=== PATIENT | male | born 1935 | race Caucasian/White ===

== ENCOUNTER 2017-11-24 22:01 | Observation (INO) | payer OTHER, MEDICARE ==
--- NOTE | 2017-11-24 22:05 | PDOC ---
History of Present Illness - General Chief Complaint: Shortness of Breath Stated Complaint: DIFF BREATHING Time Seen by Provider: 11/24/17 22:05 History Source: Patient, EMS Exam Limitations: No Limitations - History of Present Illness Initial Comments: 11/24/17 22:26 82M PMH of Raghavendra Page on coumadin, BPH, HLD, Hypothyroidism, anxiety, asthma, crohn' s, presents to the ER via EMS for shortness of breath. Patient states he had bronchial thermoplasty in 2012 for asthma and states he feels like he had trouble catching his breath. He states every night and every morning he takes pulmicort and albuterol nebulizer even though he hasn't really needed it in the past 3 years. Today he went to dinner and came home took his treatments and after a few minutes started to get short of breath. He had some hypotension earlier today and some lightheadedness. He currently denies nausea vomiting fever chills chest pain or shortness of breath. He endorses a cough for the past few weeks without sputum production. His partner endorses his left leg may be a bit more swollen than usual. Patient felt better upon presentation to the ED and by the time EMS arrived to the scene. Recent travel:No Smoking: Former smoker quit 1979 Alcohol: None Drugs: None Past History - Travel Traveled outside of the country in the last 30 days: No Close contact w/someone who was outside of country & ill: No - Past Medical History Allergies/Adverse Reactions: Allergies Allergy/AdvReac Type Severity Reaction Status Date / Time No Known Drug Allergies Allergy Verified 11/24/17 22:23 Home Medications: Ambulatory Orders Budesonide [Pulmicort] 0.5 mg IH BID 06/30/11 Rosuvastatin [Crestor -] 10 mg PO HS 06/30/11 Warfarin Na [Coumadin] 4 mg PO HS 06/30/11 Albuterol Sulfate Inhaler - [Ventolin HFA Inhaler -] 2 inh IH PRN PRN 01/15/12 Digoxin [Lanoxin -] 0.125 mg PO DAILY #30 tablet 01/31/13 Prednisolone 0.12% Ophthalmic [Pred Mild 0.12% -] 1 drop OD DAILY 09/30/15 Vit C/E/Zn/Coppr/Lutein/Zeaxan [Preservision Areds 2 Softgel] 1 each PO HS 09/29 Diltiazem Cd [Cardizem Cd -] 120 mg PO DAILY 11/24/17 Diltiazem HCl [Cartia Xt] 120 mg PO DAILY 11/24/17 Diphenhydramine HCl [Benadryl -] 25 mg PO HS 11/24/17 Losartan/Hydrochlorothiazide [Losartan-Hctz 100-25 mg Tab] 1 each PO DAILY 11/24 Olanzapine [Zyprexa] 5 mg PO HS 11/24/17 Anemia: No Asthma: Yes Cancer: No Cardiac Disorders: Yes (A-FIB, ANGIO 2003 NEGATIVE.) CVA: No COPD: Yes CHF: Yes Dementia: No Diabetes: Yes GI Disorders: No Disorders: Yes (BPH) HTN: Yes Hypercholesterolemia: Yes Liver Disease: No Psychiatric Problems: Yes (depression, anxiety) Seizures: No Thyroid Disease: Yes (HYPOTHYROID) - Surgical History Abdominal Surgery: No Appendectomy: No Cardiac Surgery: No Cholecystectomy: No Lung Surgery: Yes (BRONCHIAL THERMOPLASTY 12/2012) Neurologic Surgery: No Orthopedic Surgery: Yes (KNEE SX 1998) - Immunization History Td Vaccination: No - Suicide/Smoking/Psychosocial Hx Smoking Status: No Smoking History: Never smoked Have you smoked in the past 12 months: No Number of Cigarettes Smoked Daily: 0 If you are a former smoker, when did you quit?: 1979 Hx Alcohol Use: No Drug/Substance Use Hx: No Substance Use Type: None Hx Substance Use Treatment: No Review of Systems - Review of Systems Able to Perform ROS?: Yes Is the patient limited Jordanian proficient: No Constitutional: No: Symptoms Reported, See HPI, Chills, Diaphoresis, Fever, Loss of Appetite, Malaise, Night Sweats, Weakness, Weight Stable, Unintentional Wgt. Loss, Unexplained wgt Loss, Other HEENTM: No: Symptoms Reported, See HPI, Eye Pain, Blurred Vision, Tearing, Recent change in vision, Double Vision, Cataracts, Ear Pain, Ocular Prothesis, Ear Discharge, Nose Pain, Nose Congestion, Tinnitus, Nose Bleeding, Hearing Loss , Throat Pain, Throat Swelling, Mouth Pain, Dental Problems, Difficulty Swallowing, Mouth Swelling, Other Respiratory: Yes: Cough, Shortness of Breath Cardiac (ROS): Yes: Edema, Lightheadedness, Other (low BP) ABD/GI: No: Symptoms Reported, See HPI, Abdominal Distended, Abd. Pain w/ defecation, Blood Streaked Bowels, Constipated, Diarrhea, Difficulty Swallowing , Nausea, Poor Appetite, Poor Fluid Intake, Rectal Bleeding, Vomiting, Indigestion, Abdominal cramping, Tarry Stools, Other : No: Symptoms Reported, See HPI, Burning, Dysuria, Discharge, Frequency, Flank Pain, Hematuria, Incontinence, Pain, Urgency, Testicular Mass, Testicular Swelling, Lesions, Testicular Pain, Other Musculoskeletal: No: Symptoms Reported, See HPI, Back Pain, Gout, Joint Pain, Joint Swelling, Muscle Pain, Muscle Weakness, Neck Pain, Joint Stiffness, Other Neurological: No: Symptoms reported, See HPI, Headache, Numbness, Paresthesia, Pre-Existing Deficit, Seizure, Tingling, Tremors, Weakness, Unsteady Gait, Ataxia, Dizziness, Other Psychiatric: No: Anxiety, Depression, Frequent Crying, Stressors, Sleep Pattern Change, Emotional Problems, Mood Swings, Change in Appetite, Other Endocrine: No: Symptoms Reported, See HPI, Excessive Sweating, Flushing, Intolerance to Cold, Intolerance to Heat, Increased Hunger, Increased Thirst, Increased Urine, Unexplained Weight Gain, Unexplained Weight Loss, Change in Weight, Other *Physical Exam - Physical Exam General Appearance: Yes: Nourished, Appropriately Dressed. No: Apparent Distress HEENT: positive: EOMI, YANN Neck: positive: Trachea midline, Supple Respiratory/Chest: positive: Lungs Clear, Normal Breath Sounds. negative: Chest Tender, Respiratory Distress, Accessory Muscle Use, Labored Respiration Cardiovascular: positive: Irregularly Irregular Gastrointestinal/Abdominal: positive: Soft, Other (distasis recti). negative: Tender Musculoskeletal: negative: CVA Tenderness Integumentary: positive: Dry, Warm Neurologic: positive: ceramic restorer II-XII NML intact, Fully Oriented, Alert, Normal Mood/ Affect, Normal Response Heart Score/ECG Review - ECG Impressions Comment:: 11/24/17 23:36 A.fib @ 72BPM Left axis deviation LBBB Unchanged when compared to EKG from 10/2015 ED Treatment Course - LABORATORY CBC & Chemistry Diagram: 11/24/17 22:59 11/24/17 22:59 Medical Decision Making - Medical Decision Making 11/24/17 23:15 82M with multiple medical problems presents to the ER with acute shortness of breath in the setting of hypotension. Needs to rule out acute exacerbation of asthma vs pneumonia vs acute exacerbation of CHF vs ACS event vs VTE event vs dehydration/volume depletion Will do: CBC CMP Mg Cardiac profile BNP EKG CXR IVF reassess 11/25/17 00:46 Patient with electrolyte abnormalities BNP elevated VICKY Will place on observation consult cardiology no DVT on US 11/25/17 02:11 Patient signed out to Dr. Castorena who has assumed care of the patient and will follow up all ancillary studies. *DC/Admit/Observation/Transfer Diagnosis at time of Disposition: Acute kidney failure Qualifiers: Acute renal failure type: unspecified Qualified Code(s): N17.9 - Acute kidney failure, unspecified - Discharge Dispostion Condition at time of disposition: Fair Decision to Admit order: Yes - Referrals Referrals: Dani Del Rio MD [Primary Care Provider] - - Patient Instructions - Post Discharge Activity
[2017-11-24] MEDS ORDERED: SODIUM CHLORIDE 1,000 ML IV STA (22:52)
[2017-11-24 23:11] LABS: BASO % 0.9 % (0-2.0); EOS % 4.4 % (0-4.5); HEMATOCRIT 34.8 % (35.4-49); LYMPH % 23.5 % (8-40); MCH 31.2 pg (25.7-33.7); MCHC 34.6 g/dl (32.0-35.9); MEAN CELL VOLUME 90.1 fl (80-96); MEAN PLT VOLUME 7.5 fl (7.5-11.1); MONO % 7.5 % (3.8-10.2); NEUT % 63.7 % (42.8-82.8); PLATELET COUNT 191 K/MM3 (134-434); RBC 3.86 M/mm3 (4.00-5.60); WHITE BLOOD COUNT 5.6 K/mm3 (4.0-10.0)
--- NOTE | 2017-11-24 23:29 | PDOC ---
Attending Attestation - HPI HPI: 11/25/17 00:09 The patient is an 82 year old male with a significant past medical Hx of A. Fib on coumadin, BPH, HLD, Hypothyroidism, anxiety, asthma, crohn's, who presents to the ED via EMS for shortness of breath after dinner today. He endorses a cough for the past few weeks without sputum production. The patient denies chest pain, headache and dizziness. The patient denies fever , chills, nausea, vomit, diarrhea and constipation. The patient denies dysuria, frequency, urgency and hematuria. Allergies: NKDA - Physicial Exam PE: 11/25/17 00:09 ROS: A complete review of 10 out of 10 review of systems is taken and is negative apart from what is previously mentioned below and in the HPI. Adult Physical Exam Vitals: Triage vital signs reviewed General Appearance: No acute distress, well nourished, well developed Head: Atraumatic Eyes: Pupils equal reactive round, extraocular movement intact Neck: Supple; No nuchal rigidity Chest Wall: Nontender Cardiac: Regular rate and rhythm, no murmurs, no rubs, no gallops Lungs: Clear to auscultation bilateral, good air movement bilaterally Abdomen: Soft, nondistended, normal bowel sounds, nontender to palpation Extremities: Full range of motion to all extremities, no cyanosis, clubbing, or edema Skin: Warm and dry, no rashes or lesions, no rash, no petechiae Neuro: AOX3; Cranial Nerves 2-12 grossly intact, Strength intact to all extremities, Sensation intact to all extremities, Psych: Normal mood, normal affect - Medical Decision Making 11/25/17 00:10 Documentation prepared by Iram Tate, acting as medical cash poster for Everett Pugh MD <Iram Tate - Last Filed: 11/25/17 00:09> - Resident Resident Name: Robson Meade - ED Attending Attestation I have performed the following: I have examined & evaluated the patient, The case was reviewed & discussed with the resident, I agree w/resident's findings & plan, Exceptions are as noted - Medical Decision Making Laboratory analysis notable for hyponatremia, elevated creatinine, elevated BNP given shortness of breath slightly low blood pressure and or joint abnormalities we'll observe overnight and recheck labs in the morning after 1 L normal saline and consider cardiac consultation <Everett Pugh - Last Filed: 11/25/17 01:38> Heart Score/ECG Review - ECG Impressions Comment:: 11/25/17 01:38 EKG performed at 2310. Demonstrates atrial fibrillation with a competing junctional pacemaker. Left axis deviation. Left bundle branch block. No ST elevations. No T-wave inversions. Interpreted by me. <Everett Pugh - Last Filed: 11/25/17 01:38>
[2017-11-24 23:30] LABS: INR 2.08 (0.83-1.09); PROTHROMBIN TIME (PATIENT) 23.5 SEC (9.7-13.0)
[2017-11-24 23:35] LABS: ALBUMIN 3.4 g/dl (3.4-5.0); ANION GAP 7 MMOL/L (8-16); BILIRUBIN,TOTAL 0.4 mg/dL (0.2-1.0); BLOOD UREA NITROGEN 31 mg/dL (7-18); CALCIUM 8.6 mg/dL (8.5-10.1); CHLORIDE 101 mmol/L (98-107); CO2 34 mmol/L (21-32); CREATININE 1.4 mg/dL (0.7-1.3); GLUCOSE,RANDOM 90 mg/dL (74-106); MAGNESIUM 1.5 mg/dL (1.8-2.4); PHOSPHOROUS 2.1 mg/dL (2.5-4.9); SGOT/AST 20 U/L (15-37); SGPT/ALT 25 U/L (12-78); SODIUM 142 mmol/L (136-145); TOT PROT 6.4 g/dl (6.4-8.2)
[2017-11-24 23:38] LABS: ALK PHOS 66 U/L (45-117); N-TERMINAL BNP 1283.41 pg/ml (5-450)
[2017-11-25] MEDS ORDERED: WARFARIN NA 2 MG TABLET (UD) PO ONE (02:04)
[2017-11-25] MEDS ORDERED: POTASSIUM CHLORIDE TABS 20 MEQ TABLET.ER (FP) PO ONE ×3 (02:04→04:07)
[2017-11-25] MEDS ORDERED: clonazePAM 0.5 MG TABLET PO ONE (02:04)
[2017-11-25] MEDS ORDERED: SODIUM CHLORIDE 1,000 ML IV SCH ×2 (02:15→06:30)
[2017-11-25] MEDS ORDERED: RANITIDINE HCL 150 MG TABLET (FP) ONE (02:35)
[2017-11-25] MEDS ORDERED: clonazePAM 0.5 MG TABLET ONE (02:46)
[2017-11-25] MEDS ORDERED: MAGNESIUM OXIDE 400 MG TABLET (FP) PO ONE (04:08)
--- NOTE | 2017-11-25 04:13 | HP ---
CHIEF COMPLAINT: shortness of breath PCP: [facility] [employer] [facility]- Dr. Odilia Montero- Dr. Clemente HISTORY OF PRESENT ILLNESS: 82M w/ pmhx of a fib, BPH, HLD, hypothyroidism, anxiety, asthma, aortic aneurysm presented in the ED for shortness of breath. Pt states he had dinner last night at a [place] restaurant with his partner and then went home. When he arrived home, he did his breathing treatments with the nebulizer and albuterol and subsequently started to have shortness of breath. At the time, he was not exerting himself. He denies chest pain, headaches/dizziness, nausea/vomiting, abdominal pain, urinary symptoms. He does admit to chronic constipation. Of note , he says that in 2012, after he underwent a bronchial thermoplasty, he had received 3 treatments post-surgery. During those 3 treatments, he admits to feeling very short of breath and report that this episode of sob was very similar. He denies any other precipitating factors. ER course was notable for: (1) CXR ordered (2) Doppler showed no DVT (3) IV NS given Recent Travel: Denies PAST MEDICAL HISTORY: A. Fib BPH HLD hypothyroidism anxiety Asthma PAST SURGICAL HISTORY: Bronchial thermoplasty (2102) 2 cornea implants b/l knee surgery (1998) Social History: Smoking: Admits to quitting in 1979 Alcohol: Socially, 1 beer/week Drugs: Denies Family History: Mother - of lung cx at 98 years old Father - HTN, stroke, at 77. Sister- 86, GI stromal tumor Allergies No Known Drug Allergies Allergy (Verified 11/24/17 22:23) HOME MEDICATIONS: Home Medications Medication Instructions Recorded Budesonide [Pulmicort] 0.5 mg IH BID 06/30/11 Rosuvastatin [Crestor -] 10 mg PO HS 06/30/11 Warfarin Na [Coumadin] 4 mg PO HS 06/30/11 Albuterol Sulfate Inhaler - 2 inh IH PRN PRN 01/15/12 [Ventolin HFA Inhaler -] Digoxin [Lanoxin -] 0.125 mg PO DAILY #30 tablet 01/31/13 Prednisolone 0.12% Ophthalmic 1 drop OD DAILY 09/30/15 [Pred Mild 0.12% -] Vit C/E/Zn/Coppr/Lutein/Zeaxan 1 each PO HS 09/30/15 [Preservision Areds 2 Softgel] Diltiazem Cd [Cardizem Cd -] 120 mg PO DAILY 11/24/17 Diltiazem HCl [Cartia Xt] 120 mg PO DAILY 11/24/17 Diphenhydramine HCl [Benadryl -] 25 mg PO HS 11/24/17 Losartan/Hydrochlorothiazide 1 each PO DAILY 11/24/17 [Losartan-Hctz 100-25 mg Tab] Olanzapine [Zyprexa] 5 mg PO HS 11/24/17 REVIEW OF SYSTEMS CONSTITUTIONAL: Absent: fever, chills, diaphoresis, generalized weakness, malaise, loss of appetite, weight change HEENT: Absent: rhinorrhea, nasal congestion, throat pain, throat swelling, difficulty swallowing, mouth swelling, ear pain, eye pain, visual changes CARDIOVASCULAR: Absent: chest pain, syncope, palpitations, irregular heart rate, lightheadedness , peripheral edema RESPIRATORY: shortness of breath, cough but no productive sputum Absent: dyspnea with exertion, orthopnea, wheezing, stridor, hemoptysis GASTROINTESTINAL: Absent: abdominal pain, abdominal distension, nausea, vomiting, diarrhea, constipation, melena, hematochezia GENITOURINARY: Absent: dysuria, frequency, urgency, hesitancy, hematuria, flank pain, genital pain MUSCULOSKELETAL: Absent: myalgia, arthralgia, joint swelling, back pain, neck pain SKIN: Absent: rash, itching, pallor HEMATOLOGIC/IMMUNOLOGIC: Absent: easy bleeding, easy bruising, lymphadenopathy, frequent infections ENDOCRINE: Absent: unexplained weight gain, unexplained weight loss, heat intolerance, cold intolerance NEUROLOGIC: Absent: headache, focal weakness or paresthesias, dizziness, unsteady gait, seizure, mental status changes, bladder or bowel incontinence PSYCHIATRIC: Absent: anxiety, depression, suicidal or homicidal ideation, hallucinations. PHYSICAL EXAMINATION Vital Signs - 24 hr 11/24/17 11/24/17 11/25/17 22:01 23:15 02:57 Temperature 97.7 F 97.3 F L Pulse Rate 93 H Pulse Rate [ 80 Left] Respiratory 16 18 Rate Blood Pressure 95/62 Blood Pressure 101/57 [Right Arm] O2 Sat by Pulse 100 100 98 Oximetry (%) GENERAL: AAOx3. Anxious appearing. Obese HEENT: AT/NC. EOMI. Moist mucus membranes. NECK: Supple, nontender. no lad or jvd. LUNGS: CTA B/L. No wheezes, rhonchi, rales noted. HEART: RRR, Normal S1, S2. No m/r/g noted. ABDOMEN: Soft, nontender. Obese MUSCULOSKELETAL: 5/5 muscle strength in U/L B/L extremities. 2+ peripheral pulses. 1+ pitting edema b/l lower extremities. NEUROLOGICAL: CN II-XII intact. Normal sensation bilaterally. PSYCHIATRIC: Cooperative. Good eye contact. Appropriate mood and affect. SKIN: Warm, dry, normal turgor, no rashes or lesions noted, normal capillary refill. CBC, BMP 11/25/17 06:00 11/25/17 06:00 Laboratory Tests 11/24/17 11/24/17 11/24/17 22:59 22:59 22:59 WBC 5.6 RBC 3.86 L Hgb 12.0 Hct 34.8 L MCV 90.1 MCH 31.2 MCHC 34.6 RDW 15.0 Plt Count 191 D MPV 7.5 Absolute Neuts (auto) 3.6 Neutrophils % 63.7 Lymphocytes % 23.5 Monocytes % 7.5 Eosinophils % 4.4 Basophils % 0.9 Nucleated RBC % 0 PT with INR 23.50 H INR 2.08 H Sodium 142 Potassium 3.0 L Chloride 101 Carbon Dioxide 34 H Anion Gap 7 L BUN 31 H Creatinine 1.4 H Creat Clearance w eGFR 48.76 Random Glucose 90 Calcium 8.6 Phosphorus 2.1 L Magnesium 1.5 L Total Bilirubin 0.4 AST 20 ALT 25 D Alkaline Phosphatase 66 Creatine Kinase 67 Troponin I 0.03 D B-Natriuretic Peptide 1283.41 H Total Protein 6.4 Albumin 3.4 Urine Color Urine Appearance Urine pH Ur Specific [place] Urine Protein Urine Glucose (UA) Urine Ketones Urine Blood Urine Nitrite Urine Bilirubin Urine Urobilinogen Ur Leukocyte Esterase Ur Random Sodium Ur Random Potassium Ur Random Chloride 11/25/17 11/25/17 11/25/17 06:00 06:00 06:00 WBC 4.8 RBC 3.76 L Hgb 11.4 L Hct 34.1 L MCV 90.6 MCH 30.5 MCHC 33.6 RDW 15.0 Plt Count 168 MPV 7.9 Absolute Neuts (auto) 2.8 Neutrophils % 58.5 Lymphocytes % 28.3 D Monocytes % 7.3 Eosinophils % 4.9 H Basophils % 1.0 Nucleated RBC % 0 PT with INR 21.40 H INR 1.89 H Sodium 140 Potassium 4.0 D Chloride 103 Carbon Dioxide 32 Anion Gap 5 L BUN 28 H Creatinine 1.0 Creat Clearance w eGFR > 60 Random Glucose 90 Calcium 8.4 L Phosphorus 3.2 D Magnesium 1.6 L Total Bilirubin 0.5 AST 23 ALT 24 Alkaline Phosphatase 62 Creatine Kinase Troponin I B-Natriuretic Peptide Total Protein 6.1 L Albumin 3.3 L Urine Color Urine Appearance Urine pH Ur Specific [place] Urine Protein Urine Glucose (UA) Urine Ketones Urine Blood Urine Nitrite Urine Bilirubin Urine Urobilinogen Ur Leukocyte Esterase Ur Random Sodium Ur Random Potassium Ur Random Chloride 11/25/17 11/25/17 06:50 06:50 WBC RBC Hgb Hct MCV MCH MCHC RDW Plt Count MPV Absolute Neuts (auto) Neutrophils % Lymphocytes % Monocytes % Eosinophils % Basophils % Nucleated RBC % PT with INR INR Sodium Potassium Chloride Carbon Dioxide Anion Gap BUN Creatinine Creat Clearance w eGFR Random Glucose Calcium Phosphorus Magnesium Total Bilirubin AST ALT Alkaline Phosphatase Creatine Kinase Troponin I B-Natriuretic Peptide Total Protein Albumin Urine Color Straw Urine Appearance Clear Urine pH 6.0 Ur Specific [place] 1.012 Urine Protein Negative Urine Glucose (UA) Negative Urine Ketones Negative Urine Blood Negative Urine Nitrite Negative Urine Bilirubin Negative Urine Urobilinogen Negative Ur Leukocyte Esterase Negative Ur Random Sodium 116 Ur Random Potassium 21.2 Ur Random Chloride 118 Active Medications Albuterol Sulfate (Ventolin Hfa Inhaler -) 2 puff IH Q4H PRN PRN Reason: ASTHMA Budesonide (Pulmicort 0.5 Mg Nebulizer -) 1 amp NEB RBID [facility] Last Admin: 11/25/17 08:39 Dose: 1 amp Diltiazem HCl (Cardizem Cd -) 120 mg PO DAILY [facility] Last Admin: 11/25/17 11:02 Dose: 120 mg Escitalopram Oxalate (Lexapro -) 10 mg PO DAILY [facility] Last Admin: 11/25/17 11:02 Dose: Not Given HCTZ/Losartan Potassium (Hyzaar -) 2 tab PO DAILY [facility] Last Admin: 11/25/17 11:06 Dose: Not Given Sodium Chloride (Normal Saline -) 1,000 mls @ 100 mls/hr IV ASDIR [facility] Last Admin: 11/25/17 11:03 Dose: 100 mls/hr Olanzapine (Zyprexa -) 5 mg PO HS [facility] Rosuvastatin Calcium (Crestor -) 10 mg PO HS [facility] Warfarin Sodium (Coumadin -) 4 mg PO DAILY@1800 [facility] ASSESSMENT/PLAN: 82M w/ pmhx of a fib, BPH, HLD, hypothyroidism, anxiety, asthma, aortic aneurysm presented in the ED for shortness of breath. #shortness of breath; likely 2/2 anxiety and/or inappropriate use of meds, unlikely asthma exacerbation or CHF exacerbation -Pt reports taking albuterol as a prophylactic measure vs for actual symptoms. Effects of albuterol use cause tachycardia and can possibly cause feelings of anxiety. Pt was counseled on discontinuing albuterol use as it could precipitate his symptoms. Unlikely asthma exacerbation as pt with no wheezes heard on exam, no increased work of breathing, sat 100% RA. Clinically, pt does not look in CHF exacerbation as his lungs were clear, no JVD noted. -Pt uses CPAP at home every night, but has declined use tonight. -Pt is s/p bronchial thermoplasty, currently on nebs at home -f/u outpatient with Dr. Clemente -f/u CXR -f/u cardio consult, Dr. Hartley #VICKY; likely prerenal/dehydration. Cr 1.4 -Pt admits to poor daily oral hydration -Pt was counseled on increasing PO intake to allow for better renal function -IVf -f/u renal u/s #Hypomagnesemia/Hypokalemia -given Mag ox 400 mg PO -given KCl 40 meq -recheck mag/phos in AM #A. Fib -Diltiazem 120 QD -Coumadin 4 mg QD -recheck INR -f/u with PCP outpatient for INR check to verify therapeutic level #RADHA -Lexapro 10 QD #BPH -no BPH meds noted on med list -Per previous records, no longer on meds as they were unsuccessful #HLD -Rosuvastatin 10 HS #Hypothyroidism -clinically euthyroid -no thyroid meds noted on med list #DVT Ppx -currently anticoagulated as pt is on Coumadin at home #FEN -NS @ 100 -recheck lytes in AM -regular diet dispo -monitor on obs Visit type - Emergency Visit Emergency Visit: Yes ED Registration Date: 11/25/17 Care time: The patient presented to the Emergency Department on the above date and was hospitalized for further evaluation of their emergent condition. - New Patient This patient is new to me today: Yes Date on this admission: 11/25/17 - Critical Care Critical Care patient: No Hospitalist Screening - Colonoscopy Questionnaire Colonoscopy Questionnaire: Colonoscopy Questionnaire - Patient: 50 - 75 years old and never had a screening colonoscopy: Unknown History of colon or rectal polyps, or CA: Unknown History of IBD, Crohn's disease or UC: Unknown History of abdominal radiation therapy as a child: Unknown - Relative: 1 with colon or rectal CA, or polyps at age 60 or younger: Unknown Colon or rectal CA diagnosed at age 45 or younger: Unknown Multiple relatives with colon or rectal CA: Unknown - Outcome: Screening Result: Negative Screen
[2017-11-25 04:16] VITALS: BMI 43.0
[2017-11-25] MEDS ORDERED: ALBUTEROL SO4 8 GM HFA INHALER IH PRN ×2 (04:38→05:48)
--- NOTE | 2017-11-25 05:51 | PN ---
Teaching Attending Note Name of Resident: Lisa Castorena ATTENDING PHYSICIAN STATEMENT I saw and evaluated the patient. Chart, data, imaging reviewed I reviewed the resident's note and discussed the case with the resident. I agree with the resident's findings and plan as documented. SUBJECTIVE: 82 year old male with a significant past medical Hx of A. Fib on coumadin, BPH, HLD, Hypothyroidism, anxiety, asthma, crohn's, who c/o SOB which started 11/24 evening when he was eating dinner. SOB started spontaneously and patient admitted to using albuterol "prophylactically" very frequently prior to this episode. Denied chest pain or recent travels. OBJECTIVE: Last Vital Signs Temp Pulse Resp BP Pulse Ox 97.3 F L 80 18 101/57 98 11/25/17 02:57 11/25/17 02:57 11/25/17 02:57 11/25/17 02:57 11/25/17 02:57 general- appears anxious, obese, NAD heent- at, nc, moist oral mucosa neck -supple, no jvd cv - s1+s2+ rrr chest cta b/l abdomen - obese, bs+, nt ext- slight chronic venous stasis changes b/l Abnormal Lab Results 11/24/17 11/24/17 11/24/17 22:59 22:59 22:59 RBC 3.86 L Hct 34.8 L PT with INR 23.50 H INR 2.08 H Potassium 3.0 L Carbon Dioxide 34 H Anion Gap 7 L BUN 31 H Creatinine 1.4 H Phosphorus 2.1 L Magnesium 1.5 L B-Natriuretic Peptide 1283.41 H CXR - reviewed- unchanged from prior EKG reviewed, no acute ishemic changes ASSESSMENT AND PLAN: 82yo man with subjective shortness of breath likely due to anxiety and possibly inappropriate use of albuterol. Unlikely asthma , AL, or PE. -observation -counseled on avoiding unnecessary use of of albuterol -reassurance -patient refused CPAP for now #VICKY- IV fluid hydration -UA -urine lytes -renal U/S -i/o -daily weights #Electrolyte disturbances -hypokalemia and hypomagnesemia -supplement electrolytes above -repeat chemistry and Mg c/w home meds for chronic medical problems (avoid albuterol for now)
[2017-11-25] MEDS ORDERED: HEPARIN NA (PORCINE) 5,000 UNITS/ML 1ML VIAL SQ SCH (06:00)
[2017-11-25 07:43] LABS: EOS % 4.9 % (0-4.5); HEMATOCRIT 34.1 % (35.4-49); HEMOGLOBIN 11.4 GM/dL (11.7-16.9); LYMPH % 28.3 % (8-40); MCH 30.5 pg (25.7-33.7); MCHC 33.6 g/dl (32.0-35.9); MEAN CELL VOLUME 90.6 fl (80-96); MEAN PLT VOLUME 7.9 fl (7.5-11.1); MONO % 7.3 % (3.8-10.2); NEUT % 58.5 % (42.8-82.8); PLATELET COUNT 168 K/MM3 (134-434); RBC 3.76 M/mm3 (4.00-5.60); WHITE BLOOD COUNT 4.8 K/mm3 (4.0-10.0)
[2017-11-25 07:54] LABS: INR 1.89 (0.83-1.09); PROTHROMBIN TIME (PATIENT) 21.4 SEC (9.7-13.0)
[2017-11-25 08:00] LABS: ALBUMIN 3.3 g/dl (3.4-5.0); ANION GAP 5 MMOL/L (8-16); BILIRUBIN,TOTAL 0.5 mg/dL (0.2-1.0); BLOOD UREA NITROGEN 28 mg/dL (7-18); CALCIUM 8.4 mg/dL (8.5-10.1); CHLORIDE 103 mmol/L (98-107); CO2 32 mmol/L (21-32); GLUCOSE,RANDOM 90 mg/dL (74-106); PHOSPHOROUS 3.2 mg/dL (2.5-4.9); SGOT/AST 23 U/L (15-37); SGPT/ALT 24 U/L (12-78); SODIUM 140 mmol/L (136-145); TOT PROT 6.1 g/dl (6.4-8.2)
[2017-11-25] MEDS ORDERED: BUDESONIDE 0.5 MG/2 ML INH SUSP VIAL NEB SCH (08:00)
[2017-11-25 08:01] LABS: ALK PHOS 62 U/L (45-117)
[2017-11-25 08:37] LABS: URINE APPEARANCE CLEAR; URINE BILIRUBIN NEGATIVE (<2.0 mg/dL); URINE COLOR STRAW; URINE GLUCOSE (UA) NEGATIVE (NEGATIVE); URINE KETONE NEGATIVE (NEGATIVE); URINE LEUK ESTERASE NEGATIVE (NEGATIVE); URINE NITRITE NEGATIVE (NEGATIVE); URINE PROTEIN NEGATIVE (NEGATIVE); URINE UROBILINOGEN NEGATIVE mg/dL (0.2-1.0)
[2017-11-25 08:45] LABS: MAGNESIUM 1.6 mg/dL (1.8-2.4)
[2017-11-25] MEDS ORDERED: ESCITALOPRAM OXALATE 10 MG TABLET (FP) PO SCH (10:00)
[2017-11-25] MEDS ORDERED: LOSARTAN 50MG/HCTZ 12.5MG 1 TAB (FP) PO SCH (10:00)
[2017-11-25] MEDS ORDERED: MAGNESIUM SULF 50% (8.12 MEQ/2 ML-1 GM VIAL) IVPB ONE (11:15)
--- NOTE | 2017-11-25 11:44 | DS ---
Physical Examination Vital Signs: Vital Signs Temperature 97.8 F 11/25/17 06:02 Pulse Rate 83 11/25/17 06:02 Respiratory Rate 18 11/25/17 06:02 Blood Pressure 122/73 11/25/17 06:02 O2 Sat by Pulse Oximetry (%) 98 11/25/17 02:57 Findings/Remarks: No fever or chills. denies any sputum production . has chronic cough . no cp , no palpitations. NAD CV : irreg irreg , no MRG Lungs : R base fine crackles , otherwise, no wheezing. has good air entry Ext : chronic discoloration of the LE , 1+ pitting edema abd : no TTP , nl BS . obese Labs: CBC, BMP 11/25/17 06:00 11/25/17 06:00 Discharge Summary Reason For Visit: ACUTE KIDNEY INJURY Current Active Problems Acute kidney failure (Acute) Hospital Course: D/C diagnosis : - transient dyspnia - VICKY hospital course : 80 yo M with multiple medical problems including A fib, BPH , HTN, HLP, hypothyroidism. BPH, anxiety and asthma, who presented with acute episode SOB last night . patient reported acute SOb after albuterol inhaler use last night lasted x 30 min . no cough or fever . uponarrival to ER. cxray did not show acute process, ? retrocardiac opacity, but patient clincally did not have signs of pNA. his exam was remarkable for R base crackles which where chronic in nature and were heard last asmission. he was not thought to be in asthma exacerbation . he did not require oxygen. his BNP was elevated but he did not have any signs of heart failrue. infact he was given IVF for his AKLI and his respiratory sx did nto worsen. his VICKY was treated with IVF and Cr improved form 1.4 to 1. he was advised to drink fluids he was found tohave INR of 1.8 , he has A fib and his goal is 2-3. he sometimes misses doses or takes it next Am .but also developed coumadin coagulopathy whenhe was on 5 of coumadin. he was asked to take 5 mg of coumadin tonight then cont his home dose of 4 mg thenget INR dosne on 11/27 to fax to PCP for advise. He was offered pulm eval but he declined and preferred to see Dr. Moralez as out pt his electrolytes abn were corrected dispo: Dc home condition : improved . f/u with pcp and pulm Condition: Improved - Instructions Diet, Activity, Other Instructions: - your transient dyspnia has resolved. no etiology was found. - please follow with Dr. moralez in 1 week - please stay hydrated as your kidney function was elevated , now recovered. - please take 5 mg of coumadin tonight then 4 tomorrow and after - INR check on 11/27 , fax results to PCP . INR today is 1.8 - use your meds as prescribed. Good luck Referrals: Dani Del Rio MD [Primary Care Provider] - 1 Week Sae Clemente MD [Staff Physician] - Disposition: HOME - Home Medications Comprehensive Discharge Medication List: Ambulatory Orders Budesonide [Pulmicort] 0.5 mg IH BID 06/30/11 Rosuvastatin [Crestor -] 10 mg PO HS 06/30/11 Warfarin Na [Coumadin] 4 mg PO HS 06/30/11 Albuterol Sulfate Inhaler - [Ventolin HFA Inhaler -] 2 inh IH PRN PRN 01/15/12 Prednisolone 0.12% Ophthalmic [Pred Mild 0.12% -] 1 drop OD DAILY 09/30/15 Vit C/E/Zn/Coppr/Lutein/Zeaxan [Preservision Areds 2 Softgel] 1 each PO HS 09/29 Diltiazem HCl [Cartia Xt] 120 mg PO DAILY 11/24/17 Diphenhydramine HCl [Benadryl Capsule -] 25 mg PO HS 11/24/17 Losartan/Hydrochlorothiazide [Losartan-Hctz 100-25 mg Tab] 1 each PO DAILY 11/24 Olanzapine [Zyprexa] 5 mg PO HS 11/24/17 Escitalopram Oxalate [Lexapro -] 10 mg PO DAILY 11/25/17 Miscellaneous Medical Supply [Outpatient Order] 1 each ASDIR #1 [facility] [place] This patient is new to me today: Yes Date on this admission: 11/25/17 Emergency Visit: Yes ED Registration Date: 11/25/17 Care time: The patient presented to the Emergency Department on the above date and was hospitalized for further evaluation of their emergent condition. Critical Care patient: No - Discharge Referral Referred to [facility] Med P.C.: No
[2017-11-25 14:56] VITALS: BP 151/81; PULSE 70; TEMP 97.8
--- NOTE | 2017-11-25 17:39 | CON.CARD ---
Consult Consult Specialty:: Cardiology Referred by:: Dr. Coleman Reason for Consultation:: CHF - History of Present Illness Chief Complaint: Shortness of breath History of Present Illness: 82 year-old man, ex-smoker with a PMHx of chronic atrial fibrillation on warfarin, aortic aneurysm, HTN, BPH, HLD, hypothyroidism, anxiety, asthma; admitted 11/24/2017 with shortness of breath. The patient developed shortness of breath after dinner on the day of admission at a [employer] restaurant. His SOB improved after 3 treatments with albutero nebulizer. He denies chest pain, palpitatation, dizziness, syncope, near syncope. He has chronic leg edema without apparent orthopnea or PND. His BNP is elevated. Received IV NS for elevated BUN and Creat. CXR 11/24/2017 revealed cardiomegaly with retrocardiac atelectasis vs infiltrate. LE duplex showed no DVT. He remains in atrial fibrillation with controlled VR. ' He has physical signs of fluid overload but no recurrent SOB. - History Source History Provided By: Patient Limitations to Obtaining History: No Limitations - Past Medical History Cardio/Vascular: Yes: AFIB (Chronic atrial fibrillation on coumadin (held for procedure) and cardizem for rate control, never had AF ablation, never had DCCV) , HTN, Hyperlipdemia Pulmonary: Yes: Asthma Renal/: Yes: BPH Psych: Yes: Other (Manic state possibly secondary to steroids) Musculoskeletal: Yes: Osteoarthritis Endocrine: Yes: Diabetes Mellitus (states unclear if has DM or if from oil heaterman steroid use) - Past Surgical History Past Surgical History: Yes: Joint Replacement, Vein Stripping/Ligation - Alcohol/Substance Use Hx Alcohol Use: No History of Substance Use: reports: None - Smoking History Smoking history: Never smoked Have you smoked in the past 12 months: No Aproximately how many cigarettes per day: 0 If you are a former smoker, when did you quit?: 1979 - Social History Usual Living Arrangement: With Spouse History of Recent Travel: No Home Medications - Allergies Allergies/Adverse Reactions: Allergies Allergy/AdvReac Type Severity Reaction Status Date / Time No Known Drug Allergies Allergy Verified 11/24/17 22:23 - Home Medications Home Medications: Ambulatory Orders Budesonide [Pulmicort] 0.5 mg IH BID 06/30/11 Rosuvastatin [Crestor -] 10 mg PO HS 06/30/11 Warfarin Na [Coumadin] 4 mg PO HS 06/30/11 Albuterol Sulfate Inhaler - [Ventolin HFA Inhaler -] 2 inh IH PRN PRN 01/15/12 Prednisolone 0.12% Ophthalmic [Pred Mild 0.12% -] 1 drop OD DAILY 09/30/15 Vit C/E/Zn/Coppr/Lutein/Zeaxan [Preservision Areds 2 Softgel] 1 each PO HS 09/29 Diltiazem HCl [Cartia Xt] 120 mg PO DAILY 11/24/17 Diphenhydramine HCl [Benadryl Capsule -] 25 mg PO HS 11/24/17 Losartan/Hydrochlorothiazide [Losartan-Hctz 100-25 mg Tab] 1 each PO DAILY 11/24 Olanzapine [Zyprexa] 5 mg PO HS 11/24/17 Escitalopram Oxalate [Lexapro -] 10 mg PO DAILY 11/25/17 Miscellaneous Medical Supply [Outpatient Order] 1 each ASDIR #1 [facility] [place] Review of Systems - Review of Systems Constitutional: reports: No Symptoms Eyes: reports: No Symptoms HENT: reports: No Symptoms Neck: reports: No Symptoms Cardiovascular: reports: Shortness of Breath Respiratory: reports: SOB, SOB on Exertion Gastrointestinal: reports: Constipation Genitourinary: reports: No Symptoms Breasts: reports: No Symptoms Reported Musculoskeletal: reports: No Symptoms Integumentary: reports: No Symptoms Neurological: reports: No Symptoms Hematology/Lymphatic: reports: No Symptoms Psychiatric: reports: No Symptoms Vital Signs: Vital Signs Temperature 97.8 F 11/25/17 14:53 Pulse Rate 70 11/25/17 14:53 Respiratory Rate 20 11/25/17 14:53 Blood Pressure 151/81 11/25/17 14:53 O2 Sat by Pulse Oximetry (%) 98 11/25/17 02:57 General: Well developed. Obese. No acute distress. Head: Normocephalic. Atraumatic, Eyes: PERRLA, EOMI. Sclerae anicteric. Conjunctivae clear. Neck: Supple. No JVD. No bruits. Heart: Normal S1, S2: Irregular rhythm and rate. No murmur. No gallop or rub. Lungs: Symmetrical poor air entry with prolonged expiration. Bibasilar crackle. No wheezing or rhonchi. Abdomen: Obese. Soft. Bowel sound positive. Non tender. No masses. Extremities: 1+ edema. No clubbing or cyanosis. PD 2+, equal bilaterally. Neuro: Intact, no focal findings. AAO X3. - Other Data Labs, Other Data: CBC, BMP 11/25/17 06:00 11/25/17 06:00 INR, PTT INR 1.89 (0.83-1.09) H 11/25/17 06:00 Troponin, BNP 11/24/17 22:59 Troponin I 0.03 D B-Natriuretic Peptide 1283.41 H Troponin, BNP 11/24/17 22:59 Troponin I 0.03 D B-Natriuretic Peptide 1283.41 H Assessment/Plan 82 year-old man, ex-smoker with a PMHx of chronic atrial fibrillation on warfarin, aortic aneurysm, HTN, BPH, HLD, hypothyroidism, anxiety, asthma; admitted 11/24/2017 with shortness of breath. The patient developed shortness of breath after dinner on the day of admission at a [employer] restaurant. His SOB improved after 3 treatments with albutero nebulizer. He denies chest pain, palpitatation, dizziness, syncope, near syncope. He has chronic leg edema without apparent orthopnea or PND. His BNP is elevated. Received IV NS for elevated BUN and Creat. CXR 11/24/2017 revealed cardiomegaly with retrocardiac atelectasis vs infiltrate. LE duplex showed no DVT. He remains in atrial fibrillation with controlled VR. He has physical signs of fluid overload but no recurrent SOB. 1) Chronic diastolic CHF with physical signs of fluid overload, elevated BNP and SOB. SOB also could be contributed by asthma. Start PO Lasix 40 mg daily. Change Losartan-HCTZ to Losartan 100 mg daily. Out patient cardiac follow up with Dr. Hartley for repeat echocardiogram for LV systolic function. 2) Chronic atrial fibrillation with controlled VR. Continue Dilt for VR control Continue warfarin for stoke prevention. No cardiac contraindication to discharge plan. Please call us for reconsult as needed.
[2017-11-25] MEDS ORDERED: WARFARIN NA 2 MG TABLET (UD) PO SCH (18:00)
--- NOTE | 2017-11-25 21:57 | EKG ---
Test Reason : Blood Pressure : / mmHG Vent. Rate : 072 BPM Atrial Rate : 326 BPM P-R Int : 000 ms QRS Dur : 136 ms QT Int : 390 ms P-R-T Axes : 000 -69 011 degrees QTc Int : 427 ms ATRIAL FIBRILLATION WITH A COMPETING JUNCTIONAL PACEMAKER LEFT AXIS DEVIATION LEFT BUNDLE BRANCH BLOCK ABNORMAL ECG WHEN COMPARED WITH ECG OF 02-OCT-2015 13:20, NO SIGNIFICANT CHANGE WAS FOUND Confirmed by JESSICA SILVERIO MD ([id number]) on 11/25/2017 9:56:59 PM Referred By: Confirmed By:JESSICA SILVERIO MD
[2017-11-25] MEDS ORDERED: OLANZapine 5 MG TABLET PO SCH (22:00)
[2017-11-25] MEDS ORDERED: ROSUVASTATIN CA 10 MG TABLET (FP) PO SCH (22:00)
== END 2017-11-25 16:55 | disposition home or self-care (01) ==
LOC: JER 22:01 → JERBED 11-25 01:24 → UNDOADMOB 11-25 01:24 → INTOOBSV 11-25 01:24 → JERBED 11-25 03:31 → J7W 11-25 03:31 → JERBED 11-25 04:02 → J7W 11-25 04:02
PROVIDERS: ADMIT Internal Medicine; ATTEND Internal Medicine
PROC: 3E033GC Introduction of Other Therapeutic Substance into Peripheral Vein, Percutaneous Approach (ICD-10-PCS; principal; 2017-11-25)
PROC: 3E0337Z Introduction of Electrolytic and Water Balance Substance into Peripheral Vein, Percutaneous Approach (ICD-10-PCS; 2017-11-25)
PROC: 3E0F7GC Introduction of Other Therapeutic Substance into Respiratory Tract, Via Natural or Artificial Opening (ICD-10-PCS; 2017-11-25)
DX: E78.5 Hyperlipidemia, unspecified (principal); R06.02 Shortness of breath; E03.9 Hypothyroidism, unspecified; I48.91 Unspecified atrial fibrillation; J45.909 Unspecified asthma, uncomplicated; I50.9 Heart failure, unspecified; E11.9 Type 2 diabetes mellitus without complications; N40.0 Benign prostatic hyperplasia without lower urinary tract symptoms; Z87.19 Personal history of other diseases of the digestive system; Z79.01 Long term (current) use of anticoagulants; Z87.891 Personal history of nicotine dependence; F41.9 Anxiety disorder, unspecified; E87.6 Hypokalemia; E83.42 Hypomagnesemia; F41.1 Generalized anxiety disorder
CPT/HCPCS: 36415; 71045-TC-FY; 76775-TC; 80053; 81003; 82436; 82550; 83735; 83880; 84100; 84133; 84300; 84484; 85025; 85610; 93005; 93010; 93970-TC; 94640; 96361; 96374; 99282-25; G0378; J7030

== ENCOUNTER 2018-08-22 23:12 | Inpatient (IN) | payer OTHER, MEDICARE ==
[2018-08-22] MEDS ORDERED: dilTIAZem HCL 50 MG/10 ML - 10 ML VIAL IVPUSH ONE (23:23)
[2018-08-22] MEDS ORDERED: dilTIAZem HCL 125 MG/25 ML - 25 ML VIAL ONE (23:42)
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
--- NOTE | 2018-08-23 00:07 | PDOC ---
History of Present Illness - General Stated Complaint: DIFF. BREATHING History Source: Patient Exam Limitations: No Limitations - History of Present Illness Initial Comments: 08/22/18 23:45 83 yo male pmh A fib, BPH, HTN, HLD, COPD, asthma, PNA, CHF, hypothyroidism. BPH , anxiety presents to the ED with SOB. EMS brought pt in stating complaints of inability to breath, place him on 15 L NC, O2 100% reported. Pt does not require home O2, never been intubated. Pt states he has required increased need of prednisone (40mg PO daily) albuterol inhaler over the last 4 days (takes it 1X every hour) states he has bronchitis, on augmentin with a cough. Denies F/C/N /V, CP, back pain, abdominal pain, changes in bowel or bladder habits. Past History - Past Medical History Allergies/Adverse Reactions: Allergies Allergy/AdvReac Type Severity Reaction Status Date / Time No Known Drug Allergies Allergy Verified 08/22/18 23:32 Home Medications: Ambulatory Orders Diltiazem Cd [Cardizem Cd -] 240 mg PO DAILY 08/22/18 Prednisone [Prednisone 50 MG TABLETS] 40 mg PO DAILY 08/22/18 Warfarin Sodium [Coumadin] 5 mg PO DAILY 08/22/18 Anemia: No Asthma: Yes Cancer: No Cardiac Disorders: Yes (A-FIB, ANGIO 2002 NEGATIVE.) CVA: No COPD: Yes CHF: Yes DVT: No Dementia: No Diabetes: Yes GI Disorders: No Disorders: Yes (BPH) HTN: Yes Hypercholesterolemia: Yes Liver Disease: No Psychiatric Problems: Yes (depression, anxiety) Seizures: No Thyroid Disease: Yes (HYPOTHYROID) - Surgical History Abdominal Surgery: No Appendectomy: No Cardiac Surgery: No Cholecystectomy: No Lung Surgery: Yes (BRONCHIAL THERMOPLASTY 12/2012) Neurologic Surgery: No Orthopedic Surgery: Yes (KNEE SX 1998) - Immunization History Td Vaccination: No - Suicide/Smoking/Psychosocial Hx Smoking Status: No Smoking History: Never smoked Have you smoked in the past 12 months: No Number of Cigarettes Smoked Daily: 0 If you are a former smoker, when did you quit?: 1979 Hx Alcohol Use: No Drug/Substance Use Hx: No Substance Use Type: None Hx Substance Use Treatment: No Review of Systems - Review of Systems Constitutional: No: Chills, Fever Respiratory: Yes: Cough, Shortness of Breath. No: Wheezing Cardiac (ROS): Yes: Palpitations. No: Chest Pain, Edema ABD/GI: No: Constipated, Diarrhea, Nausea, Vomiting : No: Burning, Dysuria, Frequency, Flank Pain Musculoskeletal: No: Back Pain Integumentary: No: Rash Neurological: No: Headache, Numbness, Tingling *Physical Exam - Vital Signs Last Vital Signs Temp Pulse Resp BP Pulse Ox 100 08/22/18 23:15 - Physical Exam General Appearance: Yes: Nourished, Appropriately Dressed HEENT: positive: EOMI, YANN, Normal Voice Neck: positive: Supple. negative: Carotid bruit Respiratory/Chest: positive: Lungs Clear, Decreased Breath Sounds. negative: Crackles, Rales, Rhonchi, Stridor, Wheezing Cardiovascular: positive: Tachycardia. negative: Regular Rhythm, Edema, JVD, Murmur Vascular Pulses: Dorsalis-Pedis (R): 3+, Doralis-Pedis (L): 3+ Gastrointestinal/Abdominal: positive: Flat, Soft. negative: Pulsatile Mass, Protuberent, Distended, Guarding, Rebound, Tenderness Musculoskeletal: positive: Normal Inspection. negative: CVA Tenderness Extremity: positive: Normal Capillary Refill, Normal Inspection Integumentary: positive: Normal Color, Dry, Warm Neurologic: positive: Fully Oriented, Alert, Normal Mood/Affect, Normal Response ED Treatment Course - LABORATORY CBC & Chemistry Diagram: 08/23/18 00:18 08/23/18 00:18 - RADIOLOGY Radiology Studies Ordered: Category Date Time Status CHEST X-RAY PORTABLE* [RAD] Stat Radiology 08/22/18 23:25 Ordered Medical Decision Making - Medical Decision Making 08/23/18 00:32 Pt AOX4, breathing well on bipap (13/10, rate 14, 40%) states improvement in breathing since bipap treatment rate 120s-150s noted on monitor with A fib rhythm. 20mg Cardizem given blood work pending S/O to night team for further care *DC/Admit/Observation/Transfer - Referrals Referrals: ON STAFF,NOT [Non Staff, Medical] - - Patient Instructions - Post Discharge Activity
[2018-08-23 00:12] VITALS: BMI 44.6
--- NOTE | 2018-08-23 00:30 | PDOC ---
*Physical Exam - Vital Signs Last Vital Signs Temp Pulse Resp BP Pulse Ox 97.8 F 141 H 17 131/72 99 08/22/18 23:54 08/22/18 23:54 08/22/18 23:54 08/22/18 23:54 08/22/18 23:54 ED Treatment Course - LABORATORY CBC & Chemistry Diagram: 08/23/18 00:18 08/23/18 00:18 - Medications Given in the ED: ED Medications Discontinued Medications Generic Name Dose Route Start Last Admin Trade Name Freq PRN Reason Stop Dose Admin Diltiazem HCl 20 mg 08/22/18 23:23 08/23/18 00:24 Cardizem Injection - IVPUSH 08/22/18 23:24 20 mg ONCE ONE Administration Medical Decision Making - Medical Decision Making 83 yo M with PMH of Afib, BPH, HTN, HLD, COPD, asthma, PNA, CHF, hypothyroidism. BPH, anxiety presents to the ED with SOB. On Bipap In Afib with RVR, Cardizem 20mg given Will reassess CXR with blunted diaphragmatic angles Pending labs 08/23/18 00:29 CBC WBC 9.6 K/mm3 (4.0-10.0) 08/23/18 00:18 RBC 4.43 M/mm3 (4.00-5.60) 08/23/18 00:18 Hgb 13.1 GM/dL (11.7-16.9) 08/23/18 00:18 Hct 40.7 % (35.4-49) D 08/23/18 00:18 MCV 91.8 fl (80-96) 08/23/18 00:18 MCH 29.5 pg (25.7-33.7) 08/23/18 00:18 MCHC 32.2 g/dl (32.0-35.9) 08/23/18 00:18 RDW 15.0 % (11.9-15.9) 08/23/18 00:18 Plt Count 195 K/MM3 (134-434) 08/23/18 00:18 MPV 7.8 fl (7.5-11.1) 08/23/18 00:18 Absolute Neuts (auto) 8.5 K/mm3 (1.5-8.0) H 08/23/18 00:18 Neutrophils % 88.7 % (42.8-82.8) H D 08/23/18 00:18 Lymphocytes % 5.8 % (8-40) L D 08/23/18 00:18 Monocytes % 5.4 % (3.8-10.2) 08/23/18 00:18 Eosinophils % 0.0 % (0-4.5) D 08/23/18 00:18 Basophils % 0.1 % (0-2.0) 08/23/18 00:18 Nucleated RBC % 0 % (0-0) 08/23/18 00:18 No anemia or leukocytosis CMP Sodium 140 mmol/L (136-145) 08/23/18 00:18 Potassium 3.1 mmol/L (3.5-5.1) L 08/23/18 00:18 Chloride 101 mmol/L (98-107) 08/23/18 00:18 Carbon Dioxide 31 mmol/L (21-32) 08/23/18 00:18 Anion Gap 8 MMOL/L (8-16) 08/23/18 00:18 BUN 34 mg/dL (7-18) H 08/23/18 00:18 Creatinine 1.3 mg/dL (0.55-1.3) 08/23/18 00:18 Est GFR (CKD-EPI)AfAm 59.31 08/23/18 00:18 Est GFR (CKD-EPI)NonAf 51.17 08/23/18 00:18 Random Glucose 141 mg/dL (74-106) H 08/23/18 00:18 Calcium 8.5 mg/dL (8.5-10.1) 08/23/18 00:18 Phosphorus 2.3 mg/dL (2.5-4.9) L 08/23/18 00:18 Magnesium 1.8 mg/dL (1.8-2.4) 08/23/18 00:18 Total Bilirubin 0.3 mg/dL (0.2-1) 08/23/18 00:18 AST 26 U/L (15-37) 08/23/18 00:18 ALT 28 U/L (13-61) 08/23/18 00:18 Alkaline Phosphatase 60 U/L (45-117) 08/23/18 00:18 Creatine Kinase 115 U/L (26-308) 08/23/18 00:18 Troponin I 0.02 ng/ml (0.00-0.05) 08/23/18 00:18 B-Natriuretic Peptide 1520.3 pg/ml (5-450) H 08/23/18 00:18 Total Protein 6.3 g/dl (6.4-8.2) L 08/23/18 00:18 Albumin 3.4 g/dl (3.4-5.0) 08/23/18 00:18 Tpn undetectable BNP elevated Lasix 40mg ordered Rate is now 110-115, BP 115/75 Budesonide/Albuterol ordered for SOB Plan for admission 08/23/18 01:29 Dr. Puckett discussed case with Dr. Mishra who accepted patient for admission under Dr. Diggs 08/23/18 03:22 *DC/Admit/Observation/Transfer Diagnosis at time of Disposition: Atrial fibrillation with RVR - Discharge Dispostion Condition at time of disposition: Guarded Decision to Admit order: Yes - Referrals Referrals: ON STAFF,NOT [Primary Care Provider] - - Patient Instructions - Post Discharge Activity
[2018-08-23 00:35] LABS: BASO % 0.1 % (0-2.0); HEMATOCRIT 40.7 % (35.4-49); HEMOGLOBIN 13.1 GM/dL (11.7-16.9); LYMPH % 5.8 % (8-40); MCH 29.5 pg (25.7-33.7); MCHC 32.2 g/dl (32.0-35.9); MEAN CELL VOLUME 91.8 fl (80-96); MEAN PLT VOLUME 7.8 fl (7.5-11.1); MONO % 5.4 % (3.8-10.2); NEUT % 88.7 % (42.8-82.8); PLATELET COUNT 195 K/MM3 (134-434); RBC 4.43 M/mm3 (4.00-5.60); VENOUS PC02 47.3 mmHg (41-51); VENOUS PH 7.42 (7.31-7.41); WHITE BLOOD COUNT 9.6 K/mm3 (4.0-10.0)
[2018-08-23] MEDS ORDERED: BUDESONIDE 0.5 MG/2 ML INH SUSP VIAL NEB ONE (00:59)
[2018-08-23 01:00] LABS: INR 3.66 (0.83-1.09); PROTHROMBIN TIME (PATIENT) 43.8 SEC (9.7-13.0)
[2018-08-23 01:02] LABS: ACTIVATED PTT 42.6 SECONDS (25.2-36.5)
[2018-08-23 01:04] LABS: ALBUMIN 3.4 g/dl (3.4-5.0); BILIRUBIN,TOTAL 0.3 mg/dL (0.2-1); CALCIUM 8.5 mg/dL (8.5-10.1); CREATININE 1.3 mg/dL (0.55-1.3); MAGNESIUM 1.8 mg/dL (1.8-2.4); N-TERMINAL BNP 1520.3 pg/ml (5-450); PHOSPHOROUS 2.3 mg/dL (2.5-4.9); POTASSIUM 3.1 mmol/L (3.5-5.1); TOT PROT 6.3 g/dl (6.4-8.2)
[2018-08-23] MEDS ORDERED: ALBUTEROL SO4 0.083% IH SOL 2.5 MG/3 ML VIAL.NEB. NEB ONE ×2 (01:20→01:21)
[2018-08-23] MEDS ORDERED: FUROSEMIDE 40 MG/4 ML INJECTABLE VIAL IVPUSH ONE (01:21)
[2018-08-23] MEDS ORDERED: FUROSEMIDE 40 MG/4 ML INJECTABLE VIAL ONE (02:54)
--- NOTE | 2018-08-23 03:08 | PN ---
Teaching Attending Note Name of Resident: Mario Alberto Mishra ATTENDING PHYSICIAN STATEMENT I saw and evaluated the patient. I reviewed the resident's note and discussed the case with the resident. I agree with the resident's findings and plan as documented. SUBJECTIVE: Patient 83 year old man with a PMH of Afib on coumadin, BPH, HTN, HLD, COPD/ Asthma, PNA, CHF, hypothyroidism and anxiety who presents to the ER with SOB. EMS brought him in stating complaints of inability to breath and placed him on 15 L NC, with O2 100% reported. Patient does not require home O2 and has never been intubated. He has a cough and is being treated for bronchitis with increased need of prednisone (40 mg PO daily), albuterol inhaler and Augmentin. He states that he has developed diarrhea and was about to have an accident. He stepped out of his car, lowered his pants but stumbled over on the pavement on all 4's after getting tripped up in his clothes. He has associated palpitations and has utilized his inhaler 8 times with minimal relief prompting the call to EMS. He denies fever, chills, nausea, vomiting, chest pain, abdominal pain or changes in bladder function. OBJECTIVE: Alert Vital Signs Period Temp Pulse Resp BP Sys/Burgos Pulse Ox Last 24 Hr 97.8 F 141 17 131/72 99-100 HEENT: No Jaundice, eye redness or discharge, PERRLA, EOMI. Normocephalic, atraumatic. External ears are normal and hearing is grossly intact. No nasal discharge. Neck: Supple, nontender. No palpable adenopathy or thyromegaly. No JVD Chest: Good effort. Clear to auscultation and percussion. Heart: Regular. No S3, rub or murmur Abdomen: Not distended, soft, nontender and no HSM. No rebound or guarding. Normal bowel sounds. Ext: Peripheral pulses intact. Leg edema. Skin: Warm and dry. No petechiae, rash or ecchymosis. Neuro: Alert. Oriented x3. CN 2-12 grossly intact. Sensation grossly intact in all four extremities and DTR are symmetric. Psych: Appropriate mood and affect. Good insight. Home Medications Medication Instructions Recorded Diltiazem Cd [Cardizem Cd -] 240 mg PO DAILY 08/22/18 Prednisone [Prednisone 50 MG 40 mg PO DAILY 08/22/18 TABLETS] Warfarin Sodium [Coumadin] 5 mg PO DAILY 08/22/18 Albuterol Sulfate [Albuterol 2 puff PO PRN PRN 08/23/18 Sulfate Hfa] Budesonide [Pulmicort 0.5 mg 1 amp NEB BID 08/23/18 Nebulizer -] Furosemide [Lasix] 80 mg PO DAILY 08/23/18 Abnormal Lab Results 08/23/18 08/23/18 08/23/18 00:18 00:18 00:18 Absolute Neuts (auto) 8.5 H Neutrophils % 88.7 H D Lymphocytes % 5.8 L D PT with INR 43.80 H INR 3.66 H PTT (Actin FS) 42.6 H VBG pH 7.42 H POC VBG pO2 139 H VBG HCO3 29.9 H VBG O2 Sat (Yahir) 99.2 H VBG Base Excess 5.0 H Potassium BUN Random Glucose Phosphorus B-Natriuretic Peptide Total Protein 08/23/18 00:18 Absolute Neuts (auto) Neutrophils % Lymphocytes % PT with INR INR PTT (Actin FS) VBG pH POC VBG pO2 VBG HCO3 VBG O2 Sat (Yahir) VBG Base Excess Potassium 3.1 L BUN 34 H Random Glucose 141 H Phosphorus 2.3 L B-Natriuretic Peptide 1520.3 H Total Protein 6.3 L ASSESSMENT AND PLAN: 1. CHF exacerbation - Likely precipitated by Afib with RVR and recent bout of bronchitis. On arrival in the ER he was placed on BIPAP, got IV cardiazem and IV lasix. He produced "a lot" of urine, his rate improved and he is now comfortable off Bipap. CXR shows cardiomegaly with pulmonary congestion and obscured costophrenic angles. Initial EKG shows Afib with RVR, LVH, LAD and no significant ST-T wave changes. Initial troponin is negative. ECHO from 12/07/17 showed EF of 40-45% with mild to moderate global hypokinesis of left ventricle. Will admit to telemetry, continue IV lasix, get daily standing weight, repeat EKG and troponin and give low salt diet. Use IV lopressor for break though afib with RVR and ask cardiology if his outpatient cardiazem CD is appropriate in view of systolic CHF. Will get chest CT to quantify pleural effusion and rule out infiltrate. Hypokalemia likely due to excess renal wasting due to lasix and ?alcohol (says he has been drinking a lot in the past 2 weeks). Will check Mg+, and treat with IV KCL and PO neutraphos. Will hold coumadin for supratherapeutic INR and check INR daily. Check HbA1c and get urinalysis. Monitor closely for alcohol withdrawal. 2. Obesity Counseled on the risks associated with obesity. Will provide patient all the necessary assistance, counseling and positive reinforcement to facilitate weight loss. Consult software test specialist. 3. Hypertension - Restart outpatient antihypertensive drugs and revise regimen to ensure smooth [id number] good BP control. Nonpharmacologic measures to control hypertension like weight loss, salt restriction and exercise discussed. 4. DVT prophylaxis - Coumadin on hold for supratherapeutic INR. SCD, TEDs. 5. Advance directives - Full code
--- NOTE | 2018-08-23 03:20 | HP ---
CHIEF COMPLAINT: shortness of breath PCP: Quang HISTORY OF PRESENT ILLNESS: 83 year old male with a history of atrial fibrillation on coumadin, congestive heart failure, hyperlipidemia, COPD, hypothyroidism, thoracic aortic aneurysm ( 4.1cm december) arrives here complaining of palpitations and shortness of breath. This all started when he was a parking lot and felt diarrhea coming on. He got out of his car and dropped his pants and then tripped over his pants and fell onto his hands and knees. Reports had a bowel movement onto the ground. States that at this point he began to feel palpitations and shortness of breath. He used his inhaler many times, which exacerbated his symptoms and made him come to the emergency room. In the ED, he was found to be in Afib/RVR with a rate in the 140s. He was given lasix, diltiazem push and put on bipap. His condition improved on my exam. Currently he states that he feels a little better , denies chest pain, SOB, nausea, vomiting, diarrhea, fevers, chills, chest pain , shortness of breath. ER course was notable for: (1) supratherapeutic INR (2) EKG afib rvr (3) diltiazem given Recent Travel: denies PAST MEDICAL HISTORY: as stated above PAST SURGICAL HISTORY: b/l arthroscopies, cataracts, hemorrhoidectomy, bronchothermoplasty Social History: Smoking: former smoker, quit in Alcohol: drank vodka 2 weeks straight, claims not to have prior Drugs: none Family History: mother lung CA, father strokes Allergies No Known Drug Allergies Allergy (Verified 08/22/18 23:32) HOME MEDICATIONS: Home Medications Medication Instructions Recorded Diltiazem Cd [Cardizem Cd -] 240 mg PO DAILY 08/22/18 Prednisone [Prednisone 50 MG 40 mg PO DAILY 08/22/18 TABLETS] Warfarin Sodium [Coumadin] 5 mg PO DAILY 08/22/18 Albuterol Sulfate [Albuterol 2 puff PO PRN PRN 08/23/18 Sulfate Hfa] Budesonide [Pulmicort 0.5 mg 1 amp NEB BID 08/23/18 Nebulizer -] Furosemide [Lasix] 80 mg PO DAILY 08/23/18 REVIEW OF SYSTEMS CONSTITUTIONAL: Absent: fever, chills, diaphoresis, generalized weakness, malaise, loss of appetite, weight change HEENT: Absent: rhinorrhea, nasal congestion, throat pain, throat swelling, difficulty swallowing, mouth swelling, ear pain, eye pain, visual changes CARDIOVASCULAR: Absent: chest pain, syncope, palpitations, irregular heart rate, lightheadedness , peripheral edema RESPIRATORY: Absent: cough, shortness of breath, dyspnea with exertion, orthopnea, wheezing, stridor, hemoptysis GASTROINTESTINAL: Absent: abdominal pain, abdominal distension, nausea, vomiting, diarrhea, constipation, melena, hematochezia GENITOURINARY: Absent: dysuria, frequency, urgency, hesitancy, hematuria, flank pain, genital pain MUSCULOSKELETAL: Absent: myalgia, arthralgia, joint swelling, back pain, neck pain SKIN: Absent: rash, itching, pallor HEMATOLOGIC/IMMUNOLOGIC: Absent: easy bleeding, easy bruising, lymphadenopathy, frequent infections ENDOCRINE: Absent: unexplained weight gain, unexplained weight loss, heat intolerance, cold intolerance NEUROLOGIC: Absent: headache, focal weakness or paresthesias, dizziness, unsteady gait, seizure, mental status changes, bladder or bowel incontinence PSYCHIATRIC: Absent: anxiety, depression, suicidal or homicidal ideation, hallucinations. PHYSICAL EXAMINATION Vital Signs - 24 hr 08/22/18 08/22/18 23:15 23:54 Temperature 97.8 F Pulse Rate 141 H Respiratory 17 Rate Blood Pressure 131/72 O2 Sat by Pulse 100 99 Oximetry (%) GENERAL: A&Ox3, no acute distress EYES: PERRLA, EOMI ENT: Moist mucus membranes NECK: No JVD LUNGS: CTA, no wheezes HEART: tachycardic, no murmurs ABDOMEN: Obese, Soft, nontender, BS present MUSCULOSKELETAL: No CVA Tenderness EXTREMITIES: 2+ pulses, 2+ pitting edema bilaterally NEUROLOGICAL: Cranial nerves II-XII intact. No focal deficits Laboratory Results - last 24 hr 08/23/18 08/23/18 08/23/18 00:18 00:18 00:18 WBC 9.6 RBC 4.43 Hgb 13.1 Hct 40.7 D MCV 91.8 MCH 29.5 MCHC 32.2 RDW 15.0 Plt Count 195 MPV 7.8 Absolute Neuts (auto) 8.5 H Neutrophils % 88.7 H D Lymphocytes % 5.8 L D Monocytes % 5.4 Eosinophils % 0.0 D Basophils % 0.1 Nucleated RBC % 0 PT with INR 43.80 H INR 3.66 H PTT (Actin FS) 42.6 H VBG pH 7.42 H POC VBG pCO2 47.3 POC VBG pO2 139 H VBG HCO3 29.9 H VBG O2 Sat (Yahir) 99.2 H VBG Base Excess 5.0 H Sodium Potassium Chloride Carbon Dioxide Anion Gap BUN Creatinine Est GFR (CKD-EPI)AfAm Est GFR (CKD-EPI)NonAf Random Glucose Calcium Phosphorus Magnesium Total Bilirubin AST ALT Alkaline Phosphatase Creatine Kinase Troponin I B-Natriuretic Peptide Total Protein Albumin 08/23/18 00:18 WBC RBC Hgb Hct MCV MCH MCHC RDW Plt Count MPV Absolute Neuts (auto) Neutrophils % Lymphocytes % Monocytes % Eosinophils % Basophils % Nucleated RBC % PT with INR INR PTT (Actin FS) VBG pH POC VBG pCO2 POC VBG pO2 VBG HCO3 VBG O2 Sat (Yahir) VBG Base Excess Sodium 140 Potassium 3.1 L Chloride 101 Carbon Dioxide 31 Anion Gap 8 BUN 34 H Creatinine 1.3 Est GFR (CKD-EPI)AfAm 59.31 Est GFR (CKD-EPI)NonAf 51.17 Random Glucose 141 H Calcium 8.5 Phosphorus 2.3 L Magnesium 1.8 Total Bilirubin 0.3 AST 26 ALT 28 Alkaline Phosphatase 60 Creatine Kinase 115 Troponin I 0.02 B-Natriuretic Peptide 1520.3 H Total Protein 6.3 L Albumin 3.4 ASSESSMENT/PLAN: 83 year old male with a history of atrial fibrillation on coumadin, congestive heart failure with reduced EF, hyperlipidemia, COPD, hypothyroidism, thoracic aortic aneurysm (4.1cm december) is admitted to the hospital for the evaluation and treatment of afib/rvr with concomitant CHF exacerbation #Afib with RVR: likely precipitated by his fall and anxiety vs albuterol overuse , causing shortness of breath and subsequent CHF exacerbation -rate slowed down to 110-115 -repeat EKG -echo in the morning, prior echo in 12/2017 showed 45% EF with moderate global hypokinesis of LV and thoracic aortic aneurysm 4.1cm -Recommend switching CCB to BB based on systolic CHF -recommend chest CT in AM -coumadin held due to INR 1.66, recheck INR in AM -diltiazem 240mg daily, consider switching to beta kimberly in light of systolic CHF -lopressor IV for breakthrough tachycardia -tele monitoring -cardiology consultation Dr. Zambrano -will get TSH -suggest repeat CXR #CHF Exacerbation: mild, precipitated by the Afib/rvr -CXR congested but lungs clear, suggest repeating -lasix 80mg PO daily -strict I's/O's -Daily weights -echocardiogram pending -cards consulted #Supratherapeutic INR: Admits to not monitoring his INR over the past few days with his home machine. Stated he has no changed his diet recently. -Hold warfarin -recommend counseling on switching to the NOACs -INR in AM #Hypokalemia: could be related to albuterol use, alcohol use. -replete potassium and recheck BMP -mag normal #Hypophosphatemia: could be related to alcohol use -replete #Thoracic Aortic Aneurysm: 4.1cm since december 2017 -will get repeat echo #FEN -no standing fluids -replete lytes and recheck BMP -sodium controlled diet #Prophylaxis -supratherapeutic, hold INR #Disposition -admit tele, anticipate DC in 2-3 days Visit type - Emergency Visit Emergency Visit: Yes ED Registration Date: 08/23/18 Care time: The patient presented to the Emergency Department on the above date and was hospitalized for further evaluation of their emergent condition. - New Patient This patient is new to me today: Yes Date on this admission: 08/23/18 - Critical Care Critical Care patient: No
[2018-08-23] MEDS ORDERED: METOPROLOL TARTRATE 5 MG/5 ML VIAL IVPUSH PRN (05:04)
[2018-08-23 07:30] LABS: HEMATOCRIT 40.1 % (35.4-49); HEMOGLOBIN 13.3 GM/dL (11.7-16.9); MCH 30.1 pg (25.7-33.7); MCHC 33.3 g/dl (32.0-35.9); MEAN CELL VOLUME 90.3 fl (80-96); MEAN PLT VOLUME 7.8 fl (7.5-11.1); PLATELET COUNT 204 K/MM3 (134-434); RBC 4.44 M/mm3 (4.00-5.60); RDW 14.9 % (11.9-15.9); WHITE BLOOD COUNT 9.7 K/mm3 (4.0-10.0)
[2018-08-23 07:36] LABS: INR 3.25 (0.83-1.09); PROTHROMBIN TIME (PATIENT) 38.8 SEC (9.7-13.0)
[2018-08-23 08:15] LABS: CALCIUM 8.5 mg/dL (8.5-10.1); CREATININE 1.3 mg/dL (0.55-1.3); MAGNESIUM 1.7 mg/dL (1.8-2.4); PHOSPHOROUS 2.4 mg/dL (2.5-4.9)
[2018-08-23 08:23] LABS: POTASSIUM 2.9 mmol/L (3.5-5.1)
[2018-08-23 08:25] LABS: EPI CELLS 0.2 /HPF (0-5/HPF); HYALINE CASTS 0 /lpf (0-8); PH,URINE 7.5 (5.0-8.0); URINE APPEARANCE CLEAR; URINE BACTERIA 3.2 /hpf (NEGATIVE); URINE BILIRUBIN NEGATIVE (NEGATIVE); URINE COLOR YELLOW; URINE GLUCOSE (UA) NEGATIVE (NEGATIVE); URINE KETONE NEGATIVE (NEGATIVE); URINE LEUK ESTERASE NEGATIVE (NEGATIVE); URINE NITRITE NEGATIVE (NEGATIVE); URINE PROTEIN NEGATIVE (NEGATIVE); URINE RBC 38 /hpf (0-4); URINE UROBILINOGEN 0.2 mg/dL (0.2-1.0); URINE WBC 1 /hpf (0-5)
[2018-08-23] MEDS ORDERED: POTASSIUM CHLORIDE TABS 20 MEQ TABLET.ER (FP) PO ONE ×4 (09:00→18:47)
[2018-08-23] MEDS ORDERED: MAGNESIUM OXIDE 400 MG TABLET (FP) PO ONE (09:12)
--- NOTE | 2018-08-23 09:13 | PN ---
Physical Exam: SUBJECTIVE: Patient seen and examined OBJECTIVE: Vital Signs Period Temp Pulse Resp BP Sys/Burgos Pulse Ox Last 24 Hr 97.8 F-98.2 F 97-141 17-18 115-131/72-88 96-100 GENERAL: The patient is awake, alert, and fully oriented, in no acute distress. HEAD: Normal with no signs of trauma. EYES: PERRL, extraocular movements intact, sclera anicteric, conjunctiva clear. No ptosis. ENT: Ears normal, nares patent, oropharynx clear without exudates, moist mucous membranes. NECK: Trachea midline, full range of motion, supple. LUNGS: Breath sounds equal, clear to auscultation bilaterally, no wheezes, no crackles, no accessory muscle use. HEART: Regular rate and rhythm, S1, S2 without murmur, rub or gallop. ABDOMEN: Soft, nontender, nondistended, normoactive bowel sounds, no guarding, no rebound, no hepatosplenomegaly, no masses. EXTREMITIES: 2+ pulses, warm, well-perfused, no edema. NEUROLOGICAL: Cranial nerves II through XII grossly intact. Normal speech, gait not observed. PSYCH: Normal mood, normal affect. SKIN: Warm, dry, normal turgor, no rashes or lesions noted Laboratory Results - last 24 hr 08/23/18 08/23/18 08/23/18 00:18 00:18 00:18 WBC 9.6 RBC 4.43 Hgb 13.1 Hct 40.7 D MCV 91.8 MCH 29.5 MCHC 32.2 RDW 15.0 Plt Count 195 MPV 7.8 Absolute Neuts (auto) 8.5 H Neutrophils % 88.7 H D Lymphocytes % 5.8 L D Monocytes % 5.4 Eosinophils % 0.0 D Basophils % 0.1 Nucleated RBC % 0 PT with INR 43.80 H INR 3.66 H PTT (Actin FS) 42.6 H VBG pH 7.42 H POC VBG pCO2 47.3 POC VBG pO2 139 H VBG HCO3 29.9 H VBG O2 Sat (Yahir) 99.2 H VBG Base Excess 5.0 H Sodium Potassium Chloride Carbon Dioxide Anion Gap BUN Creatinine Est GFR (CKD-EPI)AfAm Est GFR (CKD-EPI)NonAf Random Glucose Calcium Phosphorus Magnesium Total Bilirubin AST ALT Alkaline Phosphatase Creatine Kinase Troponin I B-Natriuretic Peptide Total Protein Albumin Triglycerides Cholesterol Total LDL Cholesterol HDL Cholesterol TSH Urine Color Urine Appearance Urine pH Ur Specific [place] Urine Protein Urine Glucose (UA) Urine Ketones Urine Blood Urine Nitrite Urine Bilirubin Urine Urobilinogen Ur Leukocyte Esterase Urine WBC (Auto) Urine RBC (Auto) Urine Casts (Auto) U Epithel Cells (Auto) Urine Bacteria (Auto) 08/23/18 08/23/18 08/23/18 00:18 06:00 06:00 WBC RBC Hgb Hct MCV MCH MCHC RDW Plt Count MPV Absolute Neuts (auto) Neutrophils % Lymphocytes % Monocytes % Eosinophils % Basophils % Nucleated RBC % PT with INR 38.80 H INR 3.25 H PTT (Actin FS) VBG pH POC VBG pCO2 POC VBG pO2 VBG HCO3 VBG O2 Sat (Yahir) VBG Base Excess Sodium 140 140 Potassium 3.1 L 2.9 L* Chloride 101 98 Carbon Dioxide 31 34 H Anion Gap 8 8 BUN 34 H 30 H Creatinine 1.3 1.3 Est GFR (CKD-EPI)AfAm 59.31 59.31 Est GFR (CKD-EPI)NonAf 51.17 51.17 Random Glucose 141 H 115 H Calcium 8.5 8.5 Phosphorus 2.3 L 2.4 L Magnesium 1.8 1.7 L Total Bilirubin 0.3 AST 26 ALT 28 Alkaline Phosphatase 60 Creatine Kinase 115 Troponin I 0.02 B-Natriuretic Peptide 1520.3 H Total Protein 6.3 L Albumin 3.4 Triglycerides 54 Cholesterol 244 H Total LDL Cholesterol 103 H HDL Cholesterol 123 H TSH 3.27 Urine Color Urine Appearance Urine pH Ur Specific [place] Urine Protein Urine Glucose (UA) Urine Ketones Urine Blood Urine Nitrite Urine Bilirubin Urine Urobilinogen Ur Leukocyte Esterase Urine WBC (Auto) Urine RBC (Auto) Urine Casts (Auto) U Epithel Cells (Auto) Urine Bacteria (Auto) 08/23/18 08/23/18 06:50 07:00 WBC 9.7 RBC 4.44 Hgb 13.3 Hct 40.1 MCV 90.3 MCH 30.1 MCHC 33.3 RDW 14.9 Plt Count 204 MPV 7.8 Absolute Neuts (auto) Neutrophils % Lymphocytes % Monocytes % Eosinophils % Basophils % Nucleated RBC % PT with INR INR PTT (Actin FS) VBG pH POC VBG pCO2 POC VBG pO2 VBG HCO3 VBG O2 Sat (Yahir) VBG Base Excess Sodium Potassium Chloride Carbon Dioxide Anion Gap BUN Creatinine Est GFR (CKD-EPI)AfAm Est GFR (CKD-EPI)NonAf Random Glucose Calcium Phosphorus Magnesium Total Bilirubin AST ALT Alkaline Phosphatase Creatine Kinase Troponin I B-Natriuretic Peptide Total Protein Albumin Triglycerides Cholesterol Total LDL Cholesterol HDL Cholesterol TSH Urine Color Yellow Urine Appearance Clear Urine pH 7.5 D Ur Specific [place] 1.007 L Urine Protein Negative Urine Glucose (UA) Negative Urine Ketones Negative Urine Blood 2+ H Urine Nitrite Negative Urine Bilirubin Negative Urine Urobilinogen 0.2 Ur Leukocyte Esterase Negative Urine WBC (Auto) 1 Urine RBC (Auto) 38 Urine Casts (Auto) 0 U Epithel Cells (Auto) 0.2 Urine Bacteria (Auto) 3.2 Active Medications Generic Name Dose Route Start Last Admin Trade Name Freq PRN Reason Stop Dose Admin Budesonide 1 amp 08/23/18 08:00 Pulmicort 0.5 Mg Nebulizer - NEB RBID VICTOR HUGO Diltiazem HCl 240 mg 08/23/18 10:00 Cardizem Cd - PO DAILY VICTOR HUGO Furosemide 80 mg 08/23/18 10:00 Lasix - PO DAILY VICTOR HUGO Magnesium Oxide 800 mg 08/23/18 09:12 Mag-Ox - PO 08/23/18 09:13 ONCE ONE Metoprolol Tartrate 5 mg 08/23/18 05:04 Lopressor Injection - IVPUSH Q4H PRN TACHYCARDIA ASSESSMENT/PLAN: 83 year old male with a history of atrial fibrillation on coumadin, congestive heart failure with reduced EF, hyperlipidemia, COPD, hypothyroidism, thoracic aortic aneurysm (4.1cm december) is admitted to the hospital for the evaluation and treatment of afib/rvr with concomitant CHF exacerbation #Afib with RVR: likely precipitated by his fall and anxiety vs albuterol overuse , causing shortness of breath and subsequent CHF exacerbation -rate slowed down to 110-115 -repeat EKG -echo in the morning, prior echo in 12/2017 showed 45% EF with moderate global hypokinesis of LV and thoracic aortic aneurysm 4.1cm -Recommend switching CCB to BB based on systolic CHF -recommend chest CT in AM -coumadin held due to INR 1.66, recheck INR in AM -diltiazem 240mg daily, consider switching to beta kimberly in light of systolic CHF -lopressor IV for breakthrough tachycardia -tele monitoring -cardiology consultation Dr. Zambrano -will get TSH -suggest repeat CXR #CHF Exacerbation: mild, precipitated by the Afib/rvr -CXR congested but lungs clear, suggest repeating -lasix 80mg PO daily -strict I's/O's -Daily weights -echocardiogram pending -cards consulted #Supratherapeutic INR: Admits to not monitoring his INR over the past few days with his home machine. Stated he has no changed his diet recently. -Hold warfarin -recommend counseling on switching to the NOACs -INR in AM #Hypokalemia: could be related to albuterol use, alcohol use. -replete potassium and recheck BMP -mag normal #Hypophosphatemia: could be related to alcohol use -replete #Thoracic Aortic Aneurysm: 4.1cm since december 2017 -will get repeat echo #FEN -no standing fluids -replete lytes and recheck BMP -sodium controlled diet
[2018-08-23] MEDS: BUDESONIDE 0.5 MG/2 ML INH SUSP VIAL NEB SCH ×2 (09:30→22:05)
[2018-08-23] MEDS ORDERED: SODIUM PHOSPHATE - 15 MM in SODIUM CHLORIDE 250 ML IVPB ONE (10:00)
[2018-08-23] MEDS ORDERED: MAGNESIUM SULF 50% (8.12 MEQ/2 ML-1 GM VIAL) IVPB ONE ×3 (10:00→19:36)
[2018-08-23] MEDS ORDERED: KCL 10 MEQ IVPB 10 MEQ/100 ML INFUS.BAG IVPB ONE ×2 (10:31→18:47)
[2018-08-23] MEDS ORDERED: MAGNESIUM 1GM/D5W - 1 GM/100 ML IVPB IVPB ONE (10:31)
[2018-08-23] MEDS ORDERED: FUROSEMIDE 40 MG TABLET (FP) ONE (10:31)
[2018-08-23] MEDS: FUROSEMIDE 40 MG TABLET (FP) PO SCH (10:42)
[2018-08-23] MEDS: KCL 10 MEQ IVPB 10 MEQ/100 ML INFUS.BAG IVPB SCH ×4 (10:43→21:49)
[2018-08-23] MEDS ORDERED: KCL 10 MEQ IVPB 20 MEQ/200 ML INFUS.BAG IVPB ONE (11:59)
--- NOTE | 2018-08-23 12:07 | CON.CARD ---
Consult Consult Specialty:: Cardiology Reason for Consultation:: Afib - History of Present Illness History of Present Illness: 83 M with chronic Afib for at least 14 years, stalbe thoracic aneurysm, Normal coronary arteries, difficult to control asthma, lymphedema, and lext venous insufficiency resulting in chronic Lext edema. Ho Previous bronchial thermoplasty. In the past acute heart failure developed in the setting of rapid Afib. For a few days prior to admission had cough productive of light yellow phlegm which he attributed to recurrence of bronchitis. Has increased his Albuterol, which he typically does. He is now in the ER after having an urgency to defecate and being unable to get off the ground. He developed dyspnea and palpitations. In ED found to have rapid AF which improved after diltiazem and diuretics. He denies fever, chills, nausea, vomiting, chest pain, abdominal pain or changes in bladder function. Currently comfortable. Echocardiogram today showed EF 40-45%. No significant valvular pathology. - Past Medical History Cardio/Vascular: Yes: AFIB (Chronic atrial fibrillation on coumadin (held for procedure) and cardizem for rate control, never had AF ablation, never had DCCV) , HTN, Hyperlipdemia Pulmonary: Yes: Asthma Renal/: Yes: BPH Psych: Yes: Other (Manic state possibly secondary to steroids) Musculoskeletal: Yes: Osteoarthritis Endocrine: Yes: Diabetes Mellitus (states unclear if has DM or if from fdc steroid use) - Past Surgical History Past Surgical History: Yes: Joint Replacement, Vein Stripping/Ligation - Alcohol/Substance Use Hx Alcohol Use: No History of Substance Use: reports: None - Smoking History Smoking history: Never smoked Have you smoked in the past 12 months: No Aproximately how many cigarettes per day: 0 If you are a former smoker, when did you quit?: 1979 - Social History Usual Living Arrangement: With Spouse History of Recent Travel: No Home Medications - Allergies Allergies/Adverse Reactions: Allergies Allergy/AdvReac Type Severity Reaction Status Date / Time No Known Drug Allergies Allergy Verified 08/22/18 23:32 - Home Medications Home Medications: Ambulatory Orders Diltiazem Cd [Cardizem Cd -] 240 mg PO DAILY 08/22/18 Prednisone [Prednisone 50 MG TABLETS] 40 mg PO DAILY 08/22/18 Albuterol Sulfate [Albuterol Sulfate Hfa] 2 puff PO PRN PRN 08/23/18 Azithromycin [Zithromax] 500 mg PO DAILY #5 tablet 08/23/18 Budesonide [Pulmicort 0.5 mg Nebulizer -] 1 amp NEB BID 08/23/18 Furosemide [Lasix] 80 mg PO DAILY 08/23/18 Review of Systems - Review of Systems Constitutional: reports: No Symptoms Eyes: reports: No Symptoms HENT: reports: No Symptoms Neck: reports: No Symptoms Cardiovascular: reports: Edema, Palpitations, Shortness of Breath. denies: Chest Pain Respiratory: reports: Cough Vital Signs: Vital Signs Temperature 98.2 F 08/23/18 05:21 Pulse Rate 97 H 08/23/18 05:21 Respiratory Rate 18 08/23/18 05:21 Blood Pressure 115/88 08/23/18 05:21 O2 Sat by Pulse Oximetry (%) 98 08/23/18 06:25 Constitutional: Yes: Well Nourished, No Distress Eyes: Yes: Conjunctiva Clear, EOM Intact HENT: Yes: Atraumatic, Normocephalic Neck: Yes: Supple, Trachea Midline Respiratory: Yes: Regular, CTA Bilaterally Cardiovascular: Yes: Pulse Irregular JVD: No Carotid Bruit: No PMI: Non-Displaced Heart Sounds: Yes: S1, S2 Murmur: No: Systolic Murmur, Diastolic Murmur Edema: Yes Edema: LLE: 1+, RLE: 1+ - Other Data Labs, Other Data: CBC, BMP 08/23/18 06:50 08/23/18 06:00 INR, PTT INR 3.25 (0.83-1.09) H 08/23/18 06:00 Troponin, BNP 08/23/18 00:18 Troponin I 0.02 B-Natriuretic Peptide 1520.3 H Troponin, BNP 08/23/18 00:18 Troponin I 0.02 B-Natriuretic Peptide 1520.3 H Afib with rapid ventricular response and LBBB, occ VPC. Review of previous ECGs show chronic LBBB. Imaging - Results Chest X-ray: Report Reviewed Problem List - Problems (1) Afib Code(s): I48.91 - UNSPECIFIED ATRIAL FIBRILLATION Assessment/Plan 83 M with chronic Afib for at least 14 years, stable thoracic aneurysm, Normal coronary arteries, difficult to control asthma, lymphedema, and lext venous insufficiency resulting in chronic Lext edema. Ho Previous bronchial thermoplasty. In the past acute heart failure developed in the setting of rapid Afib. For a few days prior to admission had cough productive of light yellow phlegm which he attributed to recurrence of bronchitis. Has increased his Albuterol, which he typically does. He is now in the ER after having an urgency to defecate and being unable to get off the ground. He developed dyspnea and palpitations. In ED found to have rapid AF which improved after diltiazem and diuretics. He denies fever, chills, nausea, vomiting, chest pain, abdominal pain or changes in bladder function. Echocardiogram today showed EF 40-45%. No significant valvular pathology. 1. Afib: Chronic AF which has been rate controlled. Tachycardic now possibly due to bronchial infection and with increased albuterol use. --Continue Diltiazem 240mg qd. Expect HR to improve on current therapy. --Supratherapeutic INR. Adjust coumadin for INR 2-3 2. CHF: Mild CHF improving after IV diuretics. Echocardiogram today is unchanged from 2018 with mild systolic dysfunction in the setting of rapid AF. Would not switch to beta blockers given asthma history. Continue Lasix 80mg qd Replace electrolytes. 3. LBBB Chronic 4. Thoracic aneurysm Stable 5. Bronchitis and asthma Pulm Eval 6. Chronic Lower extremity lymphedema Uses lymphedema pump. Unchanged from prior. Out patient FU with Dr. Hartley in cardiology. Will see him as needed. Please call/reconsult if any questions.
--- NOTE | 2018-08-23 13:33 | EKG ---
Test Reason : Blood Pressure : / mmHG Vent. Rate : 150 BPM Atrial Rate : 081 BPM P-R Int : 000 ms QRS Dur : 124 ms QT Int : 328 ms P-R-T Axes : 000 -67 097 degrees QTc Int : 518 ms ATRIAL FIBRILLATION WITH RAPID VENTRICULAR RESPONSE WITH PREMATURE VENTRICULAR OR ABERRANTLY CONDUCTED COMPLEXES LEFT AXIS DEVIATION LEFT VENTRICULAR HYPERTROPHY WITH QRS WIDENING ABNORMAL ECG Confirmed by PAULIE BENSON MD ([id number]) on 08/23/2018 1:33:06 PM Referred By: Confirmed By:PAULIE BENSON MD
--- NOTE | 2018-08-23 15:09 | ECHO ---
Name: TERESA MC Exam:Adult Echocardiogram Study Date: 08/23/2018 01:36 PM Age: 83 yrs Reason For Study: A-Fib Height: 64 in Weight: 260 lb BSA: 2.2 m2 MMode/2D Measurements & Calculations IVSd: 1.1 cm Ao root diam: 3.6 cm LVIDd: 3.9 cm LA dimension: 3.8 cm LVIDs: 4.1 cm LVPWd: 1.4 cm EDV(Teich): 66.6 ml LVOT diam: 2.2 cm ESV(Teich): 75.9 ml TAPSE: 1.5 cm RV S Antoine: 12.3 cm/sec Doppler Measurements & Calculations Ao V2 max: 160.7 cm/sec LV V1 max P.6 mmHg Ao max P.3 mmHg LV V1 mean P.1 mmHg Ao V2 mean: 122.0 cm/sec LV V1 max: 94.6 cm/sec Ao mean P.6 mmHg LV V1 mean: 66.6 cm/sec Ao V2 VTI: 29.2 cm LV V1 VTI: 15.2 cm SHAN(I,D): 1.9 cm2 SHAN(V,D): 2.2 cm2 SV(LVOT): 56.2 ml Med Peak E' Antoine: 6.5 cm/sec Procedure The study was technically difficult with many images being suboptimal in quality. The patient was in atrial fibrillation with controlled ventricular rate during the exam. Left Ventricle Ejection Fraction = 40-45%. Septal motion is consistent with conduction abnormality. Regional wall mo tion abnormalities cannot be excluded due to limited visualization. Right Ventricle The right ventricle is grossly normal size. The right ventricular systolic function is grossly normal . Atria The left atrium is mildly dilated. Right atrial size is normal. Mitral Valve The mitral valve is grossly normal. There is no mitral valve stenosis. There is mild mitral regurgita tion. Tricuspid Valve The tricuspid valve is normal in structure and function. There is mild tricuspid regurgitation. Aortic Valve The aortic valve opens well. No hemodynamically significant valvular aortic stenosis. Pulmonic Valve The pulmonic valve is not well seen, but is grossly normal. There is no pulmonic valvular stenosis. Great Vessels Mildly dilated ascending aorta. Pericardium/Pleura Prominent epicardial fat pad. Interpretation Summary The study was technically difficult with many images being suboptimal in quality. The patient was in atrial fibrillation with controlled ventricular rate during the exam. Septal motion is consistent with conduction abnormality. Regional wall motion abnormalities cannot be excluded due to limited visualization. Ejection Fraction = 40-45%. The left atrium is mildly dilated. There is mild mitral regurgitation. There is mild tricuspid regurgitation. Mildly dilated ascending aorta. Prominent epicardial fat pad. MD Cummings *A[place]rie 08/23/2018 03:09 PM
[2018-08-23 17:08] LABS: CREATININE 1.1 mg/dL (0.55-1.3); MAGNESIUM 1.9 mg/dL (1.8-2.4); PHOSPHOROUS 3.6 mg/dL (2.5-4.9)
[2018-08-23] MEDS ORDERED: MAGNESIUM 1GM/D5W - 2 GM/200 ML IVPB IVPB ONE (18:47)
--- NOTE | 2018-08-23 19:34 | PN ---
Teaching Attending Note Name of Resident: Stephanie Johns ATTENDING PHYSICIAN STATEMENT I saw and evaluated the patient. I reviewed the resident's note and discussed the case with the resident. I agree with the resident's findings and plan as documented. SUBJECTIVE: Resolution of abdominal pain. No further BMs. No chest pain/SOB/ palpitations. No fevers/chills. OBJECTIVE: Afebrile, Hemodynamically Stable Last Vital Signs Temp Pulse Resp BP Pulse Ox 98.2 F 111 H 18 110/85 95 08/23/18 05:21 08/23/18 16:28 08/23/18 16:28 08/23/18 16:28 08/23/18 16:28 HEENT - Atraumatic, Normocephalic Heart - S1, S2, Irregular Lungs - few wheezes bilaterally Abdomen - High BMI. Soft, non-tender. Bowel Sounds normal. Extremities - bilateral chronic venous stasis with dermatitis. Laboratory Results - last 24 hr 08/23/18 08/23/18 08/23/18 00:18 00:18 00:18 WBC 9.6 RBC 4.43 Hgb 13.1 Hct 40.7 D MCV 91.8 MCH 29.5 MCHC 32.2 RDW 15.0 Plt Count 195 MPV 7.8 Absolute Neuts (auto) 8.5 H Neutrophils % 88.7 H D Lymphocytes % 5.8 L D Monocytes % 5.4 Eosinophils % 0.0 D Basophils % 0.1 Nucleated RBC % 0 PT with INR 43.80 H INR 3.66 H PTT (Actin FS) 42.6 H VBG pH 7.42 H POC VBG pCO2 47.3 POC VBG pO2 139 H VBG HCO3 29.9 H VBG O2 Sat (Yahir) 99.2 H VBG Base Excess 5.0 H Sodium Potassium Chloride Carbon Dioxide Anion Gap BUN Creatinine Est GFR (CKD-EPI)AfAm Est GFR (CKD-EPI)NonAf Random Glucose Calcium Phosphorus Magnesium Total Bilirubin AST ALT Alkaline Phosphatase Creatine Kinase Troponin I B-Natriuretic Peptide Total Protein Albumin Triglycerides Cholesterol Total LDL Cholesterol HDL Cholesterol TSH Urine Color Urine Appearance Urine pH Ur Specific [place] Urine Protein Urine Glucose (UA) Urine Ketones Urine Blood Urine Nitrite Urine Bilirubin Urine Urobilinogen Ur Leukocyte Esterase Urine WBC (Auto) Urine RBC (Auto) Urine Casts (Auto) U Epithel Cells (Auto) Urine Bacteria (Auto) 08/23/18 08/23/18 08/23/18 00:18 06:00 06:00 WBC RBC Hgb Hct MCV MCH MCHC RDW Plt Count MPV Absolute Neuts (auto) Neutrophils % Lymphocytes % Monocytes % Eosinophils % Basophils % Nucleated RBC % PT with INR 38.80 H INR 3.25 H PTT (Actin FS) VBG pH POC VBG pCO2 POC VBG pO2 VBG HCO3 VBG O2 Sat (Yahir) VBG Base Excess Sodium 140 140 Potassium 3.1 L 2.9 L* Chloride 101 98 Carbon Dioxide 31 34 H Anion Gap 8 8 BUN 34 H 30 H Creatinine 1.3 1.3 Est GFR (CKD-EPI)AfAm 59.31 59.31 Est GFR (CKD-EPI)NonAf 51.17 51.17 Random Glucose 141 H 115 H Calcium 8.5 8.5 Phosphorus 2.3 L 2.4 L Magnesium 1.8 1.7 L Total Bilirubin 0.3 AST 26 ALT 28 Alkaline Phosphatase 60 Creatine Kinase 115 Troponin I 0.02 B-Natriuretic Peptide 1520.3 H Total Protein 6.3 L Albumin 3.4 Triglycerides 54 Cholesterol 244 H Total LDL Cholesterol 103 H HDL Cholesterol 123 H TSH 3.27 Urine Color Urine Appearance Urine pH Ur Specific [place] Urine Protein Urine Glucose (UA) Urine Ketones Urine Blood Urine Nitrite Urine Bilirubin Urine Urobilinogen Ur Leukocyte Esterase Urine WBC (Auto) Urine RBC (Auto) Urine Casts (Auto) U Epithel Cells (Auto) Urine Bacteria (Auto) 08/23/18 08/23/18 08/23/18 06:50 07:00 16:12 WBC 9.7 RBC 4.44 Hgb 13.3 Hct 40.1 MCV 90.3 MCH 30.1 MCHC 33.3 RDW 14.9 Plt Count 204 MPV 7.8 Absolute Neuts (auto) Neutrophils % Lymphocytes % Monocytes % Eosinophils % Basophils % Nucleated RBC % PT with INR INR PTT (Actin FS) VBG pH POC VBG pCO2 POC VBG pO2 VBG HCO3 VBG O2 Sat (Yahir) VBG Base Excess Sodium 138 Potassium 3.0 L Chloride 97 L Carbon Dioxide 35 H Anion Gap 6 L BUN 24 H Creatinine 1.1 Est GFR (CKD-EPI)AfAm 72.58 Est GFR (CKD-EPI)NonAf 62.62 Random Glucose 101 Calcium 8.0 L Phosphorus 3.6 Magnesium 1.9 Total Bilirubin AST ALT Alkaline Phosphatase Creatine Kinase Troponin I B-Natriuretic Peptide Total Protein Albumin Triglycerides Cholesterol Total LDL Cholesterol HDL Cholesterol TSH Urine Color Yellow Urine Appearance Clear Urine pH 7.5 D Ur Specific [place] 1.007 L Urine Protein Negative Urine Glucose (UA) Negative Urine Ketones Negative Urine Blood 2+ H Urine Nitrite Negative Urine Bilirubin Negative Urine Urobilinogen 0.2 Ur Leukocyte Esterase Negative Urine WBC (Auto) 1 Urine RBC (Auto) 38 Urine Casts (Auto) 0 U Epithel Cells (Auto) 0.2 Urine Bacteria (Auto) 3.2 Current Medications Generic Name Dose Route Start Last Admin Trade Name Freq PRN Reason Stop Dose Admin Budesonide 1 amp 08/23/18 08:00 08/23/18 09:30 Pulmicort 0.5 Mg Nebulizer - NEB 1 amp RBID VICTOR HUGO Administration Diltiazem HCl 240 mg 08/23/18 10:00 08/23/18 11:15 Cardizem Cd - PO 240 mg DAILY VICTOR HUGO Administration Furosemide 80 mg 08/23/18 10:00 08/23/18 10:42 Lasix - PO 80 mg DAILY VICTOR HUGO Administration Potassium Chloride 10 meq in 100 mls @ 100 mls/hr 08/23/18 18:15 08/23/18 18: 48 Potassium Chloride 10 Meq Premix Ivpb - IVPB 08/23/18 21:14 100 mls/hr Q60M VICTOR HUGO Administration Metoprolol Tartrate 5 mg 08/23/18 05:04 Lopressor Injection - IVPUSH Q4H PRN TACHYCARDIA Home Medications Medication Instructions Recorded Diltiazem Cd [Cardizem Cd -] 240 mg PO DAILY 08/22/18 Prednisone [Prednisone 50 MG 40 mg PO DAILY 08/22/18 TABLETS] Albuterol Sulfate [Albuterol 2 puff PO PRN PRN 08/23/18 Sulfate Hfa] Azithromycin [Zithromax] 500 mg PO DAILY #5 tablet 08/23/18 Budesonide [Pulmicort 0.5 mg 1 amp NEB BID 08/23/18 Nebulizer -] Furosemide [Lasix] 80 mg PO DAILY 08/23/18 ASSESSMENT AND PLAN: 83 year old male with a history of atrial fibrillation on coumadin, congestive heart failure, hyperlipidemia, COPD, hypothyroidism, thoracic aortic aneurysm ( 4.1cm), presents with palpitations and shortness of breath after having a large bowel movement in the driveway due to urgency after taking laxatives. He was found to have Atrial fibrillation with RVR. 1. Atrial Fibrillation with RVR Received IV Cardizem Echo requested. Continue Diltiazem 240mg, Coumadin Cardiology consulted. 2. Chronic Systolic CHF For repeat Echo Continue Lasix 80mg Cardio consult requested. 3. Supratherapeutic INR - 3.25 Hold Coumadin and repeat INR in AM 4. Hypokalemia/Hypomagnesemia/Hypophosphatemia Repleted. 5. Thoracic Aortic Aneurysm 4.1cm (last measured 12/18) Echo pending 6. Recently treated for AECOPD Continue Prednisone 40mg and change Augmentin to Azithromycin. Continue Bronchodilator Nebs and Budesonide DVT Px - on Coumadin with Supratherapeutic INR
[2018-08-23] MEDS ORDERED: POTASSIUM CHLORIDE TABS 20 MEQ TABLET.ER (FP) PO SCH (19:35)
[2018-08-23] MEDS ORDERED: KCL 10 MEQ IVPB 10 MEQ/100 ML INFUS.BAG IVPB SCH (19:45)
[2018-08-23] MEDS: IPRATROPIUM BR 0.02% 0.5 MG/2.5 ML VIAL.NEB. NEB SCH ×2 (20:00→22:05)
[2018-08-23 21:18] LABS: EPI CELLS 0 /HPF (0-5/HPF); HYALINE CASTS 0 /lpf (0-8); URINE APPEARANCE CLEAR; URINE BACTERIA 0.8 /hpf (NEGATIVE); URINE BILIRUBIN NEGATIVE (NEGATIVE); URINE COLOR YELLOW; URINE GLUCOSE (UA) NEGATIVE (NEGATIVE); URINE KETONE NEGATIVE (NEGATIVE); URINE LEUK ESTERASE NEGATIVE (NEGATIVE); URINE NITRITE NEGATIVE (NEGATIVE); URINE PROTEIN NEGATIVE (NEGATIVE); URINE RBC 9 /hpf (0-4); URINE UROBILINOGEN 0.2 mg/dL (0.2-1.0); URINE WBC 0 /hpf (0-5)
[2018-08-23] MEDS: AZITHROMYCIN 250 MG TABLET PO SCH (21:49)
[2018-08-23] MEDS ORDERED: clonazePAM 0.5 MG TABLET PO ONE (21:58)
[2018-08-23] MEDS: predniSONE 20 MG TABLET (UD) PO SCH (22:42)
[2018-08-24] MEDS: KCL 10 MEQ IVPB 10 MEQ/100 ML INFUS.BAG IVPB SCH (00:43)
[2018-08-24 03:56] LABS: MAGNESIUM 2.4 mg/dL (1.8-2.4); PHOSPHOROUS 3.3 mg/dL (2.5-4.9); POTASSIUM 3.7 mmol/L (3.5-5.1)
[2018-08-24] MEDS ORDERED: ALBUTEROL SO4 2.5/IPRATROPIUM 0.5 INH SOL 3 ML VIAL.NEB. NEB ONE (05:21)
[2018-08-24] MEDS: IPRATROPIUM BR 0.02% 0.5 MG/2.5 ML VIAL.NEB. NEB SCH ×3 (08:39→16:47)
[2018-08-24] MEDS ORDERED: PT OWN MED DRAWER 7, Y5N ONE (08:54)
[2018-08-24] MEDS: BUDESONIDE 0.5 MG/2 ML INH SUSP VIAL NEB SCH (09:06)
[2018-08-24] MEDS: AZITHROMYCIN 250 MG TABLET PO SCH (09:13)
[2018-08-24] MEDS: predniSONE 20 MG TABLET (UD) PO SCH (09:13)
[2018-08-24] MEDS: FUROSEMIDE 40 MG TABLET (FP) PO SCH (09:14)
[2018-08-24 09:28] LABS: CALCIUM 8.7 mg/dL (8.5-10.1); CREATININE 1.1 mg/dL (0.55-1.3); MAGNESIUM 2.6 mg/dL (1.8-2.4); POTASSIUM 3.8 mmol/L (3.5-5.1)
[2018-08-24 11:05] LABS: INR 1.79 (0.83-1.09); PROTHROMBIN TIME (PATIENT) 21.3 SEC (9.7-13.0)
[2018-08-24] MEDS ORDERED: IPRATROPIUM BR 0.02% 0.5 MG/2.5 ML VIAL.NEB. NEB ONE (11:41)
--- NOTE | 2018-08-24 12:17 | PN ---
Teaching Attending Note Name of Resident: Stephanie Johns ATTENDING PHYSICIAN STATEMENT I saw and evaluated the patient. I reviewed the resident's note and discussed the case with the resident. I agree with the resident's findings and plan as documented. SUBJECTIVE: Resolution of abdominal pain. No further BMs. No chest pain/SOB/ palpitations. No fevers/chills. OBJECTIVE: Afebrile, Hemodynamically Stable Last Vital Signs Temp Pulse Resp BP Pulse Ox 97.9 F 91H 20 123/59 L 94 L 08/24/18 05:56 08/24/18 08:40 08/24/18 08:00 08/24/18 08:40 08/24/18 09:00 HEENT - Atraumatic, Normocephalic Heart - S1, S2, Irregular Lungs - few wheezes bilaterally Abdomen - High BMI. Soft, non-tender. Bowel Sounds normal. Extremities - bilateral chronic venous stasis with dermatitis. Laboratory Results - last 24 hr 08/23/18 08/23/18 08/24/18 16:12 19:59 03:00 PT with INR INR Sodium 138 138 Potassium 3.0 L 3.7 Chloride 97 L 99 Carbon Dioxide 35 H 34 H Anion Gap 6 L 4 L BUN 24 H 21 H Creatinine 1.1 1.0 Est GFR (CKD-EPI)AfAm 72.58 81.45 Est GFR (CKD-EPI)NonAf 62.62 70.27 Random Glucose 101 108 H Calcium 8.0 L 8.0 L Phosphorus 3.6 3.3 Magnesium 1.9 2.4 Urine Color Yellow Urine Appearance Clear Urine pH 8.0 Ur Specific [place] 1.007 L Urine Protein Negative Urine Glucose (UA) Negative Urine Ketones Negative Urine Blood 1+ H Urine Nitrite Negative Urine Bilirubin Negative Urine Urobilinogen 0.2 Ur Leukocyte Esterase Negative Urine WBC (Auto) 0 Urine RBC (Auto) 9 Urine Casts (Auto) 0 U Epithel Cells (Auto) 0 Urine Bacteria (Auto) 0.8 08/24/18 08/24/18 06:23 09:54 PT with INR 21.30 H INR 1.79 H Sodium 136 Potassium 3.8 Chloride 97 L Carbon Dioxide 29 Anion Gap 9 BUN 22 H Creatinine 1.1 Est GFR (CKD-EPI)AfAm 72.58 Est GFR (CKD-EPI)NonAf 62.62 Random Glucose 130 H Calcium 8.7 Phosphorus Magnesium 2.6 H Urine Color Urine Appearance Urine pH Ur Specific [place] Urine Protein Urine Glucose (UA) Urine Ketones Urine Blood Urine Nitrite Urine Bilirubin Urine Urobilinogen Ur Leukocyte Esterase Urine WBC (Auto) Urine RBC (Auto) Urine Casts (Auto) U Epithel Cells (Auto) Urine Bacteria (Auto) Current Medications Generic Name Dose Route Start Last Admin Trade Name Freq PRN Reason Stop Dose Admin Azithromycin 250 mg 08/23/18 19:45 08/24/18 09:13 Zithromax - PO 250 mg DAILY VICTOR HUGO Administration Budesonide 1 amp 08/23/18 08:00 08/24/18 09:06 Pulmicort 0.5 Mg Nebulizer - NEB 1 amp RBID VICTOR HUGO Administration Diltiazem HCl 240 mg 08/23/18 10:00 08/24/18 09:13 Cardizem Cd - PO 240 mg DAILY VICTOR HUGO Administration Furosemide 80 mg 08/23/18 10:00 08/24/18 09:14 Lasix - PO 80 mg DAILY VICTOR HUGO Administration Ipratropium [place] 1 amp 08/23/18 19:38 08/24/18 11:59 Atrovent 0.02% Nebulizer - NEB 1 amp RQID VICTOR HUGO Administration Metoprolol Tartrate 5 mg 08/23/18 05:04 08/24/18 08:40 Lopressor Injection - IVPUSH 5 mg Q4H PRN Administration TACHYCARDIA Prednisone 40 mg 08/23/18 19:45 08/24/18 09:13 Deltasone - PO 40 mg DAILY VICTOR HUGO Administration ASSESSMENT AND PLAN: 83 year old male with a history of atrial fibrillation on coumadin, congestive heart failure, hyperlipidemia, COPD, hypothyroidism, thoracic aortic aneurysm ( 4.1cm), LBBB (Chronic) presents with palpitations and shortness of breath after having a large bowel movement in the driveway of a gas station due to urgency after taking laxatives. He then fell over and was brought to ED where he was found to have Atrial fibrillation with RVR. 1. Atrial Fibrillation with RVR HR on high side likely sec to bronchodilatory nebs/anxiety Echo - LV dysfunction with EF 40-45%, septal wall motion consistent with conduction abnormality. Continue Diltiazem 240mg, Coumadin. Cardiology to follow on discharge. 2. Chronic Systolic CHF Continue Lasix 80mg Cardio to follow on discharge 3. Supratherapeutic INR - resolved. INR today 1.79 Resume Coumadin. INR check 08/27 with further dosing by PCP 4. Hypokalemia/Hypomagnesemia/Hypophosphatemia Repleted. 5. Thoracic Aortic Aneurysm 4.1cm (last measured 12/18) Cardio out-patient follow up. 6. Recently treated for AECOPD Continue Prednisone 40mg and change Augmentin to Azithromycin to complete 5 day course. Continue Budesonide and Ipratropium. Medically and Hemodynamically Stable for discharge
--- NOTE | 2018-08-24 14:28 | DS ---
Physical Exam: SUBJECTIVE: Patient seen and examined at bedside- no acute events overnight; patient states that he is feeling well; that his breathing has improved he denies any CP/SOB/N/V OBJECTIVE: Vital Signs Period Temp Pulse Resp BP Sys/Burgos Pulse Ox Last 24 Hr 97.9 F-98.3 F 77-130 18-20 103-123/58-85 94-95 PHYSICAL EXAM GENERAL: The patient is awake, alert, and fully oriented, in no acute distress. EYES:PEERLA EOMI no scleral icterus NECK: no JVD: no lymphadenopathy LUNGS: CTA B/L: no rales, rhonchi or wheezing HEART: Regular rate and rhythm, S1, S2 without murmur, rub or gallop. ABDOMEN: Soft,NT ND +BS EXTREMITIES: 2+ pulses, warm, well-perfused, trace edema B/L. PSYCH: Normal mood, normal affect. SKIN: Warm, dry, normal turgor, no rashes or lesions noted. LABS Laboratory Results - last 24 hr 08/23/18 08/23/18 08/24/18 16:12 19:59 03:00 PT with INR INR Sodium 138 138 Potassium 3.0 L 3.7 Chloride 97 L 99 Carbon Dioxide 35 H 34 H Anion Gap 6 L 4 L BUN 24 H 21 H Creatinine 1.1 1.0 Est GFR (CKD-EPI)AfAm 72.58 81.45 Est GFR (CKD-EPI)NonAf 62.62 70.27 Random Glucose 101 108 H Calcium 8.0 L 8.0 L Phosphorus 3.6 3.3 Magnesium 1.9 2.4 Urine Color Yellow Urine Appearance Clear Urine pH 8.0 Ur Specific Alma 1.007 L Urine Protein Negative Urine Glucose (UA) Negative Urine Ketones Negative Urine Blood 1+ H Urine Nitrite Negative Urine Bilirubin Negative Urine Urobilinogen 0.2 Ur Leukocyte Esterase Negative Urine WBC (Auto) 0 Urine RBC (Auto) 9 Urine Casts (Auto) 0 U Epithel Cells (Auto) 0 Urine Bacteria (Auto) 0.8 08/24/18 08/24/18 06:23 09:54 PT with INR 21.30 H INR 1.79 H Sodium 136 Potassium 3.8 Chloride 97 L Carbon Dioxide 29 Anion Gap 9 BUN 22 H Creatinine 1.1 Est GFR (CKD-EPI)AfAm 72.58 Est GFR (CKD-EPI)NonAf 62.62 Random Glucose 130 H Calcium 8.7 Phosphorus Magnesium 2.6 H Urine Color Urine Appearance Urine pH Ur Specific Alma Urine Protein Urine Glucose (UA) Urine Ketones Urine Blood Urine Nitrite Urine Bilirubin Urine Urobilinogen Ur Leukocyte Esterase Urine WBC (Auto) Urine RBC (Auto) Urine Casts (Auto) U Epithel Cells (Auto) Urine Bacteria (Auto) HOSPITAL COURSE: Date of Admission:08/23/18 83 year old male with a history of atrial fibrillation on coumadin, congestive heart failure, hyperlipidemia, COPD, hypothyroidism, thoracic aortic aneurysm ( 4.1cm december) arrives here complaining of palpitations and shortness of breath. This all started when he was a parking lot and felt diarrhea coming on. He got out of his car and dropped his pants and then tripped over his pants and fell onto his hands and knees. Reports had a bowel movement onto the ground. States that at this point he began to feel palpitations and shortness of breath. He used his inhaler many times, which exacerbated his symptoms and made him come to the emergency room. In the ED, he was found to be in Afib/RVR with a rate in the 140s. He was given lasix, diltiazem push and put on bipap. His condition improved on my exam. Currently he states that he feels a little better , denies chest pain, SOB, nausea, vomiting, diarrhea, fevers, chills, chest pain , shortness of breath. patient was given his regular dose of diltiazem as well as started on z pack for bronchitiis and duonebs. he was seen by his regular parcel post truck driver while here in the hospital who did not change anyy of his rate controlling medications and suggested to be followed up as an outpateint in one week for further tailoring of medications- he had an echo done which showed an EF of 40-45%. his symptoms improved and he was discahrgfed home with augmentin; duonebs; prednisone and with cardio and pulmonary follow up Date of Discharge: 08/24/18 Minutes to complete discharge: 35 Discharge Summary Reason For Visit: SHORTNESS OF BREATH, ATRIAL FIBRILLATION Condition: Stable - Instructions Diet, Activity, Other Instructions: You came to the hospital with complaints of trouble breathing and a rapid heart rate. In addition, some of your electrolytes were found to be low. We repleted your electrolytes, controlled your heart rate and your symptoms improved. You were stable to be discharged home. Please resume all of your home medications in addition: Please take the Azithromycin for a total of 5 days for your bronchitis Please continue taking your home dose of Prednisone 40mg for 5 days in addition to your inhaled bronchodilators Please resume your Coumadin tonight Please monitor your INR (level should be between 2-3) Please follow up with Dr. Hartley within one week to discuss anticoagulation options as well as other medications to control your heart rate Please follow up with the pulmonolgist, Dr. Clemente within one week Please follow up with your primary care physician, Dr. Del Rio within one week and have your basic metabolic panel repeated Avoid excessive use of your albuterol as lead may have lead to some of your electrolyte imbalances *if you begin to experience worsening palpitations/chest pains, shortness of breath, nausea/vomiting please return to the emergency room immediately Referrals: Dani Del Rio MD [Staff Physician] - 1 Week Quinten Hartley MD [Staff Physician] - Sae Clemente MD [Staff Physician] - Disposition: HOME - Home Medications Comprehensive Discharge Medication List: Ambulatory Orders Diltiazem Cd [Cardizem Cd -] 240 mg PO DAILY 08/22/18 Prednisone [Prednisone 50 MG TABLETS] 40 mg PO DAILY 08/22/18 Albuterol Sulfate [Albuterol Sulfate Hfa] 2 puff PO PRN PRN 08/23/18 Budesonide [Pulmicort 0.5 mg Nebulizer -] 1 amp NEB BID 08/23/18 Furosemide [Lasix] 80 mg PO DAILY 08/23/18 Azithromycin [Zithromax 250mg Tablets -] 250 mg PO DAILY #4 tablet 08/24/18 Ipratropium 0.02% Nebulizer [Atrovent 0.02% Nebulizer -] 1 amp NEB RQID #1 amp 08/24/18 predniSONE [Deltasone -] 40 mg PO DAILY #5 tablet 08/24/18 Problem List - Problems (1) Afib Code(s): I48.91 - UNSPECIFIED ATRIAL FIBRILLATION (2) Asthma Code(s): J45.909 - UNSPECIFIED ASTHMA, UNCOMPLICATED This patient is new to me today: No Emergency Visit: Yes ED Registration Date: 08/23/18 Care time: The patient presented to the Emergency Department on the above date and was hospitalized for further evaluation of their emergent condition. Critical Care patient: No - Discharge Referral Referred to [facility] No
[2018-08-24 15:41] VITALS: BP 126/72; PULSE 101; TEMP 98
== END 2018-08-24 17:54 | disposition home or self-care (01) | DRG 308 ==
LOC: JER 23:12 → JERBED 08-23 03:23 → J4W 08-23 20:43
PROVIDERS: ADMIT Internal Medicine
DX: I48.2 Chronic atrial fibrillation (principal); I50.23 Acute on chronic systolic (congestive) heart failure; Z68.41 Body mass index [BMI] 40.0-44.9, adult; J44.9 Chronic obstructive pulmonary disease, unspecified; E03.9 Hypothyroidism, unspecified; N40.0 Benign prostatic hyperplasia without lower urinary tract symptoms; F41.9 Anxiety disorder, unspecified; E78.5 Hyperlipidemia, unspecified; I11.0 Hypertensive heart disease with heart failure; Z79.01 Long term (current) use of anticoagulants; E87.6 Hypokalemia; E66.9 Obesity, unspecified; I71.2 Thoracic aortic aneurysm, without rupture; R79.1 Abnormal coagulation profile; E83.39 Other disorders of phosphorus metabolism; I44.7 Left bundle-branch block, unspecified; I89.0 Lymphedema, not elsewhere classified; E83.42 Hypomagnesemia
CPT/HCPCS: 36415; 71045-TC-FY; 80048; 80053; 80061; 81003; 82550; 82803; 83721; 83735; 83880; 84100; 84443; 84484; 85025; 85027; 85610; 85730; 93005; 93010; 93306-TC; 94640; 94660; 99285-25

== ENCOUNTER 2018-10-03 20:05 | Inpatient (IN) | payer OTHER, MEDICARE ==
--- NOTE | 2018-10-03 20:47 | PDOC ---
History of Present Illness - General Chief Complaint: Weakness Stated Complaint: WEAKNESS Time Seen by Provider: 10/03/18 20:21 - History of Present Illness Initial Comments: Mr. Valverde is an 83 y/o male with PMH including a-fib, CHF, asthma, presenting to the ED for weakness and pain in his bilateral legs after arriving from [place] today. He has been in [place] since September 10. Reports that he was treated at a hospital in [place] for a-fib and cellulitis, but does not have any medical records from the visit. States that today he felt weakness and lightheadedness while walking to his apartment. Denies any falls, head trauma, or dizziness. Past History - Past Medical History Allergies/Adverse Reactions: Allergies Allergy/AdvReac Type Severity Reaction Status Date / Time No Known Drug Allergies Allergy Verified 10/03/18 20:21 Home Medications: Ambulatory Orders Albuterol Sulfate [Albuterol Sulfate Hfa] 2 puff PO PRN PRN 08/23/18 Amiodarone HCl 200 mg PO DAILY 10/03/18 Apixaban [Eliquis -] 5 mg PO DAILY 10/03/18 Atorvastatin Ca [Lipitor] 40 mg PO HS 10/03/18 Bumetanide 200 mg PO BID 10/03/18 Metoprolol Succinate 25 mg PO DAILY 10/03/18 Sertraline HCl [Zoloft -] 25 mg PO DAILY 10/03/18 Spironolactone 25 mg PO DAILY 10/03/18 Furosemide [Lasix -] 40 mg PO DAILY 10/04/18 Anemia: No Asthma: Yes Cancer: No Cardiac Disorders: Yes (A-FIB, ANGIO 2003 NEGATIVE.) CVA: No COPD: Yes CHF: Yes DVT: No Dementia: No Diabetes: Yes GI Disorders: No Disorders: Yes (BPH) HTN: Yes Hypercholesterolemia: Yes Liver Disease: No Psychiatric Problems: Yes (depression, anxiety) Seizures: No Thyroid Disease: Yes (HYPOTHYROID) - Surgical History Abdominal Surgery: No Appendectomy: No Cardiac Surgery: No Cholecystectomy: No Lung Surgery: Yes (BRONCHIAL THERMOPLASTY 12/2012) Neurologic Surgery: No Orthopedic Surgery: Yes (KNEE SX 1998) - Immunization History Td Vaccination: No - Suicide/Smoking/Psychosocial Hx Smoking Status: No Smoking History: Former smoker Have you smoked in the past 12 months: No Number of Cigarettes Smoked Daily: 0 If you are a former smoker, when did you quit?: 1979 Information on smoking cessation initiated: No Hx Alcohol Use: No Drug/Substance Use Hx: No Substance Use Type: None Hx Substance Use Treatment: No Review of Systems - Review of Systems Able to Perform ROS?: Yes Is the patient limited Grenadian proficient: No Constitutional: Yes: See HPI, Weakness. No: Chills, Diaphoresis, Fever HEENTM: Yes: See HPI. No: Recent change in vision, Double Vision, Ear Discharge , Throat Swelling, Mouth Swelling Respiratory: Yes: See HPI. No: Cough, Orthopnea, Shortness of Breath, Wheezing Cardiac (ROS): Yes: See HPI, Edema, Irregular Heart Rate, Lightheadedness. No: Chest Pain, Palpitations, Syncope ABD/GI: Yes: See HPI, Nausea. No: Abdominal Distended, Vomiting : Yes: See HPI. No: Burning, Dysuria, Discharge Musculoskeletal: Yes: See HPI. No: Back Pain Integumentary: Yes: See HPI, Dryness, Erythema. No: Bruising Neurological: Yes: See HPI, Weakness, Unsteady Gait. No: Headache, Numbness, Paresthesia, Dizziness Hematologic/Lymphatic: No: Symptoms Reported *Physical Exam - Vital Signs Last Vital Signs Temp Pulse Resp BP Pulse Ox 98.3 F 67 14 104/22 L 97 10/03/18 20:14 10/03/18 20:14 10/03/18 20:14 10/03/18 20:14 10/03/18 20:14 - Physical Exam General Appearance: No: Apparent Distress HEENT: positive: EOMI, YANN. negative: Pale Conjunctivae, Photophobia Neck: positive: Normal Thyroid. negative: Tender, Trachea midline, Rigid Respiratory/Chest: positive: Normal Breath Sounds. negative: Chest Tender, Respiratory Distress Cardiovascular: positive: Irregularly Irregular Vascular Pulses: Dorsalis-Pedis (R): 2+, Doralis-Pedis (L): 2+ Gastrointestinal/Abdominal: positive: Soft. negative: Tender Musculoskeletal: positive: Normal Inspection, CVA Tenderness Extremity: positive: Normal Capillary Refill, Pedal Edema, Swelling (bilateral lower extremity edema 3+ ), Calf Tenderness, Erythema Integumentary: positive: Other (dryness and discoloration of skin throughout bilateral lower legs ) Neurologic: positive: Fully Oriented, Alert, Normal Response, Motor Strength 5/ 5. negative: Sensory Deficit ED Treatment Course - LABORATORY CBC & Chemistry Diagram: 10/04/18 05:12 10/04/18 05:12 Medical Decision Making - Medical Decision Making 10/03/18 2100 ED Course: This is an 83M with PMH of CHF, asthma, kidney failure, a-fib, and recent travel to [place], presenting with bilateral leg weakness without neurological deficit or findings. Given the patient's vague symptoms, comorbidities, and travel history, we will obtain duplex US of bilateral LE, CXR , head CT w/o contrast, troponin, BNP, Magnesium phosphate, CBC, CMP, TSH, UA, blood cultures, EKG. 2227 EKG shows atrial fibrillation with RVR with premature ventricular response , tachycardic at 130, left axis deivation, LVH with QRS widening, QTc of 432 msec, no ST elevation or ST depression Lower extremity duplex showed no DVTs. CT of the head showed no acute findings. The patient was found to be in a-fib with RVR, and 10 mg of IV diltiazem was given. Labs show high TSH. Patient has VICKY and a-fib, which is a likely etiology of the weakness. Patient will be admitted on telemetry to the medicine floor. *DC/Admit/Observation/Transfer Diagnosis at time of Disposition: Abnormal TSH Acute kidney failure Qualifiers: Acute renal failure type: unspecified Qualified Code(s): N17.9 - Acute kidney failure, unspecified Afib Qualifiers: Atrial fibrillation type: unspecified Qualified Code(s): I48.91 - Unspecified atrial fibrillation - Discharge Dispostion Condition at time of disposition: Guarded - Referrals - Patient Instructions - Post Discharge Activity
[2018-10-03 21:47] LABS: BASO % 0.9 % (0-2.0); EOS % 0.6 % (0-4.5); HEMATOCRIT 36.7 % (35.4-49); HEMOGLOBIN 12.2 GM/dL (11.7-16.9); MCH 30.1 pg (25.7-33.7); MCHC 33.3 g/dl (32.0-35.9); MEAN CELL VOLUME 90.4 fl (80-96); MEAN PLT VOLUME 6.6 fl (7.5-11.1); MONO % 9.8 % (3.8-10.2); NEUT % 75.7 % (42.8-82.8); PLATELET COUNT 298 K/MM3 (134-434); RBC 4.06 M/mm3 (4.00-5.60); WHITE BLOOD COUNT 6.4 K/mm3 (4.0-10.0)
[2018-10-03 22:36] LABS: ALBUMIN 2.9 g/dl (3.4-5.0); BILIRUBIN,TOTAL 1.3 mg/dL (0.2-1); CALCIUM 8.9 mg/dL (8.5-10.1); CREATININE 2.8 mg/dL (0.55-1.3); POTASSIUM 4.9 mmol/L (3.5-5.1); TOT PROT 6.7 g/dl (6.4-8.2)
[2018-10-03 22:36] LABS: MAGNESIUM 1.8 mg/dL (1.8-2.4); N-TERMINAL BNP 2769.4 pg/ml (5-450); PHOSPHOROUS 3.5 mg/dL (2.5-4.9)
[2018-10-03 22:41] LABS: ANISOCYTOSIS 1+; MACROCYTOSIS 1+; PLATELET ESTIMATE ADEQUATE
[2018-10-03] MEDS ORDERED: dilTIAZem HCL 50 MG/10 ML - 10 ML VIAL IVPUSH ONE (22:45)
--- NOTE | 2018-10-03 23:03 | PDOC ---
Documentation entered by Gwyn Ibanez SCRIBE, acting as scribe for Niall Meeks MD. Niall Meeks MD: This documentation has been prepared by the [employer]amar [employer] Xhesika, SCRIBE, under my direction and personally reviewed by me in its entirety. I confirm that the documentation accurately reflects all work, treatment, procedures, and medical decision making performed by me. Attending Attestation - Resident Resident Name: Wood rAgueta - ED Attending Attestation I have performed the following: I have examined & evaluated the patient, The case was reviewed & discussed with the resident, I agree w/resident's findings & plan, Exceptions are as noted - HPI HPI: 10/03/18 21:16 The patient is an 83 year old male, with a significant PMH of chronic cellulitis , CHF, asthma, and Afib (on eliquis) who presents to the emergency department with Generalized weakness. The patient has had a complicated course over the last month. The patient had went to [place] for vacation in early August reportedly with no complaints. During his time, the patient and ordered lower extremity edema and generalized weakness where he was admitted for atrial fibrillation as well as congestive heart failure. At that time, patient was also treated with bilateral lower extremity cellulitis. He was admitted for 2 weeks and discharged on Bumex and amiodarone. The patient is also taking eliquis. The patient was recently discharge in the patient had went on the airplane and the patient landed here and came immediately to the emergency department. The patient reports of bilateral calf pains, increasing lower extremity edema and generalized weakness. Patient feels lightheaded upon standing up but denies chest pain or shortness of breath. Patient states that he has lower extremity erythema but is unsure if it's worse. Denies fevers or chills. Upon discharge, pt reports that he had VICKY that improved to Cr 1.3. The patient denies falling, chest pain, shortness of breath, headache and dizziness. Denies fever, chills, nausea, vomiting, diarrhea and constipation. Denies dysuria, frequency, urgency and hematuria. Allergies: NKA - Physicial Exam PE: 10/03/18 23:16 GENERAL: Awake, alert, and fully oriented, in no acute distress. Tired appearing but speaking. HEAD: No signs of trauma EYES: EOMI, sclera anicteric, conjunctiva clear ENT: Auricles normal inspection, hearing grossly normal, nares patent, NECK: Normal ROM, supple, LUNGS: Breath sounds equal, clear to auscultation bilaterally. No wheezes, and no crackles HEART: Irregularly irregular, tachycardic normal S1 and S2, no murmurs, rubs or gallops ABDOMEN: Soft, nontender, No guarding, no rebound. No masses EXTREMITIES: 3+ pitting edema lower extremities b/l. erythema, blanching and tender to palpation of lower extremities NEUROLOGICAL: Cranial nerves II through XII grossly intact. Normal speech, SKIN: Warm, Dry, normal turgor, no rashes or lesions noted. - Medical Decision Making 10/03/18 23:19 A portion of this note was documented by scribe services under my direction. I have reviewed the details of the note, within reason, and agree with the documentation with the following case summary and management plan written by me. Patient treated in the ED. Nursing notes are reviewed and incorporated into the medical decision-making. Vital signs reviewed. Peripheral IV access obtained by the nurse, laboratory studies are drawn and sent, reviewed and interpreted by myself. Vital Signs Temp Pulse Resp BP Pulse Ox 98.3 F 67 14 99/60 97 10/03/18 20:14 10/03/18 20:14 10/03/18 20:14 10/03/18 23:18 10/03/18 20:14 The patient appears deconditioned and weak. The patient appears to have increasing lower extremity edema in addition to atrial fibrillation and rapid ventricular response. Patient's congestive heart failure also likely contribute to the patient's symptoms. At this time, I suspect that the patient's overall symptoms and etiology including cardiac and renal is likely source of patient's symptoms. Patient lower extremity does appear to have significant edema and erythema but at this time, it is unclear if this erythema is new from the patient's discharge. The lower extremity duplex deficits no DVTs. Patient's head CT demonstrates no acute findings. Patient has acute kidney injury again. The patient's blood pressure is 90s to 100 systolic but with a heart rate of 130s. We'll trial diltiazem. If the patient's heart rate does not improve we'll need to consider other agents and potential admission to the ICU. 10/04/18 00:03 CBC, BMP 10/03/18 21:08 10/03/18 21:08 CMP Sodium 133 mmol/L (136-145) L 10/03/18 21:08 Potassium 4.9 mmol/L (3.5-5.1) 10/03/18 21:08 Chloride 94 mmol/L (98-107) L 10/03/18 21:08 Carbon Dioxide 30 mmol/L (21-32) 10/03/18 21:08 Anion Gap 8 MMOL/L (8-16) 10/03/18 21:08 BUN 40.0 mg/dL (7-18) H 10/03/18 21:08 Creatinine 2.8 mg/dL (0.55-1.3) H 10/03/18 21:08 Est GFR (CKD-EPI)AfAm 23.46 10/03/18 21:08 Est GFR (CKD-EPI)NonAf 20.24 10/03/18 21:08 Random Glucose 117 mg/dL (74-106) H 10/03/18 21:08 Calcium 8.9 mg/dL (8.5-10.1) 10/03/18 21:08 Phosphorus 3.5 mg/dL (2.5-4.9) 10/03/18 21:35 Magnesium 1.8 mg/dL (1.8-2.4) 10/03/18 21:35 Total Bilirubin 1.3 mg/dL (0.2-1) H 10/03/18 21:08 AST 40 U/L (15-37) H 10/03/18 21:08 ALT 28 U/L (13-61) 10/03/18 21:08 Alkaline Phosphatase 115 U/L (45-117) 10/03/18 21:08 Creatine Kinase 59 U/L (26-308) 10/03/18 21:35 Troponin I < 0.02 ng/ml (0.00-0.05) 10/03/18 21:35 B-Natriuretic Peptide 2769.4 pg/ml (5-450) H 10/03/18 21:35 Total Protein 6.7 g/dl (6.4-8.2) 10/03/18 21:08 Albumin 2.9 g/dl (3.4-5.0) L 10/03/18 21:08 TSH 10.70 uIU/ml (0.358-3.74) H D 10/03/18 21:35 Pt's HR improved to 90s with 10 mg IV diltiazem. Systolics is 100. Given the pt's Bp tenuous status, will hold off from oral diltiazem. Pt is noted to have high TSH, VICKY, and afib, which is likely source of pt's weakness. At this time, will hold from treating as cellulitis given pt was recently discharged without antibiotics and was told that his legs were improving. Will however draw blood cultures. Given these symptoms, will admit patient to the hospital. Case discussed with Ambika NICHOLS from [facility]. Pt admitted to telemetry admission. Case discussed in detail with admitting physician including history, physical exam and ancillary studies. Admitting physician has assumed care for the patient, will follow all pending diagnostics and will complete the evaluation and treatment. *DC/Admit/Observation/Transfer Diagnosis at time of Disposition: Abnormal TSH Acute kidney failure Qualifiers: Acute renal failure type: unspecified Qualified Code(s): N17.9 - Acute kidney failure, unspecified Afib Qualifiers: Atrial fibrillation type: unspecified Qualified Code(s): I48.91 - Unspecified atrial fibrillation - Discharge Dispostion Condition at time of disposition: Improved Decision to Admit order: Yes - Referrals - Patient Instructions - Post Discharge Activity Heart Score/ECG Review #1 ECG reviewed & interpreted by me at: 22:30 10/03/18 23:11 atrial fibrillation 130, left axid deviation, LVH with QRS widening, QTC 432 msec, no std/dario
[2018-10-03] MEDS ORDERED: dilTIAZem HCL 125 MG/25 ML - 25 ML VIAL ONE (23:08)
[2018-10-03] MEDS ORDERED: SODIUM CHLORIDE 0.9% 500 ML INFUS.BAG IV ONE (23:24)
--- NOTE | 2018-10-04 00:41 | PN ---
Teaching Attending Note Name of Resident: Louann Auguste ATTENDING PHYSICIAN STATEMENT I saw and evaluated the patient. I reviewed the resident's note and discussed the case with the resident. I agree with the resident's findings and plan as documented. SUBJECTIVE: Patient is an 83 year old man with a PMH of Depression, Anxiety, BPH, chronic cellulitis, CHF, hypothyroidism (?untreated), hyperparathyroidism, asthma, and Afib (on eliquis) who presents to the ER with Generalized weakness. The patient has had a complicated course over the last month. The patient went to [place] for vacation in early August reportedly with no complaints. During his time, the patient had lower extremity edema and generalized weakness and he was admitted for atrial fibrillation as well as congestive heart failure. At that time, patient was also treated for bilateral lower extremity cellulitis. He is winded for 2 weeks and discharged on Bumex and amiodarone. . The patient flew in today and came immediately to the ER. The patient reports bilateral calf pains, increasing lower extremity edema and generalized weakness. Patient feels lightheaded upon standing up but denies chest pain or shortness of breath. Patient states that he has lower extremity erythema but is unsure if it's worse. Denies fevers or chills. Upon discharge, he reports that he had VICKY that improved to Cr 1.3. He denies falling, chest pain, shortness of breath, headache and dizziness. Denies fever, chills, nausea, vomiting, diarrhea and constipation. Denies dysuria, frequency, urgency and hematuria. OBJECTIVE: Alert Vital Signs Period Temp Pulse Resp BP Sys/Burgos Pulse Ox Last 24 Hr 98.3 F 67-122 14 92-110/42-66 96-97 HEENT: No Jaundice, eye redness or discharge, PERRLA, EOMI. Normocephalic, atraumatic. External ears are normal and hearing is grossly intact. No nasal discharge. Neck: Supple, nontender. No palpable adenopathy or thyromegaly. No JVD Chest: Good effort. Clear to auscultation and percussion. Heart: Irregularly irregular. No S3, rub or murmur Abdomen: Not distended, soft, nontender and no HSM. No rebound or guarding. Normal bowel sounds. Ext: Peripheral pulses intact. Chronic leg lymphedema with stasis dermatitis changes -flaky dry skin with excoriations. Skin: Warm and dry. No petechiae, rash or ecchymosis. Neuro: Alert. Oriented x3. CN 2-12 grossly intact. Sensation grossly intact in all four extremities and DTR are symmetric. Psych: Appropriate mood and affect. Good insight. Home Medications Medication Instructions Recorded Albuterol Sulfate [Albuterol 2 puff PO PRN PRN 08/23/18 Sulfate Hfa] Amiodarone HCl 200 mg PO DAILY 10/03/18 Apixaban [Eliquis -] 2.5 mg PO DAILY 10/03/18 Atorvastatin Ca [Lipitor] 40 mg PO HS 10/03/18 Bumetanide 4 mg PO DAILY 10/03/18 Metoprolol Succinate 25 mg PO DAILY 10/03/18 Sertraline HCl [Zoloft -] 25 mg PO DAILY 10/03/18 Spironolactone 25 mg PO DAILY 10/03/18 Abnormal Lab Results 10/03/18 10/03/18 10/03/18 21:08 21:08 21:35 RDW 16.0 H MPV 6.6 L D Sodium 133 L Chloride 94 L BUN 40.0 H Creatinine 2.8 H Random Glucose 117 H Total Bilirubin 1.3 H AST 40 H B-Natriuretic Peptide 2769.4 H Albumin 2.9 L TSH 10.70 H D ASSESSMENT AND PLAN: 1. Afib/CHF exacerbation - CHF exacerbation likely due to a combination of factors - insufficient diuretic dose, suboptimal CHF regimen, ?untreated hypothyroidism, AFib with RVR and dietary indiscretion. Will address all the problems and use escalating doses of IV lasix to determine effective dose - worsening azotemia is an expected tradeoff. Consult cardiology. Get free T4, PTH , urinalysis, start synthroid 75 mcg qd and consult Endocrine. Get daily standing weight, restrict dietary salt intake and refer to an outpatient CHF program. Continue to use his lymphedema pump and elevate legs when supine. AFib responded to IV cardiazem in the ER. Continue Eliquis for Afib. No significant ST-T wave changes on EKG and initial troponin is negative. CXR shows cardiomegaly and unfolded aorta. Will continue his Home regimen. ECHO from 08/23/18 showed an EF of 40-45%. No acute abnormality on head CT and no DVT on leg doppler. 2. Hypoalbuminemia - Possibly due to combined effects of malnutrition and inflammation associated with comorbid chronic conditions. Will ensure adequate dietary protein intake and also consult keno writer/runner. 3. CKD? - Cause unclear. Exacerbated by impaired renal perfusion due to CHF. Will consult nephrology and avoid nephrotoxic agents such as NSAIDS, aminoglycosides, contrast dyes and certain Alternative medicine products. 4. Obesity Counseled on the risks associated with obesity. Will provide patient all the necessary assistance, counseling and positive reinforcement to facilitate weight loss. Consult keno writer/runner. 5. DVT prophylaxis - On Eliquis for Afib. 6. Advance directives - Full code
[2018-10-04] MEDS ORDERED: ONDANSETRON 4 MG/2 ML VIAL IVPUSH ONE (01:05)
[2018-10-04] MEDS ORDERED: ONDANSETRON 4 MG/2 ML VIAL ONE (01:08)
[2018-10-04] MEDS ORDERED: FUROSEMIDE 40 MG/4 ML INJECTABLE VIAL IVPUSH ONE (02:26)
[2018-10-04] MEDS ORDERED: FUROSEMIDE 40 MG/4 ML INJECTABLE VIAL ONE (02:39)
--- NOTE | 2018-10-04 03:48 | HP ---
CHIEF COMPLAINT: leg weakness and swelling PCP: HISTORY OF PRESENT ILLNESS: Mr. Valverde is an 83 yo male with HFrEF, persistent a-fib, HTN, and asthma presents to the ED with leg weakness and edema. He was admitted to [facility] on 08/23/18 for CHF exacerbation and was instructed on discharge to follow up with cards but did not. He went on vacation to [place] on 09/10/18 where his LE edema worsened, and he was admitted to a hospital for 2 weeks. Medication adjustments were made, d/c'ed diltiazem for amiodarone and Bumex for Lasix. He was discharged on 10/03/18 after some improvement and flew home the same day. His legs became increasingly edematous on the plane. He was trying to climb his stairs at home and was unable to, so EMS was called. He reports the edema has been present for at least 6 months and has had courses of improvement and worsening. He reports recently not adhering to a cardiac diet. The patient endorses leg weakness, edema, and nausea. He also reports dyspnea on exertion. He denies headache, dizziness, chest pain, palpitations, vomiting, diarrhea, constipation, fever or chills. ER course was notable for: (1) diltiazem 10mg (2) zofran 4mg Recent Travel: [place] PAST MEDICAL HISTORY: 1. HFrEF (40-45%) 2. persistent a-fib 3. HTN 4. asthma 5. thoracic aortic aneurysm (4.1cm) PAST SURGICAL HISTORY: 1. bilateral athroscopies 2. cataract repair 3. hemorrhoidectomy Social History: Smoking: quit 1980s Alcohol: social Drugs: none Patient lives at home with . Family History: mother-lung CA father-CVAs sister-TIAs Allergies No Known Drug Allergies Allergy (Verified 10/03/18 20:21) HOME MEDICATIONS: Home Medications Medication Instructions Recorded Albuterol Sulfate [Albuterol 2 puff PO PRN PRN 08/23/18 Sulfate Hfa] Amiodarone HCl 200 mg PO DAILY 10/03/18 Apixaban [Eliquis -] 2.5 mg PO DAILY 10/03/18 Atorvastatin Ca [Lipitor] 40 mg PO HS 10/03/18 Bumetanide 4 mg PO DAILY 10/03/18 Metoprolol Succinate 25 mg PO DAILY 10/03/18 Sertraline HCl [Zoloft -] 25 mg PO DAILY 10/03/18 Spironolactone 25 mg PO DAILY 10/03/18 REVIEW OF SYSTEMS CONSTITUTIONAL: Present: weakness Absent: fever, chills, diaphoresis HEENT: Absent: dysphagia CARDIOVASCULAR: Present: peripheral edema, irregular heart rate Absent: chest pain, syncope, palpitations, lightheadedness RESPIRATORY: Present: SOB, dyspnea on exertion Absent: cough, wheezing GASTROINTESTINAL: Present: nausea Absent: abdominal pain, abdominal distension, vomiting, diarrhea, constipation, melena, hematochezia GENITOURINARY: Present: oliguria Absent: dysuria MUSCULOSKELETAL: Present: bilateral LE pain SKIN: Present: erythema, skin sloughing Absent: itching, pallor HEMATOLOGIC/IMMUNOLOGIC: Absent: easy bleeding, easy bruising, lymphadenopathy, frequent infections ENDOCRINE: Absent: unexplained weight gain, unexplained weight loss, heat intolerance, cold intolerance NEUROLOGIC: Absent: headache, focal weakness or paresthesias, dizziness, unsteady gait, seizure, mental status changes, bladder or bowel incontinence PSYCHIATRIC: Absent: anxiety, depression, suicidal or homicidal ideation, hallucinations. PHYSICAL EXAMINATION Vital Signs - 24 hr 10/03/18 10/03/18 10/03/18 20:14 23:18 23:22 Temperature 98.3 F Pulse Rate 67 Pulse Rate [ 122 H 99 H Radial] Respiratory 14 Rate Blood Pressure 104/42 L Blood Pressure 99/60 99/55 L [Right Arm] O2 Sat by Pulse 97 Oximetry (%) 10/03/18 10/04/18 10/04/18 23:51 00:17 00:23 Temperature Pulse Rate Pulse Rate [ 106 H 105 H Radial] Respiratory Rate Blood Pressure Blood Pressure 92/59 L 110/66 [Right Arm] O2 Sat by Pulse 96 Oximetry (%) 10/04/18 10/04/18 00:48 02:07 Temperature Pulse Rate Pulse Rate [ 111 H 107 H Radial] Respiratory Rate Blood Pressure Blood Pressure 99/61 92/59 L [Right Arm] O2 Sat by Pulse Oximetry (%) GENERAL: Awake, alert, and fully oriented, in no acute distress. HEAD: Normal with no signs of trauma. EYES: Pupils equal, round and reactive to light, extraocular movements intact, sclera anicteric, conjunctiva clear. No lid lag. EARS, NOSE, THROAT: Ears normal, nares patent. Moist mucous membranes. NECK: Normal range of motion, supple without lymphadenopathy, JVD, or masses. LUNGS: Breath sounds equal, clear to auscultation bilaterally. No wheezes, and no crackles. No accessory muscle use. HEART: Tachycardic, irregular rhythm, normal S1 and S2 without murmur, rub or gallop. ABDOMEN: Soft, nontender, not distended, normoactive bowel sounds, no guarding, no rebound, no masses. No hepatomegaly MUSCULOSKELETAL: Normal range of motion at all joints. No bony deformities or tenderness. No CVA tenderness. UPPER EXTREMITIES: warm, well-perfused. No cyanosis. LOWER EXTREMITIES: +3 pitting edema to knees bilaterally, erythemous and skin sloughing below the knees bilaterally, wound at right anterior leg, pulses not appreciated due to edema, warm, well-perfused. NEUROLOGICAL: Cranial nerves II-XII intact. Normal speech. PSYCHIATRIC: Cooperative. Good eye contact. Appropriate mood and affect. SKIN: normal capillary refill. Laboratory Results - last 24 hr 10/03/18 10/03/18 10/03/18 21:08 21:08 21:35 WBC 6.4 RBC 4.06 Hgb 12.2 Hct 36.7 MCV 90.4 MCH 30.1 MCHC 33.3 RDW 16.0 H Plt Count 298 D MPV 6.6 L D Absolute Neuts (auto) 4.9 Total Counted 100 Neutrophils % 75.7 Neutrophils % (Manual) 62.0 Band Neutrophils % 11.0 Lymphocytes % 13.0 D Lymphocytes % (Manual) 12.0 Monocytes % 9.8 D Monocytes % (Manual) 10 Eosinophils % 0.6 D Eosinophils % (Manual) 2.0 Basophils % 0.9 D Myelocytes % (Man) 2 Nucleated RBC % 0 Metamyelocytes 1 Differential Comment Man diff performed Platelet Estimate Adequate Platelet Comment Polychromasia 1+ Poikilocytosis 1+ Anisocytosis 1+ Microcytosis 1+ Macrocytosis 1+ Sodium 133 L Potassium 4.9 Chloride 94 L Carbon Dioxide 30 Anion Gap 8 BUN 40.0 H Creatinine 2.8 H Est GFR (CKD-EPI)AfAm 23.46 Est GFR (CKD-EPI)NonAf 20.24 Random Glucose 117 H Calcium 8.9 Phosphorus 3.5 Magnesium 1.8 Total Bilirubin 1.3 H AST 40 H ALT 28 Alkaline Phosphatase 115 Creatine Kinase 59 Troponin I < 0.02 B-Natriuretic Peptide 2769.4 H Total Protein 6.7 Albumin 2.9 L TSH 10.70 H D Free T4 10/03/18 21:35 WBC RBC Hgb Hct MCV MCH MCHC RDW Plt Count MPV Absolute Neuts (auto) Total Counted Neutrophils % Neutrophils % (Manual) Band Neutrophils % Lymphocytes % Lymphocytes % (Manual) Monocytes % Monocytes % (Manual) Eosinophils % Eosinophils % (Manual) Basophils % Myelocytes % (Man) Nucleated RBC % Metamyelocytes Differential Comment Platelet Estimate Platelet Comment Polychromasia Poikilocytosis Anisocytosis Microcytosis Macrocytosis Sodium Potassium Chloride Carbon Dioxide Anion Gap BUN Creatinine Est GFR (CKD-EPI)AfAm Est GFR (CKD-EPI)NonAf Random Glucose Calcium Phosphorus Magnesium Total Bilirubin AST ALT Alkaline Phosphatase Creatine Kinase Troponin I B-Natriuretic Peptide Total Protein Albumin TSH Free T4 1.21 H ASSESSMENT/PLAN: -acute on chronic HFrEF Patient has had increasing fluid retention over the last several months, which has included multiple hospital admissions. There have been medication adjustments during this time period, with the patient compliant with meds. Pitting edema is present on exam. CXR done this visit showed cardiomegaly which is consistent with previous CXRs. Echo done in July showed EF est 40-45%. Duplex U/S is negative for DVTs bilaterally. Patient must be adequately diuresed in order to prevent symptom worsening and possible readmissions. Cr 2.8 is currently increased compared to baseline (~1.3) , indicating possible VICKY. This may be due to Bumex; however, it is necessary despite increase in Cr to diurese. 40mg Lasix IV push will be given now and urine output will be monitored in order to assess volume status. CXR is ordered also to monitor volume status. Cr will continue to be monitored via CMP. Bladder scan will also check for urinary retention because patient has been oliguric today. Upon discharge, can consider daily weights at home through a nursing service and meds can be adjusted accordingly. Will consult cards to confirm treatment plan. -persistent a-fib Patient has had hx of a-fib for about 24 years which has gradually become persistent. He is normally asymptomatic. Right now controlling the fluid excess is priority so will keep Amiodarone and metoprolol XR on board. Patient is anti-coagulated on Eliquis 2.5mg. Will monitor for bleeding with CBC. -increased TSH Patient has had elevated levels of TSH in the past as well as normal values. Since July TSH has risen 3.3-->10.7. The patient denies a diagnosis of hypothyroidism ever. T4 was also elevated. Will repeat TSH. Endocrine consulted. Patient reports a diagnosis of hyperparathyroidism which he states he does not want treated. PTH ordered for confirmation. Problem List - Problem (1) Abnormal TSH Code(s): R79.89 - OTHER SPECIFIED ABNORMAL FINDINGS OF BLOOD CHEMISTRY (2) Acute kidney failure Code(s): N17.9 - ACUTE KIDNEY FAILURE, UNSPECIFIED Qualifiers: Acute renal failure type: unspecified Qualified Code(s): N17.9 - Acute kidney failure, unspecified (3) Afib Code(s): I48.91 - UNSPECIFIED ATRIAL FIBRILLATION Qualifiers: Atrial fibrillation type: unspecified Qualified Code(s): I48.91 - Unspecified atrial fibrillation Visit type - Emergency Visit Emergency Visit: Yes ED Registration Date: 10/04/18 Care time: The patient presented to the Emergency Department on the above date and was hospitalized for further evaluation of their emergent condition. - New Patient This patient is new to me today: Yes Date on this admission: 10/06/18 - Critical Care Critical Care patient: No
[2018-10-04] MEDS ORDERED: ALBUTEROL SO4 8 GM HFA INHALER IH PRN (04:27)
[2018-10-04 06:11] LABS: BASO % 0.6 % (0-2.0); EOS % 0.7 % (0-4.5); HEMATOCRIT 31.5 % (35.4-49); HEMOGLOBIN 10.8 GM/dL (11.7-16.9); LYMPH % 18.5 % (8-40); MCH 30.4 pg (25.7-33.7); MCHC 34.4 g/dl (32.0-35.9); MEAN CELL VOLUME 88.4 fl (80-96); MEAN PLT VOLUME 6.5 fl (7.5-11.1); MONO % 11.7 % (3.8-10.2); NEUT % 68.5 % (42.8-82.8); PLATELET COUNT 272 K/MM3 (134-434); RBC 3.57 M/mm3 (4.00-5.60); RDW 15.9 % (11.9-15.9); WHITE BLOOD COUNT 5.6 K/mm3 (4.0-10.0)
[2018-10-04] MEDS: APIXABAN 2.5 MG TABLET PO SCH ×2 (06:28→21:40)
[2018-10-04 06:53] LABS: ALBUMIN 2.6 g/dl (3.4-5.0); BILIRUBIN,TOTAL 1.2 mg/dL (0.2-1); BLOOD UREA NITROGEN 45.4 mg/dL (7-18); CALCIUM 8.7 mg/dL (8.5-10.1); CREATININE 3.2 mg/dL (0.55-1.3); MAGNESIUM 1.9 mg/dL (1.8-2.4); PHOSPHOROUS 4.1 mg/dL (2.5-4.9); POTASSIUM 4.8 mmol/L (3.5-5.1); TOT PROT 5.8 g/dl (6.4-8.2)
[2018-10-04] MEDS: metoPROLOL SUCCINATE 25 MG TAB.SR.24H (FP) PO SCH (09:12)
[2018-10-04] MEDS: SERTRALINE HCL 25 MG TABLET (FP) PO SCH (09:12)
[2018-10-04 09:16] LABS: ANISOCYTOSIS 2+; MACROCYTOSIS 0; OVALOCYTE 1+; PLATELET ESTIMATE NORMAL
--- NOTE | 2018-10-04 09:17 | CONSULT ---
Consult Consult Specialty:: Endocrinology Referred by:: Stephanie Johns MD Reason for Consultation:: Hyperparathyroidism, Hypothyroidism - History of Present Illness Chief Complaint: Weakness History of Present Illness: This is an 83 yo male with HFrEF, persistent a-fib, HTN, and asthma who presented to the ED with leg weakness and edema. He was admitted to [facility] on 08/23/18 for CHF exacerbation and was instructed on discharge to follow up with cards but did not. He went on vacation to [place] on 09/10/18 where his LE edema worsened, and he was admitted to a hospital for 2 weeks. Medication adjustments were made, d/c'ed diltiazem for amiodarone and Bumex for Lasix. He was discharged on 10/03/18 after some improvement and flew home the same day. His legs became increasingly edematous on the plane. He was trying to climb his stairs at home and was unable to, so EMS was called. He reports the edema has been present for at least 6 months and has had courses of improvement and worsening. He reports recently not adhering to a cardiac diet. Pt referred for evaluation of abnormal TFTs and h/o hyperparathyroidism. Was seeing Endo Dr Guillory who told him he has hyperparathyroidism but is calcium is ? normal and didn't needs treatment when he saw her about 8 months ago. Denies any recent wt gain or heat or cold intolerance. No family h/o hypercalcemia, hyperparathyroidism or thyroid disorder. 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) - Past Surgical History Past Surgical History: Yes: Joint Replacement, Vein Stripping/Ligation - Alcohol/Substance Use Hx Alcohol Use: No History of Substance Use: reports: None - Smoking History Smoking history: Former smoker Have you smoked in the past 12 months: No Aproximately how many cigarettes per day: 0 If you are a former smoker, when did you quit?: 1979 - Social History Usual Living Arrangement: With Spouse History of Recent Travel: No Home Medications - Allergies Allergies/Adverse Reactions: Allergies Allergy/AdvReac Type Severity Reaction Status Date / Time No Known Drug Allergies Allergy Verified 10/03/18 20:21 - Home Medications Home Medications: Ambulatory Orders Albuterol Sulfate [Albuterol Sulfate Hfa] 2 puff PO PRN PRN 08/23/18 Amiodarone HCl 200 mg PO DAILY 10/03/18 Apixaban [Eliquis -] 5 mg PO DAILY 10/03/18 Atorvastatin Ca [Lipitor] 40 mg PO HS 10/03/18 Bumetanide 200 mg PO BID 10/03/18 Metoprolol Succinate 25 mg PO DAILY 10/03/18 Sertraline HCl [Zoloft -] 25 mg PO DAILY 10/03/18 Spironolactone 25 mg PO DAILY 10/03/18 Furosemide [Lasix -] 40 mg PO DAILY 10/04/18 Family Disease History - Family Disease History Other Family History: No family h/o thyroid or parathyroid disorder Review of Systems - Review of Systems Constitutional: reports: Weakness Eyes: reports: No Symptoms HENT: reports: No Symptoms Neck: reports: No Symptoms Cardiovascular: reports: No Symptoms Respiratory: reports: No Symptoms Gastrointestinal: reports: No Symptoms Genitourinary: reports: No Symptoms Neurological: reports: No Symptoms Endocrine: reports: No Symptoms Hematology/Lymphatic: reports: No Symptoms Physical Exam Vital Signs: Vital Signs Temperature 97.6 F 10/04/18 03:49 Pulse Rate 110 H 10/04/18 03:49 Respiratory Rate 20 10/04/18 08:20 Blood Pressure 100/57 L 10/04/18 03:49 O2 Sat by Pulse Oximetry (%) 96 10/04/18 08:20 Constitutional: Yes: No Distress Eyes: Yes: Conjunctiva Clear, EOM Intact HENT: Yes: Atraumatic, Normocephalic Neck: Yes: Supple, Trachea Midline Cardiovascular: Yes: Pulse Irregular Respiratory: Yes: Regular, CTA Bilaterally Gastrointestinal: Yes: Normal Bowel Sounds, Soft Extremities: Yes: Other (Stasis changed both legs) Edema: LLE: Trace, RLE: Trace Neurological: Yes: Alert, Oriented Labs: CBC, BMP 10/04/18 05:12 10/04/18 05:12 Imaging - Results Chest X-ray: Report Reviewed Cat Scan: Report Reviewed Assessment/Plan CHF VICKY ?on CKD Subclinical Hypothyroidism: TSH 8.10 FT4 1.21 ?Hyperparathyroidism PTH pending ? secondary hyperparathyroidism Normal Ca will try to get record from his previous Endo's office next week once office opens No LT4 replacement for now.
[2018-10-04] MEDS ORDERED: APIXABAN 2.5 MG TABLET PO SCH (10:00)
[2018-10-04] MEDS ORDERED: SPIRONOLACTONE 25 MG TABLET (FP) PO SCH (10:00)
[2018-10-04] MEDS ORDERED: AMIODARONE HCL 200 MG TABLET (FP) PO SCH (10:00)
[2018-10-04] MEDS ORDERED: BUMETANIDE 1 MG TABLET PO SCH (10:00)
--- NOTE | 2018-10-04 11:20 | EKG ---
Test Reason : Blood Pressure : / mmHG Vent. Rate : 130 BPM Atrial Rate : 153 BPM P-R Int : 000 ms QRS Dur : 118 ms QT Int : 294 ms P-R-T Axes : 000 -53 104 degrees QTc Int : 432 ms ATRIAL FIBRILLATION WITH RAPID VENTRICULAR RESPONSE WITH PREMATURE VENTRICULAR OR ABERRANTLY CONDUCTED COMPLEXES LEFT AXIS DEVIATION LEFT VENTRICULAR HYPERTROPHY WITH QRS WIDENING ABNORMAL ECG Confirmed by PAULIE BENSON MD ([id number]) on 10/04/2018 11:20:04 AM Referred By: Confirmed By:PAULIE BENSON MD
[2018-10-04 11:35] LABS: EPI CELLS 3.3 /HPF (0-5/HPF); HYALINE CASTS 31 /lpf (0-8); URINE APPEARANCE CLOUDY; URINE BACTERIA 0.2 /hpf (NEGATIVE); URINE BILIRUBIN 1+ (NEGATIVE); URINE COLOR DK YELLOW; URINE GLUCOSE (UA) NEGATIVE (NEGATIVE); URINE KETONE TRACE (NEGATIVE); URINE LEUK ESTERASE 2+ (NEGATIVE); URINE NITRITE NEGATIVE (NEGATIVE); URINE PROTEIN NEGATIVE (NEGATIVE); URINE RBC 6 /hpf (0-4); URINE WBC 16 /hpf (0-5)
--- NOTE | 2018-10-04 12:05 | CON.CARD ---
Consult Consult Specialty:: Cardiology Referred by:: Dr. Diggs Reason for Consultation:: Persistent atrial fibrillation - History of Present Illness Chief Complaint: Weakness, lightheadedness and leg edema. 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 The patient was admitted to a hospital in [place] on 09/10/18 for 2 weeks for worsening leg edema and cellulitis. Medications were adjusted: diltiazem to amiodarone and Lasix to Bumex. He was discharged on 10/03/18 after some improvement and flew home the same day. His leg edema improved from his baseline. He has weakness and lightheadedness. He was found to have persistent atrial fibrillation with LAD, LVH, and NSIVCD on ECG, received IV diltiazem 10 mg in ED. Tele shows atrial fibrillation with range of 90-105 BPM, episodes of rapid afib, up to 130s noted. VICKY noted. CT head revealed moderate atrophy, otherwise unremarkable. CXR no CHF. The patient denies chest pain, SOB, palpitation, syncope, orthopnea or PND. - History Source History Provided By: Patient, Significant Other, Medical Record Limitations to Obtaining History: No Limitations - Past Medical History Cardio/Vascular: Yes: AFIB (Chronic atrial fibrillation on coumadin (held for procedure) and cardizem for rate control, never had AF ablation, never had DCCV) , HTN, Hyperlipdemia Pulmonary: Yes: Asthma Renal/: Yes: BPH Psych: Yes: Other (Manic state possibly secondary to steroids) Musculoskeletal: Yes: Osteoarthritis Endocrine: Yes: Diabetes Mellitus (states unclear if has DM or if from longterm steroid use) - Past Surgical History Past Surgical History: Yes: Joint Replacement, Vein Stripping/Ligation - Alcohol/Substance Use Hx Alcohol Use: No History of Substance Use: reports: None - Smoking History Smoking history: Former smoker Have you smoked in the past 12 months: No Aproximately how many cigarettes per day: 0 If you are a former smoker, when did you quit?: 1979 - Social History Usual Living Arrangement: With Spouse History of Recent Travel: No Home Medications - Allergies Allergies/Adverse Reactions: Allergies Allergy/AdvReac Type Severity Reaction Status Date / Time No Known Drug Allergies Allergy Verified 10/03/18 20:21 - Home Medications Home Medications: Ambulatory Orders Albuterol Sulfate [Albuterol Sulfate Hfa] 2 puff PO PRN PRN 08/23/18 Amiodarone HCl 200 mg PO DAILY 10/03/18 Apixaban [Eliquis -] 2.5 mg PO DAILY 10/03/18 Atorvastatin Ca [Lipitor] 40 mg PO HS 10/03/18 Bumetanide 4 mg PO DAILY 10/03/18 Metoprolol Succinate 25 mg PO DAILY 10/03/18 Sertraline HCl [Zoloft -] 25 mg PO DAILY 10/03/18 Spironolactone 25 mg PO DAILY 10/03/18 Family Disease History - Family Disease History Other Family History: No family h/o thyroid or parathyroid disorder Review of Systems - Review of Systems Constitutional: reports: Weakness Eyes: reports: No Symptoms HENT: reports: No Symptoms Neck: reports: No Symptoms Cardiovascular: reports: Edema Respiratory: reports: No Symptoms Gastrointestinal: reports: No Symptoms Genitourinary: reports: No Symptoms Breasts: reports: No Symptoms Reported Musculoskeletal: reports: Joint Swelling, Muscle Weakness Integumentary: reports: Erythema, Lesions Neurological: reports: Dizziness Endocrine: reports: No Symptoms Hematology/Lymphatic: reports: No Symptoms Psychiatric: reports: No Symptoms Vital Signs: Vital Signs Temperature 98.1 F 10/04/18 09:16 Pulse Rate 127 H 10/04/18 09:16 Respiratory Rate 18 10/04/18 09:16 Blood Pressure 96/63 10/04/18 09:16 O2 Sat by Pulse Oximetry (%) 96 10/04/18 08:20 General: Well developed. Obese. No acute distress. Head: Normocephalic. Atraumatic, Eyes: PERRLA, EOMI. Sclerae anicteric. Conjunctivae clear. Neck: Supple. No JVD. No bruits. Heart: Normal S1, S2: Irregular rhythm and rate. No murmur. No gallop or rub. Lungs: Symmetrical air entry. Clear to auscultation. No crackles. No wheezing or rhonchi. Abdomen: Obese. Soft. Bowel sound positive. Non tender. No masses. Extremities: Stasis, erythema. 1+ edema. Neuro: Intact, no focal findings. AAO X3. 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 He was found to have persistent atrial fibrillation with LAD, LVH, and NSIVCD on ECG, received IV diltiazem 10 mg in ED. Tele shows atrial fibrillation with range of 90-105 BPM, episodes of rapid afib, up to 130s noted. VICKY noted[address] CT head revealed moderate atrophy, otherwise unremarkable. CXR no CHF. The patient denies chest pain, SOB, palpitation, syncope, orthopnea or PND. 1) Atrial fibrillation with episodes of rapid VR: -Stop amiodarone (Long standing persistent afib) -Start digoxin 0.125 mg daily, first dose 0.25 mg daily. -Continue metoprolol succinate 25 mg daily, titrate up when BP is higher. -Continue Eliquis 2.5 mg BID for stroke prevention. 2) Lightheadedness secondary to low BP. -Agree to hold diuretics in the setting of low BP and VICKY. -Monitor leg edema. 3) HFmrEF: Stable, no dyspnea. Leg edema improved from his baseline. Out-patient cardiac follow up with Dr. Hartley.
[2018-10-04] MEDS: SODIUM CHLORIDE 1,000 ML IV SCH (12:36)
--- NOTE | 2018-10-04 14:56 | CON.NEP ---
Consult Consult Specialty:: nephrology Reason for Consultation:: eunice - History of Present Illness Chief Complaint: leg weakness/edema History of Present Illness: Mr. Valverde is an 83 yo male with HFrEF, persistent a-fib, HTN, and asthma presents to the ED with leg weakness and edema. He was admitted to [facility] on 08/23/18 for CHF exacerbation and was instructed on discharge to follow up with cards but did not. He went on vacation to [place] on 09/10/18 where his LE edema worsened, and he was admitted to a hospital for 2 weeks. Medication adjustments were made, d/c'ed diltiazem for amiodarone and Bumex for Lasix. He was discharged on 10/03/18 after some improvement and flew home the same day. His legs became increasingly edematous on the plane. He was trying to climb his stairs at home and was unable to, so EMS was called. Upon arrival to [place] he tried to walk up some stairs but could not. So the fire department was called and he was brought to the hospital. 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 Says he was previously on digoxin. has no problems urinating and no foamy urine. His BP has been low and so his cardizem had been switched to amiodarone recently. - Past Medical History Cardio/Vascular: Yes: AFIB (Chronic atrial fibrillation on coumadin (held for procedure) and cardizem for rate control, never had AF ablation, never had DCCV) , HTN, Hyperlipdemia Pulmonary: Yes: Asthma Renal/: Yes: BPH Psych: Yes: Other (Manic state possibly secondary to steroids) Musculoskeletal: Yes: Osteoarthritis Endocrine: Yes: Diabetes Mellitus (states unclear if has DM or if from [facility] steroid use) - Past Surgical History Past Surgical History: Yes: Joint Replacement, Vein Stripping/Ligation - Alcohol/Substance Use Hx Alcohol Use: No History of Substance Use: reports: None - Smoking History Smoking history: Former smoker Have you smoked in the past 12 months: No Aproximately how many cigarettes per day: 0 If you are a former smoker, when did you quit?: 1979 - Social History Usual Living Arrangement: With Spouse History of Recent Travel: No Home Medications - Allergies Allergies/Adverse Reactions: Allergies Allergy/AdvReac Type Severity Reaction Status Date / Time No Known Drug Allergies Allergy Verified 10/03/18 20:21 - Home Medications Home Medications: Ambulatory Orders Albuterol Sulfate [Albuterol Sulfate Hfa] 2 puff PO PRN PRN 08/23/18 Amiodarone HCl 200 mg PO DAILY 10/03/18 Apixaban [Eliquis -] 5 mg PO DAILY 10/03/18 Atorvastatin Ca [Lipitor] 40 mg PO HS 10/03/18 Bumetanide 200 mg PO BID 10/03/18 Metoprolol Succinate 25 mg PO DAILY 10/03/18 Sertraline HCl [Zoloft -] 25 mg PO DAILY 10/03/18 Spironolactone 25 mg PO DAILY 10/03/18 Furosemide [Lasix -] 40 mg PO DAILY 10/04/18 Family Disease History - Family Disease History Other Family History: No family h/o thyroid or parathyroid disorder Review of Systems - Review of Systems Constitutional: reports: Weakness Eyes: reports: No Symptoms HENT: reports: No Symptoms Neck: reports: No Symptoms Cardiovascular: reports: Edema, Shortness of Breath Respiratory: reports: SOB, Wheezing Gastrointestinal: reports: No Symptoms Genitourinary: reports: No Symptoms Breasts: reports: No Symptoms Reported Musculoskeletal: reports: Muscle Weakness Integumentary: reports: No Symptoms Neurological: reports: No Symptoms, Weakness Endocrine: reports: No Symptoms Hematology/Lymphatic: reports: No Symptoms Psychiatric: reports: No Symptoms Nephrology Consult - Height Height: 5 ft 4 in - Weight Weight: 242 lb 4 oz - BMI Body Mass Index (BMI): 41.5 - Lab Results CBC,BMP: CBC, BMP 10/04/18 05:12 10/04/18 05:12 Anion Gap: Anion Gap Anion Gap 8 MMOL/L (8-16) 10/04/18 05:12 - Imaging Chest X-ray: Report Reviewed Cat Scan: Report Reviewed - Physical Examination Vital Signs: Vital Signs Temperature 98.1 F 10/04/18 09:16 Pulse Rate 127 H 10/04/18 09:16 Respiratory Rate 18 10/04/18 09:16 Blood Pressure 96/63 10/04/18 09:16 O2 Sat by Pulse Oximetry (%) 96 10/04/18 08:20 Constitutional: Yes: Well Nourished, No Distress, Calm Eyes: Yes: Conjunctiva Clear HENT: Yes: Atraumatic, Normocephalic Neck: Yes: Supple, Trachea Midline Cardiovascular: Yes: Tachycardia, Pulse Irregular Respiratory: Yes: Diminished Gastrointestinal: Yes: Normal Bowel Sounds Renal/: Yes: WNL Musculoskeletal: Yes: WNL Extremities: Yes: WNL Edema: Yes Edema: LLE: 2+, RLE: 2+ Peripheral Pulses WNL: Yes Integumentary: Yes: WNL Neurological: Yes: Alert, Oriented Psychiatric: Yes: Alert, Oriented Assessment/Plan IMPression probable eunice which is nonproteinuricand a s such is not a glomerular issue. Suspect a cardiorenal syndrome tough also seems to have high tsh and t4. may hve worsening renal function from combination of diuresis and hypotension with decreased efffective circulatory volume PLAN the problem is what to do. I would say he needs to have his cardiac output optimized needs echo if not already done digoxin being initiated repeat renal sono obtain urine protein and creat would reduce fluids or hold them altogether given his edema avoid nephrotoxins and hypotension monitor renal function. Hopefully it improves with better BP MV
--- NOTE | 2018-10-04 16:25 | PN ---
Physical Exam: SUBJECTIVE: Patient seen and examined bedside. pt states that he has chronic lymphadema of his legs. Pt states that his legs are improved compared to when he was in [place] the past 2 weeks. While pt was in [place] he was diagnosed and treated for cellulitis. pt denies dyspnea or SOB OBJECTIVE: Vital Signs Period Temp Pulse Resp BP Sys/Burgos Pulse Ox Last 24 Hr 97.6 F-98.3 F 67-127 14-20 92-110/42-66 96-97 GENERAL: The patient is awake, alert, and fully oriented, in no acute distress. HEAD: Normal with no signs of trauma. LUNGS: Breath sounds equal, clear to auscultation bilaterally, no wheezes, no crackles, no accessory muscle use. HEART: irregularly irregular, S1, S2 without murmur, rub or gallop. ABDOMEN: Soft, nontender, nondistended, normoactive bowel sounds, no guarding EXTREMITIES: B/L LE edematous and erythematous. NEUROLOGICAL: Cranial nerves II through XII grossly intact. Normal speech, gait not observed. PSYCH: Normal mood, normal affect. SKIN: Warm, dry, normal turgor, no rashes or lesions noted Laboratory Last Values WBC 5.6 K/mm3 (4.0-10.0) 10/04/18 05:12 RBC 3.57 M/mm3 (4.00-5.60) L 10/04/18 05:12 Hgb 10.8 GM/dL (11.7-16.9) L 10/04/18 05:12 Hct 31.5 % (35.4-49) L 10/04/18 05:12 MCV 88.4 fl (80-96) 10/04/18 05:12 MCH 30.4 pg (25.7-33.7) 10/04/18 05:12 MCHC 34.4 g/dl (32.0-35.9) 10/04/18 05:12 RDW 15.9 % (11.9-15.9) 10/04/18 05:12 Plt Count 272 K/MM3 (134-434) 10/04/18 05:12 MPV 6.5 fl (7.5-11.1) L 10/04/18 05:12 Absolute Neuts (auto) 3.8 K/mm3 (1.5-8.0) 10/04/18 05:12 Total Counted 100 10/03/18 21:08 Neutrophils % 68.5 % (42.8-82.8) 10/04/18 05:12 Neutrophils % (Manual) 41.2 % (42.8-82.8) L D 10/04/18 05:12 Band Neutrophils % 15.7 % 10/04/18 05:12 Lymphocytes % 18.5 % (8-40) D 10/04/18 05:12 Lymphocytes % (Manual) 11.7 % (8-40) 10/04/18 05:12 Monocytes % 11.7 % (3.8-10.2) H 10/04/18 05:12 Monocytes % (Manual) 16 % (3.8-10.2) H 10/04/18 05:12 Eosinophils % 0.7 % (0-4.5) 10/04/18 05:12 Eosinophils % (Manual) 1.0 % (0-4.5) 10/04/18 05:12 Basophils % 0.6 % (0-2.0) 10/04/18 05:12 Basophils % (Manual) 1.0 % (0-2.0) 10/04/18 05:12 Myelocytes % (Man) 0 % (0-2) D 10/04/18 05:12 Promyelocytes % (Man) 0 % (0-2) 10/04/18 05:12 Blast Cells % (Manual) 0 % (0-0) 10/04/18 05:12 Nucleated RBC % 0 % (0-0) 10/04/18 05:12 Metamyelocytes 4 % (0-2) H D 10/04/18 05:12 Differential Comment Man diff performed 10/03/18 21:08 Hypochromia 0 10/04/18 05:12 Platelet Estimate Normal 10/04/18 05:12 Platelet Comment 10/03/18 21:08 Polychromasia 1+ 10/04/18 05:12 Poikilocytosis 1+ 10/04/18 05:12 Anisocytosis 2+ 10/04/18 05:12 Microcytosis 1+ 10/04/18 05:12 Macrocytosis 0 10/04/18 05:12 Ovalocytes 1+ 10/04/18 05:12 Shy Cells 1+ 10/04/18 05:12 Acanthocytes (Spur) 1+ 10/04/18 05:12 Sodium 134 mmol/L (136-145) L 10/04/18 05:12 Potassium 4.8 mmol/L (3.5-5.1) 10/04/18 05:12 Chloride 96 mmol/L (98-107) L 10/04/18 05:12 Carbon Dioxide 30 mmol/L (21-32) 10/04/18 05:12 Anion Gap 8 MMOL/L (8-16) 10/04/18 05:12 BUN 45.4 mg/dL (7-18) H 10/04/18 05:12 Creatinine 3.2 mg/dL (0.55-1.3) H 10/04/18 05:12 Est GFR (CKD-EPI)AfAm 19.96 10/04/18 05:12 Est GFR (CKD-EPI)NonAf 17.22 10/04/18 05:12 Random Glucose 108 mg/dL (74-106) H 10/04/18 05:12 Calcium 8.7 mg/dL (8.5-10.1) 10/04/18 05:12 Phosphorus 4.1 mg/dL (2.5-4.9) 10/04/18 05:12 Magnesium 1.9 mg/dL (1.8-2.4) 10/04/18 05:12 Total Bilirubin 1.2 mg/dL (0.2-1) H 10/04/18 05:12 AST 29 U/L (15-37) 10/04/18 05:12 ALT 23 U/L (13-61) 10/04/18 05:12 Alkaline Phosphatase 101 U/L (45-117) 10/04/18 05:12 Creatine Kinase 59 U/L (26-308) 10/03/18 21:35 Troponin I < 0.02 ng/ml (0.00-0.05) 10/03/18 21:35 B-Natriuretic Peptide 2769.4 pg/ml (5-450) H 10/03/18 21:35 Total Protein 5.8 g/dl (6.4-8.2) L 10/04/18 05:12 Albumin 2.6 g/dl (3.4-5.0) L 10/04/18 05:12 TSH 8.10 uIU/ml (0.358-3.74) H D 10/04/18 05:12 Free T4 1.21 ng/dl (0.76-1.16) H 10/03/18 21:35 Urine Color Dk yellow 10/03/18 07:15 Urine Appearance Cloudy 10/03/18 07:15 Urine pH 5.0 (5.0-8.0) D 10/03/18 07:15 Ur Specific Plummer 1.015 (1.010-1.035) 10/03/18 07:15 Urine Protein Negative (NEGATIVE) 10/03/18 07:15 Urine Glucose (UA) Negative (NEGATIVE) 10/03/18 07:15 Urine Ketones Trace (NEGATIVE) H 10/03/18 07:15 Urine Blood Negative (NEGATIVE) 10/03/18 07:15 Urine Nitrite Negative (NEGATIVE) 10/03/18 07:15 Urine Bilirubin 1+ (NEGATIVE) H 10/03/18 07:15 Urine Urobilinogen 1.0 mg/dL (0.2-1.0) 10/03/18 07:15 Ur Leukocyte Esterase 2+ (NEGATIVE) H 10/03/18 07:15 Urine WBC (Auto) 16 /hpf (0-5) 10/03/18 07:15 Urine RBC (Auto) 6 /hpf (0-4) 10/03/18 07:15 Urine Casts (Auto) 31 /lpf (0-8) 10/03/18 07:15 U Pathogenic Cast Auto None seen /lpf (NEGATIVE) 10/03/18 07:15 U Epithel Cells (Auto) 3.3 /HPF (0-5/HPF) 10/03/18 07:15 Urine Bacteria (Auto) 0.2 /hpf (NEGATIVE) 10/03/18 07:15 Ur Random Sodium 34 MMOL/L (40-220) L 10/04/18 07:15 Active Medications Generic Name Dose Route Start Last Admin Trade Name Freq PRN Reason Stop Dose Admin Albuterol Sulfate 2 puff 10/04/18 04:27 Ventolin Hfa Inhaler - IH Q6H PRN SHORTNESS OF BREATH Amiodarone HCl 200 mg 10/04/18 10:00 10/04/18 09:11 Cordarone - PO 200 mg DAILY VICTOR HUGO Administration Apixaban 2.5 mg 10/04/18 05:15 10/04/18 06:28 Eliquis - PO 2.5 mg BID VICTOR HUGO Administration Atorvastatin Calcium 40 mg 10/04/18 22:00 Lipitor - PO HS VICTOR HUGO Sodium Chloride 1,000 mls @ 75 mls/hr 10/04/18 11:45 10/04/18 12:36 Normal Saline - IV 75 mls/hr ASDIR VICTOR HUGO Administration Metoprolol Succinate 25 mg 10/04/18 10:00 10/04/18 09:12 Toprol Xl - PO 25 mg DAILY VICTOR HUGO Administration Sertraline HCl 25 mg 10/04/18 10:00 10/04/18 09:12 Zoloft - PO 25 mg DAILY VICTOR HUGO Administration Spironolactone 25 mg 10/04/18 10:00 10/04/18 09:11 Aldactone - PO 25 mg DAILY VICTOR HUGO Administration ASSESSMENT/PLAN: pt is 83 yo M with HFrEF, persistent a-fib, HTN, asthma, and chronic lymphadema presents to the ED with leg weakness and edema. VICKY -Rpt renal u/s -Urine Protein and Cr -continue monitoring BUN/Cr -hold diuretics -IVF 75mls/hr CHF -Echo 07/2018 , EF 40-45% -CXRAY improved from last admission 07/2018 -no dyspnea or crackles on exam A Fib -stop amiodarone and start digoxin 0.125 mg daily as per cardio recs -c/w metoprolol succinate 25 mg daily -c/w Continue Eliquis 2.5 mg BID - outpt follow up with Dr. Oconnell DVT ppx -pt on eliquis Visit type - Emergency Visit Emergency Visit: No - New Patient This patient is new to me today: No - Critical Care Critical Care patient: No - Discharge Referral Referred to [facility] No
--- NOTE | 2018-10-04 18:56 | PN ---
Teaching Attending Note Name of Resident: Abeba Alonso ATTENDING PHYSICIAN STATEMENT I saw and evaluated the patient. I reviewed the resident's note and discussed the case with the resident. I agree with the resident's findings and plan as documented. SUBJECTIVE: Complains of heaviness in legs preventing him from walking. No shortness of breath/cough. No fever/chills. OBJECTIVE: Afebrile, Hemodynamically Stable. Last Vital Signs Temp Pulse Resp BP Pulse Ox 98 F 83 20 95/50 L 96 10/04/18 14:00 10/04/18 14:00 10/04/18 14:00 10/04/18 14:00 10/04/18 08:20 HEENT - Atraumatic, Normocephalic. Heart - S1, S2, irregular Lungs - clear to auscultation Abdomen - High BMI, soft, non-tender. Bowel Sounds normal. Extremities - bilateral chronic venous stasis dermatitis with edema ++ and hemosiderin skin deposits. Laboratory Results - last 24 hr 10/03/18 10/03/18 10/03/18 07:15 21:08 21:08 WBC 6.4 RBC 4.06 Hgb 12.2 Hct 36.7 MCV 90.4 MCH 30.1 MCHC 33.3 RDW 16.0 H Plt Count 298 D MPV 6.6 L D Absolute Neuts (auto) 4.9 Total Counted 100 Neutrophils % 75.7 Neutrophils % (Manual) 62.0 Band Neutrophils % 11.0 Lymphocytes % 13.0 D Lymphocytes % (Manual) 12.0 Monocytes % 9.8 D Monocytes % (Manual) 10 Eosinophils % 0.6 D Eosinophils % (Manual) 2.0 Basophils % 0.9 D Basophils % (Manual) Myelocytes % (Man) 2 Promyelocytes % (Man) Blast Cells % (Manual) Nucleated RBC % 0 Metamyelocytes 1 Differential Comment Man diff performed Hypochromia Platelet Estimate Adequate Platelet Comment Polychromasia 1+ Poikilocytosis 1+ Anisocytosis 1+ Microcytosis 1+ Macrocytosis 1+ Ovalocytes Brackney Cells Acanthocytes (Spur) Sodium 133 L Potassium 4.9 Chloride 94 L Carbon Dioxide 30 Anion Gap 8 BUN 40.0 H Creatinine 2.8 H Est GFR (CKD-EPI)AfAm 23.46 Est GFR (CKD-EPI)NonAf 20.24 Random Glucose 117 H Calcium 8.9 Phosphorus Magnesium Total Bilirubin 1.3 H AST 40 H ALT 28 Alkaline Phosphatase 115 Creatine Kinase Troponin I B-Natriuretic Peptide Total Protein 6.7 Albumin 2.9 L TSH Free T4 Urine Color Dk yellow Urine Appearance Cloudy Urine pH 5.0 D Ur Specific Whipple 1.015 Urine Protein Negative Urine Glucose (UA) Negative Urine Ketones Trace H Urine Blood Negative Urine Nitrite Negative Urine Bilirubin 1+ H Urine Urobilinogen 1.0 Ur Leukocyte Esterase 2+ H Urine WBC (Auto) 16 Urine RBC (Auto) 6 Urine Casts (Auto) 31 U Pathogenic Cast Auto None seen U Epithel Cells (Auto) 3.3 Urine Bacteria (Auto) 0.2 Ur Random Sodium 10/03/18 10/03/18 10/04/18 21:35 21:35 05:12 WBC 5.6 RBC 3.57 L Hgb 10.8 L Hct 31.5 L MCV 88.4 MCH 30.4 MCHC 34.4 RDW 15.9 Plt Count 272 MPV 6.5 L Absolute Neuts (auto) 3.8 Total Counted Neutrophils % 68.5 Neutrophils % (Manual) 41.2 L D Band Neutrophils % 15.7 Lymphocytes % 18.5 D Lymphocytes % (Manual) 11.7 Monocytes % 11.7 H Monocytes % (Manual) 16 H Eosinophils % 0.7 Eosinophils % (Manual) 1.0 Basophils % 0.6 Basophils % (Manual) 1.0 Myelocytes % (Man) 0 D Promyelocytes % (Man) 0 Blast Cells % (Manual) 0 Nucleated RBC % 0 Metamyelocytes 4 H D Differential Comment Hypochromia 0 Platelet Estimate Normal Platelet Comment Polychromasia 1+ Poikilocytosis 1+ Anisocytosis 2+ Microcytosis 1+ Macrocytosis 0 Ovalocytes 1+ Brackney Cells 1+ Acanthocytes (Spur) 1+ Sodium Potassium Chloride Carbon Dioxide Anion Gap BUN Creatinine Est GFR (CKD-EPI)AfAm Est GFR (CKD-EPI)NonAf Random Glucose Calcium Phosphorus 3.5 Magnesium 1.8 Total Bilirubin AST ALT Alkaline Phosphatase Creatine Kinase 59 Troponin I < 0.02 B-Natriuretic Peptide 2769.4 H Total Protein Albumin TSH 10.70 H D Free T4 1.21 H Urine Color Urine Appearance Urine pH Ur Specific Whipple Urine Protein Urine Glucose (UA) Urine Ketones Urine Blood Urine Nitrite Urine Bilirubin Urine Urobilinogen Ur Leukocyte Esterase Urine WBC (Auto) Urine RBC (Auto) Urine Casts (Auto) U Pathogenic Cast Auto U Epithel Cells (Auto) Urine Bacteria (Auto) Ur Random Sodium 10/04/18 10/04/18 05:12 07:15 WBC RBC Hgb Hct MCV MCH MCHC RDW Plt Count MPV Absolute Neuts (auto) Total Counted Neutrophils % Neutrophils % (Manual) Band Neutrophils % Lymphocytes % Lymphocytes % (Manual) Monocytes % Monocytes % (Manual) Eosinophils % Eosinophils % (Manual) Basophils % Basophils % (Manual) Myelocytes % (Man) Promyelocytes % (Man) Blast Cells % (Manual) Nucleated RBC % Metamyelocytes Differential Comment Hypochromia Platelet Estimate Platelet Comment Polychromasia Poikilocytosis Anisocytosis Microcytosis Macrocytosis Ovalocytes Brackney Cells Acanthocytes (Spur) Sodium 134 L Potassium 4.8 Chloride 96 L Carbon Dioxide 30 Anion Gap 8 BUN 45.4 H Creatinine 3.2 H Est GFR (CKD-EPI)AfAm 19.96 Est GFR (CKD-EPI)NonAf 17.22 Random Glucose 108 H Calcium 8.7 Phosphorus 4.1 Magnesium 1.9 Total Bilirubin 1.2 H AST 29 ALT 23 Alkaline Phosphatase 101 Creatine Kinase Troponin I B-Natriuretic Peptide Total Protein 5.8 L Albumin 2.6 L TSH 8.10 H D Free T4 Urine Color Urine Appearance Urine pH Ur Specific Whipple Urine Protein Urine Glucose (UA) Urine Ketones Urine Blood Urine Nitrite Urine Bilirubin Urine Urobilinogen Ur Leukocyte Esterase Urine WBC (Auto) Urine RBC (Auto) Urine Casts (Auto) U Pathogenic Cast Auto U Epithel Cells (Auto) Urine Bacteria (Auto) Ur Random Sodium 34 L Current Medications Generic Name Dose Route Start Last Admin Trade Name Freq PRN Reason Stop Dose Admin Albuterol Sulfate 2 puff 10/04/18 04:27 Ventolin Hfa Inhaler - IH Q6H PRN SHORTNESS OF BREATH Apixaban 2.5 mg 10/04/18 05:15 10/04/18 06:28 Eliquis - PO 2.5 mg BID VICTOR HUGO Administration Atorvastatin Calcium 40 mg 10/04/18 22:00 Lipitor - PO HS VICTOR HUGO Digoxin 0.125 mg 10/05/18 10:00 Lanoxin - PO DAILY VICTOR HUGO Sodium Chloride 1,000 mls @ 75 mls/hr 10/04/18 11:45 10/04/18 12:36 Normal Saline - IV 75 mls/hr ASDIR VICTOR HUGO Administration Metoprolol Succinate 25 mg 10/04/18 10:00 10/04/18 09:12 Toprol Xl - PO 25 mg DAILY VICTOR HUGO Administration Sertraline HCl 25 mg 10/04/18 10:00 10/04/18 09:12 Zoloft - PO 25 mg DAILY VICTOR HUGO Administration Spironolactone 25 mg 10/04/18 10:00 10/04/18 09:11 Aldactone - PO 25 mg DAILY VICTOR HUGO Administration Home Medications Medication Instructions Recorded Albuterol Sulfate [Albuterol 2 puff PO PRN PRN 08/23/18 Sulfate Hfa] Amiodarone HCl 200 mg PO DAILY 10/03/18 Apixaban [Eliquis -] 5 mg PO DAILY 10/03/18 Atorvastatin Ca [Lipitor] 40 mg PO HS 10/03/18 Bumetanide 200 mg PO BID 10/03/18 Metoprolol Succinate 25 mg PO DAILY 10/03/18 Sertraline HCl [Zoloft -] 25 mg PO DAILY 10/03/18 Spironolactone 25 mg PO DAILY 10/03/18 Furosemide [Lasix -] 40 mg PO DAILY 10/04/18 ASSESSMENT AND PLAN: 83 year old male with persistent Atrial Fibrillation (on Apixaban), HTN, HLD, Asthma, Chronic Systolic CHF, presents with poor mobility due to LE edema and general deconditioning after recent admission in [place] for CHF exacerbation. At that time Lasix was switched to Bumex and he is now found to have VICKY with Creat of 3.2. 1. VICKY - prerenal, secondary to overdiuresis Renal US requested. Bumex/Lasix held Gentle IV hydration Nephrology consulted. 2. Atrial Fibrillation with intermittent RVR Evaluated by Cardiology - Amiodarone discontinued and Digoxin started. Continue Metoprolol and Apixaban 3. HTN - continue Spironolactone and Metoprolol. 4. Asthma - stable, no evidence of acute exacerbation 5. Thoracic Aortic Aneurysm (4.1cm) - out-patient follow up. 6. Chronic Systolic CHF Reduced EF 40-45% on Echo 08/18 No evidence of decompensation as per Cardio. Lasix held for now given VICKY 7. Chronic Lymphedema with venous stasis/dermatitis. LE edema generally improved as per patient. LE Duplex neg for DVT. Will monitor given gentle IV hydration. 8. Elevated TSH/free T4, clinically asymptomatic. Reported history of hyperparathyroidism. Calcium levels normal. Endocrinology consulted for further eval and recommendations. DVT Px - on Eliquis.
[2018-10-04] MEDS: ATORVASTATIN CA 40 MG TABLET (FP) PO SCH (21:40)
[2018-10-05] MEDS: SODIUM CHLORIDE 1,000 ML IV SCH ×2 (01:00→12:00)
[2018-10-05 07:29] LABS: HEMATOCRIT 28.9 % (35.4-49); HEMOGLOBIN 9.7 GM/dL (11.7-16.9); MCH 29.9 pg (25.7-33.7); MCHC 33.6 g/dl (32.0-35.9); MEAN CELL VOLUME 88.9 fl (80-96); MEAN PLT VOLUME 6.5 fl (7.5-11.1); RBC 3.25 M/mm3 (4.00-5.60); RDW 15.7 % (11.9-15.9); WHITE BLOOD COUNT 3.8 K/mm3 (4.0-10.0)
[2018-10-05 08:01] LABS: BLOOD UREA NITROGEN 42.4 mg/dL (7-18); CALCIUM 8.2 mg/dL (8.5-10.1); CREATININE 2.4 mg/dL (0.55-1.3); POTASSIUM 4.4 mmol/L (3.5-5.1)
--- NOTE | 2018-10-05 08:08 | PN ---
Physical Exam: SUBJECTIVE: Patient seen and examined at bedside. pt is concerned about weakness acquired from extended hospital course in [place]. Pt denies dyspnea and denies pain. OBJECTIVE: Vital Signs Period Temp Pulse Resp BP Sys/Burgos Pulse Ox Last 24 Hr 97.9 F-98.2 F 83-127 18-20 95-147/49-65 93-96 GENERAL: The patient is awake, alert, and fully oriented, in no acute distress. HEAD: Normal with no signs of trauma. LUNGS: Breath sounds equal, clear to auscultation bilaterally, no wheezes, no crackles, no accessory muscle use. HEART: irregular rate and rhythm, S1, S2 without murmur, rub or gallop. ABDOMEN: Soft, nontender, nondistended, normoactive bowel sounds EXTREMITIES: B/l LE swelling and erythema. NEUROLOGICAL: Cranial nerves II through XII grossly intact. Normal speech, gait not observed. PSYCH: Normal mood, normal affect. SKIN: Warm, dry, normal turgor, no rashes or lesions noted Active Medications Generic Name Dose Route Start Last Admin Trade Name Freq PRN Reason Stop Dose Admin Albuterol Sulfate 2 puff 10/04/18 04:27 10/05/18 06:31 Ventolin Hfa Inhaler - IH 2 puff Q6H PRN Administration SHORTNESS OF BREATH Apixaban 2.5 mg 10/04/18 05:15 10/04/18 21:40 Eliquis - PO 2.5 mg BID VICTOR HUGO Administration Atorvastatin Calcium 40 mg 10/04/18 22:00 10/04/18 21:40 Lipitor - PO 40 mg HS VICTOR HUGO Administration Digoxin 0.125 mg 10/05/18 10:00 Lanoxin - PO DAILY VICTOR HUGO Sodium Chloride 1,000 mls @ 75 mls/hr 10/04/18 11:45 10/05/18 01:00 Normal Saline - IV 75 mls/hr ASDIR VICTOR HUGO Administration Metoprolol Succinate 25 mg 10/04/18 10:00 10/04/18 09:12 Toprol Xl - PO 25 mg DAILY VICTOR HUGO Administration Sertraline HCl 25 mg 10/04/18 10:00 10/04/18 09:12 Zoloft - PO 25 mg DAILY VICTOR HUGO Administration Spironolactone 25 mg 10/04/18 10:00 10/04/18 09:11 Aldactone - PO 25 mg DAILY VICTOR HUGO Administration RENAL/ BLADDER U/S Small right and left kidney that appears morphologically unremarkable. Partially distended urinary bladder without gross wall thickening. Bilateral ureteral jets were identified. Approximately 110 cc of postvoid urine residue is present. Prostate gland volume is 32 cc. ASSESSMENT/PLAN: pt is 83 yo M with HFrEF, persistent a-fib, HTN, asthma, PVD, and chronic lymphadema presents to the ED with leg weakness and edema. Pt was recently admitted to a hospital in [place] for cellulitis / acute CHF exacerbation. pt was in hospital for 2 weeks. while he was admitted to the hospital in [place], they changed his lasix to bumex. VICKY 2/2 diuretic overuse -awaiting renal u/s -awaiting Urine Protein and Cr -Improving. Cr: down trending 3.2--> 2.4 -continue holding diuretics -IVF 75mls/hr HFrEF -Echo 07/2018 , EF 40-45% -CXRAY improved from last admission 07/2018 -pt not in acute exacerbation, no dyspnea or crackles on exam -hold diuretics due to VICKY A Fib -c/w start digoxin 0.125 mg daily as per cardio recs -c/w metoprolol succinate 25 mg daily -c/w Continue Eliquis 2.5 mg BID -outpt follow up with Dr. Oconnell Leg Edema -2/2 cellulitis, Hx of CHF, Hx of PVD, Hx of lymphedema in B/L LE HTN -c/w Spironolactone and Metoprolol Asthma -stable -no wheezes on exam Thoracic Aortic Aneurysm (4.1cm) - out-patient follow up. Chronic Lymphedema with venous stasis/dermatitis -LE edema generally improved as per patient. -LE Duplex neg for DVT. -Recently treated for Cellulitisin [place]. Will monitor given ongoing gentle IV hydration. -eucerin cream Elevated TSH/free T4 -clinically asymptomatic. -Reported history of hyperparathyroidism. Calcium levels normal. PTH pending -Endocrinology recs no LT4 replacement now Normocytic Anemia - H/H 9.7/28.9. No reported blood loss. - Will send Iron/Ferritin/B12/folate levels. FOBT pending DVT ppx -pt on eliquis Visit type - Emergency Visit Emergency Visit: No - New Patient This patient is new to me today: No - Critical Care Critical Care patient: No - Discharge Referral Referred to [facility] No
[2018-10-05 08:22] LABS: PLATELET COUNT 270 K/MM3 (134-434)
--- NOTE | 2018-10-05 08:57 | PN ---
Progress Note (short form) - Note Progress Note: Feels better but still weak Unable to walk Vital Signs Period Temp Pulse Resp BP Sys/Burgos Pulse Ox Last 24 Hr 97.9 F-98.2 F 83-127 18-20 95-147/49-65 93-95 PE: AOx3 Neck: Supple, No JVD HEENT: EOMI Lungs: CTA CVS: S1S2 Abd: Beningn Ext: Stasis changes + Edema CMP Sodium 137 mmol/L (136-145) 10/05/18 05:28 Potassium 4.4 mmol/L (3.5-5.1) 10/05/18 05:28 Chloride 100 mmol/L (98-107) 10/05/18 05:28 Carbon Dioxide 30 mmol/L (21-32) 10/05/18 05:28 Anion Gap 8 MMOL/L (8-16) 10/05/18 05:28 BUN 42.4 mg/dL (7-18) H 10/05/18 05:28 Creatinine 2.4 mg/dL (0.55-1.3) H 10/05/18 05:28 Est GFR (CKD-EPI)AfAm 28.26 10/05/18 05:28 Est GFR (CKD-EPI)NonAf 24.38 10/05/18 05:28 Random Glucose 74 mg/dL (74-106) 10/05/18 05:28 Calcium 8.2 mg/dL (8.5-10.1) L 10/05/18 05:28 Phosphorus 4.1 mg/dL (2.5-4.9) 10/04/18 05:12 Magnesium 1.9 mg/dL (1.8-2.4) 10/04/18 05:12 Total Bilirubin 1.2 mg/dL (0.2-1) H 10/04/18 05:12 AST 29 U/L (15-37) 10/04/18 05:12 ALT 23 U/L (13-61) 10/04/18 05:12 Alkaline Phosphatase 101 U/L (45-117) 10/04/18 05:12 Creatine Kinase 59 U/L (26-308) 10/03/18 21:35 Troponin I < 0.02 ng/ml (0.00-0.05) 10/03/18 21:35 B-Natriuretic Peptide 2769.4 pg/ml (5-450) H 10/03/18 21:35 Total Protein 5.8 g/dl (6.4-8.2) L 10/04/18 05:12 Albumin 2.6 g/dl (3.4-5.0) L 10/04/18 05:12 TSH 8.10 uIU/ml (0.358-3.74) H D 10/04/18 05:12 Free T4 1.21 ng/dl (0.76-1.16) H 10/03/18 21:35 Current Medications Generic Name Dose Route Start Last Admin Trade Name Freq PRN Reason Stop Dose Admin Albuterol Sulfate 2 puff 10/04/18 04:27 10/05/18 06:31 Ventolin Hfa Inhaler - IH 2 puff Q6H PRN Administration SHORTNESS OF BREATH Apixaban 2.5 mg 10/04/18 05:15 10/04/18 21:40 Eliquis - PO 2.5 mg BID VICTOR HUGO Administration Atorvastatin Calcium 40 mg 10/04/18 22:00 10/04/18 21:40 Lipitor - PO 40 mg HS VICTOR HUGO Administration Digoxin 0.125 mg 10/05/18 10:00 Lanoxin - PO DAILY VICTOR HUGO Sodium Chloride 1,000 mls @ 75 mls/hr 10/04/18 11:45 10/05/18 01:00 Normal Saline - IV 75 mls/hr ASDIR VICTOR HUGO Administration Metoprolol Succinate 25 mg 10/04/18 10:00 10/04/18 09:12 Toprol Xl - PO 25 mg DAILY VICTOR HUGO Administration Sertraline HCl 25 mg 10/04/18 10:00 10/04/18 09:12 Zoloft - PO 25 mg DAILY VICTOR HUGO Administration Spironolactone 25 mg 10/04/18 10:00 10/04/18 09:11 Aldactone - PO 25 mg DAILY VICTOR HUGO Administration AP: CHF VICKY ?on CKD Subclinical Hypothyroidism: TSH 8.10 FT4 1.21 ?Hyperparathyroidism A Fib PTH pending ? secondary hyperparathyroidism: [place] [address] weekly by his Endo few months ago Normal Ca, corrected Ca 9.2 will try to get record from his previous Endo's office next week once office opens No LT4 replacement for now.
[2018-10-05] MEDS: SERTRALINE HCL 25 MG TABLET (FP) PO SCH ×2 (10:42→10:48)
[2018-10-05] MEDS: metoPROLOL SUCCINATE 25 MG TAB.SR.24H (FP) PO SCH (10:42)
[2018-10-05] MEDS: APIXABAN 2.5 MG TABLET PO SCH ×2 (10:42→22:01)
[2018-10-05] MEDS: DIGOXIN 0.125 MG TABLET (FP) PO SCH ×3 (10:42→12:00)
--- NOTE | 2018-10-05 11:10 | PN ---
Teaching Attending Note Name of Resident: Abeba Alonso ATTENDING PHYSICIAN STATEMENT I saw and evaluated the patient. I reviewed the resident's note and discussed the case with the resident. I agree with the resident's findings and plan as documented. SUBJECTIVE: Complains of heaviness in legs and weakness preventing him from walking. No shortness of breath/cough. No chest pain/palpitations. No fever/ chills. OBJECTIVE: Afebrile, Hemodynamically Stable. Last Vital Signs Temp Pulse Resp BP Pulse Ox 98 F 83 20 93/55 L 95 10/05/18 08:55 10/05/18 08:55 10/05/18 08:55 10/05/18 08:55 10/05/18 08:23 Heart - S1, S2, irregular Lungs - clear to auscultation Abdomen - High BMI, soft, non-tender. Bowel Sounds normal. Extremities - bilateral chronic venous stasis dermatitis with edema ++ and hemosiderin skin deposits. Laboratory Results - last 24 hr 10/03/18 10/04/18 10/05/18 07:15 07:15 05:28 WBC 3.8 L RBC 3.25 L Hgb 9.7 L Hct 28.9 L MCV 88.9 MCH 29.9 MCHC 33.6 RDW 15.7 Plt Count 270 MPV 6.5 L Sodium Potassium Chloride Carbon Dioxide Anion Gap BUN Creatinine Est GFR (CKD-EPI)AfAm Est GFR (CKD-EPI)NonAf Random Glucose Calcium Urine Color Dk yellow Urine Appearance Cloudy Urine pH 5.0 D Ur Specific [place] 1.015 Urine Protein Negative Urine Glucose (UA) Negative Urine Ketones Trace H Urine Blood Negative Urine Nitrite Negative Urine Bilirubin 1+ H Urine Urobilinogen 1.0 Ur Leukocyte Esterase 2+ H Urine WBC (Auto) 16 Urine RBC (Auto) 6 Urine Casts (Auto) 31 U Pathogenic Cast Auto None seen U Epithel Cells (Auto) 3.3 Urine Bacteria (Auto) 0.2 Ur Random Sodium 34 L 10/05/18 05:28 WBC RBC Hgb Hct MCV MCH MCHC RDW Plt Count MPV Sodium 137 Potassium 4.4 Chloride 100 Carbon Dioxide 30 Anion Gap 8 BUN 42.4 H Creatinine 2.4 H Est GFR (CKD-EPI)AfAm 28.26 Est GFR (CKD-EPI)NonAf 24.38 Random Glucose 74 Calcium 8.2 L Urine Color Urine Appearance Urine pH Ur Specific [place] Urine Protein Urine Glucose (UA) Urine Ketones Urine Blood Urine Nitrite Urine Bilirubin Urine Urobilinogen Ur Leukocyte Esterase Urine WBC (Auto) Urine RBC (Auto) Urine Casts (Auto) U Pathogenic Cast Auto U Epithel Cells (Auto) Urine Bacteria (Auto) Ur Random Sodium Current Medications Generic Name Dose Route Start Last Admin Trade Name Freq PRN Reason Stop Dose Admin Albuterol Sulfate 2 puff 10/04/18 04:27 10/05/18 06:31 Ventolin Hfa Inhaler - IH 2 puff Q6H PRN Administration SHORTNESS OF BREATH Apixaban 2.5 mg 10/04/18 05:15 10/05/18 10:42 Eliquis - PO 2.5 mg BID VICTOR HUGO Administration Atorvastatin Calcium 40 mg 10/04/18 22:00 10/04/18 21:40 Lipitor - PO 40 mg HS VICTOR HUGO Administration Digoxin 0.125 mg 10/05/18 10:00 10/05/18 10:47 Lanoxin - PO Not Given DAILY VICTOR HUGO Sodium Chloride 1,000 mls @ 75 mls/hr 10/04/18 11:45 10/05/18 01:00 Normal Saline - IV 75 mls/hr ASDIR VICTOR HUGO Administration Metoprolol Succinate 25 mg 10/04/18 10:00 10/05/18 10:42 Toprol Xl - PO 25 mg DAILY VICTOR HUGO Administration Sertraline HCl 25 mg 10/04/18 10:00 10/05/18 10:48 Zoloft - PO Not Given DAILY VICTOR HUGO Spironolactone 25 mg 10/04/18 10:00 10/04/18 09:11 Aldactone - PO 25 mg DAILY VICTOR HUGO Administration ASSESSMENT AND PLAN: 83 year old male with persistent Atrial Fibrillation (on Apixaban), HTN, HLD, Asthma, Chronic Systolic CHF, presents with poor mobility due to LE edema and general deconditioning after recent admission in [place] for CHF exacerbation. At that time Lasix was switched to Bumex and he is now found to have VICKY with Creat of 3.2. 1. VICKY - prerenal, secondary to overdiuresis with Bumex - improving with IV hydration. BUN/Creat 43.4/3.2 ---> 42.4/2.4. Renal US requested. Bumex/Lasix held Gentle IV hydration ongoing. Nephrology consulted. 2. Atrial Fibrillation with intermittent RVR Evaluated by Cardiology - Amiodarone discontinued and Digoxin started. Continue Metoprolol and Apixaban 3. HTN - continue Spironolactone and Metoprolol. 4. Asthma - stable, no evidence of acute exacerbation 5. Thoracic Aortic Aneurysm (4.1cm) - out-patient follow up. 6. Chronic Systolic CHF Reduced EF 40-45% on Echo 08/18 No evidence of decompensation as per Cardio. Lasix held for now given VICKY 7. Chronic Lymphedema with venous stasis/dermatitis. LE edema generally improved as per patient. LE Duplex neg for DVT. Recently treated for Cellulitis. Will monitor given ongoing gentle IV hydration. 8. Elevated TSH/free T4, clinically asymptomatic. Reported history of hyperparathyroidism. Calcium levels normal. Endocrinology consulted for further eval and recommendations. 9. Normocytic Anemia - H/H 9.7/28.9. No reported blood loss. Will send Iron/ Ferritin/B12/folate levels. FOBT requested. DVT Px - on Eliquis.
[2018-10-05] MEDS ORDERED: MINERAL OIL/PETROLAT/WATER TOPICAL CREAM 113 GM JAR TP SCH (11:45)
--- NOTE | 2018-10-05 12:30 | PN ---
Progress Note (short form) - Note Progress Note: RENAL pt is awake and alert comfortable has no specific complaints Last Vital Signs Temp Pulse Resp BP Pulse Ox 98 F 87 20 93/55 L 95 10/05/18 08:55 10/05/18 12:00 10/05/18 08:55 10/05/18 08:55 10/05/18 08:23 lungs clear cvs1s2 rr abd soft ext +edema neuro a+ox3 CBC, BMP 10/05/18 05:28 10/05/18 05:28 Current Medications Generic Name Dose Route Start Last Admin Trade Name Freq PRN Reason Stop Dose Admin Albuterol Sulfate 2 puff 10/04/18 04:27 10/05/18 06:31 Ventolin Hfa Inhaler - IH 2 puff Q6H PRN Administration SHORTNESS OF BREATH Apixaban 2.5 mg 10/04/18 05:15 10/05/18 10:42 Eliquis - PO 2.5 mg BID VICTOR HUGO Administration Atorvastatin Calcium 40 mg 10/04/18 22:00 10/04/18 21:40 Lipitor - PO 40 mg HS VICTOR HUGO Administration Digoxin 0.125 mg 10/05/18 10:00 10/05/18 12:00 Lanoxin - PO 0.125 mg DAILY VICTOR HUGO Administration Sodium Chloride 1,000 mls @ 75 mls/hr 10/04/18 11:45 10/05/18 12:00 Normal Saline - IV 75 mls/hr ASDIR VICTOR HUGO Administration Metoprolol Succinate 25 mg 10/04/18 10:00 10/05/18 10:42 Toprol Xl - PO 25 mg DAILY VICTOR HUGO Administration Multi-Ingredient Lotion 1 applic 10/05/18 11:45 Eucerin (Small Jar) - TP PRN VICTOR HUGO Sertraline HCl 25 mg 10/04/18 10:00 10/05/18 10:48 Zoloft - PO Not Given DAILY VICTOR HUGO Spironolactone 25 mg 10/04/18 10:00 10/04/18 09:11 Aldactone - PO 25 mg DAILY VICTOR HUGO Administration Impression eunice on ckd chf afib high pvr PLAN would consider flomax if bp remains stable keep off fluids and diuretics I discussed digoxin with him as a way of controlling his heart rate and not dropping his Bp MV
[2018-10-05 14:56] LABS: RATIO URIN PROTEIN/URIN CREAT 0.07 MG/DL
[2018-10-05] MEDS ORDERED: SENNOSIDES 8.6MG TABLET (FP) PO SCH (22:00)
[2018-10-05] MEDS: ATORVASTATIN CA 40 MG TABLET (FP) PO SCH (22:01)
[2018-10-05] MEDS: SENNOSIDES 8.6MG TABLET (FP) PO SCH (22:02)
[2018-10-06 07:39] LABS: HEMATOCRIT 30.6 % (35.4-49); HEMOGLOBIN 10.3 GM/dL (11.7-16.9); MCH 29.9 pg (25.7-33.7); MCHC 33.6 g/dl (32.0-35.9); MEAN CELL VOLUME 89.1 fl (80-96); MEAN PLT VOLUME 6.5 fl (7.5-11.1); PLATELET COUNT 287 K/MM3 (134-434); RBC 3.43 M/mm3 (4.00-5.60)
[2018-10-06 07:50] LABS: BLOOD UREA NITROGEN 28.6 mg/dL (7-18); CALCIUM 8.2 mg/dL (8.5-10.1); CREATININE 1.5 mg/dL (0.55-1.3); MAGNESIUM 1.9 mg/dL (1.8-2.4); POTASSIUM 4.4 mmol/L (3.5-5.1)
[2018-10-06] MEDS: APIXABAN 2.5 MG TABLET PO SCH ×2 (09:42→21:18)
[2018-10-06] MEDS: metoPROLOL SUCCINATE 25 MG TAB.SR.24H (FP) PO SCH (09:42)
[2018-10-06] MEDS: SENNOSIDES 8.6MG TABLET (FP) PO SCH ×2 (09:42→21:18)
[2018-10-06] MEDS: DIGOXIN 0.125 MG TABLET (FP) PO SCH (09:42)
[2018-10-06] MEDS: SERTRALINE HCL 25 MG TABLET (FP) PO SCH (09:43)
--- NOTE | 2018-10-06 10:39 | PN ---
Progress Note (short form) - Note Progress Note: SUBJECTIVE: Complains of heaviness in legs and weakness preventing him from walking. No shortness of breath/cough. No chest pain/palpitations. No fever/ chills. OBJECTIVE: Afebrile, Hemodynamically Stable. Last Vital Signs Temp Pulse Resp BP Pulse Ox 97.8 F 84 20 122/74 94 L 10/06/18 09:41 10/06/18 09:42 10/06/18 09:41 10/06/18 09:41 10/06/18 08:21 Heart - S1, S2, irregular Lungs - clear to auscultation Abdomen - High BMI, soft, non-tender. Bowel Sounds normal. Extremities - bilateral chronic venous stasis dermatitis with edema ++ and hemosiderin skin deposits. Laboratory Results - last 24 hr 10/04/18 10/05/18 10/05/18 05:12 05:28 14:10 WBC RBC Hgb Hct MCV MCH MCHC RDW Plt Count MPV Sodium 137 Potassium 4.4 Chloride 100 Carbon Dioxide 30 Anion Gap 8 BUN 42.4 H Creatinine 2.4 H Est GFR (CKD-EPI)AfAm 28.26 Est GFR (CKD-EPI)NonAf 24.38 Random Glucose 74 Calcium 8.2 L Phosphorus Magnesium Ferritin Vitamin B12 754 Serum Folate 12 PTH Intact 38 Ur Random Creatinine U Random Total Protein 12.2 H Urine Creatinine 164.0 Ur Total Protein 12 Hr Protein/Creatinin Ratio 0.070 Stool Occult Blood 10/05/18 10/05/18 10/05/18 14:10 14:10 21:00 WBC RBC Hgb Hct MCV MCH MCHC RDW Plt Count MPV Sodium Potassium Chloride Carbon Dioxide Anion Gap BUN Creatinine Est GFR (CKD-EPI)AfAm Est GFR (CKD-EPI)NonAf Random Glucose Calcium Phosphorus Magnesium Ferritin Vitamin B12 Serum Folate PTH Intact Ur Random Creatinine 159.0 H U Random Total Protein 18.4 H Urine Creatinine Ur Total Protein 12 Hr Cancelled Protein/Creatinin Ratio Stool Occult Blood Negative 10/06/18 10/06/18 05:20 05:20 WBC 4.0 RBC 3.43 L Hgb 10.3 L Hct 30.6 L MCV 89.1 MCH 29.9 MCHC 33.6 RDW 16.0 H Plt Count 287 MPV 6.5 L Sodium 138 Potassium 4.4 Chloride 102 Carbon Dioxide 30 Anion Gap 6 L BUN 28.6 H Creatinine 1.5 H Est GFR (CKD-EPI)AfAm 49.89 Est GFR (CKD-EPI)NonAf 43.04 Random Glucose 78 Calcium 8.2 L Phosphorus 3.0 Magnesium 1.9 Ferritin 625.0 H Vitamin B12 Serum Folate PTH Intact Ur Random Creatinine U Random Total Protein Urine Creatinine Ur Total Protein 12 Hr Protein/Creatinin Ratio Stool Occult Blood Current Medications Generic Name Dose Route Start Last Admin Trade Name Freq PRN Reason Stop Dose Admin Albuterol Sulfate 2 puff 10/04/18 04:27 10/05/18 06:31 Ventolin Hfa Inhaler - IH 2 puff Q6H PRN Administration SHORTNESS OF BREATH Apixaban 2.5 mg 10/04/18 05:15 10/06/18 09:42 Eliquis - PO 2.5 mg BID VICTOR HUGO Administration Atorvastatin Calcium 40 mg 10/04/18 22:00 10/05/18 22:01 Lipitor - PO 40 mg HS VICTOR HUGO Administration Digoxin 0.125 mg 10/05/18 10:00 10/06/18 09:42 Lanoxin - PO 0.125 mg DAILY VICTOR HUGO Administration Metoprolol Succinate 25 mg 10/04/18 10:00 10/06/18 09:42 Toprol Xl - PO 25 mg DAILY VICTOR HUGO Administration Multi-Ingredient Lotion 1 applic 10/05/18 11:45 Eucerin (Small Jar) - TP PRN VICTOR HUGO Senna 1 tab 10/05/18 22:00 10/06/18 09:42 Senna - PO 1 tab BID VICTOR HUGO Administration Sertraline HCl 25 mg 10/04/18 10:00 10/06/18 09:43 Zoloft - PO Not Given DAILY VICTOR HUGO Spironolactone 25 mg 10/04/18 10:00 10/04/18 09:11 Aldactone - PO 25 mg DAILY VICTOR HUGO Administration ASSESSMENT AND PLAN: 83 year old male with persistent Atrial Fibrillation (on Apixaban), HTN, HLD, Asthma, Chronic Systolic CHF, presents with poor mobility due to LE edema and general deconditioning after recent admission in [place] for CHF exacerbation. At that time Lasix was switched to Bumex and he is now found to have VICKY with Creat of 3.2. 1. VICKY - prerenal, secondary to overdiuresis with Bumex - improved with IV hydration. BUN/Creat 43.4/3.2 ---> 28.6/1.5 Renal/Bladder US - no acute findings. Bumex/Lasix held currently. IV fluids stopped. Nephrology following. 2. Atrial Fibrillation with intermittent RVR Evaluated by Cardiology - Amiodarone discontinued and Digoxin started. Continue Metoprolol and Apixaban 3. HTN - continue Spironolactone and Metoprolol. 4. Asthma - stable, no evidence of acute exacerbation 5. Thoracic Aortic Aneurysm (4.1cm) - out-patient follow up. 6. Chronic Systolic CHF Reduced EF 40-45% on Echo 08/18 No evidence of decompensation as per Cardio. Lasix held for now given VICKY. Cardio/Nephrology to recommend appropriate out-patient diuretic. 7. Chronic Lymphedema with venous stasis/dermatitis. LE edema generally improved as per patient. LE Duplex neg for DVT. Recently treated for Cellulitis. Eucerin b/l LEs. 8. Elevated TSH/free T4, clinically asymptomatic. Reported history of hyperparathyroidism. Calcium levels normal. Endocrinology consulted for further eval and recommendations. 9. Normocytic Anemia - H/H 10.3/30.6. No reported blood loss. FOBT negative. B12 - 754, Folate 12, Ferritin 625. DVT Px - on Eliquis. Visit type - Emergency Visit Emergency Visit: Yes ED Registration Date: 10/04/18 Care time: The patient presented to the Emergency Department on the above date and was hospitalized for further evaluation of their emergent condition. - New Patient This patient is new to me today: No - Critical Care Critical Care patient: No - Discharge Referral Referred to [facility] No
--- NOTE | 2018-10-06 12:27 | PN ---
Progress Note (short form) - Note Progress Note: RENAL pt is awake and alert comfortable still having pain in legs remains with weakness of his legs Last Vital Signs Temp Pulse Resp BP Pulse Ox 97.8 F 84 20 122/74 94 L 10/06/18 09:41 10/06/18 09:42 10/06/18 09:41 10/06/18 09:41 10/06/18 08:21 lungs clear cvs1s2 rr abd soft ext +edema neuro a+ox3 CBC, BMP 10/06/18 05:20 10/06/18 05:20 Current Medications Generic Name Dose Route Start Last Admin Trade Name Freq PRN Reason Stop Dose Admin Albuterol Sulfate 2 puff 10/04/18 04:27 10/05/18 06:31 Ventolin Hfa Inhaler - IH 2 puff Q6H PRN Administration SHORTNESS OF BREATH Apixaban 2.5 mg 10/04/18 05:15 10/06/18 09:42 Eliquis - PO 2.5 mg BID VICTOR HUGO Administration Atorvastatin Calcium 40 mg 10/04/18 22:00 10/05/18 22:01 Lipitor - PO 40 mg HS VICTOR HUGO Administration Digoxin 0.125 mg 10/05/18 10:00 10/06/18 09:42 Lanoxin - PO 0.125 mg DAILY VICTOR HUGO Administration Metoprolol Succinate 25 mg 10/04/18 10:00 10/06/18 09:42 Toprol Xl - PO 25 mg DAILY VICTOR HUGO Administration Multi-Ingredient Lotion 1 applic 10/06/18 22:00 Eucerin (Small Jar) - TP BID VICTOR HUGO Senna 1 tab 10/05/18 22:00 10/06/18 09:42 Senna - PO 1 tab BID VICTOR HUGO Administration Sertraline HCl 25 mg 10/04/18 10:00 10/06/18 09:43 Zoloft - PO Not Given DAILY VICTOR HUGO Spironolactone 25 mg 10/04/18 10:00 10/04/18 09:11 Aldactone - PO 25 mg DAILY VICTOR HUGO Administration Impression eunice on ckd- improved chf afib high pvr has asymmetric edema but already had doppler that was neg PLAN would consider flomax if bp remains stable continue current management will need PT continue digoxin MV
[2018-10-06] MEDS ORDERED: dilTIAZem HCL 50 MG/10 ML - 10 ML VIAL IVPUSH ONE (16:04)
[2018-10-06] MEDS ORDERED: SODIUM CHLORIDE 250 ML IV STA ×2 (16:04→18:01)
--- NOTE | 2018-10-06 17:58 | CONSULT ---
Consultation: REQUESTING PROVIDER: Dr. Rodriguez CONSULT REQUEST: We have been asked to medically evaluate this patient for afib/ RVR/hypotension HISTORY OF PRESENT ILLNESS: 83 year old male with a hx of HFrEF (EF 40-45%), persistent atrial fibrillation , hypertension and asthma presented to the ED for b/l lower extremity weakness and worsening edema. He was recently on vacation in [place] on 09/10/18 and was hospitalized for ~2 weeks for CHF exacerbation. During that hospitalization , his home diltiazem was discontinued and he was started on amiodarone. Additionally bumex was changed from lasix. While on the plane, he noticed his legs becoming more edematous and when he came home, he was too tired and weak to walk. While hospitalized here today, he was noted to be in Afib/RVR with a rate in the 140s and hypotensive 80s/60s. Cardiology saw the patient and discontinued amiodarone. 1 dose of diltiazem 10mg push was given. HR then reduced to the 90s and patient remained hypotensive 90s/70s. ICU was consulted for persistent hypotension in the setting of atrial fibrillation. Currently, patient is examined sitting in a chair. He reports no complaints, including chest pain, shortness of breath, nausea, vomiting, diarrhea, fevers, chills, lightheadedness. He reports that he does not cook often for himself and eats a lot of deli meats. states that he does not really know which foods have hidden salts in them. History obtained from H&P: Recent Travel: [place] PAST MEDICAL HISTORY: 1. HFrEF (40-45%) 2. persistent a-fib 3. HTN 4. asthma 5. thoracic aortic aneurysm (4.1cm) PAST SURGICAL HISTORY: 1. bilateral athroscopies 2. cataract repair 3. hemorrhoidectomy Social History: Smoking: quit 1980s Alcohol: social Drugs: none Patient lives at home with . REVIEW OF SYSTEMS: CONSTITUTIONAL: Absent: fever, chills, diaphoresis, generalized weakness, malaise, loss of appetite, weight change HEENT: Absent: rhinorrhea, nasal congestion, throat pain, throat swelling, difficulty swallowing, mouth swelling, ear pain, eye pain, visual changes CARDIOVASCULAR: Absent: chest pain, syncope, palpitations, irregular heart rate, lightheadedness , peripheral edema RESPIRATORY: Absent: cough, shortness of breath, dyspnea with exertion, orthopnea, wheezing, stridor, hemoptysis GASTROINTESTINAL: Absent: abdominal pain, abdominal distension, nausea, vomiting, diarrhea, constipation, melena, hematochezia GENITOURINARY: Absent: dysuria, frequency, urgency, hesitancy, hematuria, flank pain, genital pain MUSCULOSKELETAL: Absent: myalgia, arthralgia, joint swelling, back pain, neck pain SKIN: Absent: rash, itching, pallor HEMATOLOGIC/IMMUNOLOGIC: Absent: easy bleeding, easy bruising, lymphadenopathy, frequent infections ENDOCRINE: Absent: unexplained weight gain, unexplained weight loss, heat intolerance, cold intolerance NEUROLOGIC: Absent: headache, focal weakness or paresthesias, dizziness, unsteady gait, seizure, mental status changes, bladder or bowel incontinence PSYCHIATRIC: Absent: anxiety, depression, suicidal or homicidal ideation, hallucinations. PHYSICAL EXAMINATION Vital Signs - 24 hr 10/05/18 10/05/18 10/05/18 18:00 21:00 21:05 Temperature 97.7 F 98.1 F Pulse Rate 97 H 82 Respiratory 18 18 Rate Blood Pressure 88/60 L 119/55 L O2 Sat by Pulse 94 L Oximetry (%) 10/06/18 10/06/18 10/06/18 01:43 06:00 08:21 Temperature 98.1 F 97.7 F Pulse Rate 85 87 Respiratory 18 18 18 Rate Blood Pressure 115/63 119/68 O2 Sat by Pulse 94 L Oximetry (%) 10/06/18 10/06/18 10/06/18 09:41 09:42 13:38 Temperature 97.8 F 98.1 F Pulse Rate 84 84 98 H Respiratory 20 18 Rate Blood Pressure 122/74 99/55 L O2 Sat by Pulse Oximetry (%) 10/06/18 10/06/18 17:25 17:38 Temperature Pulse Rate 93 H 83 Respiratory 20 20 Rate Blood Pressure 94/53 L 103/60 O2 Sat by Pulse Oximetry (%) GENERAL: A&Ox3, no acute distress EYES: PERRLA, EOMI ENT: Dry mucus membranes NECK: No JVD LUNGS: CTA, faint wheezes heard at the bases HEART: irregularly irregular rate, not tachycardic no murmur appreciated ABDOMEN: Obese, Soft, nontender, BS present EXTREMITIES: 2+ pulses, 3+ edema noted NEUROLOGICAL: Cranial nerves II-XII intact. Laboratory Results - last 24 hr 10/05/18 10/06/18 10/06/18 21:00 05:20 05:20 WBC 4.0 RBC 3.43 L Hgb 10.3 L Hct 30.6 L MCV 89.1 MCH 29.9 MCHC 33.6 RDW 16.0 H Plt Count 287 MPV 6.5 L Sodium 138 Potassium 4.4 Chloride 102 Carbon Dioxide 30 Anion Gap 6 L BUN 28.6 H Creatinine 1.5 H Est GFR (CKD-EPI)AfAm 49.89 Est GFR (CKD-EPI)NonAf 43.04 Random Glucose 78 Calcium 8.2 L Phosphorus 3.0 Magnesium 1.9 Ferritin 625.0 H Stool Occult Blood Negative Active Medications Generic Name Dose Route Start Last Admin Trade Name Freq PRN Reason Stop Dose Admin Albuterol Sulfate 2 puff 10/04/18 04:27 10/05/18 06:31 Ventolin Hfa Inhaler - IH 2 puff Q6H PRN Administration SHORTNESS OF BREATH Apixaban 2.5 mg 10/04/18 05:15 10/06/18 09:42 Eliquis - PO 2.5 mg BID VICTOR HUGO Administration Atorvastatin Calcium 40 mg 10/04/18 22:00 10/05/18 22:01 Lipitor - PO 40 mg HS VICTOR HUGO Administration Digoxin 0.125 mg 10/05/18 10:00 10/06/18 09:42 Lanoxin - PO 0.125 mg DAILY VICTOR HUGO Administration Metoprolol Succinate 25 mg 10/04/18 10:00 10/06/18 09:42 Toprol Xl - PO 25 mg DAILY VICTOR HUGO Administration Multi-Ingredient Lotion 1 applic 10/06/18 22:00 Eucerin (Small Jar) - TP BID VICTOR HUGO Senna 1 tab 10/05/18 22:00 10/06/18 09:42 Senna - PO 1 tab BID VICTOR HUGO Administration Sertraline HCl 25 mg 10/04/18 10:00 10/06/18 09:43 Zoloft - PO Not Given DAILY VICTOR HUGO Spironolactone 25 mg 10/04/18 10:00 10/04/18 09:11 Aldactone - PO 25 mg DAILY VICTOR HUGO Administration ASSESSMENT/PLAN: 83 year old male with a hx of HFrEF (EF 40-45%), persistent atrial fibrillation , hypertension and asthma presented to the ED for b/l lower extremity weakness and worsening edema, admitted for CHF exacerbation Neurological -no acute issues -continue home sertraline Cardiovascular persistent atrial fibrillation with rapid ventricular response hypotension -patient was given 10mg IV diltiazem and appears to have been rate controlled to 90-100 -patient hypotensive 80s/60s, 2 repeat pressures s/p 2 250ml NS boluses resulted in MAPs of 67 and 68 respectively -patient is on toprol XL 25 daily -spironolactone 25mg daily -digoxin 0.125 daily -on anticoagulation eliquis 2.5 BID -cardiology consultation -if remains in Afib/RVR may need amiodarone in light of hypotension and rapid afib if his HR continues to stay elevated; may need to electrically cardiovert if hemodynamically unstable with rapid ventricular response -if continued hypotension with maps < 65, will bring to ICU and consider pressor support Pulmonary -mild wheezes, continue albuterol - although monitor HR due to B agonist effect and tachycardia Gastrointestinal -no acute issues Renal -VICKY on CKD -renal following FEN -no standing fluids, s/p 2 boluses of 250cc NS -replete lytes as necessary -low sodium diet, will get dietary to come see patient Prophylaxis -eliquis 2.5mg BID Disposition -at the moment will monitor on floor given MAPs > 65 and relatively asymptomatic -if MAPs drop and HR will continue to be in RVR, will likely bring to ICU for more active hemodynamic monitoring -full code Visit type - Emergency Visit Emergency Visit: No - New Patient This patient is new to me today: Yes Date on this admission: 10/06/18 - Critical Care Critical Care patient: No
[2018-10-06] MEDS: MINERAL OIL/PETROLAT/WATER TOPICAL CREAM 113 GM JAR TP SCH (21:18)
[2018-10-06] MEDS: ATORVASTATIN CA 40 MG TABLET (FP) PO SCH (21:18)
[2018-10-07 07:06] LABS: SERUM IRON SATURATION 35 % (15-55); TOTAL IRON BINDING CAPACITY 206 ug/dL (250-450)
--- NOTE | 2018-10-07 09:20 | PN ---
Physical Exam: SUBJECTIVE: Patient seen and examined at bedside. pt states his legs are causing him pain. pt denies chest pain or shortness or breath. OBJECTIVE: Vital Signs Period Temp Pulse Resp BP Sys/Burgos Pulse Ox Last 24 Hr 97.8 F-98.1 F 73-103 17-24 80-124/49-82 95 GENERAL: The patient is awake, alert, and fully oriented, in no acute distress. HEAD: Normal with no signs of trauma. LUNGS: Breath sounds equal, clear to auscultation bilaterally, no wheezes, no crackles, no accessory muscle use. HEART: irregular rate and rhythm, S1, S2 ABDOMEN: Soft, nontender, nondistended, normoactive bowel sounds EXTREMITIES:LE edema and erythema. erythema improving from 6 PSYCH: Normal mood, normal affect. SKIN: Warm, dry, normal turgor, no rashes or lesions noted Laboratory Last Values WBC 4.9 K/mm3 (4.0-10.0) 10/07/18 09:30 RBC 3.56 M/mm3 (4.00-5.60) L 10/07/18 09:30 Hgb 10.7 GM/dL (11.7-16.9) L 10/07/18 09:30 Hct 31.6 % (35.4-49) L 10/07/18 09:30 MCV 88.8 fl (80-96) 10/07/18 09:30 MCH 29.9 pg (25.7-33.7) 10/07/18 09:30 MCHC 33.7 g/dl (32.0-35.9) 10/07/18 09:30 RDW 16.3 % (11.9-15.9) H 10/07/18 09:30 Plt Count 291 K/MM3 (134-434) 10/07/18 09:30 MPV 6.5 fl (7.5-11.1) L 10/07/18 09:30 Absolute Neuts (auto) 3.8 K/mm3 (1.5-8.0) 10/04/18 05:12 Total Counted 100 10/03/18 21:08 Neutrophils % 68.5 % (42.8-82.8) 10/04/18 05:12 Neutrophils % (Manual) 41.2 % (42.8-82.8) L D 10/04/18 05:12 Band Neutrophils % 15.7 % 10/04/18 05:12 Lymphocytes % 18.5 % (8-40) D 10/04/18 05:12 Lymphocytes % (Manual) 11.7 % (8-40) 10/04/18 05:12 Monocytes % 11.7 % (3.8-10.2) H 10/04/18 05:12 Monocytes % (Manual) 16 % (3.8-10.2) H 10/04/18 05:12 Eosinophils % 0.7 % (0-4.5) 10/04/18 05:12 Eosinophils % (Manual) 1.0 % (0-4.5) 10/04/18 05:12 Basophils % 0.6 % (0-2.0) 10/04/18 05:12 Basophils % (Manual) 1.0 % (0-2.0) 10/04/18 05:12 Myelocytes % (Man) 0 % (0-2) D 10/04/18 05:12 Promyelocytes % (Man) 0 % (0-2) 10/04/18 05:12 Blast Cells % (Manual) 0 % (0-0) 10/04/18 05:12 Nucleated RBC % 0 % (0-0) 10/04/18 05:12 Metamyelocytes 4 % (0-2) H D 10/04/18 05:12 Differential Comment Man diff performed 10/03/18 21:08 Hypochromia 0 10/04/18 05:12 Platelet Estimate Normal 10/04/18 05:12 Platelet Comment 10/03/18 21:08 Polychromasia 1+ 10/04/18 05:12 Poikilocytosis 1+ 10/04/18 05:12 Anisocytosis 2+ 10/04/18 05:12 Microcytosis 1+ 10/04/18 05:12 Macrocytosis 0 10/04/18 05:12 Ovalocytes 1+ 10/04/18 05:12 Shy Cells 1+ 10/04/18 05:12 Acanthocytes (Spur) 1+ 10/04/18 05:12 Sodium 139 mmol/L (136-145) 10/07/18 06:00 Potassium 4.2 mmol/L (3.5-5.1) 10/07/18 06:00 Chloride 100 mmol/L (98-107) 10/07/18 06:00 Carbon Dioxide 30 mmol/L (21-32) 10/07/18 06:00 Anion Gap 8 MMOL/L (8-16) 10/07/18 06:00 BUN 22.4 mg/dL (7-18) H 10/07/18 06:00 Creatinine 1.2 mg/dL (0.55-1.3) 10/07/18 06:00 Est GFR (CKD-EPI)AfAm 65.33 10/07/18 06:00 Est GFR (CKD-EPI)NonAf 56.37 10/07/18 06:00 Random Glucose 79 mg/dL (74-106) 10/07/18 06:00 Calcium 8.5 mg/dL (8.5-10.1) 10/07/18 06:00 Phosphorus 3.0 mg/dL (2.5-4.9) 10/06/18 05:20 Magnesium 1.9 mg/dL (1.8-2.4) 10/06/18 05:20 Iron 72 ug/dL (38-169) 10/06/18 05:20 TIBC 206 ug/dL (250-450) L 10/06/18 05:20 Iron Saturation 35 % (15-55) 10/06/18 05:20 Unsaturated IBC 134 ug/dL (111-343) 10/06/18 05:20 Ferritin 625.0 ng/ml (8-388) H 10/06/18 05:20 Total Bilirubin 1.2 mg/dL (0.2-1) H 10/04/18 05:12 AST 29 U/L (15-37) 10/04/18 05:12 ALT 23 U/L (13-61) 10/04/18 05:12 Alkaline Phosphatase 101 U/L (45-117) 10/04/18 05:12 Creatine Kinase 59 U/L (26-308) 10/03/18 21:35 Troponin I < 0.02 ng/ml (0.00-0.05) 10/03/18 21:35 B-Natriuretic Peptide 2769.4 pg/ml (5-450) H 10/03/18 21:35 Total Protein 5.8 g/dl (6.4-8.2) L 10/04/18 05:12 Albumin 2.6 g/dl (3.4-5.0) L 10/04/18 05:12 Vitamin B12 754 pg/ml (193-986) 10/05/18 05:28 Serum Folate 12 ng/mL (3.1-17.5) 10/05/18 05:28 TSH 8.10 uIU/ml (0.358-3.74) H D 10/04/18 05:12 Free T4 1.21 ng/dl (0.76-1.16) H 10/03/18 21:35 PTH Intact 38 pg/mL (15-65) 10/04/18 05:12 Urine Color Dk yellow 10/03/18 07:15 Urine Appearance Cloudy 10/03/18 07:15 Urine pH 5.0 (5.0-8.0) D 10/03/18 07:15 Ur Specific [place] 1.015 (1.010-1.035) 10/03/18 07:15 Urine Protein Negative (NEGATIVE) 10/03/18 07:15 Urine Glucose (UA) Negative (NEGATIVE) 10/03/18 07:15 Urine Ketones Trace (NEGATIVE) H 10/03/18 07:15 Urine Blood Negative (NEGATIVE) 10/03/18 07:15 Urine Nitrite Negative (NEGATIVE) 10/03/18 07:15 Urine Bilirubin 1+ (NEGATIVE) H 10/03/18 07:15 Urine Urobilinogen 1.0 mg/dL (0.2-1.0) 10/03/18 07:15 Ur Leukocyte Esterase 2+ (NEGATIVE) H 10/03/18 07:15 Urine WBC (Auto) 16 /hpf (0-5) 10/03/18 07:15 Urine RBC (Auto) 6 /hpf (0-4) 10/03/18 07:15 Urine Casts (Auto) 31 /lpf (0-8) 10/03/18 07:15 U Pathogenic Cast Auto None seen /lpf (NEGATIVE) 10/03/18 07:15 U Epithel Cells (Auto) 3.3 /HPF (0-5/HPF) 10/03/18 07:15 Urine Bacteria (Auto) 0.2 /hpf (NEGATIVE) 10/03/18 07:15 Ur Random Creatinine 159.0 mg/dL (30-150) H 10/05/18 14:10 U Random Total Protein 18.4 mg/dl (0-11.9) H 10/05/18 14:10 Ur Random Sodium 34 MMOL/L (40-220) L 10/04/18 07:15 Urine Collection Time 24 HOURS 10/06/18 18:45 Urine Total Volume 400 mL 10/06/18 18:45 Urine Creatinine 79.0 mg/dL (20-320) 10/06/18 18:45 Ur Creatinine 12 Hour Cancelled 10/06/18 18:45 Ur Creatinine 24 Hour 316.0 MG/24HR (600-1800) L 10/06/18 18:45 Ur Total Protein 12 Hr Cancelled 10/05/18 14:10 Protein/Creatinin Ratio 0.070 MG/DL 10/05/18 14:10 Stool Occult Blood Negative (NEGATIVE) 10/05/18 21:00 Active Medications Generic Name Dose Route Start Last Admin Trade Name Freq PRN Reason Stop Dose Admin Albuterol Sulfate 2 puff 10/04/18 04:27 10/05/18 06:31 Ventolin Hfa Inhaler - IH 2 puff Q6H PRN Administration SHORTNESS OF BREATH Apixaban 2.5 mg 10/04/18 05:15 10/06/18 21:18 Eliquis - PO 2.5 mg BID VI[facility] HUGO Administration Atorvastatin Calcium 40 mg 10/04/18 22:00 10/06/18 21:18 Lipitor - PO 40 mg HS VICTOR HUGO Administration Digoxin 0.125 mg 10/05/18 10:00 10/06/18 09:42 Lanoxin - PO 0.125 mg DAILY VICTOR HUGO Administration Metoprolol Succinate 25 mg 10/04/18 10:00 10/06/18 09:42 Toprol Xl - PO 25 mg DAILY VICTOR HUGO Administration Multi-Ingredient Lotion 1 applic 10/06/18 22:00 10/06/18 21:18 Eucerin (Small Jar) - TP 1 applic BID VICTOR HUGO Administration Senna 1 tab 10/05/18 22:00 10/06/18 21:18 Senna - PO 1 tab BID VICTOR HUGO Administration Sertraline HCl 25 mg 10/04/18 10:00 10/06/18 09:43 Zoloft - PO Not Given DAILY VICTOR HUGO Spironolactone 25 mg 10/04/18 10:00 10/04/18 09:11 Aldactone - PO 25 mg DAILY VICTOR HUGO Administration ASSESSMENT/PLAN: RENAL/ BLADDER U/S Small right and left kidney that appears morphologically unremarkable. Partially distended urinary bladder without gross wall thickening. Bilateral ureteral jets were identified. Approximately 110 cc of postvoid urine residue is present. Prostate gland volume is 32 cc. ASSESSMENT/PLAN: pt is 83 yo M with HFrEF, persistent a-fib, HTN, asthma, PVD, and chronic lymphadema presents to the ED with leg weakness and edema. Pt was recently admitted to a hospital in [place] for cellulitis / acute CHF exacerbation. pt was in hospital for 2 weeks. while he was admitted to the hospital in [place], they changed his lasix to bumex. pt was found hypotensive on 10/06/18 with an episode of Afib w/ RVR and was monitored in ICU overnight. Pt was given 10mg IV diltiazem and 2 250ml NS bolus. Pt has been stable with HR and BP wnl. VICKY 2/2 diuretic overuse -Improving. Cr: down trending 3.2--> 1.2 -continue holding diuretics, IVF stopped -consider Urology eval for inc. post void volume -consider flomax HFrEF -Echo 07/2018 , EF 40-45% -CXRAY improved from last admission 07/2018 -pt not in acute exacerbation, no dyspnea or crackles on exam -c/w aldactone, metoprolol A Fib -c/w start digoxin 0.125 mg daily as per cardio recs -c/w metoprolol succinate 25 mg daily -c/w Continue Eliquis 2.5 mg BID -outpt follow up with Dr. Oconnell Leg Edema -2/2 cellulitis, Hx of CHF, Hx of PVD, Hx of lymphedema in B/L LE HTN -c/w Spironolactone and Metoprolol Asthma -stable, no wheezes on exam Chronic Lymphedema with venous stasis/dermatitis -LE edema generally improved as per patient. -LE Duplex neg for DVT. -Recently treated for Cellulitisin [place]. Will monitor given ongoing gentle IV hydration. -eucerin cream Thoracic Aortic Aneurysm (4.1cm) - out-patient follow up. Elevated TSH/free T4 -clinically asymptomatic. -Reported history of hyperparathyroidism. Calcium levels normal. PTH 38 -Endocrinology recs no LT4 replacement now -follow up outpatient Normocytic Anemia - H/H 9.7/28.9. No reported blood loss. -FOBT neg. DVT ppx -pt on eliquis Visit type - Emergency Visit Emergency Visit: No - New Patient This patient is new to me today: No - Critical Care Critical Care patient: Yes Total Critical Care Time (in minutes): 36 Critical Care Statement: The care of this patient involved high complexity decision making to prevent further life threatening deterioration of the patient 's condition and/or to evaluate & treat vital organ system(s) failure or risk of failure. - Discharge Referral Referred to [facility] No ATTENDING PHYSICIAN STATEMENT I saw and evaluated the patient. I reviewed the resident's note and discussed the case with the resident. I agree with the resident's findings and plan as documented. SUBJECTIVE: OBJECTIVE: ASSESSMENT AND PLAN:
[2018-10-07] MEDS ORDERED: PT OWN MED DRAWER 7, Y5N ONE (09:41)
[2018-10-07] MEDS: DIGOXIN 0.125 MG TABLET (FP) PO SCH (09:45)
[2018-10-07] MEDS: SENNOSIDES 8.6MG TABLET (FP) PO SCH ×2 (09:45→21:06)
[2018-10-07] MEDS: APIXABAN 2.5 MG TABLET PO SCH ×2 (09:45→21:05)
[2018-10-07] MEDS: MINERAL OIL/PETROLAT/WATER TOPICAL CREAM 113 GM JAR TP SCH ×2 (09:46→21:05)
[2018-10-07] MEDS: metoPROLOL SUCCINATE 25 MG TAB.SR.24H (FP) PO SCH (09:46)
[2018-10-07] MEDS: SERTRALINE HCL 25 MG TABLET (FP) PO SCH (09:57)
--- NOTE | 2018-10-07 11:33 | PN ---
Physical Exam: SUBJECTIVE: Overnight patient had a rapid response called on the floor where he was found in rapid afib with RVR with HR in the 140s and BP in the systolic 80s. Patient was bolused 2 times of 250ml and was sent to the ICU for continued monitoring. Patient has since remained asymptomatic. Patient seen and examined at the bedside. Patient denied chest pain, sob, palpitations, weakness, abd pain , nausea, vomiting. OBJECTIVE: Vital Signs Period Temp Pulse Resp BP Sys/Burgos Pulse Ox Last 24 Hr 97.6 F-98.1 F 73-103 17-25 80-124/49-86 95-96 GENERAL: The patient is awake, alert, and fully oriented, in no acute distress. HEAD: Normal with no signs of trauma. EYES: PERRL, extraocular movements intact, sclera anicteric, conjunctiva clear. No ptosis. NECK: Trachea midline, full range of motion, supple. No JVD noted. LUNGS: Breath sounds equal, decreased breath sounds at the bases with scattered wheezes. HEART: Irregular rate and rhythm, S1, S2 without murmur, rub or gallop. ABDOMEN: Soft, nontender, nondistended, normoactive bowel sounds, no guarding, no rebound, no hepatosplenomegaly, no masses. EXTREMITIES: 1+ pulses, warm, chronic lymphedema. 1+ pitting edema NEUROLOGICAL: Cranial nerves II through XII grossly intact. Normal speech. Muscle strength grossly intact. PSYCH: Normal mood, normal affect. SKIN: Warm, dry, normal turgor, chronic venous statis dermatitis. Laboratory Results - last 24 hr 10/06/18 10/06/18 10/06/18 05:20 18:45 18:45 Iron 72 TIBC 206 L Iron Saturation 35 Unsaturated IBC 134 Urine Collection Time Cancelled 24 Urine Total Volume Cancelled 400 Urine Creatinine Cancelled 79.0 Ur Creatinine 12 Hour Cancelled Ur Creatinine 24 Hour 316.0 L CBC, BMP 10/07/18 09:30 10/07/18 06:00 Active Medications Generic Name Dose Route Start Last Admin Trade Name Freq PRN Reason Stop Dose Admin Albuterol Sulfate 2 puff 10/04/18 04:27 10/05/18 06:31 Ventolin Hfa Inhaler - IH 2 puff Q6H PRN Administration SHORTNESS OF BREATH Apixaban 2.5 mg 10/04/18 05:15 07/08/19 09:45 Eliquis - PO 2.5 mg BID VICTOR HUGO Administration Atorvastatin Calcium 40 mg 10/04/18 22:00 10/06/18 21:18 Lipitor - PO 40 mg HS VICTOR HUGO Administration Digoxin 0.125 mg 10/05/18 10:00 10/07/18 09:45 Lanoxin - PO 0.125 mg DAILY VICTOR HUGO Administration Ipratropium [place] 1 amp 10/07/18 11:21 Atrovent 0.02% Nebulizer - NEB Q6H PRN WHEEZING Metoprolol Succinate 25 mg 10/04/18 10:00 10/07/18 09:46 Toprol Xl - PO 25 mg DAILY VICTOR HUGO Administration Mometasone Furoate 1 puff 10/07/18 22:00 Asmanex 110mcg - IH BID VICTOR HUGO Multi-Ingredient Lotion 1 applic 10/06/18 22:00 10/07/18 09:46 Eucerin (Small Jar) - TP 1 applic BID VICTOR HUGO Administration Senna 1 tab 10/05/18 22:00 10/07/18 09:45 Senna - PO 1 tab BID VICTOR HUGO Administration Sertraline HCl 25 mg 10/04/18 10:00 10/07/18 09:57 Zoloft - PO Not Given DAILY VICTOR HUGO Spironolactone 25 mg 10/04/18 10:00 10/04/18 09:11 Aldactone - PO 25 mg DAILY VICTOR HUGO Administration ASSESSMENT/PLAN: Nando Valverde is an 83 year old male with a PMHx of HFrEF (EF 40-45%), persistent atrial fibrillation, hypertension and asthma presented to the ED for b/l lower extremity weakness and worsening edema, admitted for CHF decompensation admitted to the ICU after having an episode of afib with RVR. Neurological -stable Cardiovascular persistent atrial fibrillation with rapid ventricular response hypotension -patient was given 10mg IV diltiazem and appears to have been rate controlled to 90-100 -patient hypotensive 80s/60s, 2 repeat pressures s/p 2 250ml NS boluses resulted in MAPs of 67 and 68 respectively -patient is on toprol XL 25 daily -spironolactone 25mg daily restarted -digoxin 0.125 daily - monitor digoxin levels -on anticoagulation eliquis 2.5 BID -cardiology consultation recs appreciated -lasix held as no further evidence of CHF decompensation - monitor I+Os -has remained stable with normal HR and BP within normal limits Pulmonary -mild wheezes - start Atrovent and Asmanex in light of patient's hx of tachycardia - CXR showing no evidence of active pulmonary disease Gastrointestinal -no acute issues Renal -VICKY on CKD -renal following, recs appreciated -CRE improved 1.5--> 1.2 -consider Flomax for BPH Psych -continue home sertraline FEN -no standing fluids -replete lytes as necessary -low sodium diet Prophylaxis -eliquis 2.5mg BID Disposition -stable for transfer to telemetry CODE STATUS -full code Problem List - Problems (1) Afib Code(s): I48.91 - UNSPECIFIED ATRIAL FIBRILLATION Qualifiers: Atrial fibrillation type: unspecified Qualified Code(s): I48.91 - Unspecified atrial fibrillation (2) Asthma Code(s): J45.909 - UNSPECIFIED ASTHMA, UNCOMPLICATED Visit type - Emergency Visit Emergency Visit: No - New Patient This patient is new to me today: Yes Date on this admission: 10/07/18 - Critical Care Critical Care patient: Yes Total Critical Care Time (in minutes): 35 Critical Care Statement: The care of this patient involved high complexity decision making to prevent further life threatening deterioration of the patient 's condition and/or to evaluate & treat vital organ system(s) failure or risk of failure.
--- NOTE | 2018-10-07 11:55 | PN ---
Teaching Attending Note Name of Resident: Mario Alberto Martinez ATTENDING PHYSICIAN STATEMENT I saw and evaluated the patient. I reviewed the resident's note and discussed the case with the resident. I agree with the resident's findings and plan as documented. SUBJECTIVE: Pt seen and examined in the ICU. Transferred down for hypotension and rapid atrial fibrillation. Received IVF and cardizem IVP with improvement. Denies shortness of breath, chest pain or palpitations. OBJECTIVE: Vital Signs Period Temp Pulse Resp BP Sys/Burgos Pulse Ox Last 24 Hr 97.6 F-98.1 F 73-103 17-25 80-124/49-86 95-96 Intake & Output 10/04/18 10/05/18 10/06/18 10/07/18 23:59 23:59 23:59 23:59 Intake Total 550 2000 820 Output Total 100 900 500 Balance 450 1100 320 Weight 109.883 kg 111.221 kg 110.949 kg 111.584 kg Gen: NAD at rest Heart: irregular Lung: decreased breath sounds at the bases Abd: soft, nontender Ext: + edema CBC, BMP 10/06/18 05:20 Active Medications Albuterol Sulfate (Ventolin Hfa Inhaler -) 2 puff IH Q6H PRN PRN Reason: SHORTNESS OF BREATH Last Admin: 10/05/18 06:31 Dose: 2 puff Apixaban (Eliquis -) 2.5 mg PO BID [facility] Last Admin: 10/07/18 09:45 Dose: 2.5 mg Atorvastatin Calcium (Lipitor -) 40 mg PO HS [facility] Last Admin: 10/06/18 21:18 Dose: 40 mg Digoxin (Lanoxin -) 0.125 mg PO DAILY [facility] Last Admin: 10/07/18 09:45 Dose: 0.125 mg Ipratropium [place] (Atrovent 0.02% Nebulizer -) 1 amp NEB Q6H PRN PRN Reason: WHEEZING Metoprolol Succinate (Toprol Xl -) 25 mg PO DAILY [facility] Last Admin: 10/07/18 09:46 Dose: 25 mg Mometasone Furoate (Asmanex 110mcg -) 1 puff IH BID [facility] Multi-Ingredient Lotion (Eucerin (Small Jar) -) 1 applic TP BID [facility] Last Admin: 10/07/18 09:46 Dose: 1 applic Senna (Senna -) 1 tab PO BID [facility] Last Admin: 10/07/18 09:45 Dose: 1 tab Sertraline HCl (Zoloft -) 25 mg PO DAILY [facility] Last Admin: 10/07/18 09:57 Dose: Not Given Spironolactone (Aldactone -) 25 mg PO DAILY [facility] Last Admin: 10/04/18 09:11 Dose: 25 mg ASSESSMENT AND PLAN: Atrial Fibrillation with RVR now better controlled LV Systolic Dysfunction Acute on Chronic Renal Failure improving Asthma HTN - rate controlled - continue anticoagulation - inhaled bronchodilators - O2 to keep Spo2 >90% - continue aldactone - monitor urine output, creatinine - can monitor on telemetry
--- NOTE | 2018-10-07 12:06 | PN ---
Progress Note, Physician History of Present Illness: Pt seen and examined at bedside. He is awake and alert. He is now in the ICU. He feels that his breathing is improved. He complains of lower ext edema. He says that he feels week and has not walked since his last hospitalization in [place]. - Current Medication List Current Medications: Active Medications Albuterol Sulfate (Ventolin Hfa Inhaler -) 2 puff IH Q6H PRN PRN Reason: SHORTNESS OF BREATH Last Admin: 10/05/18 06:31 Dose: 2 puff Apixaban (Eliquis -) 2.5 mg PO BID [facility] Last Admin: 10/07/18 09:45 Dose: 2.5 mg Atorvastatin Calcium (Lipitor -) 40 mg PO HS [facility] Last Admin: 10/06/18 21:18 Dose: 40 mg Digoxin (Lanoxin -) 0.125 mg PO DAILY [facility] Last Admin: 10/07/18 09:45 Dose: 0.125 mg Ipratropium [place] (Atrovent 0.02% Nebulizer -) 1 amp NEB Q6H PRN PRN Reason: WHEEZING Metoprolol Succinate (Toprol Xl -) 25 mg PO DAILY [facility] Last Admin: 10/07/18 09:46 Dose: 25 mg Mometasone Furoate (Asmanex 110mcg -) 1 puff IH BID [facility] Multi-Ingredient Lotion (Eucerin (Small Jar) -) 1 applic TP BID [facility] Last Admin: 10/07/18 09:46 Dose: 1 applic Senna (Senna -) 1 tab PO BID [facility] Last Admin: 10/07/18 09:45 Dose: 1 tab Sertraline HCl (Zoloft -) 25 mg PO DAILY [facility] Last Admin: 10/07/18 09:57 Dose: Not Given Spironolactone (Aldactone -) 25 mg PO DAILY [facility] Last Admin: 10/04/18 09:11 Dose: 25 mg - Objective Vital Signs: Vital Signs Temperature 97.6 F 10/07/18 10:00 Pulse Rate 84 10/07/18 10:00 Respiratory Rate 25 H 10/07/18 10:00 Blood Pressure 112/86 10/07/18 10:00 O2 Sat by Pulse Oximetry (%) 96 10/07/18 09:00 Constitutional: Yes: Calm Eyes: Yes: Conjunctiva Clear HENT: Yes: Atraumatic Cardiovascular: Yes: S1, S2 Respiratory: Yes: CTA Bilaterally Gastrointestinal: Yes: Soft, Abdomen, Obese Genitourinary: Yes: WNL Musculoskeletal: Yes: WNL Edema: Yes Edema: LLE: 3+, RLE: 3+ Neurological: Yes: Oriented Psychiatric: Yes: Oriented Labs: CBC, BMP 10/06/18 05:20 Problem List - Problems (1) Acute kidney failure Code(s): N17.9 - ACUTE KIDNEY FAILURE, UNSPECIFIED Qualifiers: Acute renal failure type: unspecified Qualified Code(s): N17.9 - Acute kidney failure, unspecified (2) Afib Code(s): I48.91 - UNSPECIFIED ATRIAL FIBRILLATION Qualifiers: Atrial fibrillation type: unspecified Qualified Code(s): I48.91 - Unspecified atrial fibrillation Assessment/Plan Current Medications Generic Name Dose Route Start Last Admin Trade Name Freq PRN Reason Stop Dose Admin Albuterol Sulfate 2 puff 10/04/18 04:27 10/05/18 06:31 Ventolin Hfa Inhaler - IH 2 puff Q6H PRN Administration SHORTNESS OF BREATH Apixaban 2.5 mg 10/04/18 05:15 10/07/18 09:45 Eliquis - PO 2.5 mg BID VICTOR HUGO Administration Atorvastatin Calcium 40 mg 10/04/18 22:00 10/06/18 21:18 Lipitor - PO 40 mg HS VICTOR HUGO Administration Digoxin 0.125 mg 10/05/18 10:00 10/07/18 09:45 Lanoxin - PO 0.125 mg DAILY VICTOR HUGO Administration Ipratropium [place] 1 amp 10/07/18 11:21 Atrovent 0.02% Nebulizer - NEB Q6H PRN WHEEZING Metoprolol Succinate 25 mg 10/04/18 10:00 10/07/18 09:46 Toprol Xl - PO 25 mg DAILY VICTOR HUGO Administration Mometasone Furoate 1 puff 10/07/18 22:00 Asmanex 110mcg - IH BID VICTOR HUGO Multi-Ingredient Lotion 1 applic 10/06/18 22:00 10/07/18 09:46 Eucerin (Small Jar) - TP 1 applic BID VICTOR HUGO Administration Senna 1 tab 10/05/18 22:00 10/07/18 09:45 Senna - PO 1 tab BID VICTOR HUGO Administration Sertraline HCl 25 mg 10/04/18 10:00 10/07/18 09:57 Zoloft - PO Not Given DAILY VICTOR HUGO Spironolactone 25 mg 10/04/18 10:00 10/04/18 09:11 Aldactone - PO 25 mg DAILY VICTOR HUGO Administration Impression 1. VICKY 2. CKD 3. CHG 4. a-fib with rvr 5. elevated post void residual Plan - renal function improving - follow repeat labs - urology eval and consider flomax of bp is stable - monitor dig levels - will need pt/rehab once more stable
[2018-10-07 12:39] LABS: BLOOD UREA NITROGEN 22.4 mg/dL (7-18); CALCIUM 8.5 mg/dL (8.5-10.1); CREATININE 1.2 mg/dL (0.55-1.3); POTASSIUM 4.2 mmol/L (3.5-5.1)
[2018-10-07 12:44] LABS: HEMATOCRIT 31.6 % (35.4-49); HEMOGLOBIN 10.7 GM/dL (11.7-16.9); MCH 29.9 pg (25.7-33.7); MCHC 33.7 g/dl (32.0-35.9); MEAN CELL VOLUME 88.8 fl (80-96); MEAN PLT VOLUME 6.5 fl (7.5-11.1); PLATELET COUNT 291 K/MM3 (134-434); RBC 3.56 M/mm3 (4.00-5.60); RDW 16.3 % (11.9-15.9); WHITE BLOOD COUNT 4.9 K/mm3 (4.0-10.0)
[2018-10-07 14:19] VITALS: BMI 42.2
--- NOTE | 2018-10-07 15:15 | PN ---
Teaching Attending Note Name of Resident: Abeba Alonso ATTENDING PHYSICIAN STATEMENT I saw and evaluated the patient. I reviewed the resident's note and discussed the case with the resident. I agree with the resident's findings and plan as documented. SUBJECTIVE: Episode of RVR with hypotension and lightheadedness yesterday. No CP /shortness of breath. Transferred to ICU for monitoring. Feels well - no complaints. OBJECTIVE: Afebrile, Hemodynamically Stable. Last Vital Signs Temp Pulse Resp BP Pulse Ox 97.6 F 84 25 H 112/86 96 10/07/18 10:00 10/07/18 10:00 10/07/18 10:00 10/07/18 10:00 10/07/18 09:00 Heart - S1, S2, irregular Lungs - clear to auscultation Abdomen - High BMI, soft, non-tender. Bowel Sounds normal. Extremities - bilateral chronic venous stasis dermatitis with edema ++ and hemosiderin skin deposits. Laboratory Results - last 24 hr 10/06/18 10/06/18 10/06/18 05:20 18:45 18:45 WBC RBC Hgb Hct MCV MCH MCHC RDW Plt Count MPV Sodium Potassium Chloride Carbon Dioxide Anion Gap BUN Creatinine Est GFR (CKD-EPI)AfAm Est GFR (CKD-EPI)NonAf Random Glucose Calcium Iron 72 TIBC 206 L Iron Saturation 35 Unsaturated IBC 134 Urine Collection Time Cancelled 24 Urine Total Volume Cancelled 400 Urine Creatinine Cancelled 79.0 Ur Creatinine 12 Hour Cancelled Ur Creatinine 24 Hour 316.0 L 10/07/18 10/07/18 06:00 09:30 WBC 4.9 RBC 3.56 L Hgb 10.7 L Hct 31.6 L MCV 88.8 MCH 29.9 MCHC 33.7 RDW 16.3 H Plt Count 291 MPV 6.5 L Sodium 139 Potassium 4.2 Chloride 100 Carbon Dioxide 30 Anion Gap 8 BUN 22.4 H Creatinine 1.2 Est GFR (CKD-EPI)AfAm 65.33 Est GFR (CKD-EPI)NonAf 56.37 Random Glucose 79 Calcium 8.5 Iron TIBC Iron Saturation Unsaturated IBC Urine Collection Time Urine Total Volume Urine Creatinine Ur Creatinine 12 Hour Ur Creatinine 24 Hour Current Medications Generic Name Dose Route Start Last Admin Trade Name Freq PRN Reason Stop Dose Admin Albuterol Sulfate 2 puff 10/04/18 04:27 10/05/18 06:31 Ventolin Hfa Inhaler - IH 2 puff Q6H PRN Administration SHORTNESS OF BREATH Apixaban 2.5 mg 10/04/18 05:15 10/07/18 09:45 Eliquis - PO 2.5 mg BID [facility] Administration Atorvastatin Calcium 40 mg 10/04/18 22:00 10/06/18 21:18 Lipitor - PO 40 mg HS VI[facility] HUGO Administration Digoxin 0.125 mg 10/05/18 10:00 10/07/18 09:45 Lanoxin - PO 0.125 mg DAILY [facility] HU[facility] Administration Ipratropium [place] 1 amp 10/07/18 11:21 Atrovent 0.02% Nebulizer - NEB Q6H PRN WHEEZING Metoprolol Succinate 25 mg 10/04/18 10:00 10/07/18 09:46 Toprol Xl - PO 25 mg DAILY VICTOR HUGO Administration Mometasone Furoate 1 puff 10/07/18 22:00 Asmanex 110mcg - IH BID VI[facility] HUGO Multi-Ingredient Lotion 1 applic 10/06/18 22:00 10/07/18 09:46 Eucerin (Small Jar) - TP 1 applic BID VI[facility] HUGO Administration Senna 1 tab 10/05/18 22:00 10/07/18 09:45 Senna - PO 1 tab BID [facility] HUGO Administration Sertraline HCl 25 mg 10/04/18 10:00 10/07/18 09:57 Zoloft - PO Not Given DAILY VI[facility] HUGO Spironolactone 25 mg 10/04/18 10:00 10/04/18 09:11 Aldactone - PO 25 mg DAILY VI[facility] HUGO Administration ASSESSMENT AND PLAN: 83 year old male with persistent Atrial Fibrillation (on Apixaban), HTN, HLD, Asthma, Chronic Systolic CHF, presents with poor mobility due to LE edema and general deconditioning after recent admission in [place] for CHF exacerbation. At that time Lasix was switched to Bumex and he is now found to have VICKY with Creat of 3.2. 1. VICKY - prerenal, secondary to overdiuresis with Bumex - improved with IV hydration. BUN/Creat 43.4/3.2 ---> 22.4/1.2 Renal/Bladder US - no acute findings. Bumex/Lasix held currently. IV fluids stopped. Nephrology following. 2. Atrial Fibrillation with intermittent RVR - 1 episode yesterday afternoon 10/06 with lightheadedness and hypotension requiring 10mg IVP Cardizem. No further episodes. Evaluated by Cardiology on admission - Amiodarone discontinued and Digoxin started. Continue Metoprolol and Apixaban. For re-eval by Cardio for further recommendations re: rate control/anti- arrhythmic regimen. 3. HTN - on Metoprolol. Spirinolactone held due to VICKY. Cardio to consider resuming. 4. Asthma - stable, no evidence of acute exacerbation 5. Thoracic Aortic Aneurysm (4.1cm) - out-patient follow up. 6. Chronic Systolic CHF Reduced EF 40-45% on Echo 08/18 No evidence of decompensation as per Cardio. Lasix held due to VICKY. Cardio/Nephrology to recommend appropriate out-patient diuretic. 7. Chronic Lymphedema with venous stasis/dermatitis. LE edema generally improved as per patient. LE Duplex neg for DVT. Recently treated for Cellulitis. Eucerin b/l LEs. 8. Elevated TSH/free T4, clinically asymptomatic. Reported history of hyperparathyroidism. Calcium levels normal. Endocrinology consulted for further eval and recommendations. 9. Normocytic Anemia secondary to chronic disease - H/H Stable. No reported blood loss. FOBT negative. B12 level 754, Folate 12, Ferritin 625, Iron Sat 35. DVT Px - on Eliquis.
[2018-10-07] MEDS: ATORVASTATIN CA 40 MG TABLET (FP) PO SCH (21:05)
[2018-10-07] MEDS: MOMETASONE FUROATE 110 MCG/IH INHALER IH SCH (21:06)
[2018-10-07] MEDS: IPRATROPIUM BR 0.02% 0.5 MG/2.5 ML VIAL.NEB. NEB PRN (21:20)
[2018-10-08 06:51] LABS: HEMATOCRIT 30.9 % (35.4-49); HEMOGLOBIN 10.7 GM/dL (11.7-16.9); MCH 30.4 pg (25.7-33.7); MCHC 34.4 g/dl (32.0-35.9); MEAN CELL VOLUME 88.4 fl (80-96); MEAN PLT VOLUME 6.5 fl (7.5-11.1); PLATELET COUNT 260 K/MM3 (134-434); RDW 16.2 % (11.9-15.9); WHITE BLOOD COUNT 4.5 K/mm3 (4.0-10.0)
[2018-10-08 07:31] LABS: BLOOD UREA NITROGEN 16.3 mg/dL (7-18); CALCIUM 8.3 mg/dL (8.5-10.1); CREATININE 0.9 mg/dL (0.55-1.3); MAGNESIUM 1.4 mg/dL (1.8-2.4); PHOSPHOROUS 2.7 mg/dL (2.5-4.9); POTASSIUM 4.2 mmol/L (3.5-5.1)
[2018-10-08] MEDS: SERTRALINE HCL 25 MG TABLET (FP) PO SCH ×2 (09:09→09:14)
[2018-10-08] MEDS: metoPROLOL SUCCINATE 25 MG TAB.SR.24H (FP) PO SCH (09:09)
[2018-10-08] MEDS: MOMETASONE FUROATE 110 MCG/IH INHALER IH SCH ×2 (09:10→22:18)
[2018-10-08] MEDS: SENNOSIDES 8.6MG TABLET (FP) PO SCH ×2 (09:10→22:16)
[2018-10-08] MEDS: APIXABAN 2.5 MG TABLET PO SCH ×2 (09:10→22:16)
[2018-10-08] MEDS: DIGOXIN 0.125 MG TABLET (FP) PO SCH (09:10)
[2018-10-08] MEDS: MINERAL OIL/PETROLAT/WATER TOPICAL CREAM 113 GM JAR TP SCH ×2 (09:11→22:19)
[2018-10-08] MEDS ORDERED: METOPROLOL TARTRATE 5 MG/5 ML VIAL ONE (09:17)
[2018-10-08] MEDS ORDERED: METOPROLOL TARTRATE 5 MG/5 ML VIAL IVPUSH ONE (09:30)
[2018-10-08] MEDS: LACTOBACILLUS ACIDOPHILUS 1 TABLET PO SCH (11:10)
--- NOTE | 2018-10-08 11:17 | PN ---
Progress Note, Physician Chief Complaint: Cards FU transferred to ICU due to hypotension and tachy which resoled after IV hydration. Feeling dizzy when seated. Has had multiple bouts of diarrhea. Telem HR average 80s with intermittent spikes 170s especially when seated. History of Present Illness: 83 year-old obese man with a PMHx of long-standing persistent atrial fibrillation, HFrEF from echocardiogram on 08/23/18 with LVEF 40-45%, normal coronaries on prior cath, hyperlipidemia, chronic leg edema, asthma, hypothroidism, aortic aneurysm, BPH, anxiety. The patient was admitted to a hospital in [place] on 09/10/18 for 2 weeks for worsening leg edema and cellulitis. Medications were adjusted: diltiazem to amiodarone and Lasix to Bumex. Hospital course notable for VICKY which has resolved. - Current Medication List Current Medications: Active Medications Albuterol Sulfate (Ventolin Hfa Inhaler -) 2 puff IH Q6H PRN PRN Reason: SHORTNESS OF BREATH Last Admin: 10/05/18 06:31 Dose: 2 puff Apixaban (Eliquis -) 2.5 mg PO BID COUNTS INCLUDE 234 BEDS AT THE [facility] Last Admin: 10/08/18 09:10 Dose: 2.5 mg Atorvastatin Calcium (Lipitor -) 40 mg PO HS COUNTS INCLUDE 234 BEDS AT THE [facility] Last Admin: 10/07/18 21:05 Dose: 40 mg Digoxin (Lanoxin -) 0.125 mg PO DAILY COUNTS INCLUDE 234 BEDS AT THE [facility] Last Admin: 10/08/18 09:10 Dose: 0.125 mg Ipratropium [place] (Atrovent 0.02% Nebulizer -) 1 amp NEB Q6H PRN PRN Reason: WHEEZING Last Admin: 10/07/18 21:20 Dose: 1 amp Lactobacillus Acidophilus (Bacid -) 1 tab PO DAILY COUNTS INCLUDE 234 BEDS AT THE [facility] Last Admin: 10/08/18 11:10 Dose: 1 tab Magnesium Sulfate (Magnesium Sulfate) 1 gm IVPB ONCE ONE Stop: 10/08/18 11:31 Last Admin: 10/08/18 11:10 Dose: 1 gm Metoprolol Succinate (Toprol Xl -) 25 mg PO DAILY COUNTS INCLUDE 234 BEDS AT THE [facility] Last Admin: 10/08/18 09:09 Dose: 25 mg Mometasone Furoate (Asmanex 110mcg -) 1 puff IH BID COUNTS INCLUDE 234 BEDS AT THE [facility] Last Admin: 10/08/18 09:10 Dose: 1 puff Multi-Ingredient Lotion (Eucerin (Small Jar) -) 1 applic TP BID COUNTS INCLUDE 234 BEDS AT THE [facility] Last Admin: 10/08/18 09:11 Dose: 1 applic Senna (Senna -) 1 tab PO BID COUNTS INCLUDE 234 BEDS AT THE [facility] Last Admin: 10/08/18 09:10 Dose: Not Given Spironolactone (Aldactone -) 25 mg PO DAILY COUNTS INCLUDE 234 BEDS AT THE [facility] Last Admin: 10/04/18 09:11 Dose: 25 mg - Objective Vital Signs: Vital Signs Temperature 97.6 F 10/08/18 06:00 Pulse Rate 90 10/08/18 10:00 Respiratory Rate 10/08/18 10:00 Blood Pressure 95/60 10/08/18 10:00 O2 Sat by Pulse Oximetry (%) 99 10/08/18 09:00 Constitutional: Yes: Well Nourished, No Distress Eyes: Yes: Conjunctiva Clear HENT: Yes: Atraumatic, Normocephalic Neck: Yes: Supple, Trachea Midline Cardiovascular: Yes: Pulse Irregular, S1, S2. No: JVD Respiratory: Yes: Regular, Wheezes Gastrointestinal: Yes: Normal Bowel Sounds Edema: Yes Edema: LLE: Trace, RLE: Trace Labs: CBC, BMP 10/08/18 05:18 10/08/18 05:18 Problem List - Problems (1) Afib Code(s): I48.91 - UNSPECIFIED ATRIAL FIBRILLATION Qualifiers: Atrial fibrillation type: unspecified Qualified Code(s): I48.91 - Unspecified atrial fibrillation Assessment/Plan 83 year-old obese man with a PMHx of chronic atrial fibrillation, HFrEF-chronic LBBB and negative CAD on cardiac cath with LVEF 40-45%, severe asthma history sp thermoplasty, chronic leg edema secondary to venous insufficiency, hypothroidism, aortic aneurysm, BPH, anxiety Atrial fibrillation with episodes of rapid VR: -His HR is generaly well controlled with intermittent spiking and hypotension. -Likely due to intravascular volume depletion. -Has frequent loose BMs. No signs of pulmonary edema -DC Metoprolol -Add Cardizem 30mg q6 hr PO -DC aldactone -No indication for diuretic use at this time. Mildly reduced EF: Unchanged from prior. ho LBBB Negative cardiac cath in the past. Given bronchospastic history would avoid bb use. Will follow
[2018-10-08] MEDS ORDERED: MAGNESIUM SULF 50% (8.12 MEQ/2 ML-1 GM VIAL) IVPB ONE (11:30)
--- NOTE | 2018-10-08 11:55 | PN ---
Teaching Attending Note Name of Resident: Jeana Walls ATTENDING PHYSICIAN STATEMENT I saw and evaluated the patient. I reviewed the resident's note and discussed the case with the resident. I agree with the resident's findings and plan as documented. SUBJECTIVE: Pt seen and examined in the ICU. Episode of rapid afib this AM improved with lopressor IVP. No shortness of breath, chest pain or palpitations. Does report some dizziness during that episode. OBJECTIVE: Vital Signs Period Temp Pulse Resp BP Sys/[place] Pulse Ox Last 24 Hr 97.6 F 72-160 11-31 95-137/57-85 99-99 Intake & Output 10/05/18 10/06/18 10/07/18 10/08/18 23:59 23:59 23:59 23:59 Intake Total 2000 820 180 Output Total 900 500 350 Balance 1100 320 -170 Weight 111.221 kg 110.949 kg 111.584 kg 113.426 kg Gen: NAD at rest Heart: irregular Lung: decreased breath sounds at the bases Abd: soft, nontender Ext: + edema CBC, BMP 10/08/18 05:18 10/08/18 05:18 Active Medications Albuterol Sulfate (Ventolin Hfa Inhaler -) 2 puff IH Q6H PRN PRN Reason: SHORTNESS OF BREATH Last Admin: 10/05/18 06:31 Dose: 2 puff Apixaban (Eliquis -) 2.5 mg PO BID [facility] Last Admin: 10/08/18 09:10 Dose: 2.5 mg Atorvastatin Calcium (Lipitor -) 40 mg PO HS [facility] Last Admin: 10/07/18 21:05 Dose: 40 mg Digoxin (Lanoxin -) 0.125 mg PO DAILY [facility] Last Admin: 10/08/18 09:10 Dose: 0.125 mg Ipratropium [place] (Atrovent 0.02% Nebulizer -) 1 amp NEB Q6H PRN PRN Reason: WHEEZING Last Admin: 10/07/18 21:20 Dose: 1 amp Lactobacillus Acidophilus (Bacid -) 1 tab PO DAILY [facility] Last Admin: 10/08/18 11:10 Dose: 1 tab Metoprolol Succinate (Toprol Xl -) 25 mg PO DAILY [facility] Last Admin: 10/08/18 09:09 Dose: 25 mg Mometasone Furoate (Asmanex 110mcg -) 1 puff IH BID [facility] Last Admin: 10/08/18 09:10 Dose: 1 puff Multi-Ingredient Lotion (Eucerin (Small Jar) -) 1 applic TP BID [facility] Last Admin: 10/08/18 09:11 Dose: 1 applic Senna (Senna -) 1 tab PO BID [facility] Last Admin: 10/08/18 09:10 Dose: Not Given Spironolactone (Aldactone -) 25 mg PO DAILY [facility] Last Admin: 10/04/18 09:11 Dose: 25 mg ASSESSMENT AND PLAN: Atrial Fibrillation with RVR now better controlled LV Systolic Dysfunction Acute on Chronic Renal Failure improving Asthma HTN - rate controlled - continue anticoagulation - inhaled bronchodilators - O2 to keep Spo2 >90% - monitor urine output, creatinine - can monitor on telemetry
--- NOTE | 2018-10-08 13:32 | PN ---
Teaching Attending Note Name of Resident: Yary Tenorio ATTENDING PHYSICIAN STATEMENT I saw and evaluated the patient. I reviewed the resident's note and discussed the case with the resident. I agree with the resident's findings and plan as documented. SUBJECTIVE:c/o dizzyness this am. states no CP or palpitations or blurred vision assoc iwth this. started shortly after being moved to the chair OBJECTIVE: Last Vital Signs Temp Pulse Resp BP Pulse Ox 97.9 F 86 19 136/87 99 10/08/18 12:00 10/08/18 12:00 10/08/18 12:00 10/08/18 12:00 10/08/18 09:00 General NAD CV S1 s2 irregular lungs CTA B/L No wheezing/rales/rhonchi Abdomen soft NT/ND Extremities venous stasis changes. lymphedema ASSESSMENT AND PLAN: 83 year old male with persistent Atrial Fibrillation (on Apixaban), HTN, HLD, Asthma, Chronic Systolic CHF, presents with poor mobility due to LE edema and general deconditioning after recent admission in [place] for CHF exacerbation. At that time Lasix was switched to Bumex and he is now found to have VICKY with Creat of 3.2. 1. VICKY - prerenal, secondary to overdiuresis with Bumex - improved with IV hydration. remains euvolemic. would cont to hold diuretic at this time. will need to f/u wtih cardio to re-start if necessary 2. Dizzyness- BP checked to SBP 95 with HR 70's. pt just received metoprolol and digoxin. will move patient back to bed and repeat. hold aldactone 3. Afib with RVR- amio stopped this hospital stay and switched to digoxin. based on soft BP and current soft BP metoprolol will be switched to cardizem. cont eliquis 4. Systolic CHF- appears euvolemic. was dry on presentation on high doses of diuretics all of which been held. will cont to hold at this time 5. Chronic lymphedema with venous stasis- per patient his legs are at baseline. should follow up with vascular as outpatient to see if candidate for machine 6. Normocytic anemia- hgb stable. no indications for transfusion 7. HTN- currently hypotensive. will move patient and repeat BP. will need BP med adjustment. 8.Thoracic Aortic Aneurysm (4.1cm) - out-patient follow up. 9. Elevated TSH/free T4, clinically asymptomatic. Reported history of hyperparathyroidism. Calcium levels normal. Endocrinology consulted for further eval and recommendations. 10. DVT Px - on Eliquis. 11. will need CHRIS placement. will repeat BP and pending stabillity will plan for d/c later today
--- NOTE | 2018-10-08 13:33 | PN ---
Progress Note, Physician History of Present Illness: Pt seen and examined at bedside. He is awake and alert. He denies shortness of breath. - Current Medication List Current Medications: Active Medications Albuterol Sulfate (Ventolin Hfa Inhaler -) 2 puff IH Q6H PRN PRN Reason: SHORTNESS OF BREATH Last Admin: 10/05/18 06:31 Dose: 2 puff Apixaban (Eliquis -) 2.5 mg PO BID [facility] Last Admin: 10/08/18 09:10 Dose: 2.5 mg Atorvastatin Calcium (Lipitor -) 40 mg PO HS [facility] Last Admin: 10/07/18 21:05 Dose: 40 mg Digoxin (Lanoxin -) 0.125 mg PO DAILY [facility] Last Admin: 10/08/18 09:10 Dose: 0.125 mg Diltiazem HCl (Cardizem -) 30 mg PO Q6HPO [facility] Ipratropium [place] (Atrovent 0.02% Nebulizer -) 1 amp NEB Q6H PRN PRN Reason: WHEEZING Last Admin: 10/07/18 21:20 Dose: 1 amp Lactobacillus Acidophilus (Bacid -) 1 tab PO DAILY [facility] Last Admin: 10/08/18 11:10 Dose: 1 tab Metoprolol Succinate (Toprol Xl -) 25 mg PO DAILY [facility] Last Admin: 10/08/18 09:09 Dose: 25 mg Mometasone Furoate (Asmanex 110mcg -) 1 puff IH BID [facility] Last Admin: 10/08/18 09:10 Dose: 1 puff Multi-Ingredient Lotion (Eucerin (Small Jar) -) 1 applic TP BID [facility] Last Admin: 10/08/18 09:11 Dose: 1 applic Senna (Senna -) 1 tab PO BID [facility] Last Admin: 10/08/18 09:10 Dose: Not Given Spironolactone (Aldactone -) 25 mg PO DAILY [facility] Last Admin: 10/04/18 09:11 Dose: 25 mg - Objective Vital Signs: Vital Signs Temperature 97.9 F 10/08/18 12:00 Pulse Rate 86 10/08/18 12:00 Respiratory Rate 10/08/18 12:00 Blood Pressure 136/87 10/08/18 12:00 O2 Sat by Pulse Oximetry (%) 99 10/08/18 09:00 Constitutional: Yes: Calm Eyes: Yes: Conjunctiva Clear HENT: Yes: Atraumatic Neck: Yes: Supple Cardiovascular: Yes: S1, S2 Respiratory: Yes: CTA Bilaterally Gastrointestinal: Yes: Soft, Abdomen, Obese Genitourinary: Yes: WNL Musculoskeletal: Yes: WNL Edema: Yes Edema: LLE: 2+, RLE: 2+ Neurological: Yes: Oriented Psychiatric: Yes: Oriented Labs: CBC, BMP 10/08/18 05:18 10/08/18 05:18 Problem List - Problems (1) Acute kidney failure Code(s): N17.9 - ACUTE KIDNEY FAILURE, UNSPECIFIED Qualifiers: Qualified Code(s): N17.9 - Acute kidney failure, unspecified (2) Afib Code(s): I48.91 - UNSPECIFIED ATRIAL FIBRILLATION Qualifiers: Qualified Code(s): I48.91 - Unspecified atrial fibrillation Assessment/Plan Current Medications Generic Name Dose Route Start Last Admin Trade Name Freq PRN Reason Stop Dose Admin Albuterol Sulfate 2 puff 10/04/18 04:27 10/05/18 06:31 Ventolin Hfa Inhaler - IH 2 puff Q6H PRN Administration SHORTNESS OF BREATH Apixaban 2.5 mg 10/04/18 05:15 10/08/18 09:10 Eliquis - PO 2.5 mg BID [facility] HU[facility] Administration Atorvastatin Calcium 40 mg 10/04/18 22:00 10/07/18 21:05 Lipitor - PO 40 mg HS [facility] HUGO Administration Digoxin 0.125 mg 10/05/18 10:00 10/08/18 09:10 Lanoxin - PO 0.125 mg DAILY [facility] HUGO Administration Diltiazem HCl 30 mg 10/08/18 18:00 Cardizem - PO Q6HPO [facility] HUGO Ipratropium [place] 1 amp 10/07/18 11:21 10/07/18 21:20 Atrovent 0.02% Nebulizer - NEB 1 amp Q6H PRN Administration WHEEZING Lactobacillus Acidophilus 1 tab 10/08/18 11:00 10/08/18 11:10 Bacid - PO 1 tab DAILY [facility] HUGO Administration Metoprolol Succinate 25 mg 10/04/18 10:00 10/08/18 09:09 Toprol Xl - PO 25 mg DAILY [facility] HUGO Administration Mometasone Furoate 1 puff 10/07/18 22:00 10/08/18 09:10 Asmanex 110mcg - IH 1 puff BID [facility] HUGO Administration Multi-Ingredient Lotion 1 applic 10/06/18 22:00 10/08/18 09:11 Eucerin (Small Jar) - TP 1 applic BID [facility] HUGO Administration Senna 1 tab 10/05/18 22:00 10/08/18 09:10 Senna - PO Not Given BID [facility]CTOR HUGO Spironolactone 25 mg 10/04/18 10:00 10/04/18 09:11 Aldactone - PO 25 mg DAILY [facility] HUGO Administration Impression 1. VICKY 2. CKD 3. CHF 4. a-fib with rvr 5. elevated post void residual Plan - renal function is improved - pt with lower ext edema - cardio input appreciated - urology eval and consider flomax of bp is stable - monitor dig levels - will need pt/rehab once more stable
--- NOTE | 2018-10-08 14:30 | PN ---
Physical Exam: SUBJECTIVE: Patient seen and examined by me on 10/08/2018. No acute events reported overnight, patient has been stable in the ICU and has been awating transfer to telemedicine pending bed availability. OBJECTIVE: Vital Signs Period Temp Pulse Resp BP Sys/[place] Pulse Ox Last 24 Hr 97.6 F-97.9 F 72-160 11-21 95-137/57-87 99-99 GENERAL: The patient is awake, alert, and fully oriented, in no acute distress. HEAD: Normal with no signs of trauma. EYES: PERRL, extraocular movements intact, sclera anicteric, conjunctiva clear. No ptosis. NECK: Trachea midline, full range of motion, supple. No JVD noted. LUNGS: Breath sounds equal, decreased breath sounds at the bases HEART: Irregular rate and rhythm, S1, S2 without murmur, rub or gallop. ABDOMEN: Soft, nontender, nondistended, normoactive bowel sounds, no guarding, no rebound, no hepatosplenomegaly, no masses. EXTREMITIES: 1+ pulses, warm, chronic lymphedema. 1+ pitting edema NEUROLOGICAL: Cranial nerves II through XII grossly intact. Normal speech. Muscle strength grossly intact. PSYCH: Normal mood, normal affect. SKIN: Warm, dry, normal turgor, chronic venous statis dermatitis. Laboratory Results - last 24 hr 10/08/18 10/08/18 05:18 05:18 WBC 4.5 RBC 3.50 L Hgb 10.7 L Hct 30.9 L MCV 88.4 MCH 30.4 MCHC 34.4 RDW 16.2 H Plt Count 260 MPV 6.5 L Sodium 136 Potassium 4.2 Chloride 101 Carbon Dioxide 29 Anion Gap 6 L BUN 16.3 Creatinine 0.9 Est GFR (CKD-EPI)AfAm 92.51 Est GFR (CKD-EPI)NonAf 79.82 Random Glucose 72 L Calcium 8.3 L Phosphorus 2.7 Magnesium 1.4 L Digoxin 0.68 L Active Medications Generic Name Dose Route Start Last Admin Trade Name Freq PRN Reason Stop Dose Admin Albuterol Sulfate 2 puff 10/04/18 04:27 10/05/18 06:31 Ventolin Hfa Inhaler - IH 2 puff Q6H PRN Administration SHORTNESS OF BREATH Apixaban 2.5 mg 10/04/18 05:15 10/08/18 09:10 Eliquis - PO 2.5 mg BID [facility] HUGO Administration Atorvastatin Calcium 40 mg 10/04/18 22:00 10/07/18 21:05 Lipitor - PO 40 mg HS [facility] HUGO Administration Digoxin 0.125 mg 10/05/18 10:00 10/08/18 09:10 Lanoxin - PO 0.125 mg DAILY [facility] HUGO Administration Diltiazem HCl 30 mg 10/08/18 18:00 Cardizem - PO Q6HPO [facility] HU[facility] Ipratropium [place] 1 amp 10/07/18 11:21 10/07/18 21:20 Atrovent 0.02% Nebulizer - NEB 1 amp Q6H PRN Administration WHEEZING Lactobacillus Acidophilus 1 tab 10/08/18 11:00 10/08/18 11:10 Bacid - PO 1 tab DAILY [facility] Administration Metoprolol Succinate 25 mg 10/04/18 10:00 10/08/18 09:09 Toprol Xl - PO 25 mg DAILY [facility] HUGO Administration Mometasone Furoate 1 puff 10/07/18 22:00 10/08/18 09:10 Asmanex 110mcg - IH 1 puff BID [facility] HUGO Administration Multi-Ingredient Lotion 1 applic 10/06/18 22:00 10/08/18 09:11 Eucerin (Small Jar) - TP 1 applic BID VICTOR HUGO Administration Senna 1 tab 10/05/18 22:00 10/08/18 09:10 Senna - PO Not Given BID [facility] HUGO Spironolactone 25 mg 10/04/18 10:00 10/04/18 09:11 Aldactone - PO 25 mg DAILY [facility] Administration ASSESSMENT/PLAN: Nando Valverde is an 83 year old male with a PMHx of HFrEF (EF 40-45%), persistent atrial fibrillation, hypertension and asthma presented to the ED for b/l lower extremity weakness and worsening edema, admitted for CHF decompensation admitted to the ICU after having an episode of afib with RVR. Neurological -stable Cardiovascular persistent atrial fibrillation with rapid ventricular response hypotension -continue toprol XL 25 daily -continue spironolactone 25mg daily -continue digoxin 0.125 daily - monitor digoxin levels -eliquis 2.5 BID for anticoagulation -cardiology consultation recs appreciated -lasix held as no further evidence of CHF decompensation - monitor I+Os -has remained stable with normal HR and BP within normal limits Pulmonary -mild wheezes - start Atrovent and Asmanex in light of patient's hx of tachycardia - CXR showing no evidence of active pulmonary disease Gastrointestinal Patient reports soft stools but denies any abdominal pain/ discomfort, or nausea - Bacid 1 tab PO daily Renal -VICKY on CKD -renal following, recs appreciated -CRE improved 1.5--> 1.2 -consider Flomax for BPH FEN -no standing fluids, -replete lytes as necessary, magnesium repleted today -low sodium diet Prophylaxis -eliquis 2.5mg BID Disposition -stable for transfer to telemetry CODE STATUS -full code Visit type - Emergency Visit Emergency Visit: Yes ED Registration Date: 10/04/18 Care time: The patient presented to the Emergency Department on the above date and was hospitalized for further evaluation of their emergent condition. - New Patient This patient is new to me today: No - Critical Care Critical Care patient: Yes Total Critical Care Time (in minutes): 36 Critical Care Statement: The care of this patient involved high complexity decision making to prevent further life threatening deterioration of the patient 's condition and/or to evaluate & treat vital organ system(s) failure or risk of failure. ATTENDING PHYSICIAN STATEMENT I saw and evaluated the patient. I reviewed the resident's note and discussed the case with the resident. I agree with the resident's findings and plan as documented. SUBJECTIVE: OBJECTIVE: ASSESSMENT AND PLAN:
[2018-10-08] MEDS: IPRATROPIUM BR 0.02% 0.5 MG/2.5 ML VIAL.NEB. NEB PRN ×2 (15:12→21:15)
--- NOTE | 2018-10-08 16:03 | PN ---
Physical Exam: SUBJECTIVE: Patient seen and examined at bedside. pt has no complaints of SOB or pain. Pt became dizzy when movedto the chair approx 10 min after he received medications of metoprolol and digoxin. pt is now complaining of diarrhea. OBJECTIVE: Vital Signs Period Temp Pulse Resp BP Sys/Burgos Pulse Ox Last 24 Hr 97.6 F-97.9 F 72-160 11-21 95-137/59-87 99-99 GENERAL: The patient is awake, alert, and fully oriented, in no acute distress. HEAD: Normal with no signs of trauma. EYES: PERRL, extraocular movements intact, sclera anicteric, conjunctiva clear. No ptosis. ENT: Ears normal, nares patent, oropharynx clear without exudates, moist mucous membranes. NECK: Trachea midline, full range of motion, supple. LUNGS: Breath sounds equal, clear to auscultation bilaterally, no wheezes, no crackles, no accessory muscle use. HEART: Regular rate and rhythm, S1, S2 without murmur, rub or gallop. ABDOMEN: Soft, nontender, nondistended, normoactive bowel sounds, no guarding, no rebound, no hepatosplenomegaly, no masses. EXTREMITIES: 2+ pulses, warm, well-perfused, no edema. NEUROLOGICAL: Cranial nerves II through XII grossly intact. Normal speech, gait not observed. PSYCH: Normal mood, normal affect. SKIN: Warm, dry, normal turgor, no rashes or lesions noted Laboratory Results - last 24 hr 10/08/18 10/08/18 05:18 05:18 WBC 4.5 RBC 3.50 L Hgb 10.7 L Hct 30.9 L MCV 88.4 MCH 30.4 MCHC 34.4 RDW 16.2 H Plt Count 260 MPV 6.5 L Sodium 136 Potassium 4.2 Chloride 101 Carbon Dioxide 29 Anion Gap 6 L BUN 16.3 Creatinine 0.9 Est GFR (CKD-EPI)AfAm 92.51 Est GFR (CKD-EPI)NonAf 79.82 Random Glucose 72 L Calcium 8.3 L Phosphorus 2.7 Magnesium 1.4 L Digoxin 0.68 L Current Medications Albuterol Sulfate (Ventolin Hfa Inhaler -) 2 puff IH Q6H PRN PRN Reason: SHORTNESS OF BREATH Last Admin: 10/05/18 06:31 Dose: 2 puff Apixaban (Eliquis -) 2.5 mg PO BID [facility] Last Admin: 10/08/18 09:10 Dose: 2.5 mg Atorvastatin Calcium (Lipitor -) 40 mg PO HS [facility] Last Admin: 10/07/18 21:05 Dose: 40 mg Digoxin (Lanoxin -) 0.125 mg PO DAILY [facility] Last Admin: 10/08/18 09:10 Dose: 0.125 mg Diltiazem HCl (Cardizem -) 30 mg PO Q6HPO [facility] Ipratropium [place] (Atrovent 0.02% Nebulizer -) 1 amp NEB Q6H PRN PRN Reason: WHEEZING Last Admin: 10/08/18 15:12 Dose: 1 amp Lactobacillus Acidophilus (Bacid -) 1 tab PO DAILY [facility] Last Admin: 10/08/18 11:10 Dose: 1 tab Metoprolol Succinate (Toprol Xl -) 25 mg PO DAILY [facility] Last Admin: 10/08/18 09:09 Dose: 25 mg Mometasone Furoate (Asmanex 110mcg -) 1 puff IH BID [facility] Last Admin: 10/08/18 09:10 Dose: 1 puff Multi-Ingredient Lotion (Eucerin (Small Jar) -) 1 applic TP BID [facility] Last Admin: 10/08/18 09:11 Dose: 1 applic Senna (Senna -) 1 tab PO BID [facility] Last Admin: 10/08/18 09:10 Dose: Not Given Spironolactone (Aldactone -) 25 mg PO DAILY [facility] Last Admin: 10/04/18 09:11 Dose: 25 mg ASSESSMENT/PLAN: pt is 83 yo M with HFrEF, persistent a-fib, HTN, asthma, PVD, and chronic lymphadema presents to the ED with leg weakness and edema. Pt was recently admitted to a hospital in [place] for cellulitis / acute CHF exacerbation. pt was in hospital for 2 weeks. while he was admitted to the hospital in [place], they changed his lasix to bumex. pt was found hypotensive on 10/06/18 with an episode of Afib w/ RVR and was monitored in ICU overnight. Pt was given 10mg IV diltiazem and 2 250ml NS bolus. Pt has been stable with HR and BP wnl. Today, pt experienced a hypotensive episode with SBP in 90s with dizziness. VICKY 2/2 diuretic overuse -resolved Cr: down trending 3.2-->0.9 -continue holding diuretics HFrEF -Echo 07/2018 , EF 40-45% -CXRAY improved from last admission 07/2018 -pt not in acute exacerbation, no dyspnea or crackles on exam -metoprolol d/c as per cardio due to hypotensive episodes A Fib w/ RVR -c/w digoxin 0.125 mg daily, start cardizem as per cardio recs -d/c metoprolol succinate as per cardio recs -c/w Continue Eliquis 2.5 mg BID -outpt follow up with Dr. Oconnell HTN Meds held due to hypotensive episode after he received his dose of metoprolol Leg Edema -2/2 cellulitis, Hx of CHF, Hx of PVD, Hx of lymphedema in B/L LE Asthma -stable, no wheezes on exam Chronic Lymphedema with venous stasis/dermatitis -LE edema generally improved as per patient. -LE Duplex neg for DVT. -Recently treated for Cellulitisin [place]. -eucerin cream Thoracic Aortic Aneurysm (4.1cm) - out-patient follow up. Elevated TSH/free T4 -clinically asymptomatic. -Reported history of hyperparathyroidism. Calcium levels normal. PTH 38 -Endocrinology recs no LT4 replacement now -follow up outpatient Normocytic Anemia - H/H 10.7/30.9. No reported blood loss. -FOBT neg. DVT ppx -pt on eliquis Visit type - Emergency Visit Emergency Visit: No - New Patient This patient is new to me today: No - Critical Care Critical Care patient: Yes Total Critical Care Time (in minutes): 36 Critical Care Statement: The care of this patient involved high complexity decision making to prevent further life threatening deterioration of the patient 's condition and/or to evaluate & treat vital organ system(s) failure or risk of failure. - Discharge Referral Referred to [facility] Med [facility] No ATTENDING PHYSICIAN STATEMENT I saw and evaluated the patient. I reviewed the resident's note and discussed the case with the resident. I agree with the resident's findings and plan as documented. SUBJECTIVE: OBJECTIVE: ASSESSMENT AND PLAN:
[2018-10-08] MEDS: dilTIAZem HCL 30 MG TABLET (FP) PO SCH (18:23)
[2018-10-08] MEDS ORDERED: ALBUTEROL SO4 8 GM HFA INHALER IH PRN (21:21)
[2018-10-08] MEDS ORDERED: ATORVASTATIN CA 40 MG TABLET (FP) PO SCH (22:00)
[2018-10-09] MEDS: dilTIAZem HCL 30 MG TABLET (FP) PO SCH ×3 (00:40→11:52)
[2018-10-09] MEDS: IPRATROPIUM BR 0.02% 0.5 MG/2.5 ML VIAL.NEB. NEB PRN (06:07)
[2018-10-09 06:42] LABS: HEMATOCRIT 32.9 % (35.4-49); HEMOGLOBIN 11.1 GM/dL (11.7-16.9); MCHC 33.7 g/dl (32.0-35.9); MEAN PLT VOLUME 6.7 fl (7.5-11.1); PLATELET COUNT 260 K/MM3 (134-434); RDW 16.4 % (11.9-15.9); WHITE BLOOD COUNT 4.1 K/mm3 (4.0-10.0)
[2018-10-09 07:41] LABS: ALBUMIN 2.6 g/dl (3.4-5.0); CALCIUM 8.3 mg/dL (8.5-10.1); MAGNESIUM 1.7 mg/dL (1.8-2.4); POTASSIUM 4.1 mmol/L (3.5-5.1)
[2018-10-09 07:46] LABS: BLOOD UREA NITROGEN 13.6 mg/dL (7-18); CREATININE 0.8 mg/dL (0.55-1.3); TOT PROT 5.7 g/dl (6.4-8.2)
[2018-10-09] MEDS ORDERED: MAGNESIUM SULF 50% (8.12 MEQ/2 ML-1 GM VIAL) IVPB ONE (08:34)
[2018-10-09] MEDS ORDERED: PT OWN MED DRAWER 7, Y5N ONE (08:39)
[2018-10-09] MEDS ORDERED: ONDANSETRON 4 MG TABLET PO ONE (08:45)
--- NOTE | 2018-10-09 09:24 | CONSULT ---
Consult - text type - Consultation Consultation Note: Podiatry Consultation: 83 year old male presented for admission with swelling and weakness post- vacation in [place]. Patient lost the ability to ambulate appropriately after being in bed. Has had CHF exacerbation in the past. Podiatric consultation requested for darkened toe nail on the right great toe. Patient does not recall trauma to the nail unit. PMHx: HFrEF, persistent a-fib, HTN, asthma, CHF Meds: noted ALL: NKMA ARTIS: Pedal pulses palpable, TG wnl, CFT brisk to all toes bilaterally. There is dried blood on the right hallux nail unit. There is no nail bed ulceration, no drainage, no signs of infection. Nails are elongated, discolored, thickened with subungual debris, tender to palpation x 10. There are no nail unit ulcers , no signs of infection. There are chronic venous stasis changes to bilateral lower extremities with moderate pitting edema. Imp: 83 year old male with onychomycosis x 10 1. Manual debridement of mycotic nails x 10 using nail nipper. Patient tolerated the procedure well without complications. 2. Discussed appropriate foot hygiene. 3. Patient to f/u with his chamber walker upon discharge from [facility]. Thank you for the courtesy of this consultation. Yi Moralez DPM
[2018-10-09] MEDS: APIXABAN 2.5 MG TABLET PO SCH (09:30)
[2018-10-09] MEDS: LACTOBACILLUS ACIDOPHILUS 1 TABLET PO SCH (09:31)
[2018-10-09] MEDS: MINERAL OIL/PETROLAT/WATER TOPICAL CREAM 113 GM JAR TP SCH (09:32)
[2018-10-09] MEDS: MOMETASONE FUROATE 110 MCG/IH INHALER IH SCH (09:32)
[2018-10-09] MEDS: SENNOSIDES 8.6MG TABLET (FP) PO SCH (09:33)
[2018-10-09] MEDS ORDERED: DIGOXIN 0.125 MG TABLET (FP) PO SCH (10:00)
[2018-10-09] MEDS ORDERED: metoPROLOL SUCCINATE 25 MG TAB.SR.24H (FP) PO SCH (10:00)
[2018-10-09] MEDS ORDERED: SPIRONOLACTONE 25 MG TABLET (FP) PO SCH (10:00)
--- NOTE | 2018-10-09 11:53 | PN ---
Teaching Attending Note Name of Resident: Abeba Alonso ATTENDING PHYSICIAN STATEMENT I saw and evaluated the patient. I reviewed the resident's note and discussed the case with the resident. I agree with the resident's findings and plan as documented. SUBJECTIVE:continues to have intermittent dizzyness but not as severe as yesterday. denies CP, SOB, fever, chills, palpitaitons. states diarrhea has resolved. OBJECTIVE: Last Vital Signs Temp Pulse Resp BP Pulse Ox 97.6 F 66 20 105/79 95 10/09/18 10:00 10/09/18 10:00 10/09/18 10:00 10/09/18 10:10/09/18 09:00 General NAD CV S1 s2 irregular lungs CTA B/L No wheezing/rales/rhonchi Abdomen soft NT/ND Extremities venous stasis changes. lymphedema ASSESSMENT AND PLAN: 83 year old male with persistent Atrial Fibrillation (on Apixaban), HTN, HLD, Asthma, Chronic Systolic CHF, presents with poor mobility due to LE edema and general deconditioning after recent admission in [place] for CHF exacerbation. At that time Lasix was switched to Bumex and he is now found to have VICKY with Creat of 3.2. 1. VICKY - prerenal, secondary to over diuresis with Bumex - improved with IV hydration. remains euvolemic. would cont to hold diuretic at this time. cardio patient follow up outpatient to re-start if hemodynamics permit 2. Dizzyness-conitnues to have intermittent. BP has been stable with no repeat episodes of hypotension. 3. Afib with RVR- amio stopped this hospital stay and switched to digoxin. HR controlled on cardizem. cont eliquis 4. Systolic CHF- appears euvolemic. diuretics held because of low BP. may need to be re-started if hemodynamics permit. Will cont to hold at this time 5. Chronic lymphedema with venous stasis- per patient his legs are at baseline. should follow up with vascular as outpatient to see if candidate for machine 6. Normocytic anemia- hgb stable. no indications for transfusion 7. HTN- controlled 8.Thoracic Aortic Aneurysm (4.1cm) - out-patient follow up. 9. Elevated TSH/free T4, clinically asymptomatic. Reported history of hyperparathyroidism. Calcium levels normal. Endocrinology consulted for further eval and recommendations. 10. DVT Px - on Eliquis. 11. D/c to [facility] today. will need cardio follow up
--- NOTE | 2018-10-09 12:39 | PN ---
Progress Note (short form) - Note Progress Note: PULMONARY Heart rates improved. Breathing better. Minimal cough and wheezing. Vital Signs Period Temp Pulse Resp BP Sys/Burgos Pulse Ox Last 24 Hr 97.6 F-98.6 F 66-90 18-32 105-149/58-85 95-99 Gen: NAD at rest Heart: irregular Lung: decreased breath sounds at the bases, no wheezes Abd: soft, nontender Ext: no edema CBC, BMP 10/09/18 05:36 10/09/18 05:36 Active Medications Albuterol Sulfate (Ventolin Hfa Inhaler -) 2 puff IH Q6H PRN PRN Reason: SHORTNESS OF BREATH Apixaban (Eliquis -) 2.5 mg PO BID [facility] Last Admin: 10/09/18 09:30 Dose: 2.5 mg Atorvastatin Calcium (Lipitor -) 40 mg PO HS [facility] Last Admin: 10/08/18 22:15 Dose: 40 mg Digoxin (Lanoxin -) 0.125 mg PO DAILY [facility] Last Admin: 10/09/18 09:30 Dose: 0.125 mg Diltiazem HCl (Cardizem -) 30 mg PO Q6HPO [facility] Last Admin: 10/09/18 11:52 Dose: 30 mg Ipratropium [place] (Atrovent 0.02% Nebulizer -) 1 amp NEB Q6H PRN PRN Reason: WHEEZING Last Admin: 10/09/18 06:07 Dose: 1 amp Lactobacillus Acidophilus (Bacid -) 1 tab PO DAILY [facility] Last Admin: 10/09/18 09:31 Dose: 1 tab Metoprolol Succinate (Toprol Xl -) 25 mg PO DAILY [facility] Last Admin: 10/09/18 09:31 Dose: 25 mg Mometasone Furoate (Asmanex 110mcg -) 1 puff IH BID [facility] Last Admin: 10/09/18 09:32 Dose: 1 puff Multi-Ingredient Lotion (Eucerin (Small Jar) -) 1 applic TP BID [facility] Last Admin: 10/09/18 09:32 Dose: 1 applic Senna (Senna -) 1 tab PO BID [facility] Last Admin: 10/09/18 09:33 Dose: Not Given A/P Atrial Fibrillation with RVR now rate controlled LV Systolic Dysfunction Acute on Chronic Renal Failure improving Asthma HTN - rate controlled - continue anticoagulation - inhaled bronchodilators as needed - O2 to keep Spo2 >90% - monitor urine output, creatinine
--- NOTE | 2018-10-09 13:00 | PN ---
Progress Note, Physician History of Present Illness: Pt seen and examined at bedside. He is awake and alert. He denies shortness of breath. He complains of lower ext edema. - Current Medication List Current Medications: Active Medications Albuterol Sulfate (Ventolin Hfa Inhaler -) 2 puff IH Q6H PRN PRN Reason: SHORTNESS OF BREATH Apixaban (Eliquis -) 2.5 mg PO BID [facility] Last Admin: 10/09/18 09:30 Dose: 2.5 mg Atorvastatin Calcium (Lipitor -) 40 mg PO HS [facility] Last Admin: 10/08/18 22:15 Dose: 40 mg Digoxin (Lanoxin -) 0.125 mg PO DAILY [facility] Last Admin: 10/09/18 09:30 Dose: 0.125 mg Diltiazem HCl (Cardizem -) 30 mg PO Q6HPO [facility] Last Admin: 10/09/18 11:52 Dose: 30 mg Ipratropium [place] (Atrovent 0.02% Nebulizer -) 1 amp NEB Q6H PRN PRN Reason: WHEEZING Last Admin: 10/09/18 06:07 Dose: 1 amp Lactobacillus Acidophilus (Bacid -) 1 tab PO DAILY [facility] Last Admin: 10/09/18 09:31 Dose: 1 tab Metoprolol Succinate (Toprol Xl -) 25 mg PO DAILY [facility] Last Admin: 10/09/18 09:31 Dose: 25 mg Mometasone Furoate (Asmanex 110mcg -) 1 puff IH BID [facility] Last Admin: 10/09/18 09:32 Dose: 1 puff Multi-Ingredient Lotion (Eucerin (Small Jar) -) 1 applic TP BID [facility] Last Admin: 10/09/18 09:32 Dose: 1 applic Senna (Senna -) 1 tab PO BID [facility] Last Admin: 10/09/18 09:33 Dose: Not Given - Objective Vital Signs: Vital Signs Temperature 97.6 F 10/09/18 10:00 Pulse Rate 66 10/09/18 10:00 Respiratory Rate 20 10/09/18 10:00 Blood Pressure 105/79 10/09/18 10:00 O2 Sat by Pulse Oximetry (%) 95 10/09/18 09:00 Constitutional: Yes: Calm Eyes: Yes: Conjunctiva Clear HENT: Yes: Atraumatic Neck: Yes: Supple Cardiovascular: Yes: S1, S2 Respiratory: Yes: CTA Bilaterally Gastrointestinal: Yes: Soft Genitourinary: Yes: WNL Musculoskeletal: Yes: WNL Edema: Yes Edema: LLE: 2+, RLE: 2+ Neurological: Yes: Oriented Psychiatric: Yes: Oriented Labs: CBC, BMP 10/09/18 05:36 10/09/18 05:36 Problem List - Problems (1) Acute kidney failure Code(s): N17.9 - ACUTE KIDNEY FAILURE, UNSPECIFIED Qualifiers: Acute renal failure type: unspecified Qualified Code(s): N17.9 - Acute kidney failure, unspecified (2) Afib Code(s): I48.91 - UNSPECIFIED ATRIAL FIBRILLATION Qualifiers: Atrial fibrillation type: unspecified Qualified Code(s): I48.91 - Unspecified atrial fibrillation Assessment/Plan Current Medications Generic Name Dose Route Start Last Admin Trade Name Freq PRN Reason Stop Dose Admin Albuterol Sulfate 2 puff 10/08/18 21:21 Ventolin Hfa Inhaler - IH Q6H PRN SHORTNESS OF BREATH Apixaban 2.5 mg 10/08/18 22:00 10/09/18 09:30 Eliquis - PO 2.5 mg BID [facility] Administration Atorvastatin Calcium 40 mg 10/08/18 22:00 10/08/18 22:15 Lipitor - PO 40 mg HS [facility] Administration Digoxin 0.125 mg 10/09/18 10:00 10/09/18 09:30 Lanoxin - PO 0.125 mg DAILY [facility] Administration Diltiazem HCl 30 mg 10/08/18 18:00 10/09/18 11:52 Cardizem - PO 30 mg Q6HPO [facility] Administration Ipratropium [place] 1 amp 10/08/18 21:21 10/09/18 06:07 Atrovent 0.02% Nebulizer - NEB 1 amp Q6H PRN Administration WHEEZING Lactobacillus Acidophilus 1 tab 10/08/18 11:00 10/09/18 09:31 Bacid - PO 1 tab DAILY [facility] Administration Metoprolol Succinate 25 mg 10/09/18 10:00 10/09/18 09:31 Toprol Xl - PO 25 mg DAILY [facility] Administration Mometasone Furoate 1 puff 10/08/18 22:00 10/09/18 09:32 Asmanex 110mcg - IH 1 puff BID [facility] Administration Multi-Ingredient Lotion 1 applic 10/08/18 22:00 10/09/18 09:32 Eucerin (Small Jar) - TP 1 applic BID [facility] Administration Senna 1 tab 10/08/18 22:00 10/09/18 09:33 Senna - PO Not Given BID [facility] Impression 1. VICKY 2. CKD 3. CHF 4. a-fib with rvr 5. elevated post void residual Plan - renal function is stable - can restart lasix at 40 mg (pt had taken about 300 mg of lasix at home before going to the hospital) - monitor renal function - heart healthy diet - will need pt/rehab - recall cardio for follow up
--- NOTE | 2018-10-09 14:16 | PN ---
Progress Note, Physician Chief Complaint: Cards FU Telem Afib HR 70s History of Present Illness: 83 year-old obese man with a PMHx of long-standing persistent atrial fibrillation, HFrEF from echocardiogram on 08/23/18 with LVEF 40-45%, normal coronaries on prior cath, hyperlipidemia, chronic leg edema, asthma, hypothroidism, aortic aneurysm, BPH, anxiety. The patient was admitted to a hospital in [place] on 09/10/18 for 2 weeks for worsening leg edema and cellulitis. Medications were adjusted: diltiazem to amiodarone and Lasix to Bumex. Hospital course notable for VICKY which has resolved. - Current Medication List Current Medications: Active Medications Albuterol Sulfate (Ventolin Hfa Inhaler -) 2 puff IH Q6H PRN PRN Reason: SHORTNESS OF BREATH Apixaban (Eliquis -) 2.5 mg PO BID [facility] Last Admin: 10/09/18 09:30 Dose: 2.5 mg Atorvastatin Calcium (Lipitor -) 40 mg PO HS [facility] Last Admin: 10/08/18 22:15 Dose: 40 mg Digoxin (Lanoxin -) 0.125 mg PO DAILY [facility] Last Admin: 10/09/18 09:30 Dose: 0.125 mg Diltiazem HCl (Cardizem -) 30 mg PO Q6HPO [facility] Last Admin: 10/09/18 11:52 Dose: 30 mg Ipratropium [place] (Atrovent 0.02% Nebulizer -) 1 amp NEB Q6H PRN PRN Reason: WHEEZING Last Admin: 10/09/18 06:07 Dose: 1 amp Lactobacillus Acidophilus (Bacid -) 1 tab PO DAILY [facility] Last Admin: 10/09/18 09:31 Dose: 1 tab Metoprolol Succinate (Toprol Xl -) 25 mg PO DAILY [facility] Last Admin: 10/09/18 09:31 Dose: 25 mg Mometasone Furoate (Asmanex 110mcg -) 1 puff IH BID [facility] Last Admin: 10/09/18 09:32 Dose: 1 puff Multi-Ingredient Lotion (Eucerin (Small Jar) -) 1 applic TP BID [facility] Last Admin: 10/09/18 09:32 Dose: 1 applic Senna (Senna -) 1 tab PO BID [facility] Last Admin: 10/09/18 09:33 Dose: Not Given - Objective Vital Signs: Vital Signs Temperature 97.6 F 10/09/18 10:00 Pulse Rate 66 10/09/18 10:00 Respiratory Rate 20 10/09/18 10:00 Blood Pressure 105/79 10/09/18 10:00 O2 Sat by Pulse Oximetry (%) 95 10/09/18 09:00 Constitutional: Yes: Well Nourished, No Distress Eyes: Yes: Conjunctiva Clear HENT: Yes: Atraumatic, Normocephalic Neck: Yes: Supple, Trachea Midline Cardiovascular: Yes: Pulse Irregular. No: JVD Respiratory: Yes: Regular, CTA Bilaterally Gastrointestinal: Yes: Normal Bowel Sounds Edema: Yes Edema: LLE: 1+, RLE: 1+ Labs: CBC, BMP 10/09/18 05:36 10/09/18 05:36 Problem List - Problems (1) Afib Code(s): I48.91 - UNSPECIFIED ATRIAL FIBRILLATION Qualifiers: Atrial fibrillation type: unspecified Qualified Code(s): I48.91 - Unspecified atrial fibrillation Assessment/Plan 83 year-old obese man with a PMHx of chronic atrial fibrillation, HFrEF-chronic LBBB and negative CAD on cardiac cath with LVEF 40-45%, severe asthma history sp thermoplasty, chronic leg edema secondary to venous insufficiency, hypothroidism, aortic aneurysm, BPH, anxiety Atrial fibrillation with episodes of rapid VR: -Going to rehab -His HR is well controlled -DC Metoprolol -Continue Cardizem 30mg q6 hr PO -Can continue with Digoxin for the time being. Mildly reduced EF: Unchanged from prior. ho LBBB Negative cardiac cath in the past. Given bronchospastic history would avoid bb use. will see as needed.
[2018-10-09 14:25] VITALS: BP 106/71; PULSE 72; TEMP 98
--- NOTE | 2018-10-09 17:19 | DS ---
Physical Exam: SUBJECTIVE: Patient seen and examined at bedside. pt has no acute complaints. pt states he still feels weak. OBJECTIVE: Vital Signs Period Temp Pulse Resp BP Sys/Burgos Pulse Ox Last 24 Hr 97.6 F-98.6 F 66-88 18-21 105-130/58-80 95-99 PHYSICAL EXAM GENERAL: The patient is awake, alert, and fully oriented, in no acute distress. LUNGS: Breath sounds equal, clear to auscultation bilaterally, no wheezes no accessory muscle use. HEART: irregular rate and rhythm, S1, S2 without murmur, rub or gallop. ABDOMEN: Soft, nontender, nondistended, normoactive bowel sounds EXTREMITIES: 2+ pulses, warm, well-perfused, B/L LE edema. LE erythema improving PSYCH: Normal mood, normal affect. SKIN: Warm, dry, normal turgor, no rashes or lesions noted. LABS Laboratory Results - last 24 hr Laboratory Last Values WBC 4.1 K/mm3 (4.0-10.0) 10/09/18 05:36 RBC 3.70 M/mm3 (4.00-5.60) L 10/09/18 05:36 Hgb 11.1 GM/dL (11.7-16.9) L 10/09/18 05:36 Hct 32.9 % (35.4-49) L 10/09/18 05:36 MCV 89.0 fl (80-96) 10/09/18 05:36 MCH 30.0 pg (25.7-33.7) 10/09/18 05:36 MCHC 33.7 g/dl (32.0-35.9) 10/09/18 05:36 RDW 16.4 % (11.9-15.9) H 10/09/18 05:36 Plt Count 260 K/MM3 (134-434) 10/09/18 05:36 MPV 6.7 fl (7.5-11.1) L 10/09/18 05:36 Absolute Neuts (auto) 3.8 K/mm3 (1.5-8.0) 10/04/18 05:12 Total Counted 100 10/03/18 21:08 Neutrophils % 68.5 % (42.8-82.8) 10/04/18 05:12 Neutrophils % (Manual) 41.2 % (42.8-82.8) L D 10/04/18 05:12 Band Neutrophils % 15.7 % 10/04/18 05:12 Lymphocytes % 18.5 % (8-40) D 10/04/18 05:12 Lymphocytes % (Manual) 11.7 % (8-40) 10/04/18 05:12 Monocytes % 11.7 % (3.8-10.2) H 10/04/18 05:12 Monocytes % (Manual) 16 % (3.8-10.2) H 10/04/18 05:12 Eosinophils % 0.7 % (0-4.5) 10/04/18 05:12 Eosinophils % (Manual) 1.0 % (0-4.5) 10/04/18 05:12 Basophils % 0.6 % (0-2.0) 10/04/18 05:12 Basophils % (Manual) 1.0 % (0-2.0) 10/04/18 05:12 Myelocytes % (Man) 0 % (0-2) D 10/04/18 05:12 Promyelocytes % (Man) 0 % (0-2) 10/04/18 05:12 Blast Cells % (Manual) 0 % (0-0) 10/04/18 05:12 Nucleated RBC % 0 % (0-0) 10/04/18 05:12 Metamyelocytes 4 % (0-2) H D 10/04/18 05:12 Differential Comment Man diff performed 10/03/18 21:08 Hypochromia 0 10/04/18 05:12 Platelet Estimate Normal 10/04/18 05:12 Platelet Comment 10/03/18 21:08 Polychromasia 1+ 10/04/18 05:12 Poikilocytosis 1+ 10/04/18 05:12 Anisocytosis 2+ 10/04/18 05:12 Microcytosis 1+ 10/04/18 05:12 Macrocytosis 0 10/04/18 05:12 Ovalocytes 1+ 10/04/18 05:12 Shy Cells 1+ 10/04/18 05:12 Acanthocytes (Spur) 1+ 10/04/18 05:12 Sodium 137 mmol/L (136-145) 10/09/18 05:36 Potassium 4.1 mmol/L (3.5-5.1) 10/09/18 05:36 Chloride 102 mmol/L (98-107) 10/09/18 05:36 Carbon Dioxide 28 mmol/L (21-32) 10/09/18 05:36 Anion Gap 7 MMOL/L (8-16) L 10/09/18 05:36 BUN 13.6 mg/dL (7-18) 10/09/18 05:36 Creatinine 0.8 mg/dL (0.55-1.3) 10/09/18 05:36 Est GFR (CKD-EPI)AfAm 97.10 10/09/18 05:36 Est GFR (CKD-EPI)NonAf 83.78 10/09/18 05:36 Random Glucose 81 mg/dL (74-106) 10/09/18 05:36 Calcium 8.3 mg/dL (8.5-10.1) L 10/09/18 05:36 Phosphorus 3.0 mg/dL (2.5-4.9) 10/09/18 05:36 Magnesium 1.7 mg/dL (1.8-2.4) L 10/09/18 05:36 Iron 72 ug/dL (38-169) 10/06/18 05:20 TIBC 206 ug/dL (250-450) L 10/06/18 05:20 Iron Saturation 35 % (15-55) 10/06/18 05:20 Unsaturated IBC 134 ug/dL (111-343) 10/06/18 05:20 Ferritin 625.0 ng/ml (8-388) H 10/06/18 05:20 Total Bilirubin 1.0 mg/dL (0.2-1) 10/09/18 05:36 AST 27 U/L (15-37) 10/09/18 05:36 ALT 19 U/L (13-61) 10/09/18 05:36 Alkaline Phosphatase 94 U/L (45-117) 10/09/18 05:36 Creatine Kinase 59 U/L (26-308) 10/03/18 21:35 Troponin I < 0.02 ng/ml (0.00-0.05) 10/03/18 21:35 B-Natriuretic Peptide 2769.4 pg/ml (5-450) H 10/03/18 21:35 Total Protein 5.7 g/dl (6.4-8.2) L 10/09/18 05:36 Albumin 2.6 g/dl (3.4-5.0) L 10/09/18 05:36 Vitamin B12 754 pg/ml (193-986) 10/05/18 05:28 Serum Folate 12 ng/mL (3.1-17.5) 10/05/18 05:28 TSH 8.10 uIU/ml (0.358-3.74) H D 10/04/18 05:12 Free T4 1.21 ng/dl (0.76-1.16) H 10/03/18 21:35 PTH Intact 38 pg/mL (15-65) 10/04/18 05:12 Urine Color Dk yellow 10/03/18 07:15 Urine Appearance Cloudy 10/03/18 07:15 Urine pH 5.0 (5.0-8.0) D 10/03/18 07:15 Ur Specific Barron 1.015 (1.010-1.035) 10/03/18 07:15 Urine Protein Negative (NEGATIVE) 10/03/18 07:15 Urine Glucose (UA) Negative (NEGATIVE) 10/03/18 07:15 Urine Ketones Trace (NEGATIVE) H 10/03/18 07:15 Urine Blood Negative (NEGATIVE) 10/03/18 07:15 Urine Nitrite Negative (NEGATIVE) 10/03/18 07:15 Urine Bilirubin 1+ (NEGATIVE) H 10/03/18 07:15 Urine Urobilinogen 1.0 mg/dL (0.2-1.0) 10/03/18 07:15 Ur Leukocyte Esterase 2+ (NEGATIVE) H 10/03/18 07:15 Urine WBC (Auto) 16 /hpf (0-5) 10/03/18 07:15 Urine RBC (Auto) 6 /hpf (0-4) 10/03/18 07:15 Urine Casts (Auto) 31 /lpf (0-8) 10/03/18 07:15 U Pathogenic Cast Auto None seen /lpf (NEGATIVE) 10/03/18 07:15 U Epithel Cells (Auto) 3.3 /HPF (0-5/HPF) 10/03/18 07:15 Urine Bacteria (Auto) 0.2 /hpf (NEGATIVE) 10/03/18 07:15 Ur Random Creatinine 159.0 mg/dL (30-150) H 10/05/18 14:10 U Random Total Protein 18.4 mg/dl (0-11.9) H 10/05/18 14:10 Ur Random Sodium 34 MMOL/L (40-220) L 10/04/18 07:15 Urine Collection Time 24 HOURS 10/06/18 18:45 Urine Total Volume 400 mL 10/06/18 18:45 Urine Creatinine 79.0 mg/dL (20-320) 10/06/18 18:45 Ur Creatinine 12 Hour Cancelled 10/06/18 18:45 Ur Creatinine 24 Hour 316.0 MG/24HR (600-1800) L 10/06/18 18:45 Ur Total Protein 12 Hr Cancelled 10/05/18 14:10 Protein/Creatinin Ratio 0.070 MG/DL 10/05/18 14:10 Stool Occult Blood Negative (NEGATIVE) 10/05/18 21:00 Digoxin 0.68 ng/ml (0.8-2.0) L 10/08/18 05:18 HOSPITAL COURSE: Date of Admission:10/04/18 pt is 83 yo M with HFrEF, persistent a-fib, HTN, asthma, PVD, and chronic lymphadema presents to the ED with leg weakness and edema. Pt was recently admitted to a hospital in [place] for cellulitis / acute CHF exacerbation. pt was in hospital in [place] for 2 weeks. while he was admitted to the hospital in [place], they changed his lasix to bumex. On admission pt was found to have VICKY. The diuretics were held and pt got mild fluid resuscitation. pts VICKY resolved. The pt also had episodes of AFib w/ RVR and hypotension. Cardiology team followed this case and switch from amiodarone to digoxin. pt was found hypotensive on 10/06/18 with an episode of Afib w/ RVR and was monitored in ICU overnight. Pt was given 10mg IV diltiazem and 2 250ml NS bolus. Cardio recs were appreciated and the metoprolol was discontinued and cardizem was added. Pt has been stable with HR and BP wnl. Pt is discharged on cardizem, digoxin, eliquis. The pt should follow up outpt with his PCP, career services representative, Dr. Hartley, Nephrology to manage his CKD, CHF, Afib, HTN, asthma, and chronic lymphadema. Incidentally, the TSH was elevated. pt should repeat the thyroid panel in [address] also showed thoracic aortic aneurysm and should seek outpt(4.1cm) follow up. Date of Discharge: 10/09/18 Minutes to complete discharge: 36 Discharge Summary Reason For Visit: ACUTE RENAL FAILURE,ATRIAL FIBRILATION,ABNORMAL Condition: Improved - Instructions Diet, Activity, Other Instructions: You presented to the hospital with weakness and swelling in your legs. You were treated with medications to manage your chronic medical conditions. You are going to a rehab facility to help your muscles get stronger. Medication Changes: 1. You should continue taking: -digoxin 0.125mg (once a day) -cardizem 30 mg (4 times a day) -eliquis 2.5mg (2 times a day) -lasix 40mg -lipitor 40 mg (once a day) for management of your cardiac conditions. 2. Please continue using inhalers as needed 3. DO NOT take metoprolol, lasix, bumex, or amiodarone. Abnormal results: 1. Your thyroid hormone lab values were elevated. You should recheck these values again in [address] showed that you had thoracic aortic aneurysm. Please follow up with your PCP. You will need repeat imaging in 3 months 3. Your blood showed that you have anemia. Follow up with the following physicians: 1. Please follow up with your primary care physician within 1 week. 2. Please follow up with your career services representative for management of your CHF and A Fib. 3. Please follow up with your patient services clerk to recheck your thyroid and parathyroid. Please return to the ER if you have any signs or symptoms of chest pain, shortness of breath, uncontrollable fever, chills, nausea, vomiting, numbness, tingling, or weakness in any part of your body, changes in vision, or slurred speech. Please return to the ER if symptoms persist, worsen, or new symptoms arise. Referrals: Quinten Hartley MD [Staff Physician] - Disposition: [facility] - Home Medications Comprehensive Discharge Medication List: Ambulatory Orders Albuterol Sulfate [Albuterol Sulfate Hfa] 2 puff PO PRN PRN 08/23/18 Apixaban [Eliquis -] 5 mg PO DAILY 10/03/18 Atorvastatin Ca [Lipitor] 40 mg PO HS 10/03/18 Sertraline HCl [Zoloft -] 25 mg PO DAILY 10/03/18 Albuterol Sulfate Inhaler - [Ventolin HFA Inhaler -] 2 puff IH Q6H PRN inhaler 10/09/18 Albuterol Sulfate Inhaler - [Ventolin HFA Inhaler -] 2 puff IH Q6H PRN inhaler 10/09/18 Digoxin [Lanoxin -] 0.125 mg PO DAILY tablet 10/09/18 Diltiazem [Cardizem -] 30 mg PO Q6HPO tablet 10/09/18 Ipratropium 0.02% Nebulizer [Atrovent 0.02% Nebulizer -] 1 amp NEB Q6H PRN amp 10/09/18 Mineral Oil/Petrolat,Wht/Water [Eucerin (Small Jar) -] 1 applic TP BID jar 01/18 Mometasone Furoate [Asmanex 110Mcg -] 1 puff IH BID inhaler 10/09/18 This patient is new to me today: No Emergency Visit: No Critical Care patient: No - Discharge Referral Referred to [facility] No ATTENDING PHYSICIAN STATEMENT I saw and evaluated the patient. I reviewed the resident's note and discussed the case with the resident. I agree with the resident's findings and plan as documented. SUBJECTIVE: OBJECTIVE: ASSESSMENT AND PLAN:
== END 2018-10-09 16:06 | DRG 315 ==
LOC: JER 20:05 → JERBED 10-04 00:09 → J4W 10-04 03:07 → JICU 10-06 21:06 → J2W 10-08 22:24
PROVIDERS: ADMIT Internal Medicine; ATTEND Internal Medicine
PROC: 0HBRXZZ Excision of Toe Nail, External Approach (ICD-10-PCS; principal; 2018-10-09)
PROC: 0HBRXZZ Excision of Toe Nail, External Approach (ICD-10-PCS; 2018-10-09)
PROC: 0HBRXZZ Excision of Toe Nail, External Approach (ICD-10-PCS; 2018-10-09)
PROC: 0HBRXZZ Excision of Toe Nail, External Approach (ICD-10-PCS; 2018-10-09)
PROC: 0HBRXZZ Excision of Toe Nail, External Approach (ICD-10-PCS; 2018-10-09)
PROC: 0HBRXZZ Excision of Toe Nail, External Approach (ICD-10-PCS; 2018-10-09)
PROC: 0HBRXZZ Excision of Toe Nail, External Approach (ICD-10-PCS; 2018-10-09)
PROC: 0HBRXZZ Excision of Toe Nail, External Approach (ICD-10-PCS; 2018-10-09)
PROC: 0HBRXZZ Excision of Toe Nail, External Approach (ICD-10-PCS; 2018-10-09)
PROC: 0HBRXZZ Excision of Toe Nail, External Approach (ICD-10-PCS; 2018-10-09)
DX: I95.9 Hypotension, unspecified (principal); N17.9 Acute kidney failure, unspecified; Z68.41 Body mass index [BMI] 40.0-44.9, adult; I48.1 Persistent atrial fibrillation; I13.0 Hypertensive heart and chronic kidney disease with heart failure and stage 1 through stage 4 chronic kidney disease, or unspecified chronic kidney disease; I50.22 Chronic systolic (congestive) heart failure; I48.91 Unspecified atrial fibrillation; J44.9 Chronic obstructive pulmonary disease, unspecified; E03.9 Hypothyroidism, unspecified; F41.8 Other specified anxiety disorders; N40.0 Benign prostatic hyperplasia without lower urinary tract symptoms; E78.00 Pure hypercholesterolemia, unspecified; E66.8 Other obesity; E88.09 Other disorders of plasma-protein metabolism, not elsewhere classified; I71.2 Thoracic aortic aneurysm, without rupture; R79.89 Other specified abnormal findings of blood chemistry; R60.9 Edema, unspecified; J45.909 Unspecified asthma, uncomplicated; I44.7 Left bundle-branch block, unspecified; E21.3 Hyperparathyroidism, unspecified; N18.9 Chronic kidney disease, unspecified; L30.8 Other specified dermatitis; B35.1 Tinea unguium; I87.2 Venous insufficiency (chronic) (peripheral); D64.9 Anemia, unspecified; Z79.01 Long term (current) use of anticoagulants
CPT/HCPCS: 36415; 70450-TC; 71045-TC-FY; 76775-TC; 76856-TC; 80048; 80053; 80162; 81003; 82272; 82550; 82565; 82570; 82575; 82607; 82728; 82746; 83540; 83550; 83735; 83880; 83970; 84100; 84156; 84300; 84439; 84443; 84484; 85025; 85027; 87086; 93005; 93010; 93970-TC; 94640; 97116-GP; 97162-GP; 99285-25; J7030

== ENCOUNTER 2019-02-22 15:05 | Emergency (ER) | payer OTHER, MEDICARE ==
[2019-02-22 15:16] VITALS: BP 102/58; PULSE 69; TEMP 99; BMI 37.8
--- NOTE | 2019-02-22 16:55 | PDOC ---
Attending Attestation - Resident Resident Name: Michael Villatoro - ED Attending Attestation I have performed the following: Exceptions are as noted - HPI HPI: 02/22/19 16:51 Dr Villatoro has been attempting to assess this patient He has been unable to find him Pt nurse and PCC have conducted an exhaustive search and can not find this patient Nurse Juani then called him at home Pt is at home and states that he did not want to wait in the ER, therefore left without telling anyone Pt encouraged to return to the ER to be assessed Pt declined - Physicial Exam PE: 02/22/19 16:54 Pt left the ER prior to medical evaluation - Medical Decision Making 02/22/19 16:55 Pt left the ER prior to medical evaluation Discharge - Discharge Information Problems reviewed: Yes Clinical Impression/Diagnosis: Weakness Disposition: ELOPED - Admission No - Follow up/Referral Referrals: Anabelle Del Rio MD [Primary Care Provider] - - Patient Discharge Instructions - Post Discharge Activity
== END 2019-02-22 16:54 | disposition left against medical advice (07) ==
LOC: JER 15:05
DX: Z53.21 Procedure and treatment not carried out due to patient leaving prior to being seen by health care provider (principal)
CPT/HCPCS: 99281-25

== ENCOUNTER 2021-07-11 17:02 | Inpatient (IN) | payer OTHER, MEDICARE ==
[2021-07-11 17:37] VITALS: BMI 30.9
[2021-07-11] MEDS ORDERED: ACETAMINOPHEN 1000 MG/100 ML BAG IVPB ONE (18:19)
[2021-07-11] MEDS ORDERED: ACETAMINOPHEN INJECTION 100 ML IVPB ONE (19:17)
[2021-07-11] MEDS ORDERED: FUROSEMIDE 40 MG/4 ML INJECTABLE VIAL IVPUSH ONE (19:20)
[2021-07-11] MEDS ORDERED: FUROSEMIDE 40 MG/4 ML INJECTABLE VIAL ONE (19:48)
[2021-07-11 20:36] LABS: CALCIUM 8.5 mg/dL (8.5-10.1)
[2021-07-11 20:37] LABS: ALBUMIN 1.9 g/dl (3.4-5.0); BLOOD UREA NITROGEN 26.7 mg/dL (7-18)
[2021-07-11 20:40] LABS: CREATININE 0.8 mg/dL (0.55-1.3); PHOSPHOROUS 3.5 mg/dL (2.5-4.9)
[2021-07-11 20:41] LABS: TOT PROT 5.9 g/dl (6.4-8.2)
[2021-07-11 20:42] LABS: BILIRUBIN,TOTAL 0.4 mg/dL (0.2-1)
[2021-07-11 20:45] LABS: N-TERMINAL BNP 4473.5 pg/ml (5-450)
[2021-07-11 20:46] LABS: BASO % 0.7 % (0-2.0); HEMATOCRIT 28.3 % (35.4-49); HEMOGLOBIN 9.3 GM/dL (11.7-16.9); LYMPH % 18.9 % (8-40); MCH 29.5 pg (25.7-33.7); MCHC 32.7 g/dl (32.0-35.9); MEAN CELL VOLUME 90.3 fl (80-96); MEAN PLT VOLUME 6.9 fl (7.5-11.1); MONO % 11.3 % (3.8-10.2); NEUT % 68.1 % (42.8-82.8); PLATELET COUNT 438 10^3/uL (134-434); RBC 3.14 M/mm3 (4.00-5.60); RDW 17.6 % (11.9-15.9); WHITE BLOOD COUNT 5.6 K/mm3 (4.0-10.0)
[2021-07-11 20:54] LABS: VENOUS BASE EXCESS 10.2 mmol/L (-2-2); VENOUS O2 SATURATION 98.4 % (70-80); VENOUS PH 7.324 (7.310-7.410)
[2021-07-11 21:03] LABS: VENOUS PCO2 75.8 mmHg (38-52)
[2021-07-11] MEDS ORDERED: morphine CARPU-JECT 4 MG/1 ML DISP.SYRIN IVPUSH ONE (21:05)
[2021-07-11] MEDS ORDERED: morphine SULFATE 4 MG/ML VIAL ONE (21:07)
[2021-07-12] MEDS ORDERED: GLYCERIN 1 RECTAL SUPPOSITORY, ADULT PR ONE (02:57)
[2021-07-12] MEDS ORDERED: GLYCERIN 1 RECTAL SUPPOSITORY, ADULT RC ONE (02:57)
[2021-07-12] MEDS ORDERED: COD LIVER OIL/ZINC OXIDE PASTE 56 GM TUBE TP PRN (03:02)
[2021-07-12] MEDS: dilTIAZem HCL 50 MG/10 ML - 10 ML VIAL IVPUSH PRN (04:25)
[2021-07-12 05:31] LABS: ARTERIAL BLD GAS O2 SATURATION 93.9 % (95-98); ARTERIAL BLOOD GAS BASE EXCESS 9.8 mmol/L (-2-2); ARTERIAL BLOOD GAS PO2 72.4 mmHg (80-100); ARTERIAL BLOOD GAS pH 7.384 (7.350-7.450)
[2021-07-12 05:35] LABS: ALLENS TEST POSITIVE; VENT MODE CPAP
[2021-07-12] MEDS ORDERED: HEPARIN NA (PORCINE) 5,000 UNITS/ML 1ML VIAL SQ SCH (06:00)
[2021-07-12] MEDS ORDERED: FUROSEMIDE 40 MG/4 ML INJECTABLE VIAL IVPUSH ONE (06:00)
[2021-07-12 06:45] LABS: BASO % 0.4 % (0-2.0); EOS % 1.3 % (0-4.5); HEMATOCRIT 27.8 % (35.4-49); LYMPH % 11.3 % (8-40); MCH 29.2 pg (25.7-33.7); MCHC 32.4 g/dl (32.0-35.9); MEAN CELL VOLUME 90.2 fl (80-96); MEAN PLT VOLUME 6.3 fl (7.5-11.1); MONO % 8.7 % (3.8-10.2); NEUT % 78.3 % (42.8-82.8); PLATELET COUNT 387 10^3/uL (134-434); RBC 3.08 M/mm3 (4.00-5.60); RDW 16.9 % (11.9-15.9)
[2021-07-12 07:05] LABS: CALCIUM 8.2 mg/dL (8.5-10.1)
[2021-07-12 07:06] LABS: ALBUMIN 1.9 g/dl (3.4-5.0); BLOOD UREA NITROGEN 24.7 mg/dL (7-18); MAGNESIUM 1.7 mg/dL (1.8-2.4)
[2021-07-12 07:09] LABS: CREATININE 0.8 mg/dL (0.55-1.3)
[2021-07-12 07:10] LABS: BILIRUBIN,TOTAL 0.5 mg/dL (0.2-1); TOT PROT 5.8 g/dl (6.4-8.2)
[2021-07-12 08:04] LABS: URINE APPEARANCE CLEAR; URINE BILIRUBIN NEGATIVE (NEGATIVE); URINE COLOR YELLOW; URINE GLUCOSE (UA) NEGATIVE (NEGATIVE); URINE KETONE NEGATIVE (NEGATIVE); URINE LEUK ESTERASE NEGATIVE (NEGATIVE); URINE NITRITE NEGATIVE (NEGATIVE); URINE PROTEIN NEGATIVE (NEGATIVE); URINE UROBILINOGEN 0.2 mg/dL (0.2-1.0)
[2021-07-12] MEDS ORDERED: ENOXAPARIN NA (PORCINE) 80 MG/0.8 ML DISP.SYRIN SQ ONE (08:45)
[2021-07-12] MEDS: DOCUSATE SODIUM 100 MG CAPSULE (FP) PO SCH (09:24)
[2021-07-12] MEDS: METOPROLOL TARTRATE 5 MG/5 ML VIAL IVPUSH PRN ×4 (10:51→23:55)
[2021-07-12] MEDS: NYSTATIN 100,000 UNIT/GM TOPICAL CREAM 15 GM TUBE TP SCH ×2 (14:38→21:31)
[2021-07-12] MEDS: AMINO ACIDS 4.25%/D5W 1,000 ML IV SCH (18:24)
[2021-07-12] MEDS: ACETAMINOPHEN 1000 MG/100 ML BAG IVPB PRN (21:35)
[2021-07-13] MEDS: METOPROLOL TARTRATE 5 MG/5 ML VIAL IVPUSH PRN (05:55)
[2021-07-13] MEDS: ACETAMINOPHEN 1000 MG/100 ML BAG IVPB PRN (06:33)
[2021-07-13] MEDS ORDERED: METOPROLOL TARTRATE 5 MG/5 ML VIAL IVPUSH ONE (08:45)
[2021-07-13] MEDS ORDERED: oxyCODONE HCL 5 MG TABLET PO PRN (08:56)
[2021-07-13] MEDS: APIXABAN 5 MG TABLET PO SCH ×2 (09:18→22:29)
[2021-07-13] MEDS: DOCUSATE SODIUM 100 MG CAPSULE (FP) PO SCH (09:19)
[2021-07-13] MEDS: NYSTATIN 100,000 UNIT/GM TOPICAL CREAM 15 GM TUBE TP SCH ×2 (09:19→22:30)
[2021-07-13] MEDS: IPRATROPIUM BR 0.02% 0.5 MG/2.5 ML VIAL.NEB. NEB PRN (09:30)
[2021-07-13] MEDS ORDERED: ALPRAZolam 0.25 MG TABLET PO PRN (09:34)
[2021-07-13] MEDS ORDERED: POLYETHYLENE GLYCOL 3350 119 GM BTL PO SCH (10:00)
[2021-07-13 10:10] LABS: BASO % 0.5 % (0-2.0); EOS % 1.1 % (0-4.5); HEMATOCRIT 29.5 % (35.4-49); HEMOGLOBIN 9.4 GM/dL (11.7-16.9); LYMPH % 21.3 % (8-40); MCH 28.4 pg (25.7-33.7); MCHC 31.7 g/dl (32.0-35.9); MEAN CELL VOLUME 89.6 fl (80-96); MEAN PLT VOLUME 6.7 fl (7.5-11.1); MONO % 8.5 % (3.8-10.2); NEUT % 68.6 % (42.8-82.8); PLATELET COUNT 407 10^3/uL (134-434); RDW 16.9 % (11.9-15.9); WHITE BLOOD COUNT 8.4 K/mm3 (4.0-10.0)
[2021-07-13] MEDS ORDERED: DIGOXIN 0.5 MG/2 ML AMPUL IVPUSH ONE (10:15)
[2021-07-13] MEDS: dilTIAZem HCL 50 MG/10 ML - 10 ML VIAL IVPUSH PRN (10:17)
[2021-07-13] MEDS: MONTELUKAST NA 10 MG TABLET PO SCH ×2 (10:40→22:29)
[2021-07-13] MEDS: MIDODRINE HCL 5 MG TABLET PO SCH ×3 (10:40→18:46)
[2021-07-13] MEDS: FUROSEMIDE 40 MG/4 ML INJECTABLE VIAL IVPUSH SCH ×2 (10:40→13:28)
[2021-07-13] MEDS: BUDESONIDE/FORMETEROL FUMARATE 160/4.5 mcg INHALER IH SCH ×2 (10:41→22:30)
[2021-07-13 10:42] LABS: CALCIUM 8.8 mg/dL (8.5-10.1)
[2021-07-13 10:43] LABS: BLOOD UREA NITROGEN 24.3 mg/dL (7-18)
[2021-07-13 10:45] LABS: CREATININE 0.8 mg/dL (0.55-1.3)
[2021-07-13 10:47] LABS: BILIRUBIN,TOTAL 0.5 mg/dL (0.2-1)
[2021-07-13] MEDS ORDERED: POLYETHYLENE GLYCOL (HEALTHYLAX) 3350 17 GM PACKET PO SCH (11:09)
[2021-07-13] MEDS: POLYETHYLENE GLYCOL (HEALTHYLAX) 3350 17 GM PACKET PO SCH (11:29)
[2021-07-13] MEDS: GABAPENTIN 100 MG CAPSULE PO SCH ×2 (13:11→22:29)
[2021-07-13] MEDS: oxyCODONE HCL 5 MG TABLET PO PRN (13:12)
[2021-07-13] MEDS: AMINO ACIDS 4.25%/D5W 1,000 ML IV SCH ×2 (18:34→22:30)
[2021-07-13] MEDS: ACETAMINOPHEN 500 MG TABLET (FP) PO PRN (18:43)
[2021-07-13] MEDS: MIRTAZAPINE 15 MG TABLET (FP) PO SCH (22:29)
[2021-07-14] MEDS: FUROSEMIDE 40 MG/4 ML INJECTABLE VIAL IVPUSH SCH ×2 (05:48→13:39)
[2021-07-14] MEDS: GABAPENTIN 100 MG CAPSULE PO SCH ×3 (05:48→21:44)
[2021-07-14] MEDS: LEVOTHYROXINE NA 75 MCG TABLET (FP) PO SCH (06:01)
[2021-07-14 09:29] LABS: BASO % 0.7 % (0-2.0); EOS % 1.9 % (0-4.5); HEMATOCRIT 27.6 % (35.4-49); HEMOGLOBIN 8.9 GM/dL (11.7-16.9); LYMPH % 13.6 % (8-40); MCHC 32.3 g/dl (32.0-35.9); MEAN CELL VOLUME 89.8 fl (80-96); MEAN PLT VOLUME 6.1 fl (7.5-11.1); MONO % 8.2 % (3.8-10.2); NEUT % 75.6 % (42.8-82.8); PLATELET COUNT 326 10^3/uL (134-434); RBC 3.07 M/mm3 (4.00-5.60); WHITE BLOOD COUNT 5.4 K/mm3 (4.0-10.0)
[2021-07-14 09:52] LABS: CALCIUM 8.6 mg/dL (8.5-10.1)
[2021-07-14 09:53] LABS: ALBUMIN 1.8 g/dl (3.4-5.0); BLOOD UREA NITROGEN 22.4 mg/dL (7-18); MAGNESIUM 1.6 mg/dL (1.8-2.4)
[2021-07-14 09:56] LABS: CREATININE 0.7 mg/dL (0.55-1.3)
[2021-07-14 09:58] LABS: BILIRUBIN,TOTAL 0.4 mg/dL (0.2-1); TOT PROT 5.6 g/dl (6.4-8.2)
[2021-07-14] MEDS: MIDODRINE HCL 5 MG TABLET PO SCH ×3 (10:02→18:10)
[2021-07-14] MEDS: POLYETHYLENE GLYCOL (HEALTHYLAX) 3350 17 GM PACKET PO SCH (10:02)
[2021-07-14] MEDS: DIGOXIN 0.125 MG TABLET PO SCH (10:03)
[2021-07-14] MEDS: DOCUSATE SODIUM 100 MG CAPSULE (FP) PO SCH (10:04)
[2021-07-14] MEDS: APIXABAN 5 MG TABLET PO SCH ×2 (10:04→21:43)
[2021-07-14] MEDS: BUDESONIDE/FORMETEROL FUMARATE 160/4.5 mcg INHALER IH SCH ×2 (10:05→21:45)
[2021-07-14] MEDS: NYSTATIN 100,000 UNIT/GM TOPICAL CREAM 15 GM TUBE TP SCH ×2 (10:05→21:45)
[2021-07-14 14:08] LABS: SARS-CoV-2 NAA Not Detected (Not Detected)
[2021-07-14] MEDS: oxyCODONE HCL 5 MG TABLET PO PRN (16:50)
[2021-07-14] MEDS: COLLAGENASE CLOSTRIDIUM HIST. 30 GRAMS TUBE TP SCH (18:08)
[2021-07-14] MEDS: MONTELUKAST NA 10 MG TABLET PO SCH (21:43)
[2021-07-14] MEDS: MIRTAZAPINE 15 MG TABLET (FP) PO SCH (21:43)
[2021-07-14] MEDS: AMINO ACIDS 4.25%/D5W 1,000 ML IV SCH (21:44)
[2021-07-14] MEDS: KCL 10 MEQ IVPB 10 MEQ/100 ML INFUS.BAG IVPB SCH ×2 (21:44→22:56)
[2021-07-14] MEDS: ACETAMINOPHEN 500 MG TABLET (FP) PO PRN (21:45)
[2021-07-15] MEDS: FUROSEMIDE 40 MG/4 ML INJECTABLE VIAL IVPUSH SCH (05:29)
[2021-07-15] MEDS: GABAPENTIN 100 MG CAPSULE PO SCH ×3 (05:29→21:01)
[2021-07-15] MEDS: LEVOTHYROXINE NA 75 MCG TABLET (FP) PO SCH (06:12)
[2021-07-15 07:36] LABS: BASO % 0.7 % (0-2.0); EOS % 3.2 % (0-4.5); HEMOGLOBIN 8.7 GM/dL (11.7-16.9); LYMPH % 21.3 % (8-40); MCH 29.1 pg (25.7-33.7); MCHC 32.4 g/dl (32.0-35.9); MEAN PLT VOLUME 6.5 fl (7.5-11.1); MONO % 10.8 % (3.8-10.2); PLATELET COUNT 298 10^3/uL (134-434); RDW 17.1 % (11.9-15.9); WHITE BLOOD COUNT 5.1 K/mm3 (4.0-10.0)
[2021-07-15 07:50] LABS: ALBUMIN 1.9 g/dl (3.4-5.0); BLOOD UREA NITROGEN 22.3 mg/dL (7-18); MAGNESIUM 1.6 mg/dL (1.8-2.4)
[2021-07-15 07:53] LABS: CREATININE 0.7 mg/dL (0.55-1.3)
[2021-07-15 07:55] LABS: BILIRUBIN,TOTAL 0.4 mg/dL (0.2-1); TOT PROT 5.4 g/dl (6.4-8.2)
[2021-07-15] MEDS: KCL 10 MEQ IVPB 10 MEQ/100 ML INFUS.BAG IVPB SCH ×2 (09:13→10:30)
[2021-07-15] MEDS: APIXABAN 5 MG TABLET PO SCH ×2 (09:21→21:01)
[2021-07-15] MEDS: MIDODRINE HCL 5 MG TABLET PO SCH ×3 (09:21→18:37)
[2021-07-15] MEDS: DIGOXIN 0.125 MG TABLET PO SCH (09:21)
[2021-07-15] MEDS: DOCUSATE SODIUM 100 MG CAPSULE (FP) PO SCH (09:22)
[2021-07-15] MEDS: POLYETHYLENE GLYCOL (HEALTHYLAX) 3350 17 GM PACKET PO SCH (09:23)
[2021-07-15] MEDS: BUDESONIDE/FORMETEROL FUMARATE 160/4.5 mcg INHALER IH SCH ×2 (09:27→21:02)
[2021-07-15] MEDS: COLLAGENASE CLOSTRIDIUM HIST. 30 GRAMS TUBE TP SCH (09:27)
[2021-07-15] MEDS: oxyCODONE HCL 5 MG TABLET PO PRN ×2 (09:43→21:02)
[2021-07-15] MEDS: NYSTATIN 100,000 UNIT/GM TOPICAL CREAM 15 GM TUBE TP SCH ×2 (09:46→21:01)
[2021-07-15] MEDS ORDERED: MAGNESIUM 2GM/50ML STERILE WATER IVPB IVPB ONE (10:00)
[2021-07-15 15:35] LABS: HEPATITIS B SURFACE AG MATERN NON-REACTIVE (NONREACTIVE)
[2021-07-15 16:04] LABS: HIV INTERPRETATION NEGATIVE (NEGATIVE)
[2021-07-15] MEDS: ACETAMINOPHEN 500 MG TABLET (FP) PO PRN (18:33)
[2021-07-15] MEDS: MONTELUKAST NA 10 MG TABLET PO SCH (21:01)
[2021-07-15] MEDS: MIRTAZAPINE 15 MG TABLET (FP) PO SCH (21:01)
[2021-07-15] MEDS: IPRATROPIUM BR 0.02% 0.5 MG/2.5 ML VIAL.NEB. NEB PRN (21:20)
[2021-07-16] MEDS: GABAPENTIN 100 MG CAPSULE PO SCH ×3 (06:03→21:59)
[2021-07-16] MEDS: LEVOTHYROXINE NA 75 MCG TABLET (FP) PO SCH (06:03)
[2021-07-16] MEDS: FUROSEMIDE 40 MG TABLET (FP) PO SCH ×2 (06:03→13:32)
[2021-07-16] MEDS: APIXABAN 5 MG TABLET PO SCH ×2 (10:01→22:01)
[2021-07-16] MEDS: POLYETHYLENE GLYCOL (HEALTHYLAX) 3350 17 GM PACKET PO SCH (10:01)
[2021-07-16] MEDS: MIDODRINE HCL 5 MG TABLET PO SCH ×3 (10:02→17:21)
[2021-07-16] MEDS: DIGOXIN 0.125 MG TABLET PO SCH (10:02)
[2021-07-16] MEDS: DOCUSATE SODIUM 100 MG CAPSULE (FP) PO SCH (10:02)
[2021-07-16] MEDS: BUDESONIDE/FORMETEROL FUMARATE 160/4.5 mcg INHALER IH SCH ×2 (10:03→22:02)
[2021-07-16] MEDS: COLLAGENASE CLOSTRIDIUM HIST. 30 GRAMS TUBE TP SCH (10:04)
[2021-07-16] MEDS: NYSTATIN 100,000 UNIT/GM TOPICAL CREAM 15 GM TUBE TP SCH ×2 (10:04→22:02)
[2021-07-16] MEDS: ACETAMINOPHEN 500 MG TABLET (FP) PO PRN (13:37)
[2021-07-16] MEDS: oxyCODONE HCL 5 MG TABLET PO PRN (17:18)
[2021-07-16] MEDS: AMINO ACIDS/PROTEIN HYDROLYS 30 ML LIQUID.PKT PO SCH (17:20)
[2021-07-16] MEDS ORDERED: AMINO ACIDS/PROTEIN HYDROLYS 30 ML LIQUID.PKT PO SCH (17:30)
[2021-07-16] MEDS: MONTELUKAST NA 10 MG TABLET PO SCH (21:58)
[2021-07-16] MEDS: MIRTAZAPINE 15 MG TABLET (FP) PO SCH (21:59)
[2021-07-16] MEDS ORDERED: ASCORBIC ACID 500 MG TABLET (FP) PO SCH (22:00)
[2021-07-16] MEDS: ASCORBIC ACID 500 MG TABLET (FP) PO SCH (22:02)
[2021-07-17] MEDS: FUROSEMIDE 40 MG TABLET (FP) PO SCH ×2 (06:12→09:48)
[2021-07-17] MEDS: LEVOTHYROXINE NA 75 MCG TABLET (FP) PO SCH (06:12)
[2021-07-17] MEDS: GABAPENTIN 100 MG CAPSULE PO SCH ×3 (06:12→22:31)
[2021-07-17] MEDS: AMINO ACIDS/PROTEIN HYDROLYS 30 ML LIQUID.PKT PO SCH ×2 (08:02→16:45)
[2021-07-17] MEDS: POLYETHYLENE GLYCOL (HEALTHYLAX) 3350 17 GM PACKET PO SCH (09:42)
[2021-07-17] MEDS: MULTIVITAMINS (DAILY MVI) TABLET (FP) PO SCH (09:43)
[2021-07-17] MEDS: DOCUSATE SODIUM 100 MG CAPSULE (FP) PO SCH (09:43)
[2021-07-17] MEDS: APIXABAN 5 MG TABLET PO SCH ×2 (09:43→22:31)
[2021-07-17] MEDS: ZINC SULFATE 220 MG CAPSULE (FP) PO SCH (09:43)
[2021-07-17] MEDS: DIGOXIN 0.125 MG TABLET PO SCH (09:43)
[2021-07-17] MEDS: MIDODRINE HCL 5 MG TABLET PO SCH ×3 (09:43→19:35)
[2021-07-17] MEDS: ASCORBIC ACID 500 MG TABLET (FP) PO SCH ×2 (09:43→22:31)
[2021-07-17] MEDS: COLLAGENASE CLOSTRIDIUM HIST. 30 GRAMS TUBE TP SCH (09:44)
[2021-07-17] MEDS: BUDESONIDE/FORMETEROL FUMARATE 160/4.5 mcg INHALER IH SCH ×2 (09:44→22:32)
[2021-07-17] MEDS: NYSTATIN 100,000 UNIT/GM TOPICAL CREAM 15 GM TUBE TP SCH ×2 (09:45→22:32)
[2021-07-17] MEDS: ALPRAZolam 0.25 MG TABLET PO PRN (10:00)
[2021-07-17] MEDS ORDERED: MULTIVITAMINS (DAILY MVI) TABLET (FP) PO SCH (10:00)
[2021-07-17] MEDS ORDERED: ZINC SULFATE 220 MG CAPSULE (FP) PO SCH (10:00)
[2021-07-17] MEDS: MIRTAZAPINE 15 MG TABLET (FP) PO SCH (22:31)
[2021-07-17] MEDS: MONTELUKAST NA 10 MG TABLET PO SCH (22:31)
[2021-07-18] MEDS: oxyCODONE HCL 5 MG TABLET PO PRN
[2021-07-18] MEDS: GABAPENTIN 100 MG CAPSULE PO SCH ×3 (05:45→22:13)
[2021-07-18] MEDS: LEVOTHYROXINE NA 75 MCG TABLET (FP) PO SCH (06:09)
[2021-07-18 08:13] LABS: CHLORIDE 89 mmol/L (98-107); SODIUM 138 mmol/L (136-145)
[2021-07-18 08:17] LABS: CALCIUM 8.3 mg/dL (8.5-10.1)
[2021-07-18 08:18] LABS: ALBUMIN 1.8 g/dl (3.4-5.0); BLOOD UREA NITROGEN 17.1 mg/dL (7-18); GLUCOSE,RANDOM 101 mg/dL (74-106)
[2021-07-18 08:20] LABS: SGPT/ALT 12 U/L (13-61)
[2021-07-18 08:21] LABS: CREATININE 0.6 mg/dL (0.55-1.3); SGOT/AST 33 U/L (15-37)
[2021-07-18 08:22] LABS: BILIRUBIN,TOTAL 0.5 mg/dL (0.2-1); TOT PROT 5.7 g/dl (6.4-8.2)
[2021-07-18 08:28] LABS: ALK PHOS 227 U/L (45-117); ANION GAP 5 MMOL/L (8-16); CO2 > 45 mmol/L (21-32)
[2021-07-18 08:39] LABS: BASO % 0.6 % (0-2.0); EOS % 1.6 % (0-4.5); HEMOGLOBIN 8.7 GM/dL (11.7-16.9); LYMPH % 19.6 % (8-40); MCH 29.8 pg (25.7-33.7); MCHC 33.3 g/dl (32.0-35.9); MEAN CELL VOLUME 89.4 fl (80-96); MEAN PLT VOLUME 6.5 fl (7.5-11.1); MONO % 11.2 % (3.8-10.2); PLATELET COUNT 326 10^3/uL (134-434); RBC 2.91 M/mm3 (4.00-5.60); RDW 17.6 % (11.9-15.9); WHITE BLOOD COUNT 5.4 K/mm3 (4.0-10.0)
[2021-07-18] MEDS: AMINO ACIDS/PROTEIN HYDROLYS 30 ML LIQUID.PKT PO SCH ×2 (10:22→16:38)
[2021-07-18] MEDS: DIGOXIN 0.125 MG TABLET PO SCH (10:29)
[2021-07-18] MEDS: MIDODRINE HCL 5 MG TABLET PO SCH ×3 (10:30→17:07)
[2021-07-18] MEDS: APIXABAN 5 MG TABLET PO SCH ×2 (10:31→22:14)
[2021-07-18] MEDS: FUROSEMIDE 40 MG TABLET (FP) PO SCH (10:37)
[2021-07-18] MEDS: ASCORBIC ACID 500 MG TABLET (FP) PO SCH ×2 (10:38→22:14)
[2021-07-18] MEDS: MULTIVITAMINS (DAILY MVI) TABLET (FP) PO SCH (10:38)
[2021-07-18] MEDS: DOCUSATE SODIUM 100 MG CAPSULE (FP) PO SCH (10:39)
[2021-07-18] MEDS: POLYETHYLENE GLYCOL (HEALTHYLAX) 3350 17 GM PACKET PO SCH (10:42)
[2021-07-18] MEDS: ZINC SULFATE 220 MG CAPSULE (FP) PO SCH (10:43)
[2021-07-18] MEDS: BUDESONIDE/FORMETEROL FUMARATE 160/4.5 mcg INHALER IH SCH ×2 (10:43→22:15)
[2021-07-18 11:24] LABS: ARTERIAL BLD GAS O2 SATURATION 90.3 % (95-98); ARTERIAL BLOOD GAS BASE EXCESS 20.6 mmol/L (-2-2); ARTERIAL BLOOD GAS PO2 61.2 mmHg (80-100)
[2021-07-18 11:25] LABS: ALLENS TEST POSITIVE
[2021-07-18] MEDS: COLLAGENASE CLOSTRIDIUM HIST. 30 GRAMS TUBE TP SCH (11:48)
[2021-07-18] MEDS: NYSTATIN 100,000 UNIT/GM TOPICAL CREAM 15 GM TUBE TP SCH ×2 (11:48→22:15)
[2021-07-18] MEDS ORDERED: FUROSEMIDE 40 MG/4 ML INJECTABLE VIAL IVPUSH ONE (19:55)
[2021-07-18] MEDS: MONTELUKAST NA 10 MG TABLET PO SCH (22:14)
[2021-07-18] MEDS: MIRTAZAPINE 15 MG TABLET (FP) PO SCH (22:15)
[2021-07-19] MEDS: ALPRAZolam 0.25 MG TABLET PO PRN (05:40)
[2021-07-19] MEDS: GABAPENTIN 100 MG CAPSULE PO SCH ×2 (05:41→13:53)
[2021-07-19] MEDS: FUROSEMIDE 40 MG/4 ML INJECTABLE VIAL IVPUSH SCH ×2 (05:41→13:53)
[2021-07-19] MEDS: LEVOTHYROXINE NA 75 MCG TABLET (FP) PO SCH (06:55)
[2021-07-19] MEDS: POLYETHYLENE GLYCOL (HEALTHYLAX) 3350 17 GM PACKET PO SCH (09:03)
[2021-07-19] MEDS: AMINO ACIDS/PROTEIN HYDROLYS 30 ML LIQUID.PKT PO SCH ×2 (09:03→17:49)
[2021-07-19] MEDS: DOCUSATE SODIUM 100 MG CAPSULE (FP) PO SCH (09:03)
[2021-07-19 09:07] LABS: ARTERIAL BLD GAS O2 SATURATION 96.6 % (95-98); ARTERIAL BLOOD GAS BASE EXCESS 21.9 mmol/L (-2-2); ARTERIAL BLOOD GAS PO2 82.5 mmHg (80-100); ARTERIAL BLOOD GAS pH 7.503 (7.350-7.450)
[2021-07-19 09:08] LABS: ALLENS TEST POSITIVE
[2021-07-19] MEDS: APIXABAN 5 MG TABLET PO SCH (09:09)
[2021-07-19] MEDS: DIGOXIN 0.125 MG TABLET PO SCH (09:09)
[2021-07-19] MEDS: ASCORBIC ACID 500 MG TABLET (FP) PO SCH (09:09)
[2021-07-19] MEDS: MIDODRINE HCL 5 MG TABLET PO SCH ×3 (09:10→17:49)
[2021-07-19] MEDS: MULTIVITAMINS (DAILY MVI) TABLET (FP) PO SCH (09:10)
[2021-07-19] MEDS: ZINC SULFATE 220 MG CAPSULE (FP) PO SCH (09:11)
[2021-07-19] MEDS: methylPREDNISolone NA SUCC 40 MG/1 ML VIAL IVPUSH SCH ×2 (09:16→17:49)
[2021-07-19] MEDS: COLLAGENASE CLOSTRIDIUM HIST. 30 GRAMS TUBE TP SCH (09:42)
[2021-07-19] MEDS: NYSTATIN 100,000 UNIT/GM TOPICAL CREAM 15 GM TUBE TP SCH ×2 (09:42→22:30)
[2021-07-19] MEDS: BUDESONIDE/FORMETEROL FUMARATE 160/4.5 mcg INHALER IH SCH (09:44)
[2021-07-20] MEDS: GABAPENTIN 100 MG CAPSULE PO SCH ×4 (02:00→21:34)
[2021-07-20] MEDS: APIXABAN 5 MG TABLET PO SCH ×3 (02:00→21:34)
[2021-07-20] MEDS: MIRTAZAPINE 15 MG TABLET (FP) PO SCH ×2 (02:01→21:34)
[2021-07-20] MEDS: BUDESONIDE/FORMETEROL FUMARATE 160/4.5 mcg INHALER IH SCH ×3 (02:01→22:19)
[2021-07-20] MEDS: MONTELUKAST NA 10 MG TABLET PO SCH ×2 (02:01→21:34)
[2021-07-20] MEDS: ASCORBIC ACID 500 MG TABLET (FP) PO SCH ×3 (02:02→21:34)
[2021-07-20] MEDS: methylPREDNISolone NA SUCC 40 MG/1 ML VIAL IVPUSH SCH ×3 (02:05→21:34)
[2021-07-20] MEDS: FUROSEMIDE 40 MG/4 ML INJECTABLE VIAL IVPUSH SCH (05:10)
[2021-07-20] MEDS: LEVOTHYROXINE NA 75 MCG TABLET (FP) PO SCH (06:41)
[2021-07-20] MEDS: ACETAMINOPHEN 500 MG TABLET (FP) PO PRN ×2 (07:53→16:19)
[2021-07-20] MEDS: AMINO ACIDS/PROTEIN HYDROLYS 30 ML LIQUID.PKT PO SCH ×2 (07:53→16:30)
[2021-07-20] MEDS: MIDODRINE HCL 5 MG TABLET PO SCH ×3 (09:23→18:28)
[2021-07-20] MEDS: MULTIVITAMINS (DAILY MVI) TABLET (FP) PO SCH (09:23)
[2021-07-20] MEDS: ZINC SULFATE 220 MG CAPSULE (FP) PO SCH (09:23)
[2021-07-20] MEDS: DOCUSATE SODIUM 100 MG CAPSULE (FP) PO SCH (09:23)
[2021-07-20] MEDS: DIGOXIN 0.125 MG TABLET PO SCH (09:24)
[2021-07-20] MEDS: POLYETHYLENE GLYCOL (HEALTHYLAX) 3350 17 GM PACKET PO SCH (09:24)
[2021-07-20] MEDS: NYSTATIN 100,000 UNIT/GM TOPICAL CREAM 15 GM TUBE TP SCH ×2 (09:29→21:35)
[2021-07-20] MEDS ORDERED: methylPREDNISolone NA SUCC 40 MG/1 ML VIAL IVPUSH SCH (11:30)
[2021-07-20] MEDS: oxyCODONE HCL 5 MG TABLET PO PRN (12:36)
[2021-07-20] MEDS: COLLAGENASE CLOSTRIDIUM HIST. 30 GRAMS TUBE TP SCH (12:56)
[2021-07-20 13:37] LABS: ARTERIAL BLD GAS O2 SATURATION 94.8 % (95-98); ARTERIAL BLOOD GAS PO2 66.5 mmHg (80-100); ARTERIAL BLOOD GAS pH 7.541 (7.350-7.450)
[2021-07-20 13:39] LABS: ALLENS TEST POSITIVE
[2021-07-20] MEDS: LEVALBUTEROL HCL 0.31 MG/3 ML VIAL.NEB IH SCH ×2 (14:08→20:23)
[2021-07-21] MEDS: LEVOTHYROXINE NA 75 MCG TABLET (FP) PO SCH (06:31)
[2021-07-21] MEDS: GABAPENTIN 100 MG CAPSULE PO SCH ×3 (06:31→21:06)
[2021-07-21] MEDS: LEVALBUTEROL HCL 0.31 MG/3 ML VIAL.NEB IH SCH ×3 (07:41→21:09)
[2021-07-21 09:01] LABS: CALCIUM 8.3 mg/dL (8.5-10.1)
[2021-07-21 09:05] LABS: CREATININE 0.9 mg/dL (0.55-1.3)
[2021-07-21 09:06] LABS: BILIRUBIN,TOTAL 0.6 mg/dL (0.2-1); TOT PROT 5.8 g/dl (6.4-8.2)
[2021-07-21 09:33] LABS: BLOOD UREA NITROGEN 46.2 mg/dL (7-18)
[2021-07-21] MEDS ORDERED: FUROSEMIDE 40 MG/4 ML INJECTABLE VIAL IVPUSH SCH (10:00)
[2021-07-21] MEDS: methylPREDNISolone NA SUCC 40 MG/1 ML VIAL IVPUSH SCH ×2 (10:09→21:10)
[2021-07-21] MEDS: ZINC SULFATE 220 MG CAPSULE (FP) PO SCH (10:11)
[2021-07-21] MEDS: MULTIVITAMINS (DAILY MVI) TABLET (FP) PO SCH (10:11)
[2021-07-21] MEDS: APIXABAN 5 MG TABLET PO SCH ×2 (10:11→21:07)
[2021-07-21] MEDS: DIGOXIN 0.125 MG TABLET PO SCH (10:11)
[2021-07-21] MEDS: DOCUSATE SODIUM 100 MG CAPSULE (FP) PO SCH (10:11)
[2021-07-21] MEDS: MIDODRINE HCL 5 MG TABLET PO SCH ×3 (10:12→18:37)
[2021-07-21] MEDS: ASCORBIC ACID 500 MG TABLET (FP) PO SCH ×2 (10:16→21:07)
[2021-07-21] MEDS: POLYETHYLENE GLYCOL (HEALTHYLAX) 3350 17 GM PACKET PO SCH (10:16)
[2021-07-21] MEDS: AMINO ACIDS/PROTEIN HYDROLYS 30 ML LIQUID.PKT PO SCH ×2 (10:16→18:37)
[2021-07-21] MEDS: BUDESONIDE/FORMETEROL FUMARATE 160/4.5 mcg INHALER IH SCH ×2 (10:28→21:10)
[2021-07-21] MEDS: oxyCODONE HCL 5 MG TABLET PO PRN (12:47)
[2021-07-21] MEDS: NYSTATIN 100,000 UNIT/GM TOPICAL CREAM 15 GM TUBE TP SCH ×2 (13:13→21:10)
[2021-07-21] MEDS: COLLAGENASE CLOSTRIDIUM HIST. 30 GRAMS TUBE TP SCH (13:14)
[2021-07-21] MEDS: SODIUM HYPOCHLORITE 0.25%- 473 ML BULK BOTTLE TP SCH (13:16)
[2021-07-21] MEDS: MIRTAZAPINE 15 MG TABLET (FP) PO SCH (21:06)
[2021-07-21] MEDS: MONTELUKAST NA 10 MG TABLET PO SCH (21:08)
[2021-07-22] MEDS: LEVOTHYROXINE NA 75 MCG TABLET (FP) PO SCH (06:04)
[2021-07-22] MEDS: GABAPENTIN 100 MG CAPSULE PO SCH ×3 (06:04→21:58)
[2021-07-22] MEDS: LEVALBUTEROL HCL 0.31 MG/3 ML VIAL.NEB IH SCH ×3 (07:55→20:07)
[2021-07-22] MEDS: AMINO ACIDS/PROTEIN HYDROLYS 30 ML LIQUID.PKT PO SCH ×2 (10:10→18:04)
[2021-07-22] MEDS: BUDESONIDE/FORMETEROL FUMARATE 160/4.5 mcg INHALER IH SCH ×2 (10:11→21:57)
[2021-07-22] MEDS: POLYETHYLENE GLYCOL (HEALTHYLAX) 3350 17 GM PACKET PO SCH (10:11)
[2021-07-22] MEDS: methylPREDNISolone NA SUCC 40 MG/1 ML VIAL IVPUSH SCH (10:11)
[2021-07-22] MEDS: ZINC SULFATE 220 MG CAPSULE (FP) PO SCH (10:12)
[2021-07-22] MEDS: DIGOXIN 0.125 MG TABLET PO SCH (10:12)
[2021-07-22] MEDS: DOCUSATE SODIUM 100 MG CAPSULE (FP) PO SCH (10:12)
[2021-07-22] MEDS: MIDODRINE HCL 5 MG TABLET PO SCH ×3 (10:13→18:04)
[2021-07-22] MEDS: APIXABAN 5 MG TABLET PO SCH ×2 (10:13→21:58)
[2021-07-22] MEDS: ASCORBIC ACID 500 MG TABLET (FP) PO SCH ×2 (10:14→21:58)
[2021-07-22] MEDS: MULTIVITAMINS (DAILY MVI) TABLET (FP) PO SCH (10:14)
[2021-07-22] MEDS: ACETAMINOPHEN 500 MG TABLET (FP) PO PRN ×2 (10:14→18:03)
[2021-07-22] MEDS: oxyCODONE HCL 5 MG TABLET PO PRN ×2 (10:15→18:03)
[2021-07-22] MEDS: NYSTATIN 100,000 UNIT/GM TOPICAL CREAM 15 GM TUBE TP SCH ×2 (10:17→21:57)
[2021-07-22] MEDS: SODIUM HYPOCHLORITE 0.25%- 473 ML BULK BOTTLE TP SCH (10:17)
[2021-07-22] MEDS: COLLAGENASE CLOSTRIDIUM HIST. 30 GRAMS TUBE TP SCH (10:17)
[2021-07-22] MEDS: MONTELUKAST NA 10 MG TABLET PO SCH (21:57)
[2021-07-22] MEDS: MIRTAZAPINE 15 MG TABLET (FP) PO SCH (21:58)
[2021-07-23] MEDS: LEVOTHYROXINE NA 75 MCG TABLET (FP) PO SCH (06:45)
[2021-07-23] MEDS: oxyCODONE HCL 5 MG TABLET PO PRN ×2 (06:45→12:10)
[2021-07-23] MEDS: GABAPENTIN 100 MG CAPSULE PO SCH ×3 (06:45→22:03)
[2021-07-23] MEDS: LEVALBUTEROL HCL 0.31 MG/3 ML VIAL.NEB IH SCH ×3 (08:10→20:20)
[2021-07-23] MEDS: MIDODRINE HCL 5 MG TABLET PO SCH ×4 (10:52→18:15)
[2021-07-23] MEDS: ASCORBIC ACID 500 MG TABLET (FP) PO SCH ×2 (10:52→22:03)
[2021-07-23] MEDS: DOCUSATE SODIUM 100 MG CAPSULE (FP) PO SCH (10:53)
[2021-07-23] MEDS: APIXABAN 5 MG TABLET PO SCH ×2 (10:53→22:02)
[2021-07-23] MEDS: MULTIVITAMINS (DAILY MVI) TABLET (FP) PO SCH (10:53)
[2021-07-23] MEDS: AMINO ACIDS/PROTEIN HYDROLYS 30 ML LIQUID.PKT PO SCH ×3 (10:53→18:04)
[2021-07-23] MEDS: ZINC SULFATE 220 MG CAPSULE (FP) PO SCH (10:53)
[2021-07-23] MEDS: POLYETHYLENE GLYCOL (HEALTHYLAX) 3350 17 GM PACKET PO SCH ×2 (10:53→11:23)
[2021-07-23] MEDS: DIGOXIN 0.125 MG TABLET PO SCH (10:59)
[2021-07-23] MEDS: methylPREDNISolone NA SUCC 40 MG/1 ML VIAL IVPUSH SCH (10:59)
[2021-07-23] MEDS: NYSTATIN 100,000 UNIT/GM TOPICAL CREAM 15 GM TUBE TP SCH ×2 (11:02→22:08)
[2021-07-23] MEDS: COLLAGENASE CLOSTRIDIUM HIST. 30 GRAMS TUBE TP SCH (11:02)
[2021-07-23] MEDS: BUDESONIDE/FORMETEROL FUMARATE 160/4.5 mcg INHALER IH SCH ×2 (11:02→22:04)
[2021-07-23] MEDS: SODIUM HYPOCHLORITE 0.25%- 473 ML BULK BOTTLE TP SCH (11:03)
[2021-07-23] MEDS: MONTELUKAST NA 10 MG TABLET PO SCH (22:02)
[2021-07-23] MEDS: MIRTAZAPINE 15 MG TABLET (FP) PO SCH (22:03)
[2021-07-24] MEDS: GABAPENTIN 100 MG CAPSULE PO SCH ×3 (06:17→21:40)
[2021-07-24] MEDS: LEVOTHYROXINE NA 75 MCG TABLET (FP) PO SCH (06:17)
[2021-07-24 07:32] LABS: HEMATOCRIT 27.2 % (35.4-49); HEMOGLOBIN 8.9 GM/dL (11.7-16.9); MCH 28.9 pg (25.7-33.7); MCHC 32.7 g/dl (32.0-35.9); MEAN CELL VOLUME 88.3 fl (80-96); MEAN PLT VOLUME 6.8 fl (7.5-11.1); PLATELET COUNT 412 10^3/uL (134-434); RBC 3.09 M/mm3 (4.00-5.60); RDW 17.1 % (11.9-15.9); WHITE BLOOD COUNT 10.1 K/mm3 (4.0-10.0)
[2021-07-24 08:02] LABS: CALCIUM 8.3 mg/dL (8.5-10.1)
[2021-07-24 08:03] LABS: ALBUMIN 2.3 g/dl (3.4-5.0); BLOOD UREA NITROGEN 43.6 mg/dL (7-18); MAGNESIUM 2.1 mg/dL (1.8-2.4)
[2021-07-24 08:06] LABS: CREATININE 0.7 mg/dL (0.55-1.3)
[2021-07-24 08:08] LABS: BILIRUBIN,TOTAL 0.4 mg/dL (0.2-1); TOT PROT 5.9 g/dl (6.4-8.2)
[2021-07-24] MEDS: LEVALBUTEROL HCL 0.31 MG/3 ML VIAL.NEB IH SCH ×3 (08:37→20:05)
[2021-07-24] MEDS: ASCORBIC ACID 500 MG TABLET (FP) PO SCH ×2 (10:30→21:41)
[2021-07-24] MEDS: AMINO ACIDS/PROTEIN HYDROLYS 30 ML LIQUID.PKT PO SCH ×3 (10:30→18:48)
[2021-07-24] MEDS: DIGOXIN 0.125 MG TABLET PO SCH (10:30)
[2021-07-24] MEDS: APIXABAN 5 MG TABLET PO SCH ×2 (10:32→21:40)
[2021-07-24] MEDS: MULTIVITAMINS (DAILY MVI) TABLET (FP) PO SCH (10:32)
[2021-07-24] MEDS: POLYETHYLENE GLYCOL (HEALTHYLAX) 3350 17 GM PACKET PO SCH ×2 (10:32→10:58)
[2021-07-24] MEDS: ZINC SULFATE 220 MG CAPSULE (FP) PO SCH (10:32)
[2021-07-24] MEDS: DOCUSATE SODIUM 100 MG CAPSULE (FP) PO SCH (10:32)
[2021-07-24] MEDS: MIDODRINE HCL 5 MG TABLET PO SCH ×3 (10:33→18:32)
[2021-07-24] MEDS: methylPREDNISolone NA SUCC 40 MG/1 ML VIAL IVPUSH SCH (10:33)
[2021-07-24] MEDS: BUDESONIDE/FORMETEROL FUMARATE 160/4.5 mcg INHALER IH SCH ×2 (10:36→21:40)
[2021-07-24] MEDS: NYSTATIN 100,000 UNIT/GM TOPICAL CREAM 15 GM TUBE TP SCH ×2 (10:36→21:40)
[2021-07-24] MEDS: SODIUM HYPOCHLORITE 0.25%- 473 ML BULK BOTTLE TP SCH (10:36)
[2021-07-24] MEDS: COLLAGENASE CLOSTRIDIUM HIST. 30 GRAMS TUBE TP SCH (10:36)
[2021-07-24 15:27] LABS: VENOUS O2 SATURATION 96.8 % (70-80); VENOUS PH 7.507 (7.310-7.410)
[2021-07-24] MEDS: MIRTAZAPINE 15 MG TABLET (FP) PO SCH (21:40)
[2021-07-24] MEDS: MONTELUKAST NA 10 MG TABLET PO SCH (21:40)
[2021-07-25] MEDS: GABAPENTIN 100 MG CAPSULE PO SCH ×3 (06:26→22:14)
[2021-07-25] MEDS: LEVOTHYROXINE NA 75 MCG TABLET (FP) PO SCH (06:26)
[2021-07-25] MEDS: LEVALBUTEROL HCL 0.31 MG/3 ML VIAL.NEB IH SCH (07:40)
[2021-07-25 08:02] LABS: CALCIUM 8.5 mg/dL (8.5-10.1)
[2021-07-25 08:03] LABS: BLOOD UREA NITROGEN 42.5 mg/dL (7-18)
[2021-07-25 08:06] LABS: CREATININE 0.6 mg/dL (0.55-1.3)
[2021-07-25] MEDS: AMINO ACIDS/PROTEIN HYDROLYS 30 ML LIQUID.PKT PO SCH ×2 (08:49→18:10)
[2021-07-25] MEDS: methylPREDNISolone NA SUCC 40 MG/1 ML VIAL IVPUSH SCH (09:29)
[2021-07-25] MEDS: POLYETHYLENE GLYCOL (HEALTHYLAX) 3350 17 GM PACKET PO SCH (10:35)
[2021-07-25] MEDS: ZINC SULFATE 220 MG CAPSULE (FP) PO SCH (10:36)
[2021-07-25] MEDS: MULTIVITAMINS (DAILY MVI) TABLET (FP) PO SCH (10:36)
[2021-07-25] MEDS: DIGOXIN 0.125 MG TABLET PO SCH (10:36)
[2021-07-25] MEDS: MIDODRINE HCL 5 MG TABLET PO SCH ×3 (10:36→18:12)
[2021-07-25] MEDS: ASCORBIC ACID 500 MG TABLET (FP) PO SCH ×2 (10:36→22:14)
[2021-07-25] MEDS: APIXABAN 5 MG TABLET PO SCH ×2 (10:36→22:14)
[2021-07-25] MEDS: DOCUSATE SODIUM 100 MG CAPSULE (FP) PO SCH (10:36)
[2021-07-25] MEDS: BUDESONIDE/FORMETEROL FUMARATE 160/4.5 mcg INHALER IH SCH ×2 (10:37→22:15)
[2021-07-25] MEDS: NYSTATIN 100,000 UNIT/GM TOPICAL CREAM 15 GM TUBE TP SCH ×2 (10:38→22:15)
[2021-07-25] MEDS: SODIUM HYPOCHLORITE 0.25%- 473 ML BULK BOTTLE TP SCH (11:17)
[2021-07-25] MEDS: COLLAGENASE CLOSTRIDIUM HIST. 30 GRAMS TUBE TP SCH (11:17)
[2021-07-25] MEDS: MIRTAZAPINE 15 MG TABLET (FP) PO SCH (22:14)
[2021-07-25] MEDS: MONTELUKAST NA 10 MG TABLET PO SCH (22:14)
[2021-07-26] MEDS: LEVOTHYROXINE NA 75 MCG TABLET (FP) PO SCH (06:43)
[2021-07-26] MEDS: GABAPENTIN 100 MG CAPSULE PO SCH ×3 (06:43→22:07)
[2021-07-26] MEDS: AMINO ACIDS/PROTEIN HYDROLYS 30 ML LIQUID.PKT PO SCH ×2 (10:04→17:46)
[2021-07-26] MEDS: BUDESONIDE/FORMETEROL FUMARATE 160/4.5 mcg INHALER IH SCH ×2 (10:10→22:07)
[2021-07-26] MEDS: NYSTATIN 100,000 UNIT/GM TOPICAL CREAM 15 GM TUBE TP SCH ×2 (10:11→22:07)
[2021-07-26] MEDS: COLLAGENASE CLOSTRIDIUM HIST. 30 GRAMS TUBE TP SCH (10:11)
[2021-07-26] MEDS: methylPREDNISolone NA SUCC 40 MG/1 ML VIAL IVPUSH SCH (10:13)
[2021-07-26] MEDS: ZINC SULFATE 220 MG CAPSULE (FP) PO SCH (10:13)
[2021-07-26] MEDS: POLYETHYLENE GLYCOL (HEALTHYLAX) 3350 17 GM PACKET PO SCH (10:13)
[2021-07-26] MEDS: ASCORBIC ACID 500 MG TABLET (FP) PO SCH ×2 (10:14→22:07)
[2021-07-26] MEDS: DOCUSATE SODIUM 100 MG CAPSULE (FP) PO SCH (10:15)
[2021-07-26] MEDS: DIGOXIN 0.125 MG TABLET PO SCH (10:15)
[2021-07-26] MEDS: MULTIVITAMINS (DAILY MVI) TABLET (FP) PO SCH (10:15)
[2021-07-26] MEDS: APIXABAN 5 MG TABLET PO SCH ×2 (10:15→22:07)
[2021-07-26] MEDS: SODIUM HYPOCHLORITE 0.25%- 473 ML BULK BOTTLE TP SCH (10:16)
[2021-07-26] MEDS: MIDODRINE HCL 5 MG TABLET PO SCH ×3 (10:17→18:29)
[2021-07-26] MEDS: PANTOPRAZOLE 40 MG TABLET PO SCH (17:51)
[2021-07-26] MEDS: MONTELUKAST NA 10 MG TABLET PO SCH (22:07)
[2021-07-26] MEDS: MIRTAZAPINE 15 MG TABLET (FP) PO SCH (22:07)
[2021-07-27] MEDS: LEVOTHYROXINE NA 75 MCG TABLET (FP) PO SCH (06:41)
[2021-07-27] MEDS: GABAPENTIN 100 MG CAPSULE PO SCH ×3 (06:41→14:40)
[2021-07-27] MEDS ORDERED: predniSONE 20 MG TABLET (UD) PO SCH (10:00)
[2021-07-27] MEDS: DIGOXIN 0.125 MG TABLET PO SCH (10:22)
[2021-07-27] MEDS: MIDODRINE HCL 5 MG TABLET PO SCH ×3 (10:22→14:35)
[2021-07-27] MEDS: MULTIVITAMINS (DAILY MVI) TABLET (FP) PO SCH (10:22)
[2021-07-27] MEDS: APIXABAN 5 MG TABLET PO SCH (10:22)
[2021-07-27] MEDS: PANTOPRAZOLE 40 MG TABLET PO SCH (10:22)
[2021-07-27] MEDS: ZINC SULFATE 220 MG CAPSULE (FP) PO SCH (10:22)
[2021-07-27] MEDS: ASCORBIC ACID 500 MG TABLET (FP) PO SCH (10:22)
[2021-07-27] MEDS: NYSTATIN 100,000 UNIT/GM TOPICAL CREAM 15 GM TUBE TP SCH (10:23)
[2021-07-27] MEDS: AMINO ACIDS/PROTEIN HYDROLYS 30 ML LIQUID.PKT PO SCH ×2 (10:24→10:47)
[2021-07-27] MEDS: POLYETHYLENE GLYCOL (HEALTHYLAX) 3350 17 GM PACKET PO SCH (10:24)
[2021-07-27] MEDS: DOCUSATE SODIUM 100 MG CAPSULE (FP) PO SCH (10:25)
[2021-07-27] MEDS: BUDESONIDE/FORMETEROL FUMARATE 160/4.5 mcg INHALER IH SCH (10:26)
[2021-07-27 12:08] LABS: SARS-CoV-2 NAA Not Detected (Not Detected)
[2021-07-27 14:09] VITALS: BP 126/68; PULSE 80; TEMP 98.4
[2021-07-27] MEDS: SODIUM HYPOCHLORITE 0.25%- 473 ML BULK BOTTLE TP SCH (14:17)
[2021-07-27] MEDS: COLLAGENASE CLOSTRIDIUM HIST. 30 GRAMS TUBE TP SCH (14:17)
== END 2021-07-27 17:00 | DRG 291 ==
LOC: JER 17:02 → JERBED 21:10 → J4S 07-12 03:36
PROVIDERS: ADMIT Internal Medicine; ATTEND Family Medicine
DX: I13.0 Hypertensive heart and chronic kidney disease with heart failure and stage 1 through stage 4 chronic kidney disease, or unspecified chronic kidney disease (principal); L89.154 Pressure ulcer of sacral region, stage 4; I50.23 Acute on chronic systolic (congestive) heart failure; G93.41 Metabolic encephalopathy; J96.21 Acute and chronic respiratory failure with hypoxia; J96.22 Acute and chronic respiratory failure with hypercapnia; I48.20 Chronic atrial fibrillation, unspecified; I31.3 Pericardial effusion (noninflammatory); E87.2 Acidosis; L03.116 Cellulitis of left lower limb; I96 Gangrene, not elsewhere classified; E11.52 Type 2 diabetes mellitus with diabetic peripheral angiopathy with gangrene; E87.3 Alkalosis; E03.9 Hypothyroidism, unspecified; J45.909 Unspecified asthma, uncomplicated; J44.9 Chronic obstructive pulmonary disease, unspecified; D64.9 Anemia, unspecified; E78.5 Hyperlipidemia, unspecified; E11.22 Type 2 diabetes mellitus with diabetic chronic kidney disease; F41.9 Anxiety disorder, unspecified; E87.6 Hypokalemia; I95.1 Orthostatic hypotension; N18.9 Chronic kidney disease, unspecified
CPT/HCPCS: 36415; 36600; 70450-TC; 71045-TC-FY; 74176-TC; 80048; 80053; 80162; 81003; 82803; 82962; 82977; 83036; 83735; 83880; 84100; 84436; 84443; 84484; 85025; 85027; 86704; 86705; 86803; 87040; 87070; 87076; 87205; 87340; 87389; 87517; 93005; 93010; 93306-TC; 93970-TC; 94640; 94660; 97161-GP; 99285-25; C9803-CS; J1644; U0003; U0005

== ENCOUNTER 2021-08-04 10:05 | Inpatient (IN) | payer OTHER, MEDICARE ==
[2021-08-04] MEDS ORDERED: PIPERACILLIN/TAZOB 4.5 GM 4.5 GM in DEXTROSE 5%-WATER 100 ML IVPB ONE (11:01)
[2021-08-04] MEDS ORDERED: VANCOMYCIN HCL 1,500 MG in DEXTROSE 5%-WATER - 500 ML IVPB ONE (11:07)
[2021-08-04] MEDS ORDERED: ACETAMINOPHEN 1000 MG/100 ML BAG IVPB ONE (11:07)
[2021-08-04] MEDS ORDERED: VANCOMYCIN 1 GRAM (PRE-DOCKED) 1,000 MG/250 ML BAG IVPB ONE ×2 (11:24→12:59)
[2021-08-04] MEDS ORDERED: ACETAMINOPHEN INJECTION 100 ML IVPB ONE (11:24)
[2021-08-04] MEDS ORDERED: PIPERACILLIN/TAZOB 4.5 GM 4.5 GM/100 ML BAG IVPB ONE ×2 (11:24→21:42)
[2021-08-04 11:32] LABS: VENOUS BASE EXCESS 18.2 mmol/L (-2-2); VENOUS O2 SATURATION 58.5 % (70-80); VENOUS PH 7.346 (7.310-7.410)
[2021-08-04 11:37] LABS: BASO % 0.6 % (0-2.0); EOS % 0.8 % (0-4.5); HEMOGLOBIN 10.1 GM/dL (11.7-16.9); LYMPH % 8.7 % (8-40); MCH 29.2 pg (25.7-33.7); MCHC 32.7 g/dl (32.0-35.9); MEAN CELL VOLUME 89.1 fl (80-96); MEAN PLT VOLUME 7.2 fl (7.5-11.1); MONO % 6.1 % (3.8-10.2); NEUT % 83.8 % (42.8-82.8); PLATELET COUNT 236 10^3/uL (134-434); RBC 3.48 M/mm3 (4.00-5.60); RDW 17.8 % (11.9-15.9); VENOUS PCO2 88.9 mmHg (38-52); WHITE BLOOD COUNT 8.5 K/mm3 (4.0-10.0)
[2021-08-04 11:50] LABS: CHLORIDE 94 mmol/L (98-107); SODIUM 142 mmol/L (136-145)
[2021-08-04 11:52] LABS: ACTIVATED PTT 44.1 SECONDS (25.2-36.5); ANION GAP 5 MMOL/L (8-16); BLOOD UREA NITROGEN 38.4 mg/dL (7-18); CALCIUM 8.2 mg/dL (8.5-10.1); CO2 43 mmol/L (21-32); INR 2.23 (0.83-1.09); PROTHROMBIN TIME (PATIENT) 25.9 SEC (9.7-13.0)
[2021-08-04 11:53] LABS: GLUCOSE,RANDOM 93 mg/dL (74-106)
[2021-08-04 11:55] LABS: SGPT/ALT 69 U/L (13-61)
[2021-08-04 11:56] LABS: SGOT/AST 64 U/L (15-37)
[2021-08-04 11:57] LABS: BILIRUBIN,TOTAL 1.1 mg/dL (0.2-1); TOT PROT 5.8 g/dl (6.4-8.2)
[2021-08-04 11:59] LABS: ALK PHOS 591 U/L (45-117); MAGNESIUM 2.3 mg/dL (1.8-2.4)
[2021-08-04] MEDS ORDERED: VANCOMYCIN/WATER 1250 MG 1,250 MG/250 ML BAG IVPB ONE (12:38)
[2021-08-04] MEDS ORDERED: VANCOMYCIN 500 MG VIAL (RESTRICTED TO ID ONLY) ONE (12:59)
[2021-08-04 14:10] LABS: EPI CELLS 12 /uL (0-25.1); HYALINE CASTS 10 /uL (0-3.1); URINE APPEARANCE CLOUDY; URINE BACTERIA 2 /uL (0-1359); URINE BILIRUBIN 1+ (NEGATIVE); URINE COLOR DK YELLOW; URINE GLUCOSE (UA) NEGATIVE (NEGATIVE); URINE KETONE TRACE (NEGATIVE); URINE LEUK ESTERASE TRACE (NEGATIVE); URINE NITRITE NEGATIVE (NEGATIVE); URINE PROTEIN TRACE (NEGATIVE); URINE RBC 19 /uL (0-23.9); URINE WBC 21 /uL (0-25.8)
[2021-08-04] MEDS ORDERED: SODIUM CHLORIDE 0.9% 500 ML INFUS.BAG IV ONE ×2 (14:18→16:00)
[2021-08-04] MEDS ORDERED: ASPIRIN 81 MG CHEWABLE TABLETS PO ONE (17:08)
[2021-08-04 18:25] LABS: ARTERIAL BLD GAS O2 SATURATION 98.4 % (95-98); ARTERIAL BLOOD GAS BASE EXCESS 10.3 mmol/L (-2-2); ARTERIAL BLOOD GAS PO2 129.3 mmHg (80-100); ARTERIAL BLOOD GAS pH 7.376 (7.350-7.450)
[2021-08-04] MEDS ORDERED: ASPIRIN 300 MG SUPP.RECT PR ONE (18:29)
[2021-08-04] MEDS ORDERED: ASPIRIN 300 MG SUPP.RECT RC ONE (18:29)
[2021-08-04 18:30] LABS: ALLENS TEST POSITIVE; VENT MODE S/T
[2021-08-04 18:31] LABS: VENT RATE 16
[2021-08-04 20:31] LABS: BASO % 1.1 % (0-2.0); EOS % 1.3 % (0-4.5); HEMATOCRIT 26.8 % (35.4-49); HEMOGLOBIN 8.6 GM/dL (11.7-16.9); MCH 28.4 pg (25.7-33.7); MEAN CELL VOLUME 88.6 fl (80-96); MONO % 4.8 % (3.8-10.2); NEUT % 85.8 % (42.8-82.8); PLATELET COUNT 202 10^3/uL (134-434); RBC 3.03 M/mm3 (4.00-5.60); RDW 18.3 % (11.9-15.9); WHITE BLOOD COUNT 7.1 K/mm3 (4.0-10.0)
[2021-08-04] MEDS: PIPERACILLIN/TAZOB 4.5 GM 4.5 GM in DEXTROSE 5%-WATER 100 ML IVPB SCH (21:42)
[2021-08-05] MEDS ORDERED: PIPERACILLIN/TAZOBACTAM 4.5 GM VIAL IVPB ONE ×3 (01:54→17:22)
[2021-08-05] MEDS ORDERED: DEXTROSE 5%-WATER 100 ML IVPB ONE ×3 (01:54→17:22)
[2021-08-05] MEDS: PIPERACILLIN/TAZOB 4.5 GM 4.5 GM in DEXTROSE 5%-WATER 100 ML IVPB SCH ×3 (02:13→17:23)
[2021-08-05] MEDS: VANCOMYCIN 1 GM in D5W (PRE-DOCKED) 1,000 MG/250 ML IVPB SCH ×2 (02:57→16:34)
[2021-08-05 06:43] LABS: ARTERIAL BLD GAS O2 SATURATION 97.2 % (95-98); ARTERIAL BLOOD GAS BASE EXCESS 13.1 mmol/L (-2-2); ARTERIAL BLOOD GAS PO2 93.2 mmHg (80-100); ARTERIAL BLOOD GAS pH 7.445 (7.350-7.450)
[2021-08-05 06:44] LABS: ALLENS TEST POSITIVE
[2021-08-05 06:45] LABS: VENT RATE 16
[2021-08-05 07:29] LABS: BLOOD UREA NITROGEN 44.3 mg/dL (7-18)
[2021-08-05 07:30] LABS: CALCIUM 8.1 mg/dL (8.5-10.1); MAGNESIUM 2.1 mg/dL (1.8-2.4)
[2021-08-05] MEDS ORDERED: oxyCODONE HCL 5 MG TABLET PO ONE (09:46)
[2021-08-05] MEDS: COLLAGENASE CLOSTRIDIUM HIST. 30 GRAMS TUBE TP SCH (10:46)
[2021-08-05 12:30] LABS: BASO % 0.4 % (0-2.0); EOS % 1.9 % (0-4.5); HEMOGLOBIN 8.4 GM/dL (11.7-16.9); LYMPH % 6.9 % (8-40); MCH 28.7 pg (25.7-33.7); MCHC 32.3 g/dl (32.0-35.9); MEAN CELL VOLUME 88.9 fl (80-96); MEAN PLT VOLUME 7.3 fl (7.5-11.1); MONO % 3.1 % (3.8-10.2); NEUT % 87.7 % (42.8-82.8); PLATELET COUNT 221 10^3/uL (134-434); RBC 2.93 M/mm3 (4.00-5.60); RDW 17.6 % (11.9-15.9); WHITE BLOOD COUNT 8.9 K/mm3 (4.0-10.0)
[2021-08-05] MEDS: VANCOMYCIN/WATER FOR INJ (PEG) 1,000 MG/200 ML BAG IVPB SCH (15:42)
[2021-08-05] MEDS: AMINO ACIDS/PROTEIN HYDROLYS 30 ML LIQUID.PKT PO SCH (16:35)
[2021-08-05] MEDS ORDERED: PIPERACILLIN/TAZOB 4.5 GM 4.5 GM in DEXTROSE 5%-WATER 100 ML IVPB SCH (21:00)
[2021-08-06] MEDS ORDERED: VANCOMYCIN 1 GM in D5W (PRE-DOCKED) 1,000 MG/250 ML IVPB SCH (01:00)
[2021-08-06] MEDS ORDERED: PIPERACILLIN/TAZOBACTAM 4.5 GM VIAL IVPB ONE ×3 (01:19→18:06)
[2021-08-06] MEDS ORDERED: DEXTROSE 5%-WATER 100 ML IVPB ONE ×3 (01:19→18:06)
[2021-08-06] MEDS: PIPERACILLIN/TAZOB 4.5 GM 4.5 GM in DEXTROSE 5%-WATER 100 ML IVPB SCH ×3 (01:32→18:12)
[2021-08-06 07:17] LABS: HEMATOCRIT 28.2 % (35.4-49); MCH 28.5 pg (25.7-33.7); MCHC 31.9 g/dl (32.0-35.9); MEAN CELL VOLUME 89.5 fl (80-96); PLATELET COUNT 215 10^3/uL (134-434); RBC 3.16 M/mm3 (4.00-5.60); RDW 18.2 % (11.9-15.9); WHITE BLOOD COUNT 7.6 K/mm3 (4.0-10.0)
[2021-08-06 07:45] LABS: ALBUMIN 1.8 g/dl (3.4-5.0); BLOOD UREA NITROGEN 51.1 mg/dL (7-18); CALCIUM 8.4 mg/dL (8.5-10.1)
[2021-08-06 07:48] LABS: CREATININE 1.2 mg/dL (0.55-1.3)
[2021-08-06 07:50] LABS: BILIRUBIN,TOTAL 0.9 mg/dL (0.2-1); TOT PROT 5.4 g/dl (6.4-8.2)
[2021-08-06] MEDS ORDERED: KCL 10 MEQ IVPB 10 MEQ/100 ML INFUS.BAG IVPB SCH (08:00)
[2021-08-06] MEDS: AMINO ACIDS/PROTEIN HYDROLYS 30 ML LIQUID.PKT PO SCH ×3 (08:07→18:12)
[2021-08-06] MEDS: ASCORBIC ACID 500 MG TABLET (FP) PO SCH (09:17)
[2021-08-06] MEDS: COLLAGENASE CLOSTRIDIUM HIST. 30 GRAMS TUBE TP SCH (09:18)
[2021-08-06] MEDS: MULTIVITAMINS (DAILY MVI) TABLET (FP) PO SCH (09:18)
[2021-08-06] MEDS: VANCOMYCIN/WATER FOR INJ (PEG) 1,000 MG/200 ML BAG IVPB SCH (14:16)
[2021-08-06] MEDS ORDERED: ACETAMINOPHEN 1000 MG/100 ML BAG IVPB PRN (14:37)
[2021-08-06] MEDS: ACETAMINOPHEN 1000 MG/100 ML BAG IVPB PRN (15:40)
[2021-08-07] MEDS ORDERED: PIPERACILLIN/TAZOBACTAM 4.5 GM VIAL IVPB ONE (02:16)
[2021-08-07] MEDS ORDERED: DEXTROSE 5%-WATER 100 ML IVPB ONE (02:16)
[2021-08-07] MEDS: PIPERACILLIN/TAZOB 4.5 GM 4.5 GM in DEXTROSE 5%-WATER 100 ML IVPB SCH ×2 (02:19→10:10)
[2021-08-07 06:55] LABS: BASO % 0.7 % (0-2.0); EOS % 2.7 % (0-4.5); HEMATOCRIT 27.2 % (35.4-49); HEMOGLOBIN 8.7 GM/dL (11.7-16.9); LYMPH % 13.7 % (8-40); MCH 28.6 pg (25.7-33.7); MCHC 32.2 g/dl (32.0-35.9); MEAN CELL VOLUME 88.7 fl (80-96); MEAN PLT VOLUME 7.7 fl (7.5-11.1); MONO % 4.5 % (3.8-10.2); NEUT % 78.4 % (42.8-82.8); PLATELET COUNT 203 10^3/uL (134-434); RBC 3.06 M/mm3 (4.00-5.60); RDW 17.9 % (11.9-15.9)
[2021-08-07 07:15] LABS: CHLORIDE 93 mmol/L (98-107); SODIUM 138 mmol/L (136-145)
[2021-08-07 07:17] LABS: CALCIUM 7.9 mg/dL (8.5-10.1)
[2021-08-07 07:18] LABS: ALBUMIN 1.7 g/dl (3.4-5.0); CO2 38 mmol/L (21-32); GLUCOSE,RANDOM 87 mg/dL (74-106); MAGNESIUM 2.1 mg/dL (1.8-2.4)
[2021-08-07 07:21] LABS: CREATININE 1.3 mg/dL (0.55-1.3); SGOT/AST 38 U/L (15-37); SGPT/ALT 34 U/L (13-61)
[2021-08-07 07:22] LABS: BILIRUBIN,TOTAL 0.7 mg/dL (0.2-1); TOT PROT 5.3 g/dl (6.4-8.2)
[2021-08-07 08:23] LABS: ALK PHOS 506 U/L (45-117); ANION GAP 7 MMOL/L (8-16)
[2021-08-07] MEDS ORDERED: POTASSIUM CHLORIDE ORAL LIQUID 20 MEQ/15 ML PO ONE (09:15)
[2021-08-07] MEDS: AMINO ACIDS/PROTEIN HYDROLYS 30 ML LIQUID.PKT PO SCH ×3 (09:20→17:55)
[2021-08-07] MEDS: COLLAGENASE CLOSTRIDIUM HIST. 30 GRAMS TUBE TP SCH (10:09)
[2021-08-07] MEDS: ACETAMINOPHEN 1000 MG/100 ML BAG IVPB PRN ×2 (10:09→19:50)
[2021-08-07] MEDS: MULTIVITAMINS (DAILY MVI) TABLET (FP) PO SCH (10:09)
[2021-08-07] MEDS: ASCORBIC ACID 500 MG TABLET (FP) PO SCH (10:10)
[2021-08-07] MEDS: KCL 10 MEQ IVPB 10 MEQ/100 ML INFUS.BAG IVPB SCH ×3 (10:12→12:20)
[2021-08-07 18:02] LABS: CALCIUM 8.1 mg/dL (8.5-10.1)
[2021-08-07 18:03] LABS: BLOOD UREA NITROGEN 59.4 mg/dL (7-18)
[2021-08-07 18:06] LABS: CREATININE 1.2 mg/dL (0.55-1.3)
[2021-08-08] MEDS ORDERED: FUROSEMIDE 40 MG/4 ML INJECTABLE VIAL IVPUSH ONE (10:25)
[2021-08-08] MEDS ORDERED: ENOXAPARIN NA (PORCINE) 80 MG/0.8 ML DISP.SYRIN SQ SCH (10:30)
[2021-08-08] MEDS ORDERED: ALBUTEROL SO4 2.5/IPRATROPIUM 0.5 INH SOL 3 ML VIAL.NEB. NEB PRN (10:37)
[2021-08-08] MEDS ORDERED: ALPRAZolam 0.25 MG TABLET PO PRN (10:37)
[2021-08-08] MEDS ORDERED: oxyCODONE HCL 5 MG TABLET PO PRN (10:37)
[2021-08-08] MEDS ORDERED: LEVOTHYROXINE NA 75 MCG TABLET (FP) PO SCH (10:45)
[2021-08-08] MEDS ORDERED: DIGOXIN 0.125 MG TABLET PO SCH (10:45)
[2021-08-08] MEDS ORDERED: POLYETHYLENE GLYCOL (HEALTHYLAX) 3350 17 GM PACKET PO SCH (10:45)
[2021-08-08] MEDS: AMINO ACIDS/PROTEIN HYDROLYS 30 ML LIQUID.PKT PO SCH ×2 (11:28→20:00)
[2021-08-08] MEDS: MULTIVITAMINS (DAILY MVI) TABLET (FP) PO SCH (11:29)
[2021-08-08] MEDS: ASCORBIC ACID 500 MG TABLET (FP) PO SCH (11:29)
[2021-08-08] MEDS ORDERED: FUROSEMIDE 40 MG TABLET (FP) PO SCH (11:30)
[2021-08-08] MEDS: COLLAGENASE CLOSTRIDIUM HIST. 30 GRAMS TUBE TP SCH (11:43)
[2021-08-08] MEDS: GABAPENTIN 100 MG CAPSULE PO SCH ×2 (11:43→22:09)
[2021-08-08] MEDS: ACETAMINOPHEN 1000 MG/100 ML BAG IVPB PRN (11:44)
[2021-08-08 12:13] LABS: HEMATOCRIT 28.1 % (35.4-49); MCH 28.3 pg (25.7-33.7); MCHC 32.2 g/dl (32.0-35.9); MEAN CELL VOLUME 88.1 fl (80-96); MEAN PLT VOLUME 7.6 fl (7.5-11.1); PLATELET COUNT 220 10^3/uL (134-434); RBC 3.19 M/mm3 (4.00-5.60); RDW 18.3 % (11.9-15.9); WHITE BLOOD COUNT 6.1 K/mm3 (4.0-10.0)
[2021-08-08 12:31] LABS: CALCIUM 8.4 mg/dL (8.5-10.1)
[2021-08-08 12:32] LABS: ALBUMIN 1.8 g/dl (3.4-5.0); BLOOD UREA NITROGEN 58.6 mg/dL (7-18); MAGNESIUM 2.1 mg/dL (1.8-2.4)
[2021-08-08 12:35] LABS: CREATININE 1.2 mg/dL (0.55-1.3); PHOSPHOROUS 3.5 mg/dL (2.5-4.9)
[2021-08-08 12:37] LABS: BILIRUBIN,TOTAL 0.7 mg/dL (0.2-1); TOT PROT 5.9 g/dl (6.4-8.2)
[2021-08-08 14:26] VITALS: BMI 27.7
[2021-08-08] MEDS: oxyCODONE HCL 5 MG TABLET PO PRN (15:51)
[2021-08-08] MEDS: ENOXAPARIN NA (PORCINE) 80 MG/0.8 ML DISP.SYRIN SQ SCH ×2 (15:53→22:08)
[2021-08-08] MEDS: BUDESONIDE/FORMETEROL FUMARATE 80/4.5 mcg INHALER IH SCH ×2 (15:53→22:09)
[2021-08-08] MEDS ORDERED: POTASSIUM CHLORIDE TABS 20 MEQ TABLET.ER (FP) PO ONE (18:25)
[2021-08-08] MEDS ORDERED: MONTELUKAST NA 10 MG TABLET PO SCH (22:00)
[2021-08-08] MEDS ORDERED: MIRTAZAPINE 15 MG TABLET (FP) PO SCH (22:00)
[2021-08-09] MEDS ORDERED: ALPRAZolam 0.25 MG TABLET PO PRN (00:26)
[2021-08-09] MEDS ORDERED: ALBUTEROL SO4 2.5/IPRATROPIUM 0.5 INH SOL 3 ML VIAL.NEB. NEB PRN (00:26)
[2021-08-09] MEDS ORDERED: ACETAMINOPHEN 1000 MG/100 ML BAG IVPB PRN (00:26)
[2021-08-09 06:29] LABS: HEMATOCRIT 28.3 % (35.4-49); HEMOGLOBIN 9.1 GM/dL (11.7-16.9); MCH 28.7 pg (25.7-33.7); MCHC 32.3 g/dl (32.0-35.9); MEAN CELL VOLUME 88.6 fl (80-96); MEAN PLT VOLUME 7.8 fl (7.5-11.1); PLATELET COUNT 201 10^3/uL (134-434); RBC 3.19 M/mm3 (4.00-5.60); RDW 18.1 % (11.9-15.9); WHITE BLOOD COUNT 5.9 K/mm3 (4.0-10.0)
[2021-08-09 07:09] LABS: ALBUMIN 0.7 g/dl (3.4-5.0); BILIRUBIN,TOTAL 0.6 mg/dL (0.2-1); BLOOD UREA NITROGEN 37.1 mg/dL (7-18); CREATININE 1.1 mg/dL (0.55-1.3); TOT PROT 6.2 g/dl (6.4-8.2)
[2021-08-09] MEDS: AMINO ACIDS/PROTEIN HYDROLYS 30 ML LIQUID.PKT PO SCH ×3 (08:14→17:54)
[2021-08-09] MEDS: ACETAMINOPHEN 1000 MG/100 ML BAG IVPB PRN (08:30)
[2021-08-09] MEDS ORDERED: POTASSIUM CHLORIDE TABS 20 MEQ TABLET.ER (FP) PO ONE ×2 (08:46→14:00)
[2021-08-09] MEDS: oxyCODONE HCL 5 MG TABLET PO PRN (09:51)
[2021-08-09] MEDS ORDERED: VILANTEROL IH SCH (10:00)
[2021-08-09] MEDS ORDERED: dilTIAZem HCL 30 MG TABLET PO SCH (10:00)
[2021-08-09] MEDS ORDERED: FLUTICASONE IH SCH (10:00)
[2021-08-09] MEDS: ENOXAPARIN NA (PORCINE) 80 MG/0.8 ML DISP.SYRIN SQ SCH ×2 (10:14→21:25)
[2021-08-09] MEDS: DIGOXIN 0.125 MG TABLET PO SCH (10:14)
[2021-08-09] MEDS: MULTIVITAMINS (DAILY MVI) TABLET (FP) PO SCH (10:15)
[2021-08-09] MEDS: LEVOTHYROXINE NA 75 MCG TABLET (FP) PO SCH (10:16)
[2021-08-09] MEDS: ASCORBIC ACID 500 MG TABLET (FP) PO SCH (10:16)
[2021-08-09] MEDS: MONTELUKAST NA 10 MG TABLET PO SCH (10:24)
[2021-08-09] MEDS: BUDESONIDE/FORMETEROL FUMARATE 80/4.5 mcg INHALER IH SCH ×2 (10:26→21:26)
[2021-08-09] MEDS ORDERED: FUROSEMIDE 40 MG/4 ML INJECTABLE VIAL IVPUSH SCH (11:00)
[2021-08-09] MEDS: GABAPENTIN 100 MG CAPSULE PO SCH ×2 (11:15→21:25)
[2021-08-09] MEDS: POLYETHYLENE GLYCOL (HEALTHYLAX) 3350 17 GM PACKET PO SCH (11:25)
[2021-08-09] MEDS: COLLAGENASE CLOSTRIDIUM HIST. 30 GRAMS TUBE TP SCH (11:25)
[2021-08-09] MEDS ORDERED: FUROSEMIDE 40 MG TABLET (FP) PO SCH (11:30)
[2021-08-09] MEDS: MIRTAZAPINE 15 MG TABLET (FP) PO SCH (21:25)
[2021-08-10 07:17] LABS: HEMATOCRIT 25.7 % (35.4-49); HEMOGLOBIN 8.5 GM/dL (11.7-16.9); MCH 28.9 pg (25.7-33.7); MEAN CELL VOLUME 87.5 fl (80-96); MEAN PLT VOLUME 7.6 fl (7.5-11.1); PLATELET COUNT 200 10^3/uL (134-434); RBC 2.94 M/mm3 (4.00-5.60); RDW 18.3 % (11.9-15.9); WHITE BLOOD COUNT 6.4 K/mm3 (4.0-10.0)
[2021-08-10 08:26] LABS: CHLORIDE 98 mmol/L (98-107); SODIUM 138 mmol/L (136-145)
[2021-08-10 08:28] LABS: CALCIUM 7.6 mg/dL (8.5-10.1)
[2021-08-10 08:29] LABS: ANION GAP 8 MMOL/L (8-16); CO2 32 mmol/L (21-32); GLUCOSE,RANDOM 79 mg/dL (74-106)
[2021-08-10 08:32] LABS: SGOT/AST 190 U/L (15-37); SGPT/ALT 42 U/L (13-61)
[2021-08-10 08:33] LABS: BILIRUBIN,TOTAL 1.4 mg/dL (0.2-1); TOT PROT 5.1 g/dl (6.4-8.2)
[2021-08-10 09:14] LABS: ALK PHOS > 1000 U/L (45-117)
[2021-08-10] MEDS: AMINO ACIDS/PROTEIN HYDROLYS 30 ML LIQUID.PKT PO SCH ×3 (09:19→17:03)
[2021-08-10 09:24] LABS: ALBUMIN 1.7 g/dl (3.4-5.0)
[2021-08-10] MEDS: ENOXAPARIN NA (PORCINE) 80 MG/0.8 ML DISP.SYRIN SQ SCH ×2 (09:29→22:36)
[2021-08-10] MEDS: POTASSIUM CHLORIDE ORAL LIQUID 20 MEQ/15 ML PO SCH ×2 (09:30→22:36)
[2021-08-10 09:31] LABS: BLOOD UREA NITROGEN QNS mg/dL (7-18)
[2021-08-10] MEDS: GABAPENTIN 100 MG CAPSULE PO SCH ×2 (09:32→22:36)
[2021-08-10] MEDS: ASCORBIC ACID 500 MG TABLET (FP) PO SCH (09:32)
[2021-08-10] MEDS: MULTIVITAMINS (DAILY MVI) TABLET (FP) PO SCH (09:32)
[2021-08-10] MEDS: MONTELUKAST NA 10 MG TABLET PO SCH (09:32)
[2021-08-10] MEDS: POLYETHYLENE GLYCOL (HEALTHYLAX) 3350 17 GM PACKET PO SCH (09:32)
[2021-08-10] MEDS: COLLAGENASE CLOSTRIDIUM HIST. 30 GRAMS TUBE TP SCH (09:33)
[2021-08-10] MEDS: BUDESONIDE/FORMETEROL FUMARATE 80/4.5 mcg INHALER IH SCH ×2 (09:33→22:37)
[2021-08-10] MEDS: LEVOTHYROXINE NA 75 MCG TABLET (FP) PO SCH (09:33)
[2021-08-10] MEDS: ACETAMINOPHEN 325 MG TABLET (FP) PO PRN (09:36)
[2021-08-10] MEDS: TORSEMIDE 20 MG TABLET (FP) PO SCH (10:40)
[2021-08-10] MEDS: DIGOXIN 0.125 MG TABLET PO SCH (15:02)
[2021-08-10] MEDS: MIRTAZAPINE 15 MG TABLET (FP) PO SCH (22:36)
[2021-08-11] MEDS: ACETAMINOPHEN 325 MG TABLET (FP) PO PRN (02:47)
[2021-08-11 07:31] LABS: HEMATOCRIT 25.2 % (35.4-49); HEMOGLOBIN 8.3 GM/dL (11.7-16.9); MCH 28.6 pg (25.7-33.7); MCHC 32.7 g/dl (32.0-35.9); MEAN CELL VOLUME 87.3 fl (80-96); MEAN PLT VOLUME 7.1 fl (7.5-11.1); PLATELET COUNT 237 10^3/uL (134-434); RBC 2.89 M/mm3 (4.00-5.60); RDW 18.6 % (11.9-15.9); WHITE BLOOD COUNT 5.7 K/mm3 (4.0-10.0)
[2021-08-11 09:03] LABS: ALBUMIN 1.6 g/dl (3.4-5.0); BILIRUBIN,TOTAL 0.7 mg/dL (0.2-1); BLOOD UREA NITROGEN 61.6 mg/dL (7-18); CREATININE 0.8 mg/dL (0.55-1.3); TOT PROT 5.1 g/dl (6.4-8.2)
[2021-08-11] MEDS: GABAPENTIN 100 MG CAPSULE PO SCH ×2 (09:32→21:45)
[2021-08-11] MEDS: POTASSIUM CHLORIDE ORAL LIQUID 20 MEQ/15 ML PO SCH ×2 (09:32→22:00)
[2021-08-11] MEDS: DIGOXIN 0.125 MG TABLET PO SCH (09:33)
[2021-08-11] MEDS: ASCORBIC ACID 500 MG TABLET (FP) PO SCH (09:34)
[2021-08-11] MEDS: MONTELUKAST NA 10 MG TABLET PO SCH (09:34)
[2021-08-11] MEDS: MULTIVITAMINS (DAILY MVI) TABLET (FP) PO SCH (09:34)
[2021-08-11] MEDS: LEVOTHYROXINE NA 75 MCG TABLET (FP) PO SCH (09:34)
[2021-08-11] MEDS: BUDESONIDE/FORMETEROL FUMARATE 80/4.5 mcg INHALER IH SCH ×2 (09:34→21:45)
[2021-08-11] MEDS: TORSEMIDE 20 MG TABLET (FP) PO SCH (09:35)
[2021-08-11] MEDS: POLYETHYLENE GLYCOL (HEALTHYLAX) 3350 17 GM PACKET PO SCH (09:35)
[2021-08-11] MEDS: AMINO ACIDS/PROTEIN HYDROLYS 30 ML LIQUID.PKT PO SCH ×3 (09:52→18:03)
[2021-08-11] MEDS: oxyCODONE HCL 5 MG TABLET PO PRN (11:11)
[2021-08-11] MEDS: COLLAGENASE CLOSTRIDIUM HIST. 30 GRAMS TUBE TP SCH (13:55)
[2021-08-11] MEDS: MIRTAZAPINE 15 MG TABLET (FP) PO SCH (21:45)
[2021-08-12] MEDS: POTASSIUM CHLORIDE ORAL LIQUID 20 MEQ/15 ML PO SCH ×2 (10:49→21:46)
[2021-08-12] MEDS: AMINO ACIDS/PROTEIN HYDROLYS 30 ML LIQUID.PKT PO SCH ×3 (10:49→17:40)
[2021-08-12] MEDS: TORSEMIDE 20 MG TABLET (FP) PO SCH (10:51)
[2021-08-12] MEDS: ASCORBIC ACID 500 MG TABLET (FP) PO SCH (10:51)
[2021-08-12] MEDS: BUDESONIDE/FORMETEROL FUMARATE 80/4.5 mcg INHALER IH SCH ×2 (10:51→21:47)
[2021-08-12] MEDS: ZINC SULFATE 220 MG CAPSULE (FP) PO SCH (10:51)
[2021-08-12] MEDS: LEVOTHYROXINE NA 75 MCG TABLET (FP) PO SCH (10:51)
[2021-08-12] MEDS: MONTELUKAST NA 10 MG TABLET PO SCH (10:52)
[2021-08-12] MEDS: GABAPENTIN 100 MG CAPSULE PO SCH (10:52)
[2021-08-12] MEDS: POLYETHYLENE GLYCOL (HEALTHYLAX) 3350 17 GM PACKET PO SCH (10:52)
[2021-08-12] MEDS: MULTIVITAMINS (DAILY MVI) TABLET (FP) PO SCH (10:53)
[2021-08-12] MEDS: COLLAGENASE CLOSTRIDIUM HIST. 30 GRAMS TUBE TP SCH (13:00)
[2021-08-12] MEDS: ACETAMINOPHEN 325 MG TABLET (FP) PO PRN (17:38)
[2021-08-12] MEDS: MIRTAZAPINE 15 MG TABLET (FP) PO SCH (21:45)
[2021-08-13] MEDS: COLLAGENASE CLOSTRIDIUM HIST. 30 GRAMS TUBE TP SCH (09:33)
[2021-08-13] MEDS: BUDESONIDE/FORMETEROL FUMARATE 80/4.5 mcg INHALER IH SCH ×2 (09:33→22:09)
[2021-08-13] MEDS: POTASSIUM CHLORIDE ORAL LIQUID 20 MEQ/15 ML PO SCH ×2 (09:34→22:07)
[2021-08-13] MEDS: ASCORBIC ACID 500 MG TABLET (FP) PO SCH (09:34)
[2021-08-13] MEDS: ZINC SULFATE 220 MG CAPSULE (FP) PO SCH (09:34)
[2021-08-13] MEDS: AMINO ACIDS/PROTEIN HYDROLYS 30 ML LIQUID.PKT PO SCH ×3 (09:34→17:21)
[2021-08-13] MEDS: DIGOXIN 0.125 MG TABLET PO SCH (09:34)
[2021-08-13] MEDS: MULTIVITAMINS (DAILY MVI) TABLET (FP) PO SCH (09:34)
[2021-08-13] MEDS: GABAPENTIN 100 MG CAPSULE PO SCH ×2 (09:35→22:06)
[2021-08-13] MEDS: LEVOTHYROXINE NA 75 MCG TABLET (FP) PO SCH (09:36)
[2021-08-13] MEDS: TORSEMIDE 20 MG TABLET (FP) PO SCH (09:36)
[2021-08-13] MEDS: MONTELUKAST NA 10 MG TABLET PO SCH (09:36)
[2021-08-13] MEDS: POLYETHYLENE GLYCOL (HEALTHYLAX) 3350 17 GM PACKET PO SCH (09:49)
[2021-08-13] MEDS: MIRTAZAPINE 15 MG TABLET (FP) PO SCH (22:08)
[2021-08-14] MEDS: POTASSIUM CHLORIDE ORAL LIQUID 20 MEQ/15 ML PO SCH ×2 (10:13→21:12)
[2021-08-14] MEDS: GABAPENTIN 100 MG CAPSULE PO SCH ×2 (10:14→21:12)
[2021-08-14] MEDS: AMINO ACIDS/PROTEIN HYDROLYS 30 ML LIQUID.PKT PO SCH ×3 (10:15→17:42)
[2021-08-14] MEDS: POLYETHYLENE GLYCOL (HEALTHYLAX) 3350 17 GM PACKET PO SCH (10:15)
[2021-08-14] MEDS: ASCORBIC ACID 500 MG TABLET (FP) PO SCH (10:16)
[2021-08-14] MEDS: ZINC SULFATE 220 MG CAPSULE (FP) PO SCH (10:16)
[2021-08-14] MEDS: LEVOTHYROXINE NA 75 MCG TABLET (FP) PO SCH (10:16)
[2021-08-14] MEDS: MONTELUKAST NA 10 MG TABLET PO SCH (10:17)
[2021-08-14] MEDS: COLLAGENASE CLOSTRIDIUM HIST. 30 GRAMS TUBE TP SCH (10:17)
[2021-08-14] MEDS: MULTIVITAMINS (DAILY MVI) TABLET (FP) PO SCH (10:17)
[2021-08-14] MEDS: BUDESONIDE/FORMETEROL FUMARATE 80/4.5 mcg INHALER IH SCH ×2 (10:18→21:13)
[2021-08-14] MEDS: TORSEMIDE 20 MG TABLET (FP) PO SCH (12:54)
[2021-08-14] MEDS: MIRTAZAPINE 15 MG TABLET (FP) PO SCH (21:12)
[2021-08-15 08:28] LABS: BASO % 0.3 % (0-2.0); EOS % 1.9 % (0-4.5); HEMATOCRIT 25.5 % (35.4-49); HEMOGLOBIN 8.3 GM/dL (11.7-16.9); LYMPH % 15.7 % (8-40); MCHC 32.4 g/dl (32.0-35.9); MEAN CELL VOLUME 89.6 fl (80-96); MEAN PLT VOLUME 6.8 fl (7.5-11.1); MONO % 8.4 % (3.8-10.2); NEUT % 73.7 % (42.8-82.8); PLATELET COUNT 448 10^3/uL (134-434); RBC 2.85 M/mm3 (4.00-5.60); RDW 19.5 % (11.9-15.9); WHITE BLOOD COUNT 9.5 K/mm3 (4.0-10.0)
[2021-08-15 08:54] LABS: CALCIUM 8.8 mg/dL (8.5-10.1)
[2021-08-15 08:55] LABS: ALBUMIN 1.5 g/dl (3.4-5.0); BLOOD UREA NITROGEN 73.8 mg/dL (7-18)
[2021-08-15 08:59] LABS: CREATININE 0.9 mg/dL (0.55-1.3)
[2021-08-15 09:00] LABS: BILIRUBIN,TOTAL 0.5 mg/dL (0.2-1); TOT PROT 5.5 g/dl (6.4-8.2)
[2021-08-15] MEDS: DIGOXIN 0.125 MG TABLET PO SCH (10:39)
[2021-08-15] MEDS: POTASSIUM CHLORIDE ORAL LIQUID 20 MEQ/15 ML PO SCH (10:40)
[2021-08-15] MEDS: LEVOTHYROXINE NA 75 MCG TABLET (FP) PO SCH (10:40)
[2021-08-15] MEDS: AMINO ACIDS/PROTEIN HYDROLYS 30 ML LIQUID.PKT PO SCH ×2 (10:40→11:08)
[2021-08-15] MEDS: GABAPENTIN 100 MG CAPSULE PO SCH ×2 (10:40→22:31)
[2021-08-15] MEDS: ASCORBIC ACID 500 MG TABLET (FP) PO SCH (10:40)
[2021-08-15] MEDS: MONTELUKAST NA 10 MG TABLET PO SCH (10:40)
[2021-08-15] MEDS: MULTIVITAMINS (DAILY MVI) TABLET (FP) PO SCH (10:40)
[2021-08-15] MEDS: COLLAGENASE CLOSTRIDIUM HIST. 30 GRAMS TUBE TP SCH (10:40)
[2021-08-15] MEDS: ZINC SULFATE 220 MG CAPSULE (FP) PO SCH (10:41)
[2021-08-15] MEDS: POLYETHYLENE GLYCOL (HEALTHYLAX) 3350 17 GM PACKET PO SCH (10:41)
[2021-08-15] MEDS: BUDESONIDE/FORMETEROL FUMARATE 80/4.5 mcg INHALER IH SCH (10:41)
[2021-08-15] MEDS: TORSEMIDE 20 MG TABLET (FP) PO SCH (14:16)
[2021-08-15] MEDS ORDERED: TORSEMIDE 20 MG TABLET (FP) PO SCH (15:44)
[2021-08-15] MEDS ORDERED: MIRTAZAPINE 15 MG TABLET (FP) PO SCH (22:00)
[2021-08-15] MEDS ORDERED: ACETAMINOPHEN 325 MG TABLET (FP) PO PRN (22:11)
[2021-08-15] MEDS ORDERED: ALBUTEROL SO4 2.5/IPRATROPIUM 0.5 INH SOL 3 ML VIAL.NEB. NEB PRN (22:11)
[2021-08-16] MEDS: GABAPENTIN 100 MG CAPSULE PO SCH ×3 (03:05→22:05)
[2021-08-16] MEDS: BUDESONIDE/FORMETEROL FUMARATE 80/4.5 mcg INHALER IH SCH ×3 (03:06→22:06)
[2021-08-16] MEDS: AMINO ACIDS/PROTEIN HYDROLYS 30 ML LIQUID.PKT PO SCH ×4 (03:06→17:31)
[2021-08-16] MEDS: MIRTAZAPINE 15 MG TABLET (FP) PO SCH (03:06)
[2021-08-16] MEDS: POTASSIUM CHLORIDE ORAL LIQUID 20 MEQ/15 ML PO SCH ×3 (03:06→22:05)
[2021-08-16] MEDS: LEVOTHYROXINE NA 75 MCG TABLET (FP) PO SCH (06:07)
[2021-08-16] MEDS: MONTELUKAST NA 10 MG TABLET PO SCH (09:37)
[2021-08-16] MEDS: ASCORBIC ACID 500 MG TABLET (FP) PO SCH (09:37)
[2021-08-16] MEDS: MULTIVITAMINS (DAILY MVI) TABLET (FP) PO SCH (09:38)
[2021-08-16] MEDS: TORSEMIDE 10 MG TABLET PO SCH (09:39)
[2021-08-16] MEDS: POLYETHYLENE GLYCOL (HEALTHYLAX) 3350 17 GM PACKET PO SCH (09:40)
[2021-08-16] MEDS: COLLAGENASE CLOSTRIDIUM HIST. 30 GRAMS TUBE TP SCH (09:40)
[2021-08-16] MEDS ORDERED: ZINC SULFATE 220 MG CAPSULE (FP) PO SCH (10:00)
[2021-08-16] MEDS ORDERED: GABAPENTIN 100 MG CAPSULE PO SCH (10:00)
[2021-08-16 10:09] LABS: BLOOD UREA NITROGEN 65.7 mg/dL (7-18); CALCIUM 8.8 mg/dL (8.5-10.1)
[2021-08-16 10:14] LABS: CREATININE 0.9 mg/dL (0.55-1.3)
[2021-08-16] MEDS ORDERED: MIRTAZAPINE 15 MG TABLET (FP) PO SCH (22:00)
[2021-08-17] MEDS: LEVOTHYROXINE NA 75 MCG TABLET (FP) PO SCH (06:15)
[2021-08-17] MEDS: DIGOXIN 0.125 MG TABLET PO SCH (09:32)
[2021-08-17] MEDS: TORSEMIDE 10 MG TABLET PO SCH (09:32)
[2021-08-17] MEDS: MULTIVITAMINS (DAILY MVI) TABLET (FP) PO SCH (09:32)
[2021-08-17] MEDS: POTASSIUM CHLORIDE ORAL LIQUID 20 MEQ/15 ML PO SCH ×2 (09:32→21:30)
[2021-08-17] MEDS: ASCORBIC ACID 500 MG TABLET (FP) PO SCH (09:33)
[2021-08-17] MEDS: MONTELUKAST NA 10 MG TABLET PO SCH (09:33)
[2021-08-17] MEDS: GABAPENTIN 100 MG CAPSULE PO SCH ×2 (09:33→21:30)
[2021-08-17] MEDS: POLYETHYLENE GLYCOL (HEALTHYLAX) 3350 17 GM PACKET PO SCH (09:34)
[2021-08-17] MEDS: AMINO ACIDS/PROTEIN HYDROLYS 30 ML LIQUID.PKT PO SCH ×3 (09:34→18:14)
[2021-08-17] MEDS: BUDESONIDE/FORMETEROL FUMARATE 80/4.5 mcg INHALER IH SCH ×2 (09:41→21:30)
[2021-08-17] MEDS: COLLAGENASE CLOSTRIDIUM HIST. 30 GRAMS TUBE TP SCH ×2 (15:48)
[2021-08-18] MEDS: LEVOTHYROXINE NA 75 MCG TABLET (FP) PO SCH (06:02)
[2021-08-18] MEDS: AMINO ACIDS/PROTEIN HYDROLYS 30 ML LIQUID.PKT PO SCH ×3 (08:47→17:38)
[2021-08-18] MEDS: TORSEMIDE 10 MG TABLET PO SCH (09:22)
[2021-08-18] MEDS: ASCORBIC ACID 500 MG TABLET (FP) PO SCH (09:22)
[2021-08-18] MEDS: MONTELUKAST NA 10 MG TABLET PO SCH (09:22)
[2021-08-18] MEDS: MULTIVITAMINS (DAILY MVI) TABLET (FP) PO SCH (09:22)
[2021-08-18] MEDS: GABAPENTIN 100 MG CAPSULE PO SCH ×2 (09:22→22:18)
[2021-08-18] MEDS: POTASSIUM CHLORIDE ORAL LIQUID 20 MEQ/15 ML PO SCH ×2 (09:22→22:18)
[2021-08-18] MEDS: POLYETHYLENE GLYCOL (HEALTHYLAX) 3350 17 GM PACKET PO SCH (09:23)
[2021-08-18] MEDS: BUDESONIDE/FORMETEROL FUMARATE 80/4.5 mcg INHALER IH SCH ×2 (09:23→22:19)
[2021-08-18] MEDS: COLLAGENASE CLOSTRIDIUM HIST. 30 GRAMS TUBE TP SCH (15:15)
[2021-08-19] MEDS: LEVOTHYROXINE NA 75 MCG TABLET (FP) PO SCH (06:10)
[2021-08-19] MEDS: AMINO ACIDS/PROTEIN HYDROLYS 30 ML LIQUID.PKT PO SCH ×2 (08:35→12:18)
[2021-08-19] MEDS: DIGOXIN 0.125 MG TABLET PO SCH (09:16)
[2021-08-19] MEDS: POLYETHYLENE GLYCOL (HEALTHYLAX) 3350 17 GM PACKET PO SCH (12:16)
[2021-08-19] MEDS: TORSEMIDE 10 MG TABLET PO SCH (12:16)
[2021-08-19] MEDS: MULTIVITAMINS (DAILY MVI) TABLET (FP) PO SCH (12:17)
[2021-08-19] MEDS: BUDESONIDE/FORMETEROL FUMARATE 80/4.5 mcg INHALER IH SCH (12:17)
[2021-08-19] MEDS: MONTELUKAST NA 10 MG TABLET PO SCH (12:17)
[2021-08-19] MEDS: POTASSIUM CHLORIDE ORAL LIQUID 20 MEQ/15 ML PO SCH (12:17)
[2021-08-19] MEDS: GABAPENTIN 100 MG CAPSULE PO SCH (12:17)
[2021-08-19] MEDS: ASCORBIC ACID 500 MG TABLET (FP) PO SCH (12:18)
[2021-08-19 13:30] VITALS: BP 97/44; PULSE 88; TEMP 99.8
== END 2021-08-19 15:47 | disposition expired | DRG 291 ==
LOC: JER 10:05 → JERBED 11:04 → JICU 21:57 → J4W 08-10 01:39 → J5S 08-15 21:07
PROVIDERS: ADMIT Internal Medicine Pulmonary Disease; ATTEND Family Medicine
DX: I11.0 Hypertensive heart disease with heart failure (principal); A41.89 Other specified sepsis; L89.154 Pressure ulcer of sacral region, stage 4; J96.01 Acute respiratory failure with hypoxia; J96.02 Acute respiratory failure with hypercapnia; R65.21 Severe sepsis with septic shock; I50.23 Acute on chronic systolic (congestive) heart failure; M46.28 Osteomyelitis of vertebra, sacral and sacrococcygeal region; I31.3 Pericardial effusion (noninflammatory); I24.8 Other forms of acute ischemic heart disease; E44.0 Moderate protein-calorie malnutrition; J98.11 Atelectasis; I25.10 Atherosclerotic heart disease of native coronary artery without angina pectoris; I48.91 Unspecified atrial fibrillation; N40.0 Benign prostatic hyperplasia without lower urinary tract symptoms; J44.9 Chronic obstructive pulmonary disease, unspecified; F41.9 Anxiety disorder, unspecified; E03.9 Hypothyroidism, unspecified; J45.909 Unspecified asthma, uncomplicated; L89.312 Pressure ulcer of right buttock, stage 2; L89.626 Pressure-induced deep tissue damage of left heel; G47.33 Obstructive sleep apnea (adult) (pediatric); E87.6 Hypokalemia; I44.7 Left bundle-branch block, unspecified; R94.5 Abnormal results of liver function studies; L89.321 Pressure ulcer of left buttock, stage 1; L89.311 Pressure ulcer of right buttock, stage 1; L89.891 Pressure ulcer of other site, stage 1; I95.9 Hypotension, unspecified; Z68.28 Body mass index [BMI] 28.0-28.9, adult; Z66 Do not resuscitate
CPT/HCPCS: 36415; 36600; 71045-TC-FY; 74176-TC; 80048; 80053; 80162; 81003; 82272; 82550; 82553; 82803; 82962; 83605; 83735; 84100; 84484; 85025; 85027; 85610; 85730; 86850; 86900; 86901; 87040; 87086; 87804; 93005; 93010; 93306-TC; 94660; 99285-25; C9803-CS; U0003; U0005